=== PATIENT | male | born 1970 | race African-American/Black ===

== ENCOUNTER 2016-05-10 11:33 | Inpatient (IN) | payer OTHER ==
[2016-05-10 12:20] VITALS: BMI 30.7
--- NOTE | 2016-05-10 12:47 | HP ---
Psychiatrist Admission - Data Date of interview: 05/10/16 Admission source: 6N Identifying data: This is the first [facility] admission for this 45 years old single Black male, unemployed on SSI, domiciled Medical History: Significant for history of bronchial asthma and hypertension. Patient attends [facility] and he is on 70 mg of Methadone. Smokes 1ppd Psychiatric History: Reports onset of metal illness at age 24. He was diagnosed with Schizoaffective Disorder . Reports 3 previous psychiatric hospitalions at [facility] and [facility] with most recent in 2013 at [facility]. Reports seeing a psychiatrist at [facility] and he is prescribed Seroquel 50 mg daily & 100 mg HS. Denies history of suicidal attempt Physical/Sexual Abuse/Trauma History: Denies history of physical, sexual abuse Vital Signs: Vital Signs - 24 hr 05/10/16 12:02 Temperature 97.6 F Pulse Rate 82 Respiratory 18 Rate Blood Pressure 137/86 Allergies/Adverse Reactions: Allergies Allergy/AdvReac Type Severity Reaction Status Date / Time No Known Allergies Allergy Verified 05/10/16 11:49 Date of last physical exam: 05/06/16 Concur with the findings of this exam: Yes - Substance Abuse/Tx History Hx Alcohol Use: Yes Hx Substance Use: Yes Substance Use Type: Alcohol (Started drinking alcohol at age 34, consumes one pint of vodka & 2x 6pk of beer daily. Last drink on 05/05/16), Tranquilizers ( Started using xanax at age 44, consumes 8 mg daily. Last used on 05/05/16) Hx Substance Use Treatment: Yes (5 previous inpt detox @ [facility]) - Admission Criteria Previous failed treatment: No Poor recovery environment: Yes Comorbidities: Yes Lacks judgement: Yes Mental Status Exam - Mental Status Exam Alert and Oriented to: Time, Place, Person Cognitive Function: Fair Patient Appearance: Well Groomed Mood: Hopeful, Euthymic Affect: Appropriate Patient Behavior: Asleep, Cooperative Speech Pattern: Clear Voice Loudness: Normal Thought Process: Intact Thought Disorder: Not Present Hallucinations: Denies Suicidal Ideation: Denies Homicidal Ideation: Denies Insight/Judgement: Fair Sleep: Fair Appetite: Good Muscle strength/Tone: Normal Gait/Station: Normal Psychiatric Findings - Problem List ([place] 1, 2,3) (1) Alcohol dependence with uncomplicated withdrawal Current Visit: No Status: Chronic (2) Sedative dependence Current Visit: Yes Status: Acute (3) Nicotine dependence Current Visit: No Status: Chronic Qualifiers: Nicotine product type: cigarettes Substance use status: uncomplicated Qualified Code(s): F17.210 - Nicotine dependence, cigarettes, uncomplicated (4) Opioid dependence on agonist therapy Current Visit: No Status: Chronic (5) Schizoaffective disorder Current Visit: No Status: Acute (6) Asthma Current Visit: No Status: Chronic Qualifiers: Asthma severity: mild intermittent Asthma complication type: uncomplicated Qualified Code(s): J45.20 - Mild intermittent asthma, uncomplicated (7) HTN (hypertension) Current Visit: No Status: Chronic Qualifiers: Hypertension type: essential hypertension - Initial Treatment Plan Initial Treatment Plan: 1) Continue Seroquel 50 mg daily & 100 mg HS. 2) Monitor progress
--- NOTE | 2016-05-10 16:14 | HP ---
ERIN OSMAN Rehab Assess/Revision - Admission History Admitted to Rehab from: [facility] Date of Admission to Rehab: 05/10/16 - Vital signs Vital Signs: Vital Signs Period Temp Pulse Resp BP Sys/Bellamy Pulse Ox Last 24 Hr 97.6 F 82 18 137/86 - Findings Detox History & Physical reviewed: Yes Concur with findings: Yes Comments/Additional Findings: transferred from detox to rehab admission as per protocol
[2016-05-10] MEDS ORDERED: MAGNESIUM HYDROX 2400MG/30ML ORAL SUSPENSION 30 ML CUP PO PRN (16:15)
[2016-05-10] MEDS ORDERED: MAG HYDROX/AL HYDROX/SIMETH 30 ML UNIT-DOSE CUP PO PRN (16:15)
[2016-05-10] MEDS ORDERED: P-EPHED 60MG/TRIPROLIDI 2.5MG TABLET PO PRN (16:15)
[2016-05-10] MEDS ORDERED: MENTHOL/PHENOL 1 EACH UD MM PRN (16:15)
[2016-05-10] MEDS ORDERED: diphenhydrAMINE HCL 50 MG CAPSULE PO PRN (16:15)
[2016-05-10] MEDS ORDERED: MAGNESIUM CITRATE 300 ML BOTTLE PO PRN (16:15)
[2016-05-10] MEDS ORDERED: LOPERAMIDE HCL 2 MG CAPSULE PO PRN (16:15)
[2016-05-10] MEDS ORDERED: NICOTINE POLACRILEX 2 MG GUM BUC PRN (16:15)
[2016-05-10] MEDS ORDERED: ALBUTEROL SO4 6.7 GM HFA INHALER IH PRN (16:15)
[2016-05-10] MEDS ORDERED: ACETAMINOPHEN 325 MG TABLET (FP) PO PRN (16:15)
[2016-05-10] MEDS ORDERED: guaiFENesin/D-METHORPHAN HB 10 ML UNIT-DOSE CUPS PO PRN (16:15)
[2016-05-10] MEDS ORDERED: hydrOXYzine PAMOATE 50 MG CAPSULE (FP) PO PRN (16:15)
[2016-05-10] MEDS ORDERED: NICOTINE 14 MG/24 HOURS TOPICAL PATCH TD PRN (16:44)
[2016-05-10] MEDS ORDERED: INSULIN (NOVOLOG) ASPART 100 UNITS/ML 10ML VIAL ONE (16:59)
[2016-05-10] MEDS: metFORMIN HCL 500 MG TABLET (FP) PO SCH (16:59)
[2016-05-10] MEDS: INSULIN SLIDING SCALE (NOVOLOG) 1 VIAL SQ SCH ×2 (17:01→23:17)
[2016-05-10] MEDS: THIAMINE HCL 100 MG TABLET (FP) PO SCH (23:18)
[2016-05-10] MEDS: QUEtiapine FUMARATE 100 MG TABLET (FP) PO SCH (23:18)
[2016-05-11] MEDS ORDERED: METHADONE HCL 10 MG TABLET ONE (04:03)
[2016-05-11] MEDS ORDERED: METHADONE HCL 40 MG DISPERSABLE TABLET ONE (04:04)
[2016-05-11] MEDS ORDERED: METHADONE HCL 10 MG TABLET PO SCH (06:00)
[2016-05-11] MEDS: METHADONE 80 MG, METHADONE 20 MG PO SCH (06:09)
[2016-05-11] MEDS ORDERED: INSULIN (NOVOLOG) ASPART 100 UNITS/ML 10ML VIAL ONE ×2 (06:45→16:42)
[2016-05-11] MEDS: metFORMIN HCL 500 MG TABLET (FP) PO SCH ×2 (07:44→16:42)
[2016-05-11] MEDS: INSULIN SLIDING SCALE (NOVOLOG) 1 VIAL SQ SCH ×4 (07:44→21:38)
[2016-05-11] MEDS: QUEtiapine FUMARATE 50 MG TABLET PO SCH (10:23)
[2016-05-11] MEDS: PRENATAL VITAMINS W/ FOLIC ACID TABLET (FP) PO SCH (10:24)
[2016-05-11] MEDS: QUEtiapine FUMARATE 100 MG TABLET (FP) PO SCH (21:35)
[2016-05-11] MEDS: THIAMINE HCL 100 MG TABLET (FP) PO SCH (21:35)
[2016-05-12] MEDS ORDERED: METHADONE HCL 10 MG TABLET ONE (04:08)
[2016-05-12] MEDS ORDERED: METHADONE HCL 40 MG DISPERSABLE TABLET ONE (04:08)
[2016-05-12] MEDS: METHADONE 80 MG, METHADONE 20 MG PO SCH (06:20)
[2016-05-12] MEDS ORDERED: INSULIN (NOVOLOG) ASPART 100 UNITS/ML 10ML VIAL ONE ×4 (07:11→22:11)
[2016-05-12] MEDS: INSULIN SLIDING SCALE (NOVOLOG) 1 VIAL SQ SCH ×4 (07:42→22:11)
[2016-05-12] MEDS: metFORMIN HCL 500 MG TABLET (FP) PO SCH ×2 (07:42→17:09)
[2016-05-12] MEDS: QUEtiapine FUMARATE 50 MG TABLET PO SCH (10:25)
[2016-05-12] MEDS: PRENATAL VITAMINS W/ FOLIC ACID TABLET (FP) PO SCH (10:25)
[2016-05-12] MEDS: THIAMINE HCL 100 MG TABLET (FP) PO SCH (22:12)
[2016-05-12] MEDS: QUEtiapine FUMARATE 100 MG TABLET (FP) PO SCH (22:12)
[2016-05-13] MEDS ORDERED: METHADONE HCL 10 MG TABLET ONE (04:52)
[2016-05-13] MEDS ORDERED: METHADONE HCL 40 MG DISPERSABLE TABLET ONE (04:52)
[2016-05-13] MEDS: METHADONE 80 MG, METHADONE 20 MG PO SCH (06:34)
[2016-05-13] MEDS: metFORMIN HCL 500 MG TABLET (FP) PO SCH ×2 (06:36→16:55)
[2016-05-13] MEDS: INSULIN SLIDING SCALE (NOVOLOG) 1 VIAL SQ SCH ×4 (07:31→22:02)
[2016-05-13] MEDS: QUEtiapine FUMARATE 50 MG TABLET PO SCH (10:34)
[2016-05-13] MEDS: PRENATAL VITAMINS W/ FOLIC ACID TABLET (FP) PO SCH (10:35)
[2016-05-13] MEDS ORDERED: INSULIN (NOVOLOG) ASPART 100 UNITS/ML 10ML VIAL ONE ×2 (16:55→22:01)
[2016-05-13] MEDS: THIAMINE HCL 100 MG TABLET (FP) PO SCH (22:01)
[2016-05-13] MEDS: QUEtiapine FUMARATE 100 MG TABLET (FP) PO SCH (22:01)
[2016-05-14] MEDS ORDERED: METHADONE HCL 40 MG DISPERSABLE TABLET ONE (03:19)
[2016-05-14] MEDS ORDERED: METHADONE HCL 10 MG TABLET ONE (03:19)
[2016-05-14] MEDS: METHADONE 80 MG, METHADONE 20 MG PO SCH (06:16)
[2016-05-14] MEDS: metFORMIN HCL 500 MG TABLET (FP) PO SCH ×2 (06:16→17:17)
[2016-05-14] MEDS: INSULIN SLIDING SCALE (NOVOLOG) 1 VIAL SQ SCH ×4 (06:20→22:00)
[2016-05-14] MEDS: PRENATAL VITAMINS W/ FOLIC ACID TABLET (FP) PO SCH (10:19)
[2016-05-14] MEDS: QUEtiapine FUMARATE 50 MG TABLET PO SCH (10:19)
[2016-05-14] MEDS ORDERED: INSULIN (NOVOLOG) ASPART 100 UNITS/ML 10ML VIAL ONE ×3 (11:36→22:00)
[2016-05-14] MEDS: THIAMINE HCL 100 MG TABLET (FP) PO SCH (21:58)
[2016-05-14] MEDS: QUEtiapine FUMARATE 100 MG TABLET (FP) PO SCH (22:01)
[2016-05-15] MEDS ORDERED: METHADONE HCL 10 MG TABLET ONE (04:29)
[2016-05-15] MEDS ORDERED: METHADONE HCL 40 MG DISPERSABLE TABLET ONE (04:29)
[2016-05-15] MEDS: METHADONE 80 MG, METHADONE 20 MG PO SCH (05:56)
[2016-05-15] MEDS: metFORMIN HCL 500 MG TABLET (FP) PO SCH ×2 (07:38→17:07)
[2016-05-15] MEDS ORDERED: INSULIN (NOVOLOG) ASPART 100 UNITS/ML 10ML VIAL ONE ×2 (07:38→12:05)
[2016-05-15] MEDS: INSULIN SLIDING SCALE (NOVOLOG) 1 VIAL SQ SCH ×4 (07:38→22:08)
[2016-05-15] MEDS: PRENATAL VITAMINS W/ FOLIC ACID TABLET (FP) PO SCH (10:41)
[2016-05-15] MEDS: QUEtiapine FUMARATE 50 MG TABLET PO SCH (10:42)
[2016-05-15] MEDS: QUEtiapine FUMARATE 100 MG TABLET (FP) PO SCH (22:08)
[2016-05-15] MEDS: THIAMINE HCL 100 MG TABLET (FP) PO SCH (22:08)
[2016-05-16] MEDS ORDERED: METHADONE HCL 10 MG TABLET ONE (04:19)
[2016-05-16] MEDS ORDERED: METHADONE HCL 40 MG DISPERSABLE TABLET ONE (04:19)
[2016-05-16] MEDS: IBUPROFEN 400 MG TABLET (FP) PO PRN ×2 (05:52→13:08)
[2016-05-16] MEDS: METHADONE 80 MG, METHADONE 20 MG PO SCH (05:52)
[2016-05-16] MEDS ORDERED: INSULIN (NOVOLOG) ASPART 100 UNITS/ML 10ML VIAL ONE ×3 (07:28→16:48)
[2016-05-16] MEDS: INSULIN SLIDING SCALE (NOVOLOG) 1 VIAL SQ SCH ×4 (07:35→21:36)
[2016-05-16] MEDS: metFORMIN HCL 500 MG TABLET (FP) PO SCH ×2 (07:35→16:49)
[2016-05-16] MEDS ORDERED: cloNIDine HCL 0.1 MG TABLET PO PRN (07:39)
--- NOTE | 2016-05-16 07:40 | PN ---
B[facility] Progress Note Note: Last Vital Signs Temp Pulse Resp BP Pulse Ox 98.1 F 84 18 160/106 05/16/16 06:49 05/16/16 07:35 05/16/16 06:49 05/16/16 07:35 BP ELEVATED CLONIDINE 0.1MG PO TID PRN ORDRED WILL CONTINUE TO MONITOR.
[2016-05-16] MEDS: PRENATAL VITAMINS W/ FOLIC ACID TABLET (FP) PO SCH (10:14)
[2016-05-16] MEDS: QUEtiapine FUMARATE 50 MG TABLET PO SCH (10:14)
[2016-05-16] MEDS ORDERED: TRIAMTERENE AND HCTZ - 37.5 MG/25 MG CAPSULE PO ONE (13:52)
[2016-05-16] MEDS: THIAMINE HCL 100 MG TABLET (FP) PO SCH (21:34)
[2016-05-16] MEDS: QUEtiapine FUMARATE 100 MG TABLET (FP) PO SCH (21:34)
[2016-05-16] MEDS: cloNIDine HCL 0.1 MG TABLET PO SCH (21:34)
[2016-05-17] MEDS ORDERED: METHADONE HCL 10 MG TABLET ONE (04:06)
[2016-05-17] MEDS ORDERED: METHADONE HCL 40 MG DISPERSABLE TABLET ONE (04:06)
[2016-05-17] MEDS: METHADONE 80 MG, METHADONE 20 MG PO SCH (05:56)
[2016-05-17] MEDS: metFORMIN HCL 500 MG TABLET (FP) PO SCH ×2 (07:35→17:01)
[2016-05-17] MEDS: INSULIN SLIDING SCALE (NOVOLOG) 1 VIAL SQ SCH ×4 (07:36→21:07)
[2016-05-17] MEDS: TRIAMTERENE AND HCTZ - 37.5 MG/25 MG CAPSULE PO SCH (10:20)
[2016-05-17] MEDS: cloNIDine HCL 0.1 MG TABLET PO SCH ×2 (10:20→21:36)
[2016-05-17] MEDS: QUEtiapine FUMARATE 50 MG TABLET PO SCH (10:20)
[2016-05-17] MEDS: PRENATAL VITAMINS W/ FOLIC ACID TABLET (FP) PO SCH (10:20)
[2016-05-17] MEDS ORDERED: INSULIN (NOVOLOG) ASPART 100 UNITS/ML 10ML VIAL ONE (11:52)
[2016-05-17] MEDS: QUEtiapine FUMARATE 100 MG TABLET (FP) PO SCH (21:08)
[2016-05-17] MEDS: THIAMINE HCL 100 MG TABLET (FP) PO SCH (21:08)
[2016-05-18] MEDS ORDERED: METHADONE HCL 40 MG DISPERSABLE TABLET ONE (05:36)
[2016-05-18] MEDS ORDERED: METHADONE HCL 10 MG TABLET ONE (05:36)
[2016-05-18] MEDS: METHADONE 80 MG, METHADONE 20 MG PO SCH (05:49)
[2016-05-18] MEDS: metFORMIN HCL 500 MG TABLET (FP) PO SCH ×2 (06:39→17:07)
[2016-05-18] MEDS: INSULIN SLIDING SCALE (NOVOLOG) 1 VIAL SQ SCH ×4 (06:39→22:05)
[2016-05-18] MEDS: QUEtiapine FUMARATE 50 MG TABLET PO SCH (10:29)
[2016-05-18] MEDS: cloNIDine HCL 0.1 MG TABLET PO SCH ×2 (10:29→21:18)
[2016-05-18] MEDS: TRIAMTERENE AND HCTZ - 37.5 MG/25 MG CAPSULE PO SCH (10:29)
[2016-05-18] MEDS: PRENATAL VITAMINS W/ FOLIC ACID TABLET (FP) PO SCH (10:29)
[2016-05-18] MEDS ORDERED: INSULIN (NOVOLOG) ASPART 100 UNITS/ML 10ML VIAL ONE ×2 (11:25→17:07)
[2016-05-18] MEDS: QUEtiapine FUMARATE 100 MG TABLET (FP) PO SCH (21:18)
[2016-05-18] MEDS: THIAMINE HCL 100 MG TABLET (FP) PO SCH (21:18)
[2016-05-19] MEDS ORDERED: METHADONE HCL 10 MG TABLET ONE (04:19)
[2016-05-19] MEDS ORDERED: METHADONE HCL 40 MG DISPERSABLE TABLET ONE (04:19)
[2016-05-19] MEDS: metFORMIN HCL 500 MG TABLET (FP) PO SCH ×2 (06:12→17:01)
[2016-05-19] MEDS: METHADONE 80 MG, METHADONE 20 MG PO SCH (06:12)
[2016-05-19] MEDS: INSULIN SLIDING SCALE (NOVOLOG) 1 VIAL SQ SCH ×4 (06:16→21:18)
[2016-05-19] MEDS: TRIAMTERENE AND HCTZ - 37.5 MG/25 MG CAPSULE PO SCH (10:21)
[2016-05-19] MEDS: cloNIDine HCL 0.1 MG TABLET PO SCH ×2 (10:21→21:18)
[2016-05-19] MEDS: QUEtiapine FUMARATE 50 MG TABLET PO SCH (10:21)
[2016-05-19] MEDS: PRENATAL VITAMINS W/ FOLIC ACID TABLET (FP) PO SCH (10:21)
[2016-05-19] MEDS ORDERED: INSULIN (NOVOLOG) ASPART 100 UNITS/ML 10ML VIAL ONE (11:20)
[2016-05-19] MEDS: QUEtiapine FUMARATE 100 MG TABLET (FP) PO SCH (21:18)
[2016-05-19] MEDS: THIAMINE HCL 100 MG TABLET (FP) PO SCH (21:18)
[2016-05-20] MEDS ORDERED: METHADONE HCL 10 MG TABLET ONE (05:47)
[2016-05-20] MEDS ORDERED: METHADONE HCL 40 MG DISPERSABLE TABLET ONE (05:47)
[2016-05-20] MEDS: METHADONE 80 MG, METHADONE 20 MG PO SCH (06:06)
[2016-05-20] MEDS: metFORMIN HCL 500 MG TABLET (FP) PO SCH ×2 (06:06→16:43)
[2016-05-20] MEDS: INSULIN SLIDING SCALE (NOVOLOG) 1 VIAL SQ SCH ×4 (06:10→21:17)
[2016-05-20] MEDS: QUEtiapine FUMARATE 50 MG TABLET PO SCH (10:31)
[2016-05-20] MEDS: TRIAMTERENE AND HCTZ - 37.5 MG/25 MG CAPSULE PO SCH (10:31)
[2016-05-20] MEDS: cloNIDine HCL 0.1 MG TABLET PO SCH ×2 (10:31→21:17)
[2016-05-20] MEDS: PRENATAL VITAMINS W/ FOLIC ACID TABLET (FP) PO SCH (10:31)
[2016-05-20] MEDS ORDERED: INSULIN (NOVOLOG) ASPART 100 UNITS/ML 10ML VIAL ONE (11:28)
[2016-05-20] MEDS: THIAMINE HCL 100 MG TABLET (FP) PO SCH (21:17)
[2016-05-20] MEDS: QUEtiapine FUMARATE 100 MG TABLET (FP) PO SCH (21:17)
[2016-05-21] MEDS ORDERED: METHADONE HCL 40 MG DISPERSABLE TABLET ONE (05:06)
[2016-05-21] MEDS ORDERED: METHADONE HCL 10 MG TABLET ONE (05:06)
[2016-05-21] MEDS: METHADONE 80 MG, METHADONE 20 MG PO SCH (05:57)
[2016-05-21] MEDS: metFORMIN HCL 500 MG TABLET (FP) PO SCH ×2 (06:00→16:50)
[2016-05-21] MEDS: INSULIN SLIDING SCALE (NOVOLOG) 1 VIAL SQ SCH ×4 (06:00→21:40)
[2016-05-21] MEDS: TRIAMTERENE AND HCTZ - 37.5 MG/25 MG CAPSULE PO SCH (10:25)
[2016-05-21] MEDS: cloNIDine HCL 0.1 MG TABLET PO SCH ×2 (10:25→21:41)
[2016-05-21] MEDS: QUEtiapine FUMARATE 50 MG TABLET PO SCH (10:25)
[2016-05-21] MEDS: PRENATAL VITAMINS W/ FOLIC ACID TABLET (FP) PO SCH (10:25)
[2016-05-21] MEDS ORDERED: INSULIN (NOVOLOG) ASPART 100 UNITS/ML 10ML VIAL ONE (11:18)
[2016-05-21] MEDS: THIAMINE HCL 100 MG TABLET (FP) PO SCH (21:40)
[2016-05-21] MEDS: QUEtiapine FUMARATE 100 MG TABLET (FP) PO SCH (21:40)
[2016-05-22] MEDS ORDERED: METHADONE HCL 10 MG TABLET ONE (04:21)
[2016-05-22] MEDS ORDERED: METHADONE HCL 40 MG DISPERSABLE TABLET ONE (04:21)
[2016-05-22] MEDS: METHADONE 80 MG, METHADONE 20 MG PO SCH (06:16)
[2016-05-22] MEDS: metFORMIN HCL 500 MG TABLET (FP) PO SCH ×2 (06:17→16:51)
[2016-05-22] MEDS: INSULIN SLIDING SCALE (NOVOLOG) 1 VIAL SQ SCH ×4 (06:19→21:45)
[2016-05-22] MEDS: cloNIDine HCL 0.1 MG TABLET PO SCH ×2 (09:46→21:44)
[2016-05-22] MEDS: QUEtiapine FUMARATE 50 MG TABLET PO SCH (09:46)
[2016-05-22] MEDS: PRENATAL VITAMINS W/ FOLIC ACID TABLET (FP) PO SCH (09:46)
[2016-05-22] MEDS: TRIAMTERENE AND HCTZ - 37.5 MG/25 MG CAPSULE PO SCH (09:46)
[2016-05-22] MEDS ORDERED: INSULIN (NOVOLOG) ASPART 100 UNITS/ML 10ML VIAL ONE (11:53)
[2016-05-22] MEDS: THIAMINE HCL 100 MG TABLET (FP) PO SCH (21:44)
[2016-05-22] MEDS: QUEtiapine FUMARATE 100 MG TABLET (FP) PO SCH (21:44)
[2016-05-23] MEDS ORDERED: METHADONE HCL 40 MG DISPERSABLE TABLET ONE (05:38)
[2016-05-23] MEDS ORDERED: METHADONE HCL 10 MG TABLET ONE (05:38)
[2016-05-23] MEDS ORDERED: METHADONE HCL 40 MG DISPERSABLE TABLET PO SCH (06:00)
[2016-05-23] MEDS: METHADONE 80 MG, METHADONE 20 MG PO SCH (06:18)
[2016-05-23] MEDS: metFORMIN HCL 500 MG TABLET (FP) PO SCH ×2 (06:19→16:38)
[2016-05-23] MEDS: INSULIN SLIDING SCALE (NOVOLOG) 1 VIAL SQ SCH ×4 (06:46→21:46)
[2016-05-23] MEDS: PRENATAL VITAMINS W/ FOLIC ACID TABLET (FP) PO SCH (10:34)
[2016-05-23] MEDS: QUEtiapine FUMARATE 50 MG TABLET PO SCH (10:34)
[2016-05-23] MEDS: cloNIDine HCL 0.1 MG TABLET PO SCH ×2 (10:34→21:45)
[2016-05-23] MEDS: TRIAMTERENE AND HCTZ - 37.5 MG/25 MG CAPSULE PO SCH (10:35)
[2016-05-23] MEDS ORDERED: INSULIN (NOVOLOG) ASPART 100 UNITS/ML 10ML VIAL ONE ×2 (10:52→21:45)
[2016-05-23] MEDS: IBUPROFEN 400 MG TABLET (FP) PO PRN (17:53)
[2016-05-23] MEDS: QUEtiapine FUMARATE 100 MG TABLET (FP) PO SCH (21:45)
[2016-05-23] MEDS: THIAMINE HCL 100 MG TABLET (FP) PO SCH (21:45)
[2016-05-24] MEDS ORDERED: METHADONE HCL 40 MG DISPERSABLE TABLET ONE (04:40)
[2016-05-24] MEDS ORDERED: METHADONE HCL 10 MG TABLET ONE (04:40)
[2016-05-24] MEDS: METHADONE 80 MG, METHADONE 20 MG PO SCH (06:06)
[2016-05-24] MEDS: INSULIN SLIDING SCALE (NOVOLOG) 1 VIAL SQ SCH ×4 (07:45→22:06)
[2016-05-24] MEDS: metFORMIN HCL 500 MG TABLET (FP) PO SCH ×2 (07:45→16:48)
[2016-05-24] MEDS: QUEtiapine FUMARATE 50 MG TABLET PO SCH (10:09)
[2016-05-24] MEDS: cloNIDine HCL 0.1 MG TABLET PO SCH ×2 (10:09→22:06)
[2016-05-24] MEDS: TRIAMTERENE AND HCTZ - 37.5 MG/25 MG CAPSULE PO SCH (10:09)
[2016-05-24] MEDS: PRENATAL VITAMINS W/ FOLIC ACID TABLET (FP) PO SCH (10:09)
[2016-05-24] MEDS ORDERED: INSULIN (NOVOLOG) ASPART 100 UNITS/ML 10ML VIAL ONE ×2 (11:22→22:05)
[2016-05-24] MEDS: QUEtiapine FUMARATE 100 MG TABLET (FP) PO SCH (22:06)
[2016-05-24] MEDS: THIAMINE HCL 100 MG TABLET (FP) PO SCH (22:06)
[2016-05-25] MEDS ORDERED: METHADONE HCL 10 MG TABLET ONE (02:33)
[2016-05-25] MEDS ORDERED: METHADONE HCL 40 MG DISPERSABLE TABLET ONE (02:34)
[2016-05-25] MEDS: METHADONE 80 MG, METHADONE 20 MG PO SCH (05:52)
[2016-05-25] MEDS ORDERED: INSULIN (NOVOLOG) ASPART 100 UNITS/ML 10ML VIAL ONE ×3 (06:58→21:47)
[2016-05-25] MEDS: metFORMIN HCL 500 MG TABLET (FP) PO SCH ×2 (07:23→17:00)
[2016-05-25] MEDS: INSULIN SLIDING SCALE (NOVOLOG) 1 VIAL SQ SCH ×4 (07:24→21:19)
[2016-05-25] MEDS: QUEtiapine FUMARATE 50 MG TABLET PO SCH (10:05)
[2016-05-25] MEDS: cloNIDine HCL 0.1 MG TABLET PO SCH ×2 (10:05→21:19)
[2016-05-25] MEDS: PRENATAL VITAMINS W/ FOLIC ACID TABLET (FP) PO SCH (10:06)
[2016-05-25] MEDS: TRIAMTERENE AND HCTZ - 37.5 MG/25 MG CAPSULE PO SCH (10:06)
[2016-05-25] MEDS: THIAMINE HCL 100 MG TABLET (FP) PO SCH (21:18)
[2016-05-25] MEDS: QUEtiapine FUMARATE 100 MG TABLET (FP) PO SCH (21:19)
[2016-05-26] MEDS ORDERED: METHADONE HCL 40 MG DISPERSABLE TABLET ONE (04:15)
[2016-05-26] MEDS ORDERED: METHADONE HCL 10 MG TABLET ONE (04:15)
[2016-05-26] MEDS: METHADONE 80 MG, METHADONE 20 MG PO SCH (06:16)
[2016-05-26] MEDS: INSULIN SLIDING SCALE (NOVOLOG) 1 VIAL SQ SCH ×4 (07:24→21:24)
[2016-05-26] MEDS: metFORMIN HCL 500 MG TABLET (FP) PO SCH ×2 (07:24→16:40)
[2016-05-26] MEDS: TRIAMTERENE AND HCTZ - 37.5 MG/25 MG CAPSULE PO SCH (10:18)
[2016-05-26] MEDS: QUEtiapine FUMARATE 50 MG TABLET PO SCH (10:18)
[2016-05-26] MEDS: cloNIDine HCL 0.1 MG TABLET PO SCH ×2 (10:18→21:25)
[2016-05-26] MEDS: PRENATAL VITAMINS W/ FOLIC ACID TABLET (FP) PO SCH (10:18)
[2016-05-26] MEDS ORDERED: INSULIN (NOVOLOG) ASPART 100 UNITS/ML 10ML VIAL ONE ×2 (11:21→21:47)
[2016-05-26] MEDS: THIAMINE HCL 100 MG TABLET (FP) PO SCH (21:25)
[2016-05-26] MEDS: QUEtiapine FUMARATE 100 MG TABLET (FP) PO SCH (21:25)
[2016-05-27] MEDS ORDERED: METHADONE HCL 10 MG TABLET ONE (04:12)
[2016-05-27] MEDS ORDERED: METHADONE HCL 40 MG DISPERSABLE TABLET ONE (04:12)
[2016-05-27] MEDS: METHADONE 80 MG, METHADONE 20 MG PO SCH (05:59)
[2016-05-27] MEDS: metFORMIN HCL 500 MG TABLET (FP) PO SCH ×2 (08:00→16:45)
[2016-05-27] MEDS: INSULIN SLIDING SCALE (NOVOLOG) 1 VIAL SQ SCH ×4 (08:00→21:38)
[2016-05-27] MEDS: TRIAMTERENE AND HCTZ - 37.5 MG/25 MG CAPSULE PO SCH (10:17)
[2016-05-27] MEDS: PRENATAL VITAMINS W/ FOLIC ACID TABLET (FP) PO SCH (10:17)
[2016-05-27] MEDS: QUEtiapine FUMARATE 50 MG TABLET PO SCH (10:18)
[2016-05-27] MEDS: cloNIDine HCL 0.1 MG TABLET PO SCH ×2 (10:18→21:36)
[2016-05-27] MEDS ORDERED: INSULIN (NOVOLOG) ASPART 100 UNITS/ML 10ML VIAL ONE ×3 (11:26→21:37)
[2016-05-27] MEDS: THIAMINE HCL 100 MG TABLET (FP) PO SCH (21:36)
[2016-05-27] MEDS: QUEtiapine FUMARATE 100 MG TABLET (FP) PO SCH (21:36)
[2016-05-28] MEDS ORDERED: METHADONE HCL 40 MG DISPERSABLE TABLET ONE (05:43)
[2016-05-28] MEDS ORDERED: METHADONE HCL 10 MG TABLET ONE (05:43)
[2016-05-28] MEDS: METHADONE 80 MG, METHADONE 20 MG PO SCH (06:27)
[2016-05-28] MEDS: INSULIN SLIDING SCALE (NOVOLOG) 1 VIAL SQ SCH ×4 (07:55→21:28)
[2016-05-28] MEDS: metFORMIN HCL 500 MG TABLET (FP) PO SCH ×2 (07:55→16:50)
[2016-05-28] MEDS: QUEtiapine FUMARATE 50 MG TABLET PO SCH (10:16)
[2016-05-28] MEDS: cloNIDine HCL 0.1 MG TABLET PO SCH ×2 (10:16→21:27)
[2016-05-28] MEDS: TRIAMTERENE AND HCTZ - 37.5 MG/25 MG CAPSULE PO SCH (10:16)
[2016-05-28] MEDS: PRENATAL VITAMINS W/ FOLIC ACID TABLET (FP) PO SCH (10:16)
[2016-05-28] MEDS ORDERED: INSULIN (NOVOLOG) ASPART 100 UNITS/ML 10ML VIAL ONE ×2 (11:27→16:49)
[2016-05-28] MEDS: THIAMINE HCL 100 MG TABLET (FP) PO SCH (21:27)
[2016-05-28] MEDS: QUEtiapine FUMARATE 100 MG TABLET (FP) PO SCH (21:27)
[2016-05-29] MEDS ORDERED: METHADONE HCL 10 MG TABLET ONE (04:07)
[2016-05-29] MEDS ORDERED: METHADONE HCL 40 MG DISPERSABLE TABLET ONE (04:07)
[2016-05-29] MEDS ORDERED: METHADONE HCL 40 MG DISPERSABLE TABLET PO SCH (06:00)
[2016-05-29] MEDS: METHADONE 20 MG, METHADONE 80 MG PO SCH (06:35)
[2016-05-29] MEDS: metFORMIN HCL 500 MG TABLET (FP) PO SCH ×2 (07:02→16:37)
[2016-05-29] MEDS: INSULIN SLIDING SCALE (NOVOLOG) 1 VIAL SQ SCH ×4 (07:02→21:18)
[2016-05-29] MEDS ORDERED: INSULIN (NOVOLOG) ASPART 100 UNITS/ML 10ML VIAL ONE ×3 (07:36→21:45)
[2016-05-29] MEDS: QUEtiapine FUMARATE 50 MG TABLET PO SCH (10:00)
[2016-05-29] MEDS: cloNIDine HCL 0.1 MG TABLET PO SCH ×2 (10:00→21:17)
[2016-05-29] MEDS: TRIAMTERENE AND HCTZ - 37.5 MG/25 MG CAPSULE PO SCH (10:00)
[2016-05-29] MEDS: PRENATAL VITAMINS W/ FOLIC ACID TABLET (FP) PO SCH (10:00)
[2016-05-29] MEDS: QUEtiapine FUMARATE 100 MG TABLET (FP) PO SCH (21:17)
[2016-05-29] MEDS: THIAMINE HCL 100 MG TABLET (FP) PO SCH (21:17)
[2016-05-30] MEDS ORDERED: METHADONE HCL 40 MG DISPERSABLE TABLET ONE (05:36)
[2016-05-30] MEDS ORDERED: METHADONE HCL 10 MG TABLET ONE (05:36)
[2016-05-30] MEDS: METHADONE 20 MG, METHADONE 80 MG PO SCH (06:16)
[2016-05-30] MEDS: metFORMIN HCL 500 MG TABLET (FP) PO SCH ×2 (06:20→16:50)
[2016-05-30] MEDS: INSULIN SLIDING SCALE (NOVOLOG) 1 VIAL SQ SCH ×4 (06:20→21:19)
[2016-05-30] MEDS: TRIAMTERENE AND HCTZ - 37.5 MG/25 MG CAPSULE PO SCH (09:49)
[2016-05-30] MEDS: QUEtiapine FUMARATE 50 MG TABLET PO SCH (09:49)
[2016-05-30] MEDS: PRENATAL VITAMINS W/ FOLIC ACID TABLET (FP) PO SCH (09:49)
[2016-05-30] MEDS: cloNIDine HCL 0.1 MG TABLET PO SCH ×2 (09:49→21:18)
[2016-05-30] MEDS ORDERED: INSULIN (NOVOLOG) ASPART 100 UNITS/ML 10ML VIAL ONE ×3 (11:35→21:18)
[2016-05-30] MEDS: THIAMINE HCL 100 MG TABLET (FP) PO SCH (21:18)
[2016-05-30] MEDS: QUEtiapine FUMARATE 100 MG TABLET (FP) PO SCH (21:18)
[2016-05-31] MEDS ORDERED: METHADONE HCL 40 MG DISPERSABLE TABLET ONE (04:08)
[2016-05-31] MEDS ORDERED: METHADONE HCL 10 MG TABLET ONE (04:08)
[2016-05-31] MEDS ORDERED: INSULIN (NOVOLOG) ASPART 100 UNITS/ML 10ML VIAL ONE ×4 (06:13→21:38)
[2016-05-31] MEDS: METHADONE 20 MG, METHADONE 80 MG PO SCH (06:48)
[2016-05-31] MEDS: INSULIN SLIDING SCALE (NOVOLOG) 1 VIAL SQ SCH ×4 (07:59→21:39)
[2016-05-31] MEDS: metFORMIN HCL 500 MG TABLET (FP) PO SCH ×2 (07:59→16:44)
[2016-05-31] MEDS: cloNIDine HCL 0.1 MG TABLET PO SCH ×2 (09:51→21:38)
[2016-05-31] MEDS: QUEtiapine FUMARATE 50 MG TABLET PO SCH (09:51)
[2016-05-31] MEDS: PRENATAL VITAMINS W/ FOLIC ACID TABLET (FP) PO SCH (09:51)
[2016-05-31] MEDS: TRIAMTERENE AND HCTZ - 37.5 MG/25 MG CAPSULE PO SCH (09:51)
--- NOTE | 2016-05-31 15:09 | PN ---
Psychiatric Progress Note Vital Signs: Vital Signs Period Temp Pulse Resp BP Sys/Bellamy Pulse Ox Last 24 Hr 98.3 F 73-90 18-18 119-146/77-88 Date of Session: 05/31/16 Chief Complaint:: Psychiatrist Discharge Note HPI: Patient addressing Alcohol and Sedative Dependence comorbid with Nicotine Dependence, Opoid Dependence on Agonist Therapy and Schizoaffective Disorder ROS: Asthma, HTN were medically managed Current Medications: Active Medications Generic Name Dose Route Start Last Admin Trade Name Freq PRN Reason Stop Dose Admin Acetaminophen 650 mg 05/10/16 16:15 Tylenol - PO Q4H PRN FEVER OR PAIN Al Hydroxide/Mg Hydroxide 30 ml 05/10/16 16:15 Mylanta Oral Suspension - PO Q6H PRN DYSPEPSIA Albuterol Sulfate 2 puff 05/10/16 16:15 Ventolin Hfa Inhaler - IH Q4H PRN SHORTNESS OF BREATH Clonidine 0.1 mg 05/16/16 22:00 05/31/16 09:51 Catapres - PO 0.1 mg BID JAGDISH Administration Diphenhydramine HCl 50 mg 05/10/16 16:15 Benadryl - PO HSMR1 PRN FOR ITCHING Eucalyptus/Menthol/Phenol/Sorbitol 1 each 05/10/16 16:15 Cepastat Lozenge - MM Q4H PRN SORE THROAT Guaifenesin 10 ml 05/10/16 16:15 Robitussin Dm - PO Q6H PRN COUGH Ibuprofen 400 mg 05/10/16 16:15 05/23/16 17:53 Motrin - PO 400 mg Q6H PRN Administration PAIN Insulin Aspart 1 vial 05/10/16 16:30 05/31/16 11:43 Novolog Vial Sliding Scale - SQ 8 units ACHS JAGDISH Administration Protocol Loperamide HCl 4 mg 05/10/16 16:15 Imodium - PO Q6H PRN DIARRHEA Magnesium Hydroxide 30 ml 05/10/16 16:15 Milk Of Magnesia - PO DAILY PRN CONSTIPATION Metformin HCl 500 mg 05/10/16 16:30 05/31/16 07:59 Glucophage - PO 500 mg BIDAC JAGDISH Administration Methadone HCl 20 mg/ Methadone 100 mg 05/29/16 06:00 05/31/16 06:48 HCl 80 mg PO 100 mg DAILY@0600 JAGDISH Administration Nicotine 14 mg 05/10/16 16:44 Nicoderm Patch - TD DAILY PRN WITHDRAWAL(CONT SUBST) Nicotine Polacrilex 2 mg 05/10/16 16:15 Nicorette Gum - BUC Q2H PRN NICOTINE REPLACEMENT RX Multivit/Folic Acid/Iron 1 tab 05/11/16 10:00 05/31/16 09:51 Vitamins (Sjr) - PO Not Given DAILY JAGDISH Pseudoephedrine/Triprolidine 1 combo 05/10/16 16:15 Actifed - PO TID PRN NASAL CONGESTION Quetiapine Fumarate 100 mg 05/10/16 22:00 05/30/16 21:18 Seroquel - PO 100 mg HS JAGDISH Administration Quetiapine Fumarate 50 mg 05/11/16 10:00 05/31/16 09:51 Seroquel - PO 50 mg DAILY JAGDISH Administration Thiamine HCl 100 mg 05/10/16 22:00 05/30/16 21:18 Vitamin B1 - PO 100 mg HS JAGDISH Administration Triamterene/HCTZ 1 cap 05/17/16 10:00 05/31/16 09:51 Dyazide 25/37.5mg PO 1 cap DAILY JAGDISH Administration Current Side Effect: No Lab tests ordered: No Lab tests reviewed: Yes Provider note:: Patient will complete this program on 06/01/16. He has met his treatment goals and will continue to address his issues in outpatient at [facility] . He responded well to Seroquel 50 mg daily & 100 mg HS. Scripts for 30 days supply of medications will be electronically transmitted to [facility] at [address] [place] [address]. He is stable for discharge on Total face to face time:: 35 Mental Status Exam - Mental Status Exam Alert and Oriented to: Time, Place, Person Cognitive Function: Fair Patient Appearance: Well Groomed Mood: Hopeful, Euthymic Affect: Appropriate Patient Behavior: Cooperative Speech Pattern: Clear Voice Loudness: Normal Thought Process: Intact Thought Disorder: Not Present Hallucinations: Denies Suicidal Ideation: Denies Homicidal Ideation: Denies Insight/Judgement: Fair Sleep: Fair Appetite: Good Muscle strength/Tone: Normal, Severe Hypotonicity Psychiatric Treatment Plan - Problem List (1) Alcohol dependence with uncomplicated withdrawal Current Visit: No (2) Sedative dependence Current Visit: Yes (3) Nicotine dependence Current Visit: No Qualifiers: Nicotine product type: cigarettes Substance use status: uncomplicated Qualified Code(s): F17.210 - Nicotine dependence, cigarettes, uncomplicated (4) Opioid dependence on agonist therapy Current Visit: No (5) Schizoaffective disorder Current Visit: No (6) Asthma Current Visit: No Qualifiers: Asthma severity: mild intermittent Asthma complication type: uncomplicated Qualified Code(s): J45.20 - Mild intermittent asthma, uncomplicated (7) HTN (hypertension) Current Visit: No Qualifiers: Hypertension type: essential hypertension Initial treatment plan: Patient will be discharged tomorrow and referred to [facility] for outpatient treatment
[2016-05-31] MEDS: QUEtiapine FUMARATE 100 MG TABLET (FP) PO SCH (21:38)
[2016-05-31] MEDS: THIAMINE HCL 100 MG TABLET (FP) PO SCH (21:38)
[2016-06-01] MEDS ORDERED: METHADONE HCL 40 MG DISPERSABLE TABLET ONE (05:36)
[2016-06-01] MEDS ORDERED: METHADONE HCL 10 MG TABLET ONE (05:36)
[2016-06-01] MEDS: metFORMIN HCL 500 MG TABLET (FP) PO SCH (06:09)
[2016-06-01] MEDS: INSULIN SLIDING SCALE (NOVOLOG) 1 VIAL SQ SCH (06:09)
[2016-06-01] MEDS: METHADONE 20 MG, METHADONE 80 MG PO SCH (06:09)
[2016-06-01 07:17] VITALS: BP 115/70; PULSE 77; TEMP 98.2
[2016-06-01] MEDS: cloNIDine HCL 0.1 MG TABLET PO SCH (09:29)
[2016-06-01] MEDS: TRIAMTERENE AND HCTZ - 37.5 MG/25 MG CAPSULE PO SCH (09:29)
[2016-06-01] MEDS: QUEtiapine FUMARATE 50 MG TABLET PO SCH (09:30)
[2016-06-01] MEDS: PRENATAL VITAMINS W/ FOLIC ACID TABLET (FP) PO SCH (09:30)
== END 2016-06-01 10:00 | disposition home or self-care (01) | DRG 772 ==
LOC: YASAS 11:33 → Y3W 11:35
PROVIDERS: ADMIT Psychiatry & Neurology Psychiatry; ATTEND Psychiatry & Neurology Psychiatry
PROC: HZ42ZZZ Group Counseling for Substance Abuse Treatment, Cognitive-Behavioral (ICD-10-PCS; principal; 2016-05-10)
DX: F10.20 Alcohol dependence, uncomplicated (principal); F11.20 Opioid dependence, uncomplicated; F13.20 Sedative, hypnotic or anxiolytic dependence, uncomplicated; F17.210 Nicotine dependence, cigarettes, uncomplicated; F25.9 Schizoaffective disorder, unspecified; I10 Essential (primary) hypertension; J45.909 Unspecified asthma, uncomplicated

== ENCOUNTER 2016-06-27 10:40 | Inpatient (IN) | payer OTHER ==
[2016-06-27 11:06] VITALS: BMI 23.7
--- NOTE | 2016-06-27 12:49 | HP ---
CIWA Score - CIWA Score Nausea/Vomitin-No Nausea/No Vomiting Muscle Tremors: 3 Anxiety: 5 Agitation: 4-Moderately Restless Paroxysmal Sweats: 1-Minimal Palms Moist Orientation: 0-Oriented Tacttile Disturbances: 3-Moderate Itch/Numb/Burn Auditory Disturbances: 0-None Visual Disturbances: 0-None Headache: 0-None Present CIWA-Ar Total Score: 16 Admission ROS S - HPI Chief Complaint: DETOX TX FOR ALCOHOL AND XANAX DEPENDENCE Allergies/Adverse Reactions: Allergies Allergy/AdvReac Type Severity Reaction Status Date / Time No Known Allergies Allergy Verified 06/27/16 11:34 History of Present Illness: 45 Y/O AA/MALE WITH A HX OF ALCOHOL AND XANAX DEPENDENCE AND ON [facility] MMTP SEEKING DETOX TX. PT HAS PREVIOUS MULTIPLE EPISODES OF DRUG TX. Exam Limitations: No Limitations - Ebola screening Have you traveled outside of the country in the last 21 days: No Have you had contact with anyone from an Ebola affected area: No Have you been sick,other than usual withdrawal symptoms: No Do you have a fever: No - Review of Systems Constitutional: Chills, Loss of Appetite, Night Sweats, Changes in sleep EENT: reports: Blurred Vision, Tearing, Nose Congestion, Dental Problems ( MISSING TEETH) Respiratory: reports: Shortness of Breath (HX ASTHMA), Wheezing Cardiac: reports: Lightheadedness GI: reports: Diarrhea, Nausea, Poor Appetite, Poor Fluid Intake, Vomiting : reports: No Symptoms Reported Musculoskeletal: reports: Back Pain, Joint Pain, Muscle Pain Integumentary: reports: Dryness Neuro: reports: Headache, Tremors, Unsteady Gait, Dizziness Endocrine: reports: No Symptoms Reported Hematology: reports: No Symptoms Reported Psychiatric: reports: Orientated x3, Anxious Other Systems: Reviewed and Negative Patient History - Patient Medical History Hx Anemia: No Hx Asthma: Yes (Albuterol Inhaler) Hx Chronic Obstructive Pulmonary Disease (COPD): No Hx Cancer: No Hx Cardiac Disorders: No Hx Congestive Heart Failure: No Hx Hypertension: Yes (Non Complince with medication) Hx Hypercholesterolemia: No Hx Pacemaker: No HX Cerebrovascular Accident: No Hx Seizures: No Hx Dementia: No Hx Diabetes: Yes (Non-compliant with Metformin) Hx Gastrointestinal Disorders: No Hx Liver Disease: No Hx Genitourinary Disorders: No Hx Sexually Transmitted Disorders: No Hx Renal Disease (ESRD): No Hx Thyroid Disease: No Hx Human Immunodeficiency Virus (HIV): No ( NEGATIVE HX) Hx Hepatitis C: No (2016 NEGATIVE) Hx Depression: Yes (NOT CURRENTLY TAKEN MED) Hx Suicide Attempt: No (DENIES) Hx Bipolar Disorder: No Hx Schizophrenia: No - Patient Surgical History Past Surgical History: No Hx Neurologic Surgery: No Hx Cataract Extraction: No Hx Cardiac Surgery: No Hx Lung Surgery: No Hx Breast Surgery: No Hx Breast Biopsy: No Hx Abdominal Surgery: No Hx Appendectomy: No Hx Cholecystectomy: No Hx Genitourinary Surgery: No Hx Orthopedic Surgery: No Anesthesia Reaction: No - PPD History Previous Implant?: Yes Implanted On Prior [facility] Admission?: No Date: 05/08/16 Results: 0 mm PPD to be Administered?: No - Reproductive History Patient is a Female of Child Bearing Age (11 -55 yrs old): No (MALE) - Smoking Cessation Smoking history: Current every day smoker Have you smoked in the past 12 months: Yes Aproximately how many cigarettes per day: 20 Hx Chewing Tobacco Use: No Initiated information on smoking cessation: Yes 'Breaking Loose' booklet given: 06/27/16 - Substance & Tx. History Hx Alcohol Use: Yes (VODKA) Hx Substance Use: Yes (XANAX) Hx Substance Use Treatment: Yes ([facility] MMTP..METHADONE 100 MG DAILY,LAST DOSE 06/26/16) - Substances Abused Alcohol Route: Oral Frequency: Daily Amount used: 1 pint (liquor) Age of first use: 15 Date of Last Use: 06/26/16 Alprazolam (Xanax) Route: Oral Frequency: Daily Amount used: 8mg Age of first use: 44 Date of Last Use: 06/25/16 Family Disease History - Family Disease History Family Disease History: CA: Father (), Other: Mother (HTN-) Admission Physical Exam BHS - Vital Signs Vital Signs: Vital Signs - 24 hr 06/27/16 11:04 Temperature 98.2 F Pulse Rate 99 H Respiratory 20 Rate Blood Pressure 200/113 - Physical General Appearance: Yes: Moderate Distress, Irritable, Anxious HEENTM: Yes: EOMI, Normocephalic, CARLIN, Pharynx Normal Respiratory: Yes: Chest Non-Tender, Lungs Clear, Normal Breath Sounds, No Respiratory Distress Neck: Yes: Supple, Trachea in good position Breast: Yes: Breast Exam Deferred Cardiology: Yes: Regular Rhythm, Regular Rate, S1, S2 Abdominal: Yes: Normal Bowel Sounds, Non Tender, Soft Genitourinary: Yes: Other (N/C) Musculoskeletal: Yes: Within Normal Limits Extremities: Yes: Normal Range of Motion, Non-Tender Neurological: Yes: hand touch up painter II-XII NML intact, Fully Oriented, Alert, Motor Strength 5/5 Integumentary: Yes: Dry, Warm Lymphatic: Yes: Within Normal Limits - Diagnostic (1) Alcohol dependence with uncomplicated withdrawal Current Visit: Yes Status: Acute (2) Asthma Current Visit: Yes Status: Chronic Qualifiers: Asthma severity: mild intermittent Asthma complication type: uncomplicated Qualified Code(s): J45.20 - Mild intermittent asthma, uncomplicated (3) Methadone maintenance therapy patient Current Visit: Yes Status: Chronic (4) Nicotine dependence Current Visit: Yes Status: Acute Qualifiers: Nicotine product type: cigarettes Substance use status: uncomplicated Qualified Code(s): F17.210 - Nicotine dependence, cigarettes, uncomplicated (5) Uncomplicated sedative, hypnotic or anxiolytic withdrawal Current Visit: Yes Status: Acute (6) Hypertension Current Visit: Yes Status: Chronic Qualifiers: Hypertension type: essential hypertension Qualified Code(s): I10 - Essential (primary) hypertension (7) Dry skin dermatitis Current Visit: Yes Status: Chronic Cleared for Admission S - Detox or Rehab [facility] Level of Care: Medically Managed [facility] Breath Alcohol Content Breath Alcohol Content: 0 Urine Drug Screen - Results Drug Screen Negative: No Urine Drug Screen Results: BZO-Benzodiazepines, MTD-Methadone, TCA-Tricyclic Antidepress
[2016-06-27] MEDS ORDERED: MAGNESIUM HYDROX 2400MG/30ML ORAL SUSPENSION 30 ML CUP PO PRN (13:00)
[2016-06-27] MEDS ORDERED: NICOTINE POLACRILEX 2 MG GUM BUC PRN (13:00)
[2016-06-27] MEDS ORDERED: LOPERAMIDE HCL 2 MG CAPSULE PO PRN (13:00)
[2016-06-27] MEDS ORDERED: P-EPHED 60MG/TRIPROLIDI 2.5MG TABLET PO PRN (13:00)
[2016-06-27] MEDS ORDERED: MAGNESIUM CITRATE 300 ML BOTTLE PO PRN (13:00)
[2016-06-27] MEDS ORDERED: guaiFENesin/D-METHORPHAN HB 10 ML UNIT-DOSE CUPS PO PRN (13:00)
[2016-06-27] MEDS ORDERED: MENTHOL/PHENOL 1 EACH UD MM PRN (13:00)
[2016-06-27] MEDS ORDERED: IBUPROFEN 400 MG TABLET (FP) PO PRN (13:00)
[2016-06-27] MEDS ORDERED: ACETAMINOPHEN 325 MG TABLET (FP) PO PRN (13:00)
[2016-06-27] MEDS ORDERED: MAG HYDROX/AL HYDROX/SIMETH 30 ML UNIT-DOSE CUP PO PRN (13:00)
[2016-06-27] MEDS ORDERED: ALBUTEROL SO4 6.7 GM HFA INHALER IH PRN (13:02)
[2016-06-27] MEDS ORDERED: NICOTINE 14 MG/24 HOURS TOPICAL PATCH TD SCH (13:17)
[2016-06-27] MEDS ORDERED: NICOTINE POLACRILEX 4 MG GUM BUC PRN (13:35)
[2016-06-27] MEDS: chlordiazePOXIDE HCL 25 MG CAPSULE PO PRN (13:45)
[2016-06-27] MEDS ORDERED: METHADONE HCL 10 MG TABLET PO ONE (13:48)
[2016-06-27] MEDS ORDERED: METHADONE 80 MG, METHADONE 20 MG PO ONE (13:52)
[2016-06-27] MEDS ORDERED: METHADONE HCL 10 MG TABLET ONE (14:05)
[2016-06-27] MEDS ORDERED: METHADONE HCL 40 MG DISPERSABLE TABLET ONE (14:06)
[2016-06-27] MEDS: TRIAMTERENE AND HCTZ - 37.5 MG/25 MG CAPSULE PO SCH (14:08)
[2016-06-27] MEDS: NICOTINE 21 MG/24 HOURS TOPICAL PATCH TD SCH (14:08)
[2016-06-27] MEDS: AMMONIUM LACTATE 12% LOTION 225 GM BOTTLE TP SCH (14:08)
--- NOTE | 2016-06-27 17:01 | PN ---
S Progress Note (SOAP) Subjective: received nurse call b0p 194/123 Objective: 06/27/16 17:00 denies headache, blurred vision, dizziness, no shortness of breath Assessment: 06/27/16 17:00 hypertension Plan: give librium 50 mg one dose now begin clonidine 0.1 mg q6h prn continue detox
[2016-06-27] MEDS: metFORMIN HCL 500 MG TABLET (FP) PO SCH (17:06)
[2016-06-27] MEDS: INSULIN SLIDING SCALE (NOVOLOG) 1 VIAL SQ SCH (17:06)
[2016-06-27] MEDS: chlordiazePOXIDE HCL 25 MG CAPSULE PO SCH ×2 (17:07→22:35)
[2016-06-27] MEDS ORDERED: INSULIN (NOVOLOG) ASPART 100 UNITS/ML 10ML VIAL ONE (17:08)
[2016-06-27] MEDS ORDERED: cloNIDine HCL 0.1 MG TABLET PO PRN (17:27)
[2016-06-27 20:14] LABS: URINE APPEARANCE CLEAR; URINE BILIRUBIN NEGATIVE (NEGATIVE); URINE BLOOD NEGATIVE (NEGATIVE); URINE COLOR YELLOW; URINE GLUCOSE (UA) 2+ (NEGATIVE); URINE KETONE NEGATIVE (NEGATIVE); URINE NITRITE NEGATIVE (NEGATIVE); URINE UROBILINOGEN NEGATIVE E.U./dl (0.2-1.0)
[2016-06-27 20:19] LABS: URINE LEUK ESTERASE TRACE (NEGATIVE); URINE PROTEIN 2+ (NEGATIVE)
[2016-06-27 20:22] LABS: URINE MUCUS FEW; URINE RBC 1 /hpf (0-3); URINE WBC 6 /hpf (3-5)
[2016-06-27] MEDS: THIAMINE HCL 100 MG TABLET (FP) PO SCH (22:35)
[2016-06-27] MEDS: diphenhydrAMINE HCL 50 MG CAPSULE PO PRN (22:36)
[2016-06-27] MEDS: hydrOXYzine PAMOATE 25 MG CAPSULE (FP) PO PRN (23:17)
--- NOTE | 2016-06-27 23:33 | EKG ---
Test Reason : Blood Pressure : / mmHG Vent. Rate : 088 BPM Atrial Rate : 088 BPM P-R Int : 146 ms QRS Dur : 074 ms QT Int : 372 ms P-R-T Axes : 045 030 009 degrees QTc Int : 450 ms NORMAL SINUS RHYTHM MINIMAL VOLTAGE CRITERIA FOR LVH, MAY BE NORMAL VARIANT BORDERLINE ECG NO PREVIOUS ECGS AVAILABLE Confirmed by RAHUL CONRAD MD ([id number]) on 06/27/2016 11:33:25 PM Referred By: Confirmed By:RAHUL CONRAD MD
[2016-06-28] MEDS ORDERED: METHADONE HCL 10 MG TABLET ONE (05:27)
[2016-06-28] MEDS ORDERED: METHADONE HCL 40 MG DISPERSABLE TABLET ONE (05:28)
[2016-06-28] MEDS: METHADONE 80 MG, METHADONE 20 MG PO SCH (05:48)
[2016-06-28] MEDS: chlordiazePOXIDE HCL 25 MG CAPSULE PO SCH ×4 (05:49→22:32)
[2016-06-28] MEDS ORDERED: METHADONE HCL 10 MG TABLET PO SCH (06:00)
[2016-06-28] MEDS: INSULIN SLIDING SCALE (NOVOLOG) 1 VIAL SQ SCH ×2 (06:10→17:15)
[2016-06-28] MEDS: metFORMIN HCL 500 MG TABLET (FP) PO SCH ×2 (06:34→17:12)
[2016-06-28 10:08] LABS: MCH 29.4 pg (25.7-33.7); MCHC 33.3 g/dl (32.0-35.9); MEAN CELL VOLUME 88.4 fl (80-96); PLATELET COUNT 167 K/MM3 (134-434); RDW 14.4 % (11.9-15.9); WHITE BLOOD COUNT 4.8 K/mm3 (4.0-10.0)
[2016-06-28] MEDS: AMMONIUM LACTATE 12% LOTION 225 GM BOTTLE TP SCH (10:14)
[2016-06-28] MEDS: NICOTINE 21 MG/24 HOURS TOPICAL PATCH TD SCH (10:14)
[2016-06-28] MEDS: PRENATAL VITAMINS W/ FOLIC ACID TABLET (FP) PO SCH (10:14)
[2016-06-28] MEDS: TRIAMTERENE AND HCTZ - 37.5 MG/25 MG CAPSULE PO SCH (10:14)
[2016-06-28 10:34] LABS: ALBUMIN 4.1 g/dl (3.4-5.0); ALK PHOS 125 U/L (45-117); ANION GAP 14 (8-16); BILIRUBIN,TOTAL 0.4 mg/dL (0.2-1.0); CALCIUM 9.4 mg/dL (8.5-10.1); CO2 25 mmol/L (21-32); CREATININE 1.1 mg/dL (0.7-1.3); GLUCOSE,RANDOM 291 mg/dL (74-106); SGOT/AST 34 U/L (15-37); SGPT/ALT 75 U/L (12-78); TOT PROT 7.9 g/dl (6.4-8.2)
--- NOTE | 2016-06-28 11:12 | CONSULT ---
[facility] Psychiatric Consult - Data Date of interview: 06/28/16 Admission source: [facility] Identifying data: Readmission to [facility] for this 45 y/o AA male seeking detoxification treatment on for alcohol dependence.Patient is single without children,unemployed,domiciled and supported on SSI benefits. Substance Abuse History: - Smoking Cessation. Smoking history: Current every day smoker. Have you smoked in the past 12 months: Yes. Aproximately how many cigarettes per day: 20. Hx Chewing Tobacco Use: No. Initiated information on smoking cessation: Yes. 'Breaking Loose' booklet given: 06/27/16. - Substance & Tx. History. Hx Alcohol Use: Yes (VODKA). Hx Substance Use: Yes (XANAX). Hx Substance Use Treatment: Yes ([facility] MMTP..METHADONE 100 MG DAILY,LAST DOSE 06/26/16). - Substances Abused. Alcohol. Route: Oral. Frequency: Daily. Amount used: 1 pint (liquor). Age of first use: 15. Date of Last Use: 06/26/16. Alprazolam (Xanax). Route: Oral. Frequency: Daily. Amount used: 8mg. Age of first use: 44. Date of Last Use: 06/25/16. Patient confirmed this pattern of substance use in this interview. Medical History: Remarkable for asthma and HTN. Psychiatric History: Diagnosed with Schizoaffective Disorder.History of multiple psychiatric hospitalizations.Known to [facility] and [facility].Patient is still followed at the [facility].Medications :seroquel 50 mg po daily + 100 mg po hs.Patient denies history of suicide attempts.Mr Hoffman is currently on methadone maintenance (100 mg/day) at the [facility] MMTP program. Physical/Sexual Abuse/Trauma History: Patient denies. Mental Status Exam - Mental Status Exam Alert and Oriented to: Time, Place, Person Cognitive Function: Good Patient Appearance: Well Groomed Mood: Withdrawn, Anxious Affect: Mood Congruent Patient Behavior: Sedated (moderate sedation), Fatigued Speech Pattern: Clear Voice Loudness: Normal Thought Process: Goal Oriented Thought Disorder: Not Present Hallucinations: Denies Suicidal Ideation: Denies Homicidal Ideation: Denies Insight/Judgement: Fair Sleep: Well Appetite: Good Muscle strength/Tone: Normal Gait/Station: Normal Psychiatric Findings - Problem List ([place] 1, 2,3) (1) Alcohol dependence with uncomplicated withdrawal Current Visit: Yes Status: Acute (2) Methadone maintenance therapy patient Current Visit: Yes Status: Chronic (3) Nicotine dependence Current Visit: Yes Status: Acute Qualifiers: Nicotine product type: cigarettes Substance use status: uncomplicated Qualified Code(s): F17.210 - Nicotine dependence, cigarettes, uncomplicated (4) Uncomplicated sedative, hypnotic or anxiolytic withdrawal Current Visit: Yes Status: Acute (5) Schizoaffective disorder Current Visit: Yes Status: Chronic (6) Asthma Current Visit: Yes Status: Chronic Qualifiers: Asthma severity: mild intermittent Asthma complication type: uncomplicated Qualified Code(s): J45.20 - Mild intermittent asthma, uncomplicated (7) Hypertension Current Visit: Yes Status: Chronic Qualifiers: Hypertension type: essential hypertension Qualified Code(s): I10 - Essential (primary) hypertension - Initial Treatment Plan Initial Treatment Plan: Psychoeducation.Detoxification.Seroquel 50 mg po am + 100 mg po hs.Side effects/benefits discussed with the patient.He agrees with this careplan.Observation.No scripts necessary at discharge (refills already availble @ [facility] [address] [place] [address] on 06/25/16).
[2016-06-28] MEDS ORDERED: INSULIN (NOVOLOG) ASPART 100 UNITS/ML 10ML VIAL ONE (16:41)
[2016-06-28] MEDS: NIFEdipine E.R. 30 MG TABLET (FP) PO SCH (17:12)
--- NOTE | 2016-06-28 17:23 | PN ---
S CIWA - CIWA Score Nausea/Vomitin-Mild Nausea/No Vomiting Muscle Tremors: 4-Moderate,w/Arms Extend Anxiety: 4-Mod. Anxious/Guarded Agitation: 3 Paroxysmal Sweats: 3 Orientation: 0-Oriented Tacttile Disturbances: 1-Very Mild Itch/Numbness Auditory Disturbances: 0-None Visual Disturbances: 0-None Headache: 0-None Present CIWA-Ar Total Score: 16 BHS Progress Note (SOAP) Subjective: Anxiety,tremors,sweating,interrupted sleep,restless. Objective: 06/28/16 17:22 Vital Signs - 8 hr 06/28/16 06/28/16 09:45 15:04 Temperature 96.4 F L 97 F L Pulse Rate 88 88 Respiratory 20 20 Rate Blood Pressure 137/90 140/89 Laboratory Tests 06/27/16 06/27/16 06/27/16 11:09 15:00 16:23 WBC RBC Hgb Hct MCV MCHC RDW Plt Count MPV Sodium Potassium Chloride Carbon Dioxide Anion Gap BUN Creatinine Creat Clearance w eGFR POC Glucometer 283 210 Random Glucose Calcium Total Bilirubin AST ALT Alkaline Phosphatase Total Protein Albumin Urine Color Yellow Urine Appearance Clear Urine pH 5.0 Ur Specific Broussard 1.026 Urine Protein 2+ H Urine Glucose (UA) 2+ H Urine Ketones Negative Urine Blood Negative Urine Nitrite Negative Urine Bilirubin Negative Urine Urobilinogen Negative Ur Leukocyte Esterase Trace H Urine RBC 1 Urine WBC 6 Ur Epithelial Cells Rare Urine Mucus Few RPR Titer 06/28/16 06/28/16 06/28/16 05:48 06:00 06:00 WBC 4.8 RBC 4.78 Hgb 14.1 Hct 42.3 MCV 88.4 MCHC 33.3 RDW 14.4 Plt Count 167 MPV 11.0 Sodium 138 Potassium 3.4 L Chloride 99 Carbon Dioxide 25 D Anion Gap 14 BUN 10 D Creatinine 1.1 D Creat Clearance w eGFR > 60 POC Glucometer 192 Random Glucose 291 H Calcium 9.4 Total Bilirubin 0.4 D AST 34 D ALT 75 D Alkaline Phosphatase 125 H Total Protein 7.9 Albumin 4.1 Urine Color Urine Appearance Urine pH Ur Specific Broussard Urine Protein Urine Glucose (UA) Urine Ketones Urine Blood Urine Nitrite Urine Bilirubin Urine Urobilinogen Ur Leukocyte Esterase Urine RBC Urine WBC Ur Epithelial Cells Urine Mucus RPR Titer 06/28/16 06/28/16 06:00 16:17 WBC RBC Hgb Hct MCV MCHC RDW Plt Count MPV Sodium Potassium Chloride Carbon Dioxide Anion Gap BUN Creatinine Creat Clearance w eGFR POC Glucometer 272 Random Glucose Calcium Total Bilirubin AST ALT Alkaline Phosphatase Total Protein Albumin Urine Color Urine Appearance Urine pH Ur Specific Broussard Urine Protein Urine Glucose (UA) Urine Ketones Urine Blood Urine Nitrite Urine Bilirubin Urine Urobilinogen Ur Leukocyte Esterase Urine RBC Urine WBC Ur Epithelial Cells Urine Mucus RPR Titer Nonreactive labs noted Assessment: 06/28/16 17:22 withdrawal sx. hypokalemia Plan: continue detox k-dur
[2016-06-28] MEDS: POTASSIUM CHLORIDE TABS 20 MEQ TABLET.ER (FP) PO SCH (18:37)
[2016-06-28] MEDS: THIAMINE HCL 100 MG TABLET (FP) PO SCH (22:32)
[2016-06-28] MEDS: LISINOPRIL 10 MG TABLET (FP) PO SCH (22:32)
[2016-06-28] MEDS: QUEtiapine FUMARATE 100 MG TABLET (FP) PO SCH (22:32)
[2016-06-28] MEDS: diphenhydrAMINE HCL 50 MG CAPSULE PO PRN (22:32)
[2016-06-28] MEDS: hydrOXYzine PAMOATE 25 MG CAPSULE (FP) PO PRN (23:23)
[2016-06-29] MEDS ORDERED: METHADONE HCL 10 MG TABLET ONE (04:10)
[2016-06-29] MEDS ORDERED: METHADONE HCL 40 MG DISPERSABLE TABLET ONE (04:10)
[2016-06-29] MEDS: chlordiazePOXIDE HCL 25 MG CAPSULE PO SCH ×2 (05:37→10:17)
[2016-06-29] MEDS: METHADONE 80 MG, METHADONE 20 MG PO SCH (05:37)
[2016-06-29] MEDS: metFORMIN HCL 500 MG TABLET (FP) PO SCH ×2 (07:09→16:42)
[2016-06-29] MEDS ORDERED: INSULIN (NOVOLOG) ASPART 100 UNITS/ML 10ML VIAL ONE ×4 (07:26→21:32)
[2016-06-29] MEDS: INSULIN SLIDING SCALE (NOVOLOG) 1 VIAL SQ SCH ×4 (07:31→21:37)
[2016-06-29] MEDS ORDERED: QUEtiapine FUMARATE 50 MG TABLET PO SCH (10:00)
[2016-06-29] MEDS: PRENATAL VITAMINS W/ FOLIC ACID TABLET (FP) PO SCH (10:17)
[2016-06-29] MEDS: TRIAMTERENE AND HCTZ - 37.5 MG/25 MG CAPSULE PO SCH (10:17)
[2016-06-29] MEDS: POTASSIUM CHLORIDE TABS 20 MEQ TABLET.ER (FP) PO SCH (10:17)
[2016-06-29] MEDS: NICOTINE 21 MG/24 HOURS TOPICAL PATCH TD SCH (10:17)
[2016-06-29] MEDS: AMMONIUM LACTATE 12% LOTION 225 GM BOTTLE TP SCH (10:17)
[2016-06-29] MEDS: LISINOPRIL 10 MG TABLET (FP) PO SCH ×2 (10:18→22:26)
--- NOTE | 2016-06-29 11:17 | PN ---
S CIWA - CIWA Score Nausea/Vomitin-No Nausea/No Vomiting Muscle Tremors: 3 Anxiety: 4-Mod. Anxious/Guarded Agitation: 3 Paroxysmal Sweats: 3 Orientation: 0-Oriented Tacttile Disturbances: 1-Very Mild Itch/Numbness Auditory Disturbances: 0-None Visual Disturbances: 0-None Headache: 0-None Present CIWA-Ar Total Score: 14 BHS Progress Note (SOAP) Subjective: SWEATING,ANXIETY,TREMORS,INTERRUPTED SLEEP,RESTLESS. Objective: 06/29/16 11:16 Vital Signs - 8 hr 06/29/16 06/29/16 06/29/16 03:28 06:09 09:22 Temperature 97.5 F L 97.8 F Pulse Rate 100 H 96 H Respiratory 18 18 20 Rate Blood Pressure 116/68 128/79 Laboratory Tests 06/27/16 06/27/16 06/27/16 11:09 15:00 16:23 WBC RBC Hgb Hct MCV MCHC RDW Plt Count MPV Sodium Potassium Chloride Carbon Dioxide Anion Gap BUN Creatinine Creat Clearance w eGFR POC Glucometer 283 210 Random Glucose Calcium Total Bilirubin AST ALT Alkaline Phosphatase Total Protein Albumin Urine Color Yellow Urine Appearance Clear Urine pH 5.0 Ur Specific [place] 1.026 Urine Protein 2+ H Urine Glucose (UA) 2+ H Urine Ketones Negative Urine Blood Negative Urine Nitrite Negative Urine Bilirubin Negative Urine Urobilinogen Negative Ur Leukocyte Esterase Trace H Urine RBC 1 Urine WBC 6 Ur Epithelial Cells Rare Urine Mucus Few RPR Titer 06/28/16 06/28/16 06/28/16 05:48 06:00 06:00 WBC 4.8 RBC 4.78 Hgb 14.1 Hct 42.3 MCV 88.4 MCHC 33.3 RDW 14.4 Plt Count 167 MPV 11.0 Sodium 138 Potassium 3.4 L Chloride 99 Carbon Dioxide 25 D Anion Gap 14 BUN 10 D Creatinine 1.1 D Creat Clearance w eGFR > 60 POC Glucometer 192 Random Glucose 291 H Calcium 9.4 Total Bilirubin 0.4 D AST 34 D ALT 75 D Alkaline Phosphatase 125 H Total Protein 7.9 Albumin 4.1 Urine Color Urine Appearance Urine pH Ur Specific [place] Urine Protein Urine Glucose (UA) Urine Ketones Urine Blood Urine Nitrite Urine Bilirubin Urine Urobilinogen Ur Leukocyte Esterase Urine RBC Urine WBC Ur Epithelial Cells Urine Mucus RPR Titer 06/28/16 06/28/16 06/29/16 06:00 16:17 05:35 WBC RBC Hgb Hct MCV MCHC RDW Plt Count MPV Sodium Potassium Chloride Carbon Dioxide Anion Gap BUN Creatinine Creat Clearance w eGFR POC Glucometer 272 529 Random Glucose Calcium Total Bilirubin AST ALT Alkaline Phosphatase Total Protein Albumin Urine Color Urine Appearance Urine pH Ur Specific [place] Urine Protein Urine Glucose (UA) Urine Ketones Urine Blood Urine Nitrite Urine Bilirubin Urine Urobilinogen Ur Leukocyte Esterase Urine RBC Urine WBC Ur Epithelial Cells Urine Mucus RPR Titer Nonreactive 06/29/16 05:36 WBC RBC Hgb Hct MCV MCHC RDW Plt Count MPV Sodium Potassium Chloride Carbon Dioxide Anion Gap BUN Creatinine Creat Clearance w eGFR POC Glucometer 491 Random Glucose Calcium Total Bilirubin AST ALT Alkaline Phosphatase Total Protein Albumin Urine Color Urine Appearance Urine pH Ur Specific [place] Urine Protein Urine Glucose (UA) Urine Ketones Urine Blood Urine Nitrite Urine Bilirubin Urine Urobilinogen Ur Leukocyte Esterase Urine RBC Urine WBC Ur Epithelial Cells Urine Mucus RPR Titer LABS NOTED Assessment: 06/29/16 11:16 WITHDRAWAL SX. Plan: CONTINUE DETOX
[2016-06-29] MEDS: NIFEdipine E.R. 30 MG TABLET (FP) PO SCH (17:48)
[2016-06-29] MEDS: chlordiazePOXIDE 5 MG CAPSULE PO SCH ×2 (17:48→22:26)
[2016-06-29] MEDS: hydrOXYzine PAMOATE 25 MG CAPSULE (FP) PO PRN (17:51)
[2016-06-29] MEDS: QUEtiapine FUMARATE 100 MG TABLET (FP) PO SCH (22:26)
[2016-06-29] MEDS: diphenhydrAMINE HCL 50 MG CAPSULE PO PRN (22:26)
[2016-06-29] MEDS: THIAMINE HCL 100 MG TABLET (FP) PO SCH (22:26)
[2016-06-30] MEDS ORDERED: METHADONE HCL 10 MG TABLET ONE (03:20)
[2016-06-30] MEDS ORDERED: METHADONE HCL 40 MG DISPERSABLE TABLET ONE (03:21)
[2016-06-30] MEDS: chlordiazePOXIDE 5 MG CAPSULE PO SCH ×2 (05:46→10:22)
[2016-06-30] MEDS: METHADONE 80 MG, METHADONE 20 MG PO SCH (05:46)
[2016-06-30] MEDS ORDERED: INSULIN (NOVOLOG) ASPART 100 UNITS/ML 10ML VIAL ONE ×4 (06:39→20:56)
[2016-06-30] MEDS: metFORMIN HCL 500 MG TABLET (FP) PO SCH ×2 (07:10→16:14)
[2016-06-30] MEDS: INSULIN SLIDING SCALE (NOVOLOG) 1 VIAL SQ SCH ×3 (07:11→22:28)
--- NOTE | 2016-06-30 09:29 | PN ---
BHS Progress Note (SOAP) Subjective: NAUSEA, SWEATS, INTERRUPTED SLEEP, ANXIETY, TEMOR, SEDATED FROM MEDICATION WOULD LIKE TO STAY UNTIL SUNDAY BECAUSE UNABLE TO LEAVE EARLY TO GET TO [facility] TOMORROW. Objective: 06/30/16 09:27 Vital Signs - 24 hr 06/29/16 06/29/16 06/29/16 13:12 17:51 22:21 Temperature 98.3 F 97.1 F L 97.9 F Pulse Rate 108 H 92 H 65 Respiratory 20 18 20 Rate Blood Pressure 135/83 122/82 130/83 06/30/16 06/30/16 06/30/16 00:20 03:35 06:22 Temperature 97.6 F Pulse Rate 97 H Respiratory 18 18 18 Rate Blood Pressure 106/73 Laboratory Tests 06/27/16 06/27/16 06/27/16 11:09 15:00 16:23 WBC RBC Hgb Hct MCV MCHC RDW Plt Count MPV Sodium Potassium Chloride Carbon Dioxide Anion Gap BUN Creatinine Creat Clearance w eGFR POC Glucometer 283 210 Random Glucose Calcium Total Bilirubin AST ALT Alkaline Phosphatase Total Protein Albumin Urine Color Yellow Urine Appearance Clear Urine pH 5.0 Ur Specific [place] 1.026 Urine Protein 2+ H Urine Glucose (UA) 2+ H Urine Ketones Negative Urine Blood Negative Urine Nitrite Negative Urine Bilirubin Negative Urine Urobilinogen Negative Ur Leukocyte Esterase Trace H Urine RBC 1 Urine WBC 6 Ur Epithelial Cells Rare Urine Mucus Few RPR Titer 06/28/16 06/28/16 06/28/16 05:48 06:00 06:00 WBC 4.8 RBC 4.78 Hgb 14.1 Hct 42.3 MCV 88.4 MCHC 33.3 RDW 14.4 Plt Count 167 MPV 11.0 Sodium 138 Potassium 3.4 L Chloride 99 Carbon Dioxide 25 D Anion Gap 14 BUN 10 D Creatinine 1.1 D Creat Clearance w eGFR > 60 POC Glucometer 192 Random Glucose 291 H Calcium 9.4 Total Bilirubin 0.4 D AST 34 D ALT 75 D Alkaline Phosphatase 125 H Total Protein 7.9 Albumin 4.1 Urine Color Urine Appearance Urine pH Ur Specific [place] Urine Protein Urine Glucose (UA) Urine Ketones Urine Blood Urine Nitrite Urine Bilirubin Urine Urobilinogen Ur Leukocyte Esterase Urine RBC Urine WBC Ur Epithelial Cells Urine Mucus RPR Titer 06/28/16 06/28/16 06/29/16 06:00 16:17 05:35 WBC RBC Hgb Hct MCV MCHC RDW Plt Count MPV Sodium Potassium Chloride Carbon Dioxide Anion Gap BUN Creatinine Creat Clearance w eGFR POC Glucometer 272 529 Random Glucose Calcium Total Bilirubin AST ALT Alkaline Phosphatase Total Protein Albumin Urine Color Urine Appearance Urine pH Ur Specific [place] Urine Protein Urine Glucose (UA) Urine Ketones Urine Blood Urine Nitrite Urine Bilirubin Urine Urobilinogen Ur Leukocyte Esterase Urine RBC Urine WBC Ur Epithelial Cells Urine Mucus RPR Titer Nonreactive 06/29/16 06/29/16 06/30/16 05:36 16:36 05:45 WBC RBC Hgb Hct MCV MCHC RDW Plt Count MPV Sodium Potassium Chloride Carbon Dioxide Anion Gap BUN Creatinine Creat Clearance w eGFR POC Glucometer 491 400 422 Random Glucose Calcium Total Bilirubin AST ALT Alkaline Phosphatase Total Protein Albumin Urine Color Urine Appearance Urine pH Ur Specific [place] Urine Protein Urine Glucose (UA) Urine Ketones Urine Blood Urine Nitrite Urine Bilirubin Urine Urobilinogen Ur Leukocyte Esterase Urine RBC Urine WBC Ur Epithelial Cells Urine Mucus RPR Titer HYPERGLYCEMIA, DEHYDRATION, HYPOKALEMIA 06/30/16 09:28 Assessment: WITHDRAWAL SX, POORLY CONTROLLED DIABETES, HYPOKALEMIA, DEHYDRATION 2/2 SUBSTANCE USE Plan: CONT DETOX, CONTROL BLOOD SUGAR WITH DIET AND MEDICATON, ENCORUAGE FLUIDS, DECREASE LIBIRUM AND OTHER SEDATING MEDICATIONS
[2016-06-30] MEDS: POTASSIUM CHLORIDE TABS 20 MEQ TABLET.ER (FP) PO SCH (10:22)
[2016-06-30] MEDS: NICOTINE 21 MG/24 HOURS TOPICAL PATCH TD SCH (10:22)
[2016-06-30] MEDS: TRIAMTERENE AND HCTZ - 37.5 MG/25 MG CAPSULE PO SCH (10:22)
[2016-06-30] MEDS: LISINOPRIL 10 MG TABLET (FP) PO SCH ×2 (10:22→22:25)
[2016-06-30] MEDS: PRENATAL VITAMINS W/ FOLIC ACID TABLET (FP) PO SCH (10:22)
[2016-06-30] MEDS: AMMONIUM LACTATE 12% LOTION 225 GM BOTTLE TP SCH (10:22)
[2016-06-30] MEDS ORDERED: INSULIN SLIDING SCALE (NOVOLOG) 1 VIAL SQ SCH (11:00)
[2016-06-30] MEDS ORDERED: metFORMIN HCL 500 MG TABLET (FP) PO ONE (11:29)
--- NOTE | 2016-06-30 11:29 | PN ---
[facility] Progress Note Note: bed is available in rehab, patient wishes to be transferred today, medically stable, will give regular discharge ad observe for signs of withdrawal in rehab. nursing aware.
--- NOTE | 2016-06-30 11:32 | DS ---
[facility] Detox Discharge Summary Admission Date: 06/27/16 - History Present History: Alcohol Dependence, MMTP Pertinent Past History: asthma, nicotine dependence, anxiety, depression and insomnia - Physical Exam Results Vital Signs: Vital Signs Temperature 98.7 F 06/30/16 09:56 Pulse Rate 83 06/30/16 09:56 Respiratory Rate 20 06/30/16 09:56 Blood Pressure 125/75 06/30/16 09:56 O2 Sat by Pulse Oximetry (%) Pertinent Admission Physical Exam Findings: withdrawal sx - Treatment Hospital Course: Detox Protocol Followed, Detoxed Safely, Responded well, Discharged Condition Good, Rehab Referral Accepted Patient has Accepted a Rehab Referral to: Yes - Medication Discharge Medications: Ambulatory Orders Clonidine HCl [Catapres] 0.2 mg PO DAILY 03/17/15 Quetiapine Fumarate [Seroquel -] 100 mg PO HS 05/10/16 Quetiapine Fumarate [Seroquel -] 50 mg PO DAILY #30 tablet 05/31/16 Albuterol Sulfate Inhaler - [Ventolin HFA Inhaler -] 2 puff IH Q4H PRN #1 inhaler 06/01/16 Clonidine HCl [Catapres -] 0.1 mg PO BID #60 tablet 06/01/16 Hctz 25Mg/Triamterene [Dyazide 25/37.5 -] 1 cap PO DAILY #30 capsule 06/01/16 Metformin HCl [Glucophage -] 500 mg PO BIDAC #60 tablet 06/01/16 - Diagnosis (1) Alcohol dependence with uncomplicated withdrawal Current Visit: Yes Status: Chronic (2) Nicotine dependence Current Visit: Yes Status: Chronic Qualifiers: Nicotine product type: cigarettes Substance use status: in withdrawal Qualified Code(s): F17.213 - Nicotine dependence, cigarettes, with withdrawal (3) Uncomplicated sedative, hypnotic or anxiolytic withdrawal Current Visit: Yes Status: Chronic (4) Asthma Current Visit: Yes Status: Chronic Qualifiers: Asthma severity: mild intermittent Asthma complication type: uncomplicated Qualified Code(s): J45.20 - Mild intermittent asthma, uncomplicated (5) Dry skin dermatitis Current Visit: Yes Status: Chronic (6) Hypertension Current Visit: Yes Status: Chronic Qualifiers: Hypertension type: essential hypertension Qualified Code(s): I10 - Essential (primary) hypertension (7) Methadone maintenance therapy patient Current Visit: Yes Status: Chronic (8) Schizoaffective disorder Current Visit: Yes Status: Chronic - AMA Did Patient Leave Against Medical Advice: No
[2016-06-30] MEDS: chlordiazePOXIDE HCL 25 MG CAPSULE PO PRN (12:28)
[2016-06-30] MEDS: chlordiazePOXIDE HCL 10 MG CAPSULE PO SCH ×2 (16:54→22:25)
[2016-06-30] MEDS: NIFEdipine E.R. 30 MG TABLET (FP) PO SCH (17:20)
[2016-06-30 17:48] LABS: URINE APPEARANCE SLCLOUDY; URINE BILIRUBIN NEGATIVE (NEGATIVE); URINE BLOOD NEGATIVE (NEGATIVE); URINE COLOR LTYELLOW; URINE GLUCOSE (UA) 3+ (NEGATIVE); URINE KETONE NEGATIVE (NEGATIVE); URINE NITRITE NEGATIVE (NEGATIVE); URINE PROTEIN NEGATIVE (NEGATIVE); URINE UROBILINOGEN NEGATIVE E.U./dl (0.2-1.0)
[2016-06-30 17:59] LABS: URINE LEUK ESTERASE 1+ (NEGATIVE)
[2016-06-30 18:16] LABS: URINE BACTERIA FEW /hpf (NONE SEEN); URINE HYALINE CAST 2 /lpf; URINE MUCUS RARE; URINE RBC 2 /hpf (0-3); URINE WBC 6 /hpf (3-5)
[2016-06-30] MEDS: THIAMINE HCL 100 MG TABLET (FP) PO SCH (22:25)
[2016-06-30] MEDS: QUEtiapine FUMARATE 100 MG TABLET (FP) PO SCH (22:25)
[2016-07-01] MEDS ORDERED: METHADONE HCL 10 MG TABLET ONE (05:17)
[2016-07-01] MEDS ORDERED: METHADONE HCL 40 MG DISPERSABLE TABLET ONE (05:17)
[2016-07-01] MEDS: chlordiazePOXIDE HCL 10 MG CAPSULE PO SCH ×2 (05:35→10:41)
[2016-07-01] MEDS: METHADONE 80 MG, METHADONE 20 MG PO SCH (05:40)
[2016-07-01] MEDS: metFORMIN HCL 500 MG TABLET (FP) PO SCH ×2 (06:59→17:30)
[2016-07-01] MEDS ORDERED: INSULIN (NOVOLOG) ASPART 100 UNITS/ML 10ML VIAL ONE ×2 (07:14→11:14)
[2016-07-01] MEDS: INSULIN SLIDING SCALE (NOVOLOG) 1 VIAL SQ SCH ×4 (07:20→22:40)
[2016-07-01] MEDS: POTASSIUM CHLORIDE TABS 20 MEQ TABLET.ER (FP) PO SCH (10:22)
[2016-07-01] MEDS: PRENATAL VITAMINS W/ FOLIC ACID TABLET (FP) PO SCH (10:22)
[2016-07-01] MEDS: NICOTINE 21 MG/24 HOURS TOPICAL PATCH TD SCH (10:22)
[2016-07-01] MEDS: LISINOPRIL 10 MG TABLET (FP) PO SCH ×2 (10:22→22:42)
[2016-07-01] MEDS: AMMONIUM LACTATE 12% LOTION 225 GM BOTTLE TP SCH (10:22)
[2016-07-01] MEDS: TRIAMTERENE AND HCTZ - 37.5 MG/25 MG CAPSULE PO SCH (10:22)
[2016-07-01 10:53] LABS: ALBUMIN 3.9 g/dl (3.4-5.0); ANION GAP 11 (8-16); CALCIUM 10.1 mg/dL (8.5-10.1); CO2 27 mmol/L (21-32)
[2016-07-01 10:57] LABS: ALK PHOS 125 U/L (45-117); BILIRUBIN,TOTAL 0.2 mg/dL (0.2-1.0); SGOT/AST 22 U/L (15-37); SGPT/ALT 53 U/L (12-78); TOT PROT 7.9 g/dl (6.4-8.2)
[2016-07-01] MEDS ORDERED: POTASSIUM CHLORIDE TABS 20 MEQ TABLET.ER (FP) PO ONE (11:29)
[2016-07-01 11:47] LABS: GLUCOSE,RANDOM 314 mg/dL (74-106)
[2016-07-01] MEDS: NIFEdipine E.R. 30 MG TABLET (FP) PO SCH (17:50)
[2016-07-01] MEDS: QUEtiapine FUMARATE 100 MG TABLET (FP) PO SCH (22:42)
[2016-07-01] MEDS: THIAMINE HCL 100 MG TABLET (FP) PO SCH (22:42)
[2016-07-02] MEDS ORDERED: METHADONE HCL 10 MG TABLET ONE (05:08)
[2016-07-02] MEDS ORDERED: METHADONE HCL 40 MG DISPERSABLE TABLET ONE (05:09)
[2016-07-02] MEDS: METHADONE 80 MG, METHADONE 20 MG PO SCH (05:33)
[2016-07-02] MEDS ORDERED: INSULIN (NOVOLOG) ASPART 100 UNITS/ML 10ML VIAL ONE (05:43)
[2016-07-02] MEDS: metFORMIN HCL 500 MG TABLET (FP) PO SCH (06:26)
[2016-07-02] MEDS: INSULIN SLIDING SCALE (NOVOLOG) 1 VIAL SQ SCH (06:28)
[2016-07-02 09:33] VITALS: BP 152/106; PULSE 120; TEMP 95.8
[2016-07-02] MEDS: POTASSIUM CHLORIDE TABS 20 MEQ TABLET.ER (FP) PO SCH (10:52)
[2016-07-02] MEDS: NICOTINE 21 MG/24 HOURS TOPICAL PATCH TD SCH (10:52)
[2016-07-02] MEDS: TRIAMTERENE AND HCTZ - 37.5 MG/25 MG CAPSULE PO SCH (10:52)
[2016-07-02] MEDS: LISINOPRIL 10 MG TABLET (FP) PO SCH (10:52)
[2016-07-02] MEDS: PRENATAL VITAMINS W/ FOLIC ACID TABLET (FP) PO SCH (10:52)
[2016-07-02] MEDS: AMMONIUM LACTATE 12% LOTION 225 GM BOTTLE TP SCH (10:52)
--- NOTE | 2016-07-02 11:29 | DS ---
[facility] Detox Discharge Summary Admission Date: 06/27/16 Discharge Date: 07/02/16 - History Present History: Alcohol Dependence, MMTP Pertinent Past History: Asthma DMT2 HTN - Physical Exam Results Vital Signs: Vital Signs Temperature 95.8 F L 07/02/16 09:30 Pulse Rate 120 H 07/02/16 09:30 Respiratory Rate 18 07/02/16 09:30 Blood Pressure 152/106 07/02/16 09:33 O2 Sat by Pulse Oximetry (%) Pertinent Admission Physical Exam Findings: Withdrawal symptoms Laboratory Tests 06/27/16 06/27/16 06/27/16 11:09 15:00 16:23 WBC RBC Hgb Hct MCV MCHC RDW Plt Count MPV Sodium Potassium Chloride Carbon Dioxide Anion Gap BUN Creatinine Creat Clearance w eGFR POC Glucometer 283 210 Random Glucose Calcium Total Bilirubin AST ALT Alkaline Phosphatase Total Protein Albumin Urine Color Yellow Urine Appearance Clear Urine pH 5.0 Ur Specific [place] 1.026 Urine Protein 2+ H Urine Glucose (UA) 2+ H Urine Ketones Negative Urine Blood Negative Urine Nitrite Negative Urine Bilirubin Negative Urine Urobilinogen Negative Ur Leukocyte Esterase Trace H Urine RBC 1 Urine WBC 6 Ur Epithelial Cells Rare Urine Bacteria Hyaline Casts Urine Mucus Few RPR Titer 06/28/16 06/28/16 06/28/16 05:48 06:00 06:00 WBC 4.8 RBC 4.78 Hgb 14.1 Hct 42.3 MCV 88.4 MCHC 33.3 RDW 14.4 Plt Count 167 MPV 11.0 Sodium 138 Potassium 3.4 L Chloride 99 Carbon Dioxide 25 D Anion Gap 14 BUN 10 D Creatinine 1.1 D Creat Clearance w eGFR > 60 POC Glucometer 192 Random Glucose 291 H Calcium 9.4 Total Bilirubin 0.4 D AST 34 D ALT 75 D Alkaline Phosphatase 125 H Total Protein 7.9 Albumin 4.1 Urine Color Urine Appearance Urine pH Ur Specific [place] Urine Protein Urine Glucose (UA) Urine Ketones Urine Blood Urine Nitrite Urine Bilirubin Urine Urobilinogen Ur Leukocyte Esterase Urine RBC Urine WBC Ur Epithelial Cells Urine Bacteria Hyaline Casts Urine Mucus RPR Titer 06/28/16 06/28/16 06/29/16 06:00 16:17 05:35 WBC RBC Hgb Hct MCV MCHC RDW Plt Count MPV Sodium Potassium Chloride Carbon Dioxide Anion Gap BUN Creatinine Creat Clearance w eGFR POC Glucometer 272 529 Random Glucose Calcium Total Bilirubin AST ALT Alkaline Phosphatase Total Protein Albumin Urine Color Urine Appearance Urine pH Ur Specific [place] Urine Protein Urine Glucose (UA) Urine Ketones Urine Blood Urine Nitrite Urine Bilirubin Urine Urobilinogen Ur Leukocyte Esterase Urine RBC Urine WBC Ur Epithelial Cells Urine Bacteria Hyaline Casts Urine Mucus RPR Titer Nonreactive 06/29/16 06/29/16 06/30/16 05:36 16:36 05:45 WBC RBC Hgb Hct MCV MCHC RDW Plt Count MPV Sodium Potassium Chloride Carbon Dioxide Anion Gap BUN Creatinine Creat Clearance w eGFR POC Glucometer 491 400 422 Random Glucose Calcium Total Bilirubin AST ALT Alkaline Phosphatase Total Protein Albumin Urine Color Urine Appearance Urine pH Ur Specific [place] Urine Protein Urine Glucose (UA) Urine Ketones Urine Blood Urine Nitrite Urine Bilirubin Urine Urobilinogen Ur Leukocyte Esterase Urine RBC Urine WBC Ur Epithelial Cells Urine Bacteria Hyaline Casts Urine Mucus RPR Titer 06/30/16 06/30/16 07/01/16 13:15 16:10 05:36 WBC RBC Hgb Hct MCV MCHC RDW Plt Count MPV Sodium Potassium Chloride Carbon Dioxide Anion Gap BUN Creatinine Creat Clearance w eGFR POC Glucometer 327 347 Random Glucose Calcium Total Bilirubin AST ALT Alkaline Phosphatase Total Protein Albumin Urine Color Ltyellow Urine Appearance Slcloudy Urine pH 5.0 Ur Specific [place] 1.023 Urine Protein Negative Urine Glucose (UA) 3+ H Urine Ketones Negative Urine Blood Negative Urine Nitrite Negative Urine Bilirubin Negative Urine Urobilinogen Negative Ur Leukocyte Esterase 1+ H Urine RBC 2 Urine WBC 6 Ur Epithelial Cells Urine Bacteria Few Hyaline Casts 2 Urine Mucus Rare RPR Titer 07/01/16 07/01/16 07/01/16 08:00 20:06 22:40 WBC RBC Hgb Hct MCV MCHC RDW Plt Count MPV Sodium 134 L Potassium 4.6 D Chloride 96 L Carbon Dioxide 27 Anion Gap 11 BUN 21 H D Creatinine 1.0 Creat Clearance w eGFR > 60 POC Glucometer 394 324 Random Glucose 314 H* Calcium 10.1 Total Bilirubin 0.2 D AST 22 D ALT 53 D Alkaline Phosphatase 125 H Total Protein 7.9 Albumin 3.9 Urine Color Urine Appearance Urine pH Ur Specific [place] Urine Protein Urine Glucose (UA) Urine Ketones Urine Blood Urine Nitrite Urine Bilirubin Urine Urobilinogen Ur Leukocyte Esterase Urine RBC Urine WBC Ur Epithelial Cells Urine Bacteria Hyaline Casts Urine Mucus RPR Titer 07/02/16 05:39 WBC RBC Hgb Hct MCV MCHC RDW Plt Count MPV Sodium Potassium Chloride Carbon Dioxide Anion Gap BUN Creatinine Creat Clearance w eGFR POC Glucometer 252 Random Glucose Calcium Total Bilirubin AST ALT Alkaline Phosphatase Total Protein Albumin Urine Color Urine Appearance Urine pH Ur Specific [place] Urine Protein Urine Glucose (UA) Urine Ketones Urine Blood Urine Nitrite Urine Bilirubin Urine Urobilinogen Ur Leukocyte Esterase Urine RBC Urine WBC Ur Epithelial Cells Urine Bacteria Hyaline Casts Urine Mucus RPR Titer Labs noted - Treatment Hospital Course: Detox Protocol Followed, Detoxed Safely, Responded well, Discharged Condition Good - Medication Discharge Medications: Ambulatory Orders Clonidine HCl [Catapres] 0.2 mg PO DAILY 03/17/15 Quetiapine Fumarate [Seroquel -] 100 mg PO HS 05/10/16 Quetiapine Fumarate [Seroquel -] 50 mg PO DAILY #30 tablet 05/31/16 Albuterol Sulfate Inhaler - [Ventolin HFA Inhaler -] 2 puff IH Q4H PRN #1 inhaler 06/01/16 Clonidine HCl [Catapres -] 0.1 mg PO BID #60 tablet 06/01/16 Hctz 25Mg/Triamterene [Dyazide 25/37.5 -] 1 cap PO DAILY #30 capsule 06/01/16 Metformin HCl [Glucophage -] 500 mg PO BIDAC #60 tablet 06/01/16 - Diagnosis (1) Alcohol dependence with uncomplicated withdrawal Status: Acute (2) Asthma Status: Chronic Qualifiers: Asthma severity: mild intermittent Asthma complication type: uncomplicated Qualified Code(s): J45.20 - Mild intermittent asthma, uncomplicated (3) Hypertension Status: Chronic Qualifiers: Hypertension type: essential hypertension Qualified Code(s): I10 - Essential (primary) hypertension (4) Methadone maintenance therapy patient Status: Chronic (5) Nicotine dependence Status: Chronic Qualifiers: Nicotine product type: cigarettes Substance use status: in withdrawal Qualified Code(s): F17.213 - Nicotine dependence, cigarettes, with withdrawal - AMA Did Patient Leave Against Medical Advice: No
== END 2016-07-02 10:05 | disposition home or self-care (01) | DRG 773 ==
LOC: YASAS 10:40 → Y3N 12:51
PROVIDERS: ADMIT Internal Medicine; ATTEND Internal Medicine
PROC: HZ2ZZZZ Detoxification Services for Substance Abuse Treatment (ICD-10-PCS; principal; 2016-07-02)
DX: F11.20 Opioid dependence, uncomplicated (principal); F13.230 Sedative, hypnotic or anxiolytic dependence with withdrawal, uncomplicated; F10.230 Alcohol dependence with withdrawal, uncomplicated; F17.213 Nicotine dependence, cigarettes, with withdrawal; F25.9 Schizoaffective disorder, unspecified; I10 Essential (primary) hypertension; J45.20 Mild intermittent asthma, uncomplicated
CPT/HCPCS: 36415; 80053; 81003; 81015; 85027; 86593; 93005; 93010

== ENCOUNTER 2016-09-08 09:02 | Inpatient (IN) | payer OTHER ==
[2016-09-08 11:34] VITALS: BMI 31.1
--- NOTE | 2016-09-08 12:09 | HP ---
CIWA Score - CIWA Score Nausea/Vomitin Muscle Tremors: 3 Anxiety: 3 Agitation: 2 Paroxysmal Sweats: 2 Orientation: 0-Oriented Tacttile Disturbances: 2-Mild Itch/Numbness/Burn Auditory Disturbances: 2-Mild Harshness/Frighten Visual Disturbances: 2-Mild Sensitivity Headache: 2-Mild CIWA-Ar Total Score: 21 Admission ROS BHS - HPI Chief Complaint: i am here for detox from alcohol,xanax Allergies/Adverse Reactions: Allergies Allergy/AdvReac Type Severity Reaction Status Date / Time No Known Allergies Allergy Verified 09/08/16 12:01 History of Present Illness: this 45 years old male with alcohol and xanax dependence,withdrawal symptom, last [facility] 06/27/16 to 07/02/16 htn non compliance type 2 dm non compliance mmtp 100 mgs/day,lat medicated today asthma nicotine dependence several admissions to detox but relapsed longest period of sobriety 2 years Exam Limitations: No Limitations - Ebola screening Have you traveled outside of the country in the last 21 days: No Have you had contact with anyone from an Ebola affected area: No Have you been sick,other than usual withdrawal symptoms: No - Review of Systems Constitutional: Chills, Loss of Appetite, Malaise, Night Sweats, Changes in sleep, Weakness EENT: reports: Tearing, Nose Congestion Respiratory: reports: No Symptoms reported, Other (asthma) Cardiac: reports: No Symptoms Reported GI: reports: Diarrhea, Nausea, Vomiting, Abdominal cramping : reports: No Symptoms Reported Musculoskeletal: reports: Back Pain, Muscle Pain Integumentary: reports: Dryness Neuro: reports: Headache, Tremors Endocrine: reports: No Symptoms Reported Hematology: reports: No Symptoms Reported Psychiatric: reports: Judgement Intact, Mood/Affect Appropiate, Orientated x3, Depressed Patient History - Patient Medical History Hx Anemia: No Hx Asthma: Yes (Albuterol Inhaler) Hx Chronic Obstructive Pulmonary Disease (COPD): No Hx Cancer: No Hx Cardiac Disorders: No Hx Congestive Heart Failure: No Hx Hypertension: Yes (Non Complince with medication) Hx Hypercholesterolemia: No Hx Pacemaker: No HX Cerebrovascular Accident: No Hx Seizures: No Hx Dementia: No Hx Diabetes: Yes (Non-compliant with Metformin) Hx Gastrointestinal Disorders: No Hx Liver Disease: No Hx Genitourinary Disorders: No Hx Sexually Transmitted Disorders: No Hx Renal Disease (ESRD): No Hx Thyroid Disease: No Hx Human Immunodeficiency Virus (HIV): No ( NEGATIVE HX last 06/13) Hx Hepatitis C: No (2016 NEGATIVE) Hx Depression: Yes (NOT CURRENTLY TAKEN MED) Hx Suicide Attempt: No (DENIES) Hx Bipolar Disorder: No Hx Schizophrenia: No Other Medical History: no suicidal,no homicidal - Patient Surgical History Past Surgical History: No Hx Neurologic Surgery: No Hx Cataract Extraction: No Hx Cardiac Surgery: No Hx Lung Surgery: No Hx Breast Surgery: No Hx Breast Biopsy: No Hx Abdominal Surgery: No Hx Appendectomy: No Hx Cholecystectomy: No Hx Genitourinary Surgery: No Hx Section: No Hx Orthopedic Surgery: No Anesthesia Reaction: No - PPD History Previous Implant?: Yes Documented Results: Negative w/proof Implanted On Prior [facility] Admission?: Yes Date: 05/08/16 Results: 0 mm PPD to be Administered?: No - Smoking Cessation Smoking history: Current every day smoker Have you smoked in the past 12 months: Yes Aproximately how many cigarettes per day: 10 Hx Chewing Tobacco Use: No Initiated information on smoking cessation: Yes 'Breaking Loose' booklet given: 09/08/16 Family Disease History - Family Disease History Family Disease History: CA: Father (), Other: Mother (HTN-) Admission Physical Exam BHS - Vital Signs Vital Signs: Vital Signs - 24 hr 09/08/16 11:28 Temperature 96 F L Pulse Rate 99 H Respiratory 20 Rate Blood Pressure 158/104 - Physical General Appearance: Yes: Moderate Distress, Tremorous, Irritable, Sweating, Anxious HEENTM: Yes: Normal ENT Inspection, CARLIN, Pharynx Normal Respiratory: Yes: Lungs Clear, Normal Breath Sounds, No Respiratory Distress Neck: Yes: Within Normal Limits Breast: Yes: Within Normal Limits Cardiology: Yes: Within Normal Limits, Regular Rhythm, Regular Rate, S1, S2 Abdominal: Yes: Within Normal Limits, Normal Bowel Sounds, Non Tender, Flat, Soft Genitourinary: Yes: Within Normal Limits Back: Yes: Normal Inspection, Muscle Spasm Musculoskeletal: Yes: full range of Motion, Muscle Pain Extremities: Yes: Normal Range of Motion, Tremors Neurological: Yes: 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 intact, Fully Oriented, Alert, Motor Strength 5/5 Integumentary: Yes: Dry Lymphatic: Yes: Within Normal Limits - Diagnostic (1) Alcohol dependence with uncomplicated withdrawal Current Visit: No Status: Acute (2) Asthma Current Visit: No Status: Chronic Qualifiers: Asthma severity: mild intermittent Asthma complication type: uncomplicated Qualified Code(s): J45.20 - Mild intermittent asthma, uncomplicated (3) Hypertension Current Visit: No Status: Chronic Qualifiers: Hypertension type: essential hypertension Qualified Code(s): I10 - Essential (primary) hypertension (4) Methadone maintenance therapy patient Current Visit: No Status: Chronic (5) Nicotine dependence Current Visit: No Status: Chronic Qualifiers: Nicotine product type: cigarettes Substance use status: in withdrawal Qualified Code(s): F17.213 - Nicotine dependence, cigarettes, with withdrawal (6) Schizoaffective disorder Current Visit: No Status: Chronic (7) Uncomplicated sedative, hypnotic or anxiolytic withdrawal Current Visit: No Status: Chronic Cleared for Admission [facility] - [facility] Level of Care: Medically Managed Detox Regimen/Protocol: Valium BHS Breath Alcohol Content Breath Alcohol Content: 0 Urine Drug Screen - Results Drug Screen Negative: No Urine Drug Screen Results: BAR-Barbiturates, BZO-Benzodiazepines, MTD-Methadone
[2016-09-08] MEDS ORDERED: hydrOXYzine PAMOATE 50 MG CAPSULE (FP) PO PRN (12:21)
[2016-09-08] MEDS ORDERED: ACETAMINOPHEN 325 MG TABLET (FP) PO PRN (12:21)
[2016-09-08] MEDS ORDERED: MENTHOL/PHENOL 1 EACH UD MM PRN (12:21)
[2016-09-08] MEDS ORDERED: MAGNESIUM CITRATE 300 ML BOTTLE PO PRN (12:21)
[2016-09-08] MEDS ORDERED: guaiFENesin/D-METHORPHAN HB 10 ML UNIT-DOSE CUPS PO PRN (12:21)
[2016-09-08] MEDS ORDERED: MAGNESIUM HYDROX 2400MG/30ML ORAL SUSPENSION 30 ML CUP PO PRN (12:21)
[2016-09-08] MEDS ORDERED: MAG HYDROX/AL HYDROX/SIMETH 30 ML UNIT-DOSE CUP PO PRN (12:21)
[2016-09-08] MEDS ORDERED: diphenhydrAMINE HCL 50 MG CAPSULE PO PRN (12:21)
[2016-09-08] MEDS ORDERED: LOPERAMIDE HCL 2 MG CAPSULE PO PRN (12:21)
[2016-09-08] MEDS ORDERED: IBUPROFEN 400 MG TABLET (FP) PO PRN (12:21)
[2016-09-08] MEDS ORDERED: P-EPHED 60MG/TRIPROLIDI 2.5MG TABLET PO PRN (12:21)
[2016-09-08] MEDS ORDERED: ALBUTEROL SO4 6.7 GM HFA INHALER IH PRN (12:28)
[2016-09-08] MEDS ORDERED: diazePAM 5 MG TABLET PO ONE (13:43)
[2016-09-08] MEDS ORDERED: cloNIDine HCL 0.1 MG TABLET PO ONE (13:43)
[2016-09-08] MEDS: TRIAMTERENE AND HCTZ - 37.5 MG/25 MG CAPSULE PO SCH (14:59)
[2016-09-08] MEDS: NICOTINE 21 MG/24 HOURS TOPICAL PATCH TD SCH (14:59)
[2016-09-08] MEDS: diazePAM 5 MG TABLET PO SCH ×2 (15:01→22:33)
--- NOTE | 2016-09-08 16:06 | CONSULT ---
[facility] Psychiatric Consult - Data Date of interview: 09/08/16 Admission source: [facility] Identifying data: Another admission to [facility] for this 45 y/o AA male seeking detoxification treatment on [address] for alcohol,xanax and opioid dependence.Patient is single without children,unemployed,domiciled and supported on SSI benefits. Substance Abuse History: - Smoking Cessation. Smoking history: Current every day smoker. Have you smoked in the past 12 months: Yes. Aproximately how many cigarettes per day: 10. Hx Chewing Tobacco Use: No. Initiated information on smoking cessation: Yes. 'Breaking Loose' booklet given: 09/08/16. Patient admits to using xanax and alcohol on a daily basis. Medical History: Bronchial asthma,hypertension and diabetes mellitus. Psychiatric History: Diagnosed with Schizoaffective Disorder.History of multiple psychiatric hospitalizations ([facility] and [facility]).Patient reports that he stopped seeing OPD providers.Used to be on methadone maintenance (100 mg/day) at the [facility] MMTP program.Mr Hoffman insists on getting " his " seroquel 100 mg/hs.No history of suicide attempts. Physical/Sexual Abuse/Trauma History: Patient denies. Additional Comment: Urine Drug Screen Results: BAR-Barbiturates, BZO- Benzodiazepines, MTD-Methadone.Noted. Mental Status Exam - Mental Status Exam Alert and Oriented to: Time, Place, Person Cognitive Function: Good Patient Appearance: Well Groomed (short and obese) Mood: Apprehensive, Hopeful Affect: Mood Congruent Patient Behavior: Fatigued, Appropriate, Cooperative Speech Pattern: Clear Voice Loudness: Normal Thought Process: Goal Oriented Thought Disorder: Not Present Hallucinations: Denies Suicidal Ideation: Denies Homicidal Ideation: Denies Insight/Judgement: Poor Sleep: Poorly, Difficulty falling asleep Appetite: Good Muscle strength/Tone: Normal Gait/Station: Normal Psychiatric Findings - Problem List ([place] 1, 2,3) (1) Alcohol dependence with uncomplicated withdrawal Current Visit: Yes Status: Acute (2) Uncomplicated sedative, hypnotic or anxiolytic withdrawal Current Visit: Yes Status: Acute (3) Nicotine dependence Current Visit: Yes Status: Chronic Qualifiers: Nicotine product type: cigarettes Substance use status: in withdrawal Qualified Code(s): F17.213 - Nicotine dependence, cigarettes, with withdrawal (4) Opioid dependence on agonist therapy Current Visit: Yes Status: Acute (5) Substance induced mood disorder Current Visit: Yes Status: Acute (6) Schizoaffective disorder Current Visit: No Status: Chronic Comment: History. (7) Asthma Current Visit: Yes Status: Chronic Qualifiers: Asthma severity: mild intermittent Asthma complication type: uncomplicated Qualified Code(s): J45.20 - Mild intermittent asthma, uncomplicated (8) Hypertension Current Visit: Yes Status: Chronic Qualifiers: Hypertension type: essential hypertension Qualified Code(s): I10 - Essential (primary) hypertension - Initial Treatment Plan Initial Treatment Plan: Psychoeducation.Detoxification.Seroquel 100 mg po hs.Side effects/benefits discussed with the patient.He agrees with this plan of care.
[2016-09-08] MEDS ORDERED: INSULIN (NOVOLOG) ASPART 100 UNITS/ML 10ML VIAL ONE ×2 (16:57→21:35)
[2016-09-08] MEDS: metFORMIN HCL 500 MG TABLET (FP) PO SCH (17:03)
[2016-09-08] MEDS: INSULIN SLIDING SCALE (NOVOLOG) 1 VIAL SQ SCH ×2 (17:04→22:36)
[2016-09-08 18:01] LABS: URINE APPEARANCE CLEAR; URINE BILIRUBIN NEGATIVE (NEGATIVE); URINE BLOOD NEGATIVE (NEGATIVE); URINE COLOR LTYELLOW; URINE GLUCOSE (UA) 3+ (NEGATIVE); URINE KETONE NEGATIVE (NEGATIVE); URINE LEUK ESTERASE NEGATIVE (NEGATIVE); URINE NITRITE NEGATIVE (NEGATIVE); URINE PROTEIN NEGATIVE (NEGATIVE); URINE UROBILINOGEN NEGATIVE E.U./dl (0.2-1.0)
[2016-09-08] MEDS: QUEtiapine FUMARATE 100 MG TABLET (FP) PO SCH (22:33)
[2016-09-08] MEDS: THIAMINE HCL 100 MG TABLET (FP) PO SCH (22:33)
[2016-09-09] MEDS: diazePAM 5 MG TABLET PO SCH ×3 (05:28→22:33)
[2016-09-09] MEDS: metFORMIN HCL 500 MG TABLET (FP) PO SCH ×2 (06:27→17:46)
[2016-09-09] MEDS ORDERED: INSULIN (NOVOLOG) ASPART 100 UNITS/ML 10ML VIAL ONE ×2 (06:30→11:42)
[2016-09-09] MEDS: INSULIN SLIDING SCALE (NOVOLOG) 1 VIAL SQ SCH ×4 (06:32→22:33)
[2016-09-09] MEDS ORDERED: METHADONE HCL 40 MG DISPERSABLE TABLET PO SCH (09:15)
[2016-09-09] MEDS ORDERED: METHADONE 80 MG, METHADONE 20 MG PO SCH ×2 (09:30)
[2016-09-09] MEDS ORDERED: METHADONE HCL 10 MG TABLET ONE (10:05)
[2016-09-09] MEDS ORDERED: METHADONE HCL 40 MG DISPERSABLE TABLET ONE (10:06)
[2016-09-09] MEDS: METHADONE 80 MG, METHADONE 20 MG PO SCH (10:36)
[2016-09-09] MEDS: PRENATAL VITAMINS W/ FOLIC ACID TABLET (FP) PO SCH (10:36)
[2016-09-09] MEDS: NICOTINE 21 MG/24 HOURS TOPICAL PATCH TD SCH ×2 (10:36→14:29)
[2016-09-09] MEDS: TRIAMTERENE AND HCTZ - 37.5 MG/25 MG CAPSULE PO SCH (10:36)
[2016-09-09] MEDS: cloNIDine HCL 0.1 MG TABLET PO SCH (10:36)
[2016-09-09 10:37] LABS: MCH 28.9 pg (25.7-33.7); MCHC 33.4 g/dl (32.0-35.9); MEAN CELL VOLUME 86.6 fl (80-96); MEAN PLT VOLUME 10.6 fl (7.5-11.1); PLATELET COUNT 198 K/MM3 (134-434); RDW 13.9 % (11.9-15.9); WHITE BLOOD COUNT 5.7 K/mm3 (4.0-10.0)
[2016-09-09] MEDS: diazePAM 5 MG TABLET PO PRN (10:39)
[2016-09-09 11:06] LABS: ALBUMIN 4.4 g/dl (3.4-5.0); ALK PHOS 142 U/L (45-117); ANION GAP 12 (8-16); BILIRUBIN,TOTAL 0.6 mg/dL (0.2-1.0); CALCIUM 10.1 mg/dL (8.5-10.1); CO2 25 mmol/L (21-32); COCKROFT - GAULT 83.89; CREATININE 1.2 mg/dL (0.7-1.3); SGOT/AST 49 U/L (15-37); SGPT/ALT 98 U/L (12-78); TOT PROT 8.8 g/dl (6.4-8.2)
[2016-09-09 11:52] LABS: GLUCOSE,RANDOM 333 mg/dL (74-106)
--- NOTE | 2016-09-09 15:56 | PN ---
[facility] CIWA - CIWA Score Nausea/Vomitin-Mild Nausea/No Vomiting Muscle Tremors: 3 Anxiety: 3 Agitation: 3 Paroxysmal Sweats: 3 Orientation: 0-Oriented Tacttile Disturbances: 2-Mild Itch/Numbness/Burn Auditory Disturbances: 2-Mild Harshness/Frighten Visual Disturbances: 0-None Headache: 0-None Present CIWA-Ar Total Score: 17 BHS Progress Note (SOAP) Subjective: diarrhea, Interrupted Sleep, Back Ache, Sweating, Hot / Cold sensations, Tremors. Objective: PT. A & O X 3. 09/09/16 15:54 Vital Signs Temperature 96.4 F L 09/09/16 13:35 Pulse Rate 88 09/09/16 13:35 Respiratory Rate 19 09/09/16 13:35 Blood Pressure 115/84 09/09/16 13:35 O2 Sat by Pulse Oximetry (%) Laboratory Last Values WBC 5.7 K/mm3 (4.0-10.0) 09/09/16 06:30 RBC 5.33 M/mm3 (4.00-5.60) 09/09/16 06:30 Hgb 15.4 GM/dL (11.7-16.9) 09/09/16 06:30 Hct 46.1 % (35.4-49) 09/09/16 06:30 MCV 86.6 fl (80-96) 09/09/16 06:30 MCHC 33.4 g/dl (32.0-35.9) 09/09/16 06:30 RDW 13.9 % (11.9-15.9) 09/09/16 06:30 Plt Count 198 K/MM3 (134-434) 09/09/16 06:30 MPV 10.6 fl (7.5-11.1) 09/09/16 06:30 Sodium 134 mmol/L (136-145) L 09/09/16 06:30 Potassium 4.5 mmol/L (3.5-5.1) 09/09/16 06:30 Chloride 97 mmol/L (98-107) L 09/09/16 06:30 Carbon Dioxide 25 mmol/L (21-32) 09/09/16 06:30 Anion Gap 12 (8-16) 09/09/16 06:30 BUN 13 mg/dL (7-18) D 09/09/16 06:30 Creatinine 1.2 mg/dL (0.7-1.3) 09/09/16 06:30 Creat Clearance w eGFR > 60 (>60) 09/09/16 06:30 POC Glucometer 279 UNITS (()) 09/09/16 11:36 Random Glucose 333 mg/dL (74-106) H* 09/09/16 06:30 Calcium 10.1 mg/dL (8.5-10.1) 09/09/16 06:30 Total Bilirubin 0.6 mg/dL (0.2-1.0) D 09/09/16 06:30 AST 49 U/L (15-37) H D 09/09/16 06:30 ALT 98 U/L (12-78) H D 09/09/16 06:30 Alkaline Phosphatase 142 U/L (45-117) H 09/09/16 06:30 Total Protein 8.8 g/dl (6.4-8.2) H 09/09/16 06:30 Albumin 4.4 g/dl (3.4-5.0) 09/09/16 06:30 Urine Color Ltyellow 09/08/16 15:00 Urine Appearance Clear 09/08/16 15:00 Urine pH 5.0 (5.0-8.0) 09/08/16 15:00 Ur Specific [place] 1.021 (1.001-1.035) 09/08/16 15:00 Urine Protein Negative (NEGATIVE) 09/08/16 15:00 Urine Glucose (UA) 3+ (NEGATIVE) H 09/08/16 15:00 Urine Ketones Negative (NEGATIVE) 09/08/16 15:00 Urine Blood Negative (NEGATIVE) 09/08/16 15:00 Urine Nitrite Negative (NEGATIVE) 09/08/16 15:00 Urine Bilirubin Negative (NEGATIVE) 09/08/16 15:00 Urine Urobilinogen Negative E.U./dl (0.2-1.0) 09/08/16 15:00 Ur Leukocyte Esterase Negative (NEGATIVE) 09/08/16 15:00 RPR Titer Nonreactive (NONREACTIVE) 09/09/16 06:30 LABS NOTED. Assessment: 09/09/16 15:55 WITHDRAWAL SYMPTOMS. Plan: CONTINUE DETOX. ADVISED PATIENT TO FOLLOW-UP WITH [facility] / REHAB MEDICAL PROVIDER AFTER DISCHARGE FROM DETOX FOR GENERAL MEDICAL ASSESSMENT AND FOR ABNORMAL ADMISSION LAB VALUES.
[2016-09-09] MEDS: QUEtiapine FUMARATE 100 MG TABLET (FP) PO SCH (22:33)
[2016-09-09] MEDS: THIAMINE HCL 100 MG TABLET (FP) PO SCH (22:33)
[2016-09-10] MEDS ORDERED: METHADONE HCL 10 MG TABLET ONE (02:34)
[2016-09-10] MEDS ORDERED: METHADONE HCL 40 MG DISPERSABLE TABLET ONE (02:34)
[2016-09-10] MEDS: METHADONE 80 MG, METHADONE 20 MG PO SCH (05:39)
[2016-09-10] MEDS: diazePAM 5 MG TABLET PO PRN ×2 (05:42→20:49)
[2016-09-10] MEDS ORDERED: INSULIN (NOVOLOG) ASPART 100 UNITS/ML 10ML VIAL ONE ×4 (06:50→22:12)
[2016-09-10] MEDS: metFORMIN HCL 500 MG TABLET (FP) PO SCH ×2 (06:51→17:07)
[2016-09-10] MEDS: INSULIN SLIDING SCALE (NOVOLOG) 1 VIAL SQ SCH ×4 (06:52→22:44)
[2016-09-10] MEDS: NICOTINE 21 MG/24 HOURS TOPICAL PATCH TD SCH (10:25)
[2016-09-10] MEDS: cloNIDine HCL 0.1 MG TABLET PO SCH (10:25)
[2016-09-10] MEDS: PRENATAL VITAMINS W/ FOLIC ACID TABLET (FP) PO SCH (10:25)
[2016-09-10] MEDS: TRIAMTERENE AND HCTZ - 37.5 MG/25 MG CAPSULE PO SCH (10:25)
[2016-09-10] MEDS: diazePAM 5 MG TABLET PO SCH ×2 (10:25→22:43)
--- NOTE | 2016-09-10 11:34 | PN ---
S CIWA - CIWA Score Nausea/Vomitin Muscle Tremors: 4-Moderate,w/Arms Extend Anxiety: 4-Mod. Anxious/Guarded Agitation: 4-Moderately Restless Paroxysmal Sweats: 3 Orientation: 0-Oriented Tacttile Disturbances: 0-None Auditory Disturbances: 0-None Visual Disturbances: 0-None Headache: 0-None Present CIWA-Ar Total Score: 18 BHS Progress Note (SOAP) Subjective: nausea, sweats, interrupted sleep, anxiety, tremors Objective: 09/10/16 11:33 Vital Signs - 8 hr 09/10/16 09/10/16 06:12 10:25 Temperature 97.5 F L 97.8 F Pulse Rate 84 90 Respiratory 18 20 Rate Blood Pressure 120/81 139/89 Laboratory Tests 09/08/16 09/08/16 09/08/16 12:15 15:00 16:20 WBC RBC Hgb Hct MCV MCHC RDW Plt Count MPV Sodium Potassium Chloride Carbon Dioxide Anion Gap BUN Creatinine Creat Clearance w eGFR POC Glucometer 282 299 Random Glucose Calcium Total Bilirubin AST ALT Alkaline Phosphatase Total Protein Albumin Urine Color Ltyellow Urine Appearance Clear Urine pH 5.0 Ur Specific [place] 1.021 Urine Protein Negative Urine Glucose (UA) 3+ H Urine Ketones Negative Urine Blood Negative Urine Nitrite Negative Urine Bilirubin Negative Urine Urobilinogen Negative Ur Leukocyte Esterase Negative RPR Titer 09/09/16 09/09/16 09/09/16 05:29 06:30 06:30 WBC 5.7 RBC 5.33 Hgb 15.4 Hct 46.1 MCV 86.6 MCHC 33.4 RDW 13.9 Plt Count 198 MPV 10.6 Sodium 134 L Potassium 4.5 Chloride 97 L Carbon Dioxide 25 Anion Gap 12 BUN 13 D Creatinine 1.2 Creat Clearance w eGFR > 60 POC Glucometer 162 Random Glucose 333 H* Calcium 10.1 Total Bilirubin 0.6 D AST 49 H D ALT 98 H D Alkaline Phosphatase 142 H Total Protein 8.8 H Albumin 4.4 Urine Color Urine Appearance Urine pH Ur Specific [place] Urine Protein Urine Glucose (UA) Urine Ketones Urine Blood Urine Nitrite Urine Bilirubin Urine Urobilinogen Ur Leukocyte Esterase RPR Titer 09/09/16 09/09/16 09/09/16 06:30 11:36 16:49 WBC RBC Hgb Hct MCV MCHC RDW Plt Count MPV Sodium Potassium Chloride Carbon Dioxide Anion Gap BUN Creatinine Creat Clearance w eGFR POC Glucometer 279 253 Random Glucose Calcium Total Bilirubin AST ALT Alkaline Phosphatase Total Protein Albumin Urine Color Urine Appearance Urine pH Ur Specific [place] Urine Protein Urine Glucose (UA) Urine Ketones Urine Blood Urine Nitrite Urine Bilirubin Urine Urobilinogen Ur Leukocyte Esterase RPR Titer Nonreactive 09/09/16 09/10/16 21:23 05:38 WBC RBC Hgb Hct MCV MCHC RDW Plt Count MPV Sodium Potassium Chloride Carbon Dioxide Anion Gap BUN Creatinine Creat Clearance w eGFR POC Glucometer 207 155 Random Glucose Calcium Total Bilirubin AST ALT Alkaline Phosphatase Total Protein Albumin Urine Color Urine Appearance Urine pH Ur Specific [place] Urine Protein Urine Glucose (UA) Urine Ketones Urine Blood Urine Nitrite Urine Bilirubin Urine Urobilinogen Ur Leukocyte Esterase RPR Titer hyperglycemia, elevated lfts Assessment: 09/10/16 11:34 withdrawal sx, diabetes, hepatitis Plan: cont detox, dietary advice given, control glucose, fluids, encourage ambulation
--- NOTE | 2016-09-10 14:32 | EKG ---
Test Reason : Blood Pressure : / mmHG Vent. Rate : 090 BPM Atrial Rate : 090 BPM P-R Int : 158 ms QRS Dur : 076 ms QT Int : 374 ms P-R-T Axes : 057 031 025 degrees QTc Int : 457 ms NORMAL SINUS RHYTHM NORMAL ECG WHEN COMPARED WITH ECG OF 27-JUN-2016 13:51, NO SIGNIFICANT CHANGE WAS FOUND Confirmed by SIMÓN GRIMES MD ([id number]) on 09/10/2016 2:32:21 PM Referred By: Confirmed By:SIMÓN GRIMES MD
[2016-09-10] MEDS: THIAMINE HCL 100 MG TABLET (FP) PO SCH (22:43)
[2016-09-10] MEDS: QUEtiapine FUMARATE 100 MG TABLET (FP) PO SCH (22:43)
[2016-09-11] MEDS ORDERED: METHADONE HCL 10 MG TABLET ONE (03:32)
[2016-09-11] MEDS ORDERED: METHADONE HCL 40 MG DISPERSABLE TABLET ONE (03:32)
[2016-09-11] MEDS: METHADONE 80 MG, METHADONE 20 MG PO SCH (05:49)
[2016-09-11] MEDS: diazePAM 5 MG TABLET PO PRN (05:50)
[2016-09-11] MEDS: INSULIN SLIDING SCALE (NOVOLOG) 1 VIAL SQ SCH ×4 (07:39→22:24)
[2016-09-11] MEDS: metFORMIN HCL 500 MG TABLET (FP) PO SCH ×2 (07:39→16:50)
[2016-09-11] MEDS: PRENATAL VITAMINS W/ FOLIC ACID TABLET (FP) PO SCH (10:27)
[2016-09-11] MEDS: cloNIDine HCL 0.1 MG TABLET PO SCH (10:27)
[2016-09-11] MEDS: TRIAMTERENE AND HCTZ - 37.5 MG/25 MG CAPSULE PO SCH (10:27)
[2016-09-11] MEDS: diazePAM 5 MG TABLET PO SCH ×2 (10:27→22:24)
[2016-09-11] MEDS: NICOTINE 21 MG/24 HOURS TOPICAL PATCH TD SCH (10:28)
--- NOTE | 2016-09-11 14:57 | PN ---
BHS Progress Note (SOAP) Subjective: Sweating,interrupted sleep,restless Objective: 09/11/16 14:57 Vital Signs - 8 hr 09/11/16 09/11/16 09:25 13:12 Temperature 96.8 F L 98.3 F Pulse Rate 91 H 83 Respiratory 20 20 Rate Blood Pressure 143/98 116/84 Laboratory Last Values WBC 5.7 K/mm3 (4.0-10.0) 09/09/16 06:30 RBC 5.33 M/mm3 (4.00-5.60) 09/09/16 06:30 Hgb 15.4 GM/dL (11.7-16.9) 09/09/16 06:30 Hct 46.1 % (35.4-49) 09/09/16 06:30 MCV 86.6 fl (80-96) 09/09/16 06:30 MCHC 33.4 g/dl (32.0-35.9) 09/09/16 06:30 RDW 13.9 % (11.9-15.9) 09/09/16 06:30 Plt Count 198 K/MM3 (134-434) 09/09/16 06:30 MPV 10.6 fl (7.5-11.1) 09/09/16 06:30 Sodium 134 mmol/L (136-145) L 09/09/16 06:30 Potassium 4.5 mmol/L (3.5-5.1) 09/09/16 06:30 Chloride 97 mmol/L (98-107) L 09/09/16 06:30 Carbon Dioxide 25 mmol/L (21-32) 09/09/16 06:30 Anion Gap 12 (8-16) 09/09/16 06:30 BUN 13 mg/dL (7-18) D 09/09/16 06:30 Creatinine 1.2 mg/dL (0.7-1.3) 09/09/16 06:30 Creat Clearance w eGFR > 60 (>60) 09/09/16 06:30 POC Glucometer 211 UNITS (()) 09/11/16 05:47 Random Glucose 333 mg/dL (74-106) H* 09/09/16 06:30 Calcium 10.1 mg/dL (8.5-10.1) 09/09/16 06:30 Total Bilirubin 0.6 mg/dL (0.2-1.0) D 09/09/16 06:30 AST 49 U/L (15-37) H D 09/09/16 06:30 ALT 98 U/L (12-78) H D 09/09/16 06:30 Alkaline Phosphatase 142 U/L (45-117) H 09/09/16 06:30 Total Protein 8.8 g/dl (6.4-8.2) H 09/09/16 06:30 Albumin 4.4 g/dl (3.4-5.0) 09/09/16 06:30 Urine Color Ltyellow 09/08/16 15:00 Urine Appearance Clear 09/08/16 15:00 Urine pH 5.0 (5.0-8.0) 09/08/16 15:00 Ur Specific [place] 1.021 (1.001-1.035) 09/08/16 15:00 Urine Protein Negative (NEGATIVE) 09/08/16 15:00 Urine Glucose (UA) 3+ (NEGATIVE) H 09/08/16 15:00 Urine Ketones Negative (NEGATIVE) 09/08/16 15:00 Urine Blood Negative (NEGATIVE) 09/08/16 15:00 Urine Nitrite Negative (NEGATIVE) 09/08/16 15:00 Urine Bilirubin Negative (NEGATIVE) 09/08/16 15:00 Urine Urobilinogen Negative E.U./dl (0.2-1.0) 09/08/16 15:00 Ur Leukocyte Esterase Negative (NEGATIVE) 09/08/16 15:00 RPR Titer Nonreactive (NONREACTIVE) 09/09/16 06:30 Assessment: 09/11/16 14:57 Withdrawal sx. Plan: Continue detox
[2016-09-11] MEDS ORDERED: INSULIN (NOVOLOG) ASPART 100 UNITS/ML 10ML VIAL ONE ×2 (16:45→21:51)
[2016-09-11] MEDS: THIAMINE HCL 100 MG TABLET (FP) PO SCH (22:24)
[2016-09-11] MEDS: QUEtiapine FUMARATE 100 MG TABLET (FP) PO SCH (22:24)
[2016-09-12] MEDS ORDERED: METHADONE HCL 10 MG TABLET ONE (04:45)
[2016-09-12] MEDS ORDERED: METHADONE HCL 40 MG DISPERSABLE TABLET ONE (04:45)
[2016-09-12] MEDS: METHADONE 80 MG, METHADONE 20 MG PO SCH (05:18)
[2016-09-12] MEDS: metFORMIN HCL 500 MG TABLET (FP) PO SCH (07:34)
[2016-09-12] MEDS: INSULIN SLIDING SCALE (NOVOLOG) 1 VIAL SQ SCH ×2 (07:35→11:25)
[2016-09-12] MEDS: TRIAMTERENE AND HCTZ - 37.5 MG/25 MG CAPSULE PO SCH ×2 (07:56→10:23)
[2016-09-12 09:14] VITALS: BP 145/113; PULSE 97; TEMP 99.1
[2016-09-12] MEDS ORDERED: diazePAM 5 MG TABLET PO SCH (10:00)
[2016-09-12] MEDS: NICOTINE 21 MG/24 HOURS TOPICAL PATCH TD SCH (10:22)
[2016-09-12] MEDS: PRENATAL VITAMINS W/ FOLIC ACID TABLET (FP) PO SCH (10:23)
[2016-09-12] MEDS: cloNIDine HCL 0.1 MG TABLET PO SCH (10:23)
--- NOTE | 2016-09-12 11:06 | DS ---
[facility] Detox Discharge Summary Admission Date: 09/08/16 Discharge Date: 09/12/16 - History Present History: Alcohol Dependence, Sedative Dependence, MMTP Pertinent Past History: Asthma HTN - Physical Exam Results Vital Signs: Vital Signs Temperature 99.1 F 09/12/16 09:13 Pulse Rate 97 H 09/12/16 09:13 Respiratory Rate 20 09/12/16 09:13 Blood Pressure 145/113 09/12/16 09:13 O2 Sat by Pulse Oximetry (%) Pertinent Admission Physical Exam Findings: Withdrawal sx. Laboratory Last Values WBC 5.7 K/mm3 (4.0-10.0) 09/09/16 06:30 RBC 5.33 M/mm3 (4.00-5.60) 09/09/16 06:30 Hgb 15.4 GM/dL (11.7-16.9) 09/09/16 06:30 Hct 46.1 % (35.4-49) 09/09/16 06:30 MCV 86.6 fl (80-96) 09/09/16 06:30 MCHC 33.4 g/dl (32.0-35.9) 09/09/16 06:30 RDW 13.9 % (11.9-15.9) 09/09/16 06:30 Plt Count 198 K/MM3 (134-434) 09/09/16 06:30 MPV 10.6 fl (7.5-11.1) 09/09/16 06:30 Sodium 134 mmol/L (136-145) L 09/09/16 06:30 Potassium 4.5 mmol/L (3.5-5.1) 09/09/16 06:30 Chloride 97 mmol/L (98-107) L 09/09/16 06:30 Carbon Dioxide 25 mmol/L (21-32) 09/09/16 06:30 Anion Gap 12 (8-16) 09/09/16 06:30 BUN 13 mg/dL (7-18) D 09/09/16 06:30 Creatinine 1.2 mg/dL (0.7-1.3) 09/09/16 06:30 Creat Clearance w eGFR > 60 (>60) 09/09/16 06:30 POC Glucometer 148 UNITS (()) 09/12/16 05:17 Random Glucose 333 mg/dL (74-106) H* 09/09/16 06:30 Calcium 10.1 mg/dL (8.5-10.1) 09/09/16 06:30 Total Bilirubin 0.6 mg/dL (0.2-1.0) D 09/09/16 06:30 AST 49 U/L (15-37) H D 09/09/16 06:30 ALT 98 U/L (12-78) H D 09/09/16 06:30 Alkaline Phosphatase 142 U/L (45-117) H 09/09/16 06:30 Total Protein 8.8 g/dl (6.4-8.2) H 09/09/16 06:30 Albumin 4.4 g/dl (3.4-5.0) 09/09/16 06:30 Urine Color Ltyellow 09/08/16 15:00 Urine Appearance Clear 09/08/16 15:00 Urine pH 5.0 (5.0-8.0) 09/08/16 15:00 Ur Specific [place] 1.021 (1.001-1.035) 09/08/16 15:00 Urine Protein Negative (NEGATIVE) 09/08/16 15:00 Urine Glucose (UA) 3+ (NEGATIVE) H 09/08/16 15:00 Urine Ketones Negative (NEGATIVE) 09/08/16 15:00 Urine Blood Negative (NEGATIVE) 09/08/16 15:00 Urine Nitrite Negative (NEGATIVE) 09/08/16 15:00 Urine Bilirubin Negative (NEGATIVE) 09/08/16 15:00 Urine Urobilinogen Negative E.U./dl (0.2-1.0) 09/08/16 15:00 Ur Leukocyte Esterase Negative (NEGATIVE) 09/08/16 15:00 RPR Titer Nonreactive (NONREACTIVE) 09/09/16 06:30 labs noted - Treatment Hospital Course: Detox Protocol Followed, Detoxed Safely, Responded well, Discharged Condition Good, Rehab Referral Accepted Patient has Accepted a Rehab Referral to: [facility] - Medication Discharge Medications: Ambulatory Orders Clonidine HCl [Catapres] 0.2 mg PO DAILY 03/17/15 Albuterol Sulfate Inhaler - [Ventolin HFA Inhaler -] 2 puff IH Q4H PRN #1 inhaler 06/01/16 Hctz 25Mg/Triamterene [Dyazide 25/37.5 -] 1 cap PO DAILY #30 capsule 06/01/16 Metformin HCl [Glucophage -] 500 mg PO BIDAC #60 tablet 06/01/16 Quetiapine Fumarate [Seroquel] 100 mg PO HS #30 tablet 09/08/16 - Diagnosis (1) Alcohol dependence with uncomplicated withdrawal Current Visit: Yes Status: Acute (2) Opioid dependence on agonist therapy Current Visit: Yes Status: Acute (3) Uncomplicated sedative, hypnotic or anxiolytic withdrawal Current Visit: Yes Status: Acute (4) Asthma Current Visit: Yes Status: Chronic Qualifiers: Asthma severity: mild intermittent Asthma complication type: uncomplicated Qualified Code(s): J45.20 - Mild intermittent asthma, uncomplicated (5) Hypertension Current Visit: Yes Status: Chronic Qualifiers: Hypertension type: essential hypertension Qualified Code(s): I10 - Essential (primary) hypertension (6) Nicotine dependence Current Visit: Yes Status: Chronic Qualifiers: Nicotine product type: cigarettes Substance use status: in withdrawal Qualified Code(s): F17.213 - Nicotine dependence, cigarettes, with withdrawal (7) Schizoaffective disorder Current Visit: No Status: Chronic - AMA Did Patient Leave Against Medical Advice: No
[2016-09-12] MEDS ORDERED: INSULIN (NOVOLOG) ASPART 100 UNITS/ML 10ML VIAL ONE (11:26)
== END 2016-09-12 12:27 | disposition other institution (70) | DRG 773 ==
LOC: YASAS 09:02 → Y3N 13:02
PROVIDERS: ADMIT Internal Medicine; ATTEND Internal Medicine
PROC: HZ2ZZZZ Detoxification Services for Substance Abuse Treatment (ICD-10-PCS; principal; 2016-09-08)
DX: F13.230 Sedative, hypnotic or anxiolytic dependence with withdrawal, uncomplicated (principal); F10.230 Alcohol dependence with withdrawal, uncomplicated; F11.20 Opioid dependence, uncomplicated; F17.210 Nicotine dependence, cigarettes, uncomplicated; F25.9 Schizoaffective disorder, unspecified; F19.24 Other psychoactive substance dependence with psychoactive substance-induced mood disorder; I10 Essential (primary) hypertension; J45.20 Mild intermittent asthma, uncomplicated; R94.5 Abnormal results of liver function studies; E11.65 Type 2 diabetes mellitus with hyperglycemia; K75.9 Inflammatory liver disease, unspecified; Z91.14 Patient's other noncompliance with medication regimen
CPT/HCPCS: 36415; 80053; 81003; 85027; 86593; 93005; 93010

== ENCOUNTER 2016-09-12 12:28 | Inpatient (IN) | payer OTHER ==
--- NOTE | 2016-09-12 15:04 | HP ---
Psychiatrist Admission - Data Date of interview: 09/12/16 Admission source: [facility] Identifying data: This is the first [facility] inpatient rehabilitation admission for this 45 y/o AA male who is single without children, unemployed, domiciled residing in transitional housing and supported on [facility] benefits. Medical History: Bronchial asthma,hypertension and diabetes mellitus, smokes 1/ 2 PPD cigarettes. On MMTP 100 mg/daily. Psychiatric History: Patient reports first psychiatric contact at age of 24, to address anxiety, depression, auditory hallucinations, reports several psychiatric hospitalizations at [facility] and [facility]3], most recent hospitalization in 2013 at [facility]. Diagnosed with Schizoaffective Disorder , reports was seing a psychiatrist at [facility], non-compliant with medications and follow-ups, states he obtains scripts visiting ER, he curretly on Seroquel 10 mg po hs, see by and continued medications.Reports he can't sleep well, states that Trazodone was effective(no side-effects as self- report). Physical/Sexual Abuse/Trauma History: Denies history of abuse. Allergies/Adverse Reactions: Allergies Allergy/AdvReac Type Severity Reaction Status Date / Time No Known Allergies Allergy Verified 09/08/16 12:01 Date of last physical exam: 09/08/16 Concur with the findings of this exam: Yes - Substance Abuse/Tx History Hx Alcohol Use: Yes (daily drinking) Substance Use Type: Tranquilizers (XAnax, Klonopin daily use) - Admission Criteria Previous failed treatment: Yes Poor recovery environment: Yes Comorbidities: Yes Lacks judgement: Yes Mental Status Exam - Mental Status Exam Alert and Oriented to: Time, Place, Person Cognitive Function: Fair Patient Appearance: Well Groomed Mood: Apathetic, Anxious Affect: Appropriate, Mood Congruent Patient Behavior: Appropriate, Cooperative Speech Pattern: Clear, Appropriate Voice Loudness: Normal Thought Process: Intact, Goal Oriented Thought Disorder: Not Present Hallucinations: Denies Suicidal Ideation: Denies Homicidal Ideation: Denies Insight/Judgement: Fair Sleep: Poorly, Difficulty falling asleep Appetite: Fair Muscle strength/Tone: Normal Gait/Station: Normal Psychiatric Findings - Problem List ([place] 1, 2,3) (1) Opioid dependence on agonist therapy Current Visit: No Status: Acute (2) Asthma Current Visit: No Status: Chronic Qualifiers: Asthma severity: mild intermittent Asthma complication type: uncomplicated Qualified Code(s): J45.20 - Mild intermittent asthma, uncomplicated (3) Hypertension Current Visit: No Status: Chronic Qualifiers: Hypertension type: essential hypertension Qualified Code(s): I10 - Essential (primary) hypertension (4) Methadone maintenance therapy patient Current Visit: No Status: Chronic (5) Nicotine dependence Current Visit: No Status: Chronic Qualifiers: Nicotine product type: cigarettes Substance use status: in withdrawal Qualified Code(s): F17.213 - Nicotine dependence, cigarettes, with withdrawal (6) Schizoaffective disorder Current Visit: No Status: Chronic Comment: History. (7) Alcohol dependence Current Visit: Yes Status: Acute (8) Sedative hypnotic or anxiolytic dependence Current Visit: Yes Status: Acute - Initial Treatment Plan Initial Treatment Plan: will continue Seroquel 100 mg po hs, add Trazodone 50 mg po hs, monitor rpopgress as needed.
[2016-09-12] MEDS ORDERED: MENTHOL/PHENOL 1 EACH UD MM PRN (15:46)
[2016-09-12] MEDS ORDERED: ACETAMINOPHEN 325 MG TABLET (FP) PO PRN (15:46)
[2016-09-12] MEDS ORDERED: LOPERAMIDE HCL 2 MG CAPSULE PO PRN (15:46)
[2016-09-12] MEDS ORDERED: MAGNESIUM CITRATE 300 ML BOTTLE PO PRN (15:46)
[2016-09-12] MEDS ORDERED: MAG HYDROX/AL HYDROX/SIMETH 30 ML UNIT-DOSE CUP PO PRN (15:46)
[2016-09-12] MEDS ORDERED: P-EPHED 60MG/TRIPROLIDI 2.5MG TABLET PO PRN (15:46)
[2016-09-12] MEDS ORDERED: MAGNESIUM HYDROX 2400MG/30ML ORAL SUSPENSION 30 ML CUP PO PRN (15:46)
[2016-09-12] MEDS ORDERED: IBUPROFEN 400 MG TABLET (FP) PO PRN (15:46)
[2016-09-12] MEDS ORDERED: guaiFENesin/D-METHORPHAN HB 10 ML UNIT-DOSE CUPS PO PRN (15:46)
[2016-09-12] MEDS ORDERED: ALBUTEROL SO4 18 GM HFA INHALER IH PRN (15:47)
--- NOTE | 2016-09-12 16:17 | HP ---
[facility] Rehab Assess/Revision - Admission History Admitted to Rehab from: [facility] Date of Admission to Rehab: 09/12/16 - Findings Detox History & Physical reviewed: Yes Concur with findings: Yes Comments/Additional Findings: tranferred from detox to rehab admission as per protocol
[2016-09-12] MEDS: metFORMIN HCL 500 MG TABLET (FP) PO SCH (17:11)
[2016-09-12] MEDS: traZODone HCL 50 MG TABLET (FP) PO SCH (22:08)
[2016-09-12] MEDS: QUEtiapine FUMARATE 100 MG TABLET (FP) PO SCH (22:08)
[2016-09-12] MEDS: THIAMINE HCL 100 MG TABLET (FP) PO SCH (22:08)
[2016-09-13] MEDS ORDERED: METHADONE HCL 40 MG DISPERSABLE TABLET PO SCH (06:00)
[2016-09-13] MEDS ORDERED: METHADONE HCL 40 MG DISPERSABLE TABLET ONE (06:08)
[2016-09-13] MEDS ORDERED: METHADONE HCL 10 MG TABLET ONE (06:08)
[2016-09-13] MEDS: metFORMIN HCL 500 MG TABLET (FP) PO SCH ×2 (06:28→17:04)
[2016-09-13] MEDS: METHADONE 80 MG, METHADONE 20 MG PO SCH (06:28)
[2016-09-13] MEDS: INSULIN SLIDING SCALE (NOVOLOG) 1 VIAL SQ SCH ×2 (06:31→17:03)
[2016-09-13] MEDS ORDERED: INSULIN (NOVOLOG) ASPART 100 UNITS/ML 10ML VIAL ONE ×2 (06:31→17:03)
[2016-09-13] MEDS: PRENATAL VITAMINS W/ FOLIC ACID TABLET (FP) PO SCH (10:18)
[2016-09-13] MEDS: TRIAMTERENE AND HCTZ - 37.5 MG/25 MG CAPSULE PO SCH (10:18)
--- NOTE | 2016-09-13 13:24 | PN ---
Psychiatric Progress Note Vital Signs: Vital Signs Period Temp Pulse Resp BP Sys/Bellamy Pulse Ox Last 24 Hr 98.4 F 84 18-18 135/74 Date of Session: 09/13/16 Chief Complaint:: "I am anxious" HPI: Patient is addressing alcohol, nicotine dependence comorbid Schizoaffective disorder. ROS: Bronchial asthma,hypertension and diabetes mellitus, Current Medications: Active Medications Generic Name Dose Route Start Last Admin Trade Name Freq PRN Reason Stop Dose Admin Acetaminophen 650 mg 09/12/16 15:46 Tylenol - PO Q4H PRN FEVER OR PAIN Al Hydroxide/Mg Hydroxide 30 ml 09/12/16 15:46 Mylanta Oral Suspension - PO Q6H PRN DYSPEPSIA Albuterol Sulfate 2 puff 09/12/16 15:47 Ventolin Hfa Inhaler - IH Q4H PRN SHORTNESS OF BREATH Diphenhydramine HCl 50 mg 09/12/16 15:46 Benadryl - PO HSMR1 PRN FOR ITCHING Eucalyptus/Menthol/Phenol/Sorbitol 1 each 09/12/16 15:46 Cepastat Lozenge - MM Q4H PRN SORE THROAT Guaifenesin 10 ml 09/12/16 15:46 Robitussin Dm - PO Q6H PRN COUGH Hydroxyzine Pamoate 50 mg 09/13/16 13:22 Vistaril - PO Q4H PRN ANXIETY Ibuprofen 400 mg 09/12/16 15:46 Motrin - PO Q6H PRN PAIN Insulin Aspart 0 vial 09/13/16 07:00 09/13/16 06:31 Novolog Vial Sliding Scale - SQ 2 units BIDAC JAGDISH Administration Protocol Loperamide HCl 4 mg 09/12/16 15:46 Imodium - PO Q6H PRN DIARRHEA Magnesium Citrate 300 ml 09/12/16 15:46 Citroma - PO 09/14/16 15:47 Q48H PRN CONSTIPATION Magnesium Hydroxide 30 ml 09/12/16 15:46 Milk Of Magnesia - PO DAILY PRN CONSTIPATION Metformin HCl 500 mg 09/12/16 17:15 09/13/16 06:28 Glucophage - PO 500 mg BIDAC JAGDISH Administration Methadone HCl 80 mg/ Methadone 100 mg 09/13/16 06:00 09/13/16 06:28 HCl 20 mg PO 100 mg DAILY@0600 JAGDISH Administration Multivit/Folic Acid/Iron 1 tab 09/13/16 10:00 09/13/16 10:18 Vitamins (Sjr) - PO Not Given DAILY JAGDISH Pseudoephedrine/Triprolidine 1 combo 09/12/16 15:46 Actifed - PO TID PRN NASAL CONGESTION Quetiapine Fumarate 100 mg 09/12/16 22:00 09/12/16 22:08 Seroquel - PO 100 mg HS JAGDISH Administration Quetiapine Fumarate 25 mg 09/13/16 14:00 Seroquel - PO BID@1000,1400 JAGDISH Thiamine HCl 100 mg 09/12/16 22:00 09/12/16 22:08 Vitamin B1 - PO 100 mg HS JAGDISH Administration Trazodone HCl 50 mg 09/12/16 22:00 09/12/16 22:08 Desyrel - PO 50 mg HS JAGDISH Administration Triamterene/HCTZ 1 cap 09/13/16 10:00 09/13/16 10:18 Dyazide 25/37.5mg PO 1 cap DAILY JAGDISH Administration Medication(s) Change(s): add Seroquel 25 mg po 10am and 2 pm, Vistaril 50 mg po q 4 hrs PRN Current Side Effect: No Lab tests ordered: No Lab tests reviewed: Yes Provider note:: Patient reports has bee feeling very anxious, restless, difficulty to focus in groups, reports he is anxious most of the days than not, reviewed medications with the patient, discussed indications and properties each of medications, discussed treatment plan. Psychoeducation on addiction and supportive therapy provided, will continue to monitor progress. Total face to face time:: 35 Mental Status Exam - Mental Status Exam Alert and Oriented to: Time, Place, Person Cognitive Function: Good Patient Appearance: Well Groomed Mood: Anxious Affect: Appropriate, Mood Congruent Patient Behavior: Appropriate, Cooperative Speech Pattern: Appropriate Voice Loudness: Normal Thought Process: Intact, Goal Oriented Thought Disorder: Not Present Hallucinations: Denies Suicidal Ideation: Denies Homicidal Ideation: Denies Insight/Judgement: Fair Sleep: Poorly, Difficulty falling asleep Appetite: Fair Muscle strength/Tone: Normal Gait/Station: Normal Psychiatric Treatment Plan - Problem List (1) Opioid dependence on agonist therapy Current Visit: No (2) Asthma Current Visit: No Qualifiers: Asthma severity: mild intermittent Asthma complication type: uncomplicated Qualified Code(s): J45.20 - Mild intermittent asthma, uncomplicated (3) Hypertension Current Visit: No Qualifiers: Hypertension type: essential hypertension Qualified Code(s): I10 - Essential (primary) hypertension (4) Methadone maintenance therapy patient Current Visit: No (5) Nicotine dependence Current Visit: No Qualifiers: Nicotine product type: cigarettes Substance use status: in withdrawal Qualified Code(s): F17.213 - Nicotine dependence, cigarettes, with withdrawal (6) Schizoaffective disorder Current Visit: No Comment: History. (7) Alcohol dependence Current Visit: Yes (8) Sedative hypnotic or anxiolytic dependence Current Visit: Yes
[2016-09-13] MEDS: hydrOXYzine PAMOATE 50 MG CAPSULE (FP) PO PRN (14:32)
[2016-09-13] MEDS: QUEtiapine FUMARATE 25 MG TABLET (FP) PO SCH (14:33)
[2016-09-13] MEDS: traZODone HCL 50 MG TABLET (FP) PO SCH (21:12)
[2016-09-13] MEDS: THIAMINE HCL 100 MG TABLET (FP) PO SCH (21:12)
[2016-09-13] MEDS: QUEtiapine FUMARATE 100 MG TABLET (FP) PO SCH (21:12)
[2016-09-14] MEDS ORDERED: METHADONE HCL 40 MG DISPERSABLE TABLET ONE (03:19)
[2016-09-14] MEDS ORDERED: METHADONE HCL 10 MG TABLET ONE (03:19)
[2016-09-14] MEDS: METHADONE 80 MG, METHADONE 20 MG PO SCH (06:26)
[2016-09-14] MEDS: metFORMIN HCL 500 MG TABLET (FP) PO SCH ×2 (06:26→16:47)
[2016-09-14] MEDS: INSULIN SLIDING SCALE (NOVOLOG) 1 VIAL SQ SCH ×2 (06:28→16:46)
[2016-09-14] MEDS ORDERED: INSULIN (NOVOLOG) ASPART 100 UNITS/ML 10ML VIAL ONE ×2 (06:29→16:46)
[2016-09-14] MEDS: PRENATAL VITAMINS W/ FOLIC ACID TABLET (FP) PO SCH (09:59)
[2016-09-14] MEDS: QUEtiapine FUMARATE 25 MG TABLET (FP) PO SCH ×2 (09:59→14:11)
[2016-09-14] MEDS: TRIAMTERENE AND HCTZ - 37.5 MG/25 MG CAPSULE PO SCH (09:59)
[2016-09-14] MEDS: hydrOXYzine PAMOATE 50 MG CAPSULE (FP) PO PRN ×2 (10:00→14:12)
[2016-09-14] MEDS: THIAMINE HCL 100 MG TABLET (FP) PO SCH (21:13)
[2016-09-14] MEDS: QUEtiapine FUMARATE 100 MG TABLET (FP) PO SCH (21:13)
[2016-09-14] MEDS: traZODone HCL 50 MG TABLET (FP) PO SCH (21:13)
[2016-09-15] MEDS ORDERED: METHADONE HCL 40 MG DISPERSABLE TABLET ONE (03:41)
[2016-09-15] MEDS ORDERED: METHADONE HCL 10 MG TABLET ONE (03:41)
[2016-09-15] MEDS: INSULIN SLIDING SCALE (NOVOLOG) 1 VIAL SQ SCH ×2 (06:31→16:58)
[2016-09-15] MEDS ORDERED: INSULIN (NOVOLOG) ASPART 100 UNITS/ML 10ML VIAL ONE ×2 (06:32→16:58)
[2016-09-15] MEDS: metFORMIN HCL 500 MG TABLET (FP) PO SCH ×2 (06:32→16:57)
[2016-09-15] MEDS: METHADONE 80 MG, METHADONE 20 MG PO SCH (06:33)
[2016-09-15] MEDS: hydrOXYzine PAMOATE 50 MG CAPSULE (FP) PO PRN ×2 (09:54→13:15)
[2016-09-15] MEDS: QUEtiapine FUMARATE 25 MG TABLET (FP) PO SCH ×2 (09:55→13:16)
[2016-09-15] MEDS: TRIAMTERENE AND HCTZ - 37.5 MG/25 MG CAPSULE PO SCH (09:55)
[2016-09-15] MEDS: PRENATAL VITAMINS W/ FOLIC ACID TABLET (FP) PO SCH (09:55)
[2016-09-15] MEDS: traZODone HCL 50 MG TABLET (FP) PO SCH (21:15)
[2016-09-15] MEDS: QUEtiapine FUMARATE 100 MG TABLET (FP) PO SCH (21:15)
[2016-09-15] MEDS: THIAMINE HCL 100 MG TABLET (FP) PO SCH (21:15)
[2016-09-16] MEDS ORDERED: METHADONE HCL 40 MG DISPERSABLE TABLET ONE (04:27)
[2016-09-16] MEDS ORDERED: METHADONE HCL 10 MG TABLET ONE (04:27)
[2016-09-16] MEDS: METHADONE 80 MG, METHADONE 20 MG PO SCH (06:24)
[2016-09-16] MEDS: metFORMIN HCL 500 MG TABLET (FP) PO SCH ×2 (06:24→16:40)
[2016-09-16] MEDS: INSULIN SLIDING SCALE (NOVOLOG) 1 VIAL SQ SCH ×2 (06:26→16:41)
[2016-09-16] MEDS ORDERED: INSULIN (NOVOLOG) ASPART 100 UNITS/ML 10ML VIAL ONE ×2 (06:27→16:47)
[2016-09-16] MEDS: TRIAMTERENE AND HCTZ - 37.5 MG/25 MG CAPSULE PO SCH (09:41)
[2016-09-16] MEDS: PRENATAL VITAMINS W/ FOLIC ACID TABLET (FP) PO SCH (09:41)
[2016-09-16] MEDS: QUEtiapine FUMARATE 25 MG TABLET (FP) PO SCH ×2 (09:42→14:09)
[2016-09-16] MEDS: hydrOXYzine PAMOATE 50 MG CAPSULE (FP) PO PRN ×2 (09:42→14:10)
[2016-09-16] MEDS: THIAMINE HCL 100 MG TABLET (FP) PO SCH (21:26)
[2016-09-16] MEDS: QUEtiapine FUMARATE 100 MG TABLET (FP) PO SCH (21:26)
[2016-09-16] MEDS: traZODone HCL 50 MG TABLET (FP) PO SCH (21:26)
[2016-09-17] MEDS ORDERED: METHADONE HCL 40 MG DISPERSABLE TABLET ONE (05:10)
[2016-09-17] MEDS ORDERED: METHADONE HCL 10 MG TABLET ONE (05:10)
[2016-09-17] MEDS: metFORMIN HCL 500 MG TABLET (FP) PO SCH ×2 (06:28→16:27)
[2016-09-17] MEDS: METHADONE 80 MG, METHADONE 20 MG PO SCH (06:28)
[2016-09-17] MEDS: INSULIN SLIDING SCALE (NOVOLOG) 1 VIAL SQ SCH ×2 (06:30→16:28)
[2016-09-17] MEDS ORDERED: INSULIN (NOVOLOG) ASPART 100 UNITS/ML 10ML VIAL ONE ×2 (06:30→16:17)
[2016-09-17] MEDS: TRIAMTERENE AND HCTZ - 37.5 MG/25 MG CAPSULE PO SCH (10:00)
[2016-09-17] MEDS: PRENATAL VITAMINS W/ FOLIC ACID TABLET (FP) PO SCH (10:00)
[2016-09-17] MEDS: QUEtiapine FUMARATE 25 MG TABLET (FP) PO SCH ×2 (10:00→13:14)
[2016-09-17] MEDS: hydrOXYzine PAMOATE 50 MG CAPSULE (FP) PO PRN ×2 (10:00→16:29)
[2016-09-17] MEDS: traZODone HCL 50 MG TABLET (FP) PO SCH (21:10)
[2016-09-17] MEDS: THIAMINE HCL 100 MG TABLET (FP) PO SCH (21:10)
[2016-09-17] MEDS: QUEtiapine FUMARATE 100 MG TABLET (FP) PO SCH (21:10)
[2016-09-17] MEDS: diphenhydrAMINE HCL 50 MG CAPSULE PO PRN (21:10)
[2016-09-18] MEDS ORDERED: METHADONE HCL 40 MG DISPERSABLE TABLET ONE (06:04)
[2016-09-18] MEDS ORDERED: METHADONE HCL 10 MG TABLET ONE (06:04)
[2016-09-18] MEDS: METHADONE 80 MG, METHADONE 20 MG PO SCH (06:33)
[2016-09-18] MEDS: metFORMIN HCL 500 MG TABLET (FP) PO SCH ×2 (06:33→16:59)
[2016-09-18] MEDS: INSULIN SLIDING SCALE (NOVOLOG) 1 VIAL SQ SCH ×2 (06:33→16:55)
[2016-09-18] MEDS ORDERED: INSULIN (NOVOLOG) ASPART 100 UNITS/ML 10ML VIAL ONE ×2 (06:45→16:58)
[2016-09-18] MEDS: QUEtiapine FUMARATE 25 MG TABLET (FP) PO SCH ×2 (09:40→14:00)
[2016-09-18] MEDS: PRENATAL VITAMINS W/ FOLIC ACID TABLET (FP) PO SCH (09:40)
[2016-09-18] MEDS: TRIAMTERENE AND HCTZ - 37.5 MG/25 MG CAPSULE PO SCH (09:40)
[2016-09-18] MEDS: hydrOXYzine PAMOATE 50 MG CAPSULE (FP) PO PRN ×2 (09:41→14:00)
[2016-09-18] MEDS: traZODone HCL 50 MG TABLET (FP) PO SCH (21:16)
[2016-09-18] MEDS: THIAMINE HCL 100 MG TABLET (FP) PO SCH (21:16)
[2016-09-18] MEDS: QUEtiapine FUMARATE 100 MG TABLET (FP) PO SCH (21:16)
[2016-09-19] MEDS ORDERED: METHADONE HCL 40 MG DISPERSABLE TABLET ONE (03:54)
[2016-09-19] MEDS ORDERED: METHADONE HCL 10 MG TABLET ONE (03:54)
[2016-09-19] MEDS: METHADONE 80 MG, METHADONE 20 MG PO SCH (06:12)
[2016-09-19] MEDS: metFORMIN HCL 500 MG TABLET (FP) PO SCH ×2 (06:12→16:42)
[2016-09-19] MEDS: INSULIN SLIDING SCALE (NOVOLOG) 1 VIAL SQ SCH ×2 (06:13→16:43)
[2016-09-19] MEDS ORDERED: INSULIN (NOVOLOG) ASPART 100 UNITS/ML 10ML VIAL ONE ×2 (06:14→16:50)
[2016-09-19] MEDS: hydrOXYzine PAMOATE 50 MG CAPSULE (FP) PO PRN ×2 (10:11→14:21)
[2016-09-19] MEDS: QUEtiapine FUMARATE 25 MG TABLET (FP) PO SCH ×2 (10:11→14:23)
[2016-09-19] MEDS: TRIAMTERENE AND HCTZ - 37.5 MG/25 MG CAPSULE PO SCH (10:11)
[2016-09-19] MEDS: PRENATAL VITAMINS W/ FOLIC ACID TABLET (FP) PO SCH (10:13)
[2016-09-19] MEDS: THIAMINE HCL 100 MG TABLET (FP) PO SCH (21:19)
[2016-09-19] MEDS: diphenhydrAMINE HCL 50 MG CAPSULE PO PRN (21:19)
[2016-09-19] MEDS: traZODone HCL 50 MG TABLET (FP) PO SCH (21:19)
[2016-09-19] MEDS: QUEtiapine FUMARATE 100 MG TABLET (FP) PO SCH (21:19)
[2016-09-20] MEDS ORDERED: METHADONE HCL 10 MG TABLET PO SCH (06:15)
[2016-09-20] MEDS ORDERED: METHADONE HCL 10 MG TABLET ONE (06:17)
[2016-09-20] MEDS ORDERED: METHADONE HCL 40 MG DISPERSABLE TABLET ONE (06:18)
[2016-09-20] MEDS: METHADONE 80 MG, METHADONE 20 MG PO SCH ×2 (06:38→07:32)
[2016-09-20] MEDS: metFORMIN HCL 500 MG TABLET (FP) PO SCH ×2 (06:38→16:38)
[2016-09-20] MEDS: INSULIN SLIDING SCALE (NOVOLOG) 1 VIAL SQ SCH ×2 (06:41→16:39)
[2016-09-20] MEDS ORDERED: INSULIN (NOVOLOG) ASPART 100 UNITS/ML 10ML VIAL ONE ×2 (06:50→16:38)
[2016-09-20] MEDS: PRENATAL VITAMINS W/ FOLIC ACID TABLET (FP) PO SCH (09:44)
[2016-09-20] MEDS: TRIAMTERENE AND HCTZ - 37.5 MG/25 MG CAPSULE PO SCH (09:44)
[2016-09-20] MEDS: QUEtiapine FUMARATE 25 MG TABLET (FP) PO SCH ×2 (09:45→14:22)
[2016-09-20] MEDS: hydrOXYzine PAMOATE 50 MG CAPSULE (FP) PO PRN ×2 (09:46→14:21)
[2016-09-20] MEDS: THIAMINE HCL 100 MG TABLET (FP) PO SCH (21:15)
[2016-09-20] MEDS: QUEtiapine FUMARATE 100 MG TABLET (FP) PO SCH (21:15)
[2016-09-20] MEDS: diphenhydrAMINE HCL 50 MG CAPSULE PO PRN (21:15)
[2016-09-20] MEDS: traZODone HCL 50 MG TABLET (FP) PO SCH (21:15)
[2016-09-21] MEDS ORDERED: METHADONE HCL 10 MG TABLET ONE (06:09)
[2016-09-21] MEDS ORDERED: METHADONE HCL 40 MG DISPERSABLE TABLET ONE (06:09)
[2016-09-21] MEDS: metFORMIN HCL 500 MG TABLET (FP) PO SCH ×2 (06:24→16:38)
[2016-09-21] MEDS: METHADONE 80 MG, METHADONE 20 MG PO SCH (06:24)
[2016-09-21] MEDS: INSULIN SLIDING SCALE (NOVOLOG) 1 VIAL SQ SCH ×2 (06:25→16:39)
[2016-09-21] MEDS ORDERED: INSULIN (NOVOLOG) ASPART 100 UNITS/ML 10ML VIAL ONE ×2 (06:36→16:40)
[2016-09-21] MEDS: QUEtiapine FUMARATE 25 MG TABLET (FP) PO SCH ×2 (10:02→14:09)
[2016-09-21] MEDS: NICOTINE 21 MG/24 HOURS TOPICAL PATCH TD SCH (10:02)
[2016-09-21] MEDS: PRENATAL VITAMINS W/ FOLIC ACID TABLET (FP) PO SCH (10:02)
[2016-09-21] MEDS: hydrOXYzine PAMOATE 50 MG CAPSULE (FP) PO PRN ×2 (10:02→14:10)
[2016-09-21] MEDS: TRIAMTERENE AND HCTZ - 37.5 MG/25 MG CAPSULE PO SCH (10:04)
[2016-09-21] MEDS: THIAMINE HCL 100 MG TABLET (FP) PO SCH (21:16)
[2016-09-21] MEDS: QUEtiapine FUMARATE 100 MG TABLET (FP) PO SCH (21:16)
[2016-09-21] MEDS: diphenhydrAMINE HCL 50 MG CAPSULE PO PRN (21:16)
[2016-09-21] MEDS: traZODone HCL 50 MG TABLET (FP) PO SCH (21:16)
[2016-09-22] MEDS ORDERED: METHADONE HCL 10 MG TABLET ONE (03:36)
[2016-09-22] MEDS ORDERED: METHADONE HCL 40 MG DISPERSABLE TABLET ONE (03:36)
[2016-09-22] MEDS: metFORMIN HCL 500 MG TABLET (FP) PO SCH ×2 (06:19→16:54)
[2016-09-22] MEDS: METHADONE 80 MG, METHADONE 20 MG PO SCH (06:19)
[2016-09-22] MEDS ORDERED: INSULIN (NOVOLOG) ASPART 100 UNITS/ML 10ML VIAL ONE ×2 (06:21→16:42)
[2016-09-22] MEDS: INSULIN SLIDING SCALE (NOVOLOG) 1 VIAL SQ SCH ×2 (06:22→17:07)
[2016-09-22] MEDS: TRIAMTERENE AND HCTZ - 37.5 MG/25 MG CAPSULE PO SCH (09:44)
[2016-09-22] MEDS: PRENATAL VITAMINS W/ FOLIC ACID TABLET (FP) PO SCH (09:44)
[2016-09-22] MEDS: hydrOXYzine PAMOATE 50 MG CAPSULE (FP) PO PRN ×2 (09:44→14:27)
[2016-09-22] MEDS: NICOTINE 21 MG/24 HOURS TOPICAL PATCH TD SCH (09:44)
[2016-09-22] MEDS: QUEtiapine FUMARATE 25 MG TABLET (FP) PO SCH ×2 (09:45→14:28)
[2016-09-22] MEDS: THIAMINE HCL 100 MG TABLET (FP) PO SCH (21:12)
[2016-09-22] MEDS: traZODone HCL 50 MG TABLET (FP) PO SCH (21:13)
[2016-09-22] MEDS: QUEtiapine FUMARATE 100 MG TABLET (FP) PO SCH (21:13)
[2016-09-22] MEDS: diphenhydrAMINE HCL 50 MG CAPSULE PO PRN (21:13)
[2016-09-23] MEDS ORDERED: METHADONE HCL 10 MG TABLET ONE (03:30)
[2016-09-23] MEDS ORDERED: METHADONE HCL 40 MG DISPERSABLE TABLET ONE (03:31)
[2016-09-23] MEDS: INSULIN SLIDING SCALE (NOVOLOG) 1 VIAL SQ SCH ×2 (06:19→16:50)
[2016-09-23] MEDS: METHADONE 80 MG, METHADONE 20 MG PO SCH (06:20)
[2016-09-23] MEDS: metFORMIN HCL 500 MG TABLET (FP) PO SCH ×2 (06:20→16:52)
[2016-09-23] MEDS ORDERED: INSULIN (NOVOLOG) ASPART 100 UNITS/ML 10ML VIAL ONE ×2 (06:41→16:51)
[2016-09-23] MEDS: hydrOXYzine PAMOATE 50 MG CAPSULE (FP) PO PRN ×2 (09:54→14:11)
[2016-09-23] MEDS: PRENATAL VITAMINS W/ FOLIC ACID TABLET (FP) PO SCH (09:54)
[2016-09-23] MEDS: TRIAMTERENE AND HCTZ - 37.5 MG/25 MG CAPSULE PO SCH (09:55)
[2016-09-23] MEDS: NICOTINE 21 MG/24 HOURS TOPICAL PATCH TD SCH (09:55)
[2016-09-23] MEDS: QUEtiapine FUMARATE 25 MG TABLET (FP) PO SCH ×2 (09:55→14:11)
[2016-09-23] MEDS: diphenhydrAMINE HCL 50 MG CAPSULE PO PRN (21:11)
[2016-09-23] MEDS: QUEtiapine FUMARATE 100 MG TABLET (FP) PO SCH (21:11)
[2016-09-23] MEDS: THIAMINE HCL 100 MG TABLET (FP) PO SCH (21:11)
[2016-09-23] MEDS: traZODone HCL 50 MG TABLET (FP) PO SCH (21:11)
[2016-09-24] MEDS ORDERED: METHADONE HCL 40 MG DISPERSABLE TABLET ONE (03:23)
[2016-09-24] MEDS ORDERED: METHADONE HCL 10 MG TABLET ONE (03:23)
[2016-09-24] MEDS: METHADONE 80 MG, METHADONE 20 MG PO SCH (06:35)
[2016-09-24] MEDS: metFORMIN HCL 500 MG TABLET (FP) PO SCH ×2 (06:35→16:38)
[2016-09-24] MEDS: INSULIN SLIDING SCALE (NOVOLOG) 1 VIAL SQ SCH ×2 (06:36→16:39)
[2016-09-24] MEDS ORDERED: INSULIN (NOVOLOG) ASPART 100 UNITS/ML 10ML VIAL ONE ×2 (06:49→16:48)
[2016-09-24] MEDS: QUEtiapine FUMARATE 25 MG TABLET (FP) PO SCH ×2 (09:54→14:20)
[2016-09-24] MEDS: hydrOXYzine PAMOATE 50 MG CAPSULE (FP) PO PRN ×2 (09:54→14:20)
[2016-09-24] MEDS: TRIAMTERENE AND HCTZ - 37.5 MG/25 MG CAPSULE PO SCH (09:54)
[2016-09-24] MEDS: PRENATAL VITAMINS W/ FOLIC ACID TABLET (FP) PO SCH (09:55)
[2016-09-24] MEDS: NICOTINE 21 MG/24 HOURS TOPICAL PATCH TD SCH (09:55)
[2016-09-24] MEDS: diphenhydrAMINE HCL 50 MG CAPSULE PO PRN (21:10)
[2016-09-24] MEDS: QUEtiapine FUMARATE 100 MG TABLET (FP) PO SCH (21:10)
[2016-09-24] MEDS: THIAMINE HCL 100 MG TABLET (FP) PO SCH (21:10)
[2016-09-24] MEDS: traZODone HCL 50 MG TABLET (FP) PO SCH (21:10)
[2016-09-25] MEDS ORDERED: METHADONE HCL 40 MG DISPERSABLE TABLET ONE (03:20)
[2016-09-25] MEDS ORDERED: METHADONE HCL 10 MG TABLET ONE (03:20)
[2016-09-25] MEDS: METHADONE 80 MG, METHADONE 20 MG PO SCH (06:09)
[2016-09-25] MEDS: INSULIN SLIDING SCALE (NOVOLOG) 1 VIAL SQ SCH ×2 (06:09→16:58)
[2016-09-25] MEDS: metFORMIN HCL 500 MG TABLET (FP) PO SCH ×2 (06:09→16:57)
[2016-09-25] MEDS ORDERED: INSULIN (NOVOLOG) ASPART 100 UNITS/ML 10ML VIAL ONE ×2 (06:31→17:04)
[2016-09-25] MEDS: NICOTINE 21 MG/24 HOURS TOPICAL PATCH TD SCH (10:08)
[2016-09-25] MEDS: TRIAMTERENE AND HCTZ - 37.5 MG/25 MG CAPSULE PO SCH (10:08)
[2016-09-25] MEDS: PRENATAL VITAMINS W/ FOLIC ACID TABLET (FP) PO SCH (10:08)
[2016-09-25] MEDS: QUEtiapine FUMARATE 25 MG TABLET (FP) PO SCH ×2 (10:08→14:19)
[2016-09-25] MEDS: hydrOXYzine PAMOATE 50 MG CAPSULE (FP) PO PRN (10:09)
[2016-09-25] MEDS: THIAMINE HCL 100 MG TABLET (FP) PO SCH (21:12)
[2016-09-25] MEDS: diphenhydrAMINE HCL 50 MG CAPSULE PO PRN (21:12)
[2016-09-25] MEDS: traZODone HCL 50 MG TABLET (FP) PO SCH (21:12)
[2016-09-25] MEDS: QUEtiapine FUMARATE 100 MG TABLET (FP) PO SCH (21:12)
[2016-09-26] MEDS ORDERED: METHADONE HCL 10 MG TABLET ONE (03:30)
[2016-09-26] MEDS ORDERED: METHADONE HCL 40 MG DISPERSABLE TABLET ONE (03:30)
[2016-09-26] MEDS ORDERED: INSULIN (NOVOLOG) ASPART 100 UNITS/ML 10ML VIAL ONE ×2 (06:08→17:00)
[2016-09-26] MEDS: metFORMIN HCL 500 MG TABLET (FP) PO SCH ×2 (06:09→16:59)
[2016-09-26] MEDS: METHADONE 80 MG, METHADONE 20 MG PO SCH (06:09)
[2016-09-26] MEDS: INSULIN SLIDING SCALE (NOVOLOG) 1 VIAL SQ SCH ×2 (06:10→17:00)
[2016-09-26] MEDS: TRIAMTERENE AND HCTZ - 37.5 MG/25 MG CAPSULE PO SCH (10:05)
[2016-09-26] MEDS: hydrOXYzine PAMOATE 50 MG CAPSULE (FP) PO PRN ×2 (10:05→14:17)
[2016-09-26] MEDS: NICOTINE 21 MG/24 HOURS TOPICAL PATCH TD SCH (10:06)
[2016-09-26] MEDS: QUEtiapine FUMARATE 25 MG TABLET (FP) PO SCH ×2 (10:07→14:16)
[2016-09-26] MEDS: PRENATAL VITAMINS W/ FOLIC ACID TABLET (FP) PO SCH (10:07)
[2016-09-26] MEDS: traZODone HCL 50 MG TABLET (FP) PO SCH (21:19)
[2016-09-26] MEDS: QUEtiapine FUMARATE 100 MG TABLET (FP) PO SCH (21:19)
[2016-09-26] MEDS: THIAMINE HCL 100 MG TABLET (FP) PO SCH (21:19)
[2016-09-26] MEDS: diphenhydrAMINE HCL 50 MG CAPSULE PO PRN (21:20)
[2016-09-27] MEDS ORDERED: METHADONE HCL 10 MG TABLET ONE (03:22)
[2016-09-27] MEDS ORDERED: METHADONE HCL 40 MG DISPERSABLE TABLET ONE (03:23)
[2016-09-27] MEDS: metFORMIN HCL 500 MG TABLET (FP) PO SCH ×2 (06:04→16:50)
[2016-09-27] MEDS: METHADONE 80 MG, METHADONE 20 MG PO SCH (06:04)
[2016-09-27] MEDS: INSULIN SLIDING SCALE (NOVOLOG) 1 VIAL SQ SCH ×2 (06:05→16:50)
[2016-09-27] MEDS ORDERED: INSULIN (NOVOLOG) ASPART 100 UNITS/ML 10ML VIAL ONE ×2 (06:39→16:51)
[2016-09-27] MEDS: QUEtiapine FUMARATE 25 MG TABLET (FP) PO SCH ×2 (09:54→14:19)
[2016-09-27] MEDS: TRIAMTERENE AND HCTZ - 37.5 MG/25 MG CAPSULE PO SCH (09:54)
[2016-09-27] MEDS: hydrOXYzine PAMOATE 50 MG CAPSULE (FP) PO PRN ×2 (09:54→14:20)
[2016-09-27] MEDS: NICOTINE 21 MG/24 HOURS TOPICAL PATCH TD SCH (09:55)
[2016-09-27] MEDS: PRENATAL VITAMINS W/ FOLIC ACID TABLET (FP) PO SCH (09:55)
[2016-09-27] MEDS: traZODone HCL 50 MG TABLET (FP) PO SCH (21:11)
[2016-09-27] MEDS: diphenhydrAMINE HCL 50 MG CAPSULE PO PRN (21:11)
[2016-09-27] MEDS: QUEtiapine FUMARATE 100 MG TABLET (FP) PO SCH (21:11)
[2016-09-27] MEDS: THIAMINE HCL 100 MG TABLET (FP) PO SCH (21:11)
[2016-09-28] MEDS ORDERED: METHADONE HCL 10 MG TABLET ONE (05:43)
[2016-09-28] MEDS ORDERED: METHADONE HCL 40 MG DISPERSABLE TABLET ONE (05:44)
[2016-09-28] MEDS ORDERED: METHADONE HCL 10 MG TABLET PO SCH (06:00)
[2016-09-28] MEDS ORDERED: INSULIN (NOVOLOG) ASPART 100 UNITS/ML 10ML VIAL ONE (06:28)
[2016-09-28] MEDS: INSULIN SLIDING SCALE (NOVOLOG) 1 VIAL SQ SCH ×2 (06:28→16:45)
[2016-09-28] MEDS: METHADONE 80 MG, METHADONE 20 MG PO SCH (06:29)
[2016-09-28] MEDS: metFORMIN HCL 500 MG TABLET (FP) PO SCH ×2 (06:29→16:45)
[2016-09-28] MEDS: QUEtiapine FUMARATE 25 MG TABLET (FP) PO SCH ×2 (10:10→14:17)
[2016-09-28] MEDS: hydrOXYzine PAMOATE 50 MG CAPSULE (FP) PO PRN ×2 (10:10→14:17)
[2016-09-28] MEDS: TRIAMTERENE AND HCTZ - 37.5 MG/25 MG CAPSULE PO SCH (10:10)
[2016-09-28] MEDS: PRENATAL VITAMINS W/ FOLIC ACID TABLET (FP) PO SCH (10:11)
[2016-09-28] MEDS: NICOTINE 21 MG/24 HOURS TOPICAL PATCH TD SCH (10:11)
[2016-09-28] MEDS: QUEtiapine FUMARATE 100 MG TABLET (FP) PO SCH (21:13)
[2016-09-28] MEDS: traZODone HCL 50 MG TABLET (FP) PO SCH (21:13)
[2016-09-28] MEDS: THIAMINE HCL 100 MG TABLET (FP) PO SCH (21:14)
[2016-09-28] MEDS: diphenhydrAMINE HCL 50 MG CAPSULE PO PRN (21:14)
[2016-09-29] MEDS ORDERED: METHADONE HCL 10 MG TABLET ONE (03:20)
[2016-09-29] MEDS ORDERED: METHADONE HCL 40 MG DISPERSABLE TABLET ONE (03:20)
[2016-09-29] MEDS: metFORMIN HCL 500 MG TABLET (FP) PO SCH ×2 (06:27→16:40)
[2016-09-29] MEDS: METHADONE 80 MG, METHADONE 20 MG PO SCH (06:27)
[2016-09-29] MEDS: INSULIN SLIDING SCALE (NOVOLOG) 1 VIAL SQ SCH ×2 (06:27→16:40)
[2016-09-29] MEDS ORDERED: INSULIN (NOVOLOG) ASPART 100 UNITS/ML 10ML VIAL ONE ×2 (06:42→16:45)
[2016-09-29] MEDS: TRIAMTERENE AND HCTZ - 37.5 MG/25 MG CAPSULE PO SCH (09:36)
[2016-09-29] MEDS: PRENATAL VITAMINS W/ FOLIC ACID TABLET (FP) PO SCH (09:37)
[2016-09-29] MEDS: QUEtiapine FUMARATE 25 MG TABLET (FP) PO SCH ×2 (09:37→14:04)
[2016-09-29] MEDS: hydrOXYzine PAMOATE 50 MG CAPSULE (FP) PO PRN ×2 (09:37→14:04)
[2016-09-29] MEDS: NICOTINE 21 MG/24 HOURS TOPICAL PATCH TD SCH (09:37)
[2016-09-29] MEDS: THIAMINE HCL 100 MG TABLET (FP) PO SCH (21:18)
[2016-09-29] MEDS: diphenhydrAMINE HCL 50 MG CAPSULE PO PRN (21:19)
[2016-09-29] MEDS: QUEtiapine FUMARATE 100 MG TABLET (FP) PO SCH (21:19)
[2016-09-29] MEDS: traZODone HCL 50 MG TABLET (FP) PO SCH (21:19)
[2016-09-30] MEDS ORDERED: METHADONE HCL 10 MG TABLET ONE (04:18)
[2016-09-30] MEDS ORDERED: METHADONE HCL 40 MG DISPERSABLE TABLET ONE (04:19)
[2016-09-30] MEDS: METHADONE 80 MG, METHADONE 20 MG PO SCH (06:24)
[2016-09-30] MEDS: metFORMIN HCL 500 MG TABLET (FP) PO SCH ×2 (06:24→16:44)
[2016-09-30] MEDS: INSULIN SLIDING SCALE (NOVOLOG) 1 VIAL SQ SCH ×2 (06:25→16:43)
[2016-09-30] MEDS ORDERED: INSULIN (NOVOLOG) ASPART 100 UNITS/ML 10ML VIAL ONE ×2 (06:27→17:06)
[2016-09-30] MEDS: hydrOXYzine PAMOATE 50 MG CAPSULE (FP) PO PRN ×2 (09:54→14:24)
[2016-09-30] MEDS: TRIAMTERENE AND HCTZ - 37.5 MG/25 MG CAPSULE PO SCH (09:54)
[2016-09-30] MEDS: NICOTINE 21 MG/24 HOURS TOPICAL PATCH TD SCH (09:54)
[2016-09-30] MEDS: QUEtiapine FUMARATE 25 MG TABLET (FP) PO SCH ×2 (09:54→14:23)
[2016-09-30] MEDS: PRENATAL VITAMINS W/ FOLIC ACID TABLET (FP) PO SCH (09:54)
[2016-09-30] MEDS: QUEtiapine FUMARATE 100 MG TABLET (FP) PO SCH (21:17)
[2016-09-30] MEDS: THIAMINE HCL 100 MG TABLET (FP) PO SCH (21:17)
[2016-09-30] MEDS: traZODone HCL 50 MG TABLET (FP) PO SCH (21:17)
[2016-09-30] MEDS: diphenhydrAMINE HCL 50 MG CAPSULE PO PRN (21:17)
[2016-10-01] MEDS ORDERED: METHADONE HCL 40 MG DISPERSABLE TABLET ONE (03:41)
[2016-10-01] MEDS ORDERED: METHADONE HCL 10 MG TABLET ONE (03:41)
[2016-10-01] MEDS: METHADONE 80 MG, METHADONE 20 MG PO SCH (06:37)
[2016-10-01] MEDS: metFORMIN HCL 500 MG TABLET (FP) PO SCH ×2 (06:37→17:02)
[2016-10-01] MEDS ORDERED: INSULIN (NOVOLOG) ASPART 100 UNITS/ML 10ML VIAL ONE ×2 (06:41→22:09)
[2016-10-01] MEDS: INSULIN SLIDING SCALE (NOVOLOG) 1 VIAL SQ SCH ×2 (06:43→17:09)
[2016-10-01] MEDS: QUEtiapine FUMARATE 25 MG TABLET (FP) PO SCH ×2 (09:52→13:54)
[2016-10-01] MEDS: TRIAMTERENE AND HCTZ - 37.5 MG/25 MG CAPSULE PO SCH (09:52)
[2016-10-01] MEDS: hydrOXYzine PAMOATE 50 MG CAPSULE (FP) PO PRN ×2 (09:53→13:54)
[2016-10-01] MEDS: NICOTINE 21 MG/24 HOURS TOPICAL PATCH TD SCH (09:53)
[2016-10-01] MEDS: PRENATAL VITAMINS W/ FOLIC ACID TABLET (FP) PO SCH (09:54)
[2016-10-01] MEDS: traZODone HCL 50 MG TABLET (FP) PO SCH (21:14)
[2016-10-01] MEDS: diphenhydrAMINE HCL 50 MG CAPSULE PO PRN (21:14)
[2016-10-01] MEDS: QUEtiapine FUMARATE 100 MG TABLET (FP) PO SCH (21:14)
[2016-10-01] MEDS: THIAMINE HCL 100 MG TABLET (FP) PO SCH (21:14)
[2016-10-02] MEDS ORDERED: METHADONE HCL 10 MG TABLET ONE (03:19)
[2016-10-02] MEDS ORDERED: METHADONE HCL 40 MG DISPERSABLE TABLET ONE (03:19)
[2016-10-02] MEDS: metFORMIN HCL 500 MG TABLET (FP) PO SCH (06:10)
[2016-10-02] MEDS: METHADONE 80 MG, METHADONE 20 MG PO SCH (06:11)
[2016-10-02] MEDS: INSULIN SLIDING SCALE (NOVOLOG) 1 VIAL SQ SCH (06:12)
[2016-10-02 06:28] VITALS: BP 150/81; PULSE 93; TEMP 98
[2016-10-02] MEDS: hydrOXYzine PAMOATE 50 MG CAPSULE (FP) PO PRN (10:06)
[2016-10-02] MEDS: QUEtiapine FUMARATE 25 MG TABLET (FP) PO SCH (10:06)
[2016-10-02] MEDS: TRIAMTERENE AND HCTZ - 37.5 MG/25 MG CAPSULE PO SCH (10:06)
[2016-10-02] MEDS: PRENATAL VITAMINS W/ FOLIC ACID TABLET (FP) PO SCH (10:07)
[2016-10-02] MEDS: NICOTINE 21 MG/24 HOURS TOPICAL PATCH TD SCH (10:07)
--- NOTE | 2016-10-02 11:47 | PN ---
Psychiatric Progress Note Vital Signs: Vital Signs Period Temp Pulse Resp BP Sys/Bellamy Pulse Ox Last 24 Hr 98.0 F 93 18-18 150/81 Date of Session: 10/02/16 Chief Complaint:: discharge visit HPI: Patient is addressing alcohol, nicotine dependence comorbid Schizoaffective disorder. ROS: Bronchial asthma,hypertension and diabetes mellitus medically managed Current Side Effect: No Lab tests ordered: No Lab tests reviewed: Yes Provider note:: Patient has completed today his treatment an met his goals, will continue to address his issues at [facility] outpatient treatment program. Patient was disucced the importance of changing attitude for the utilization of supports, improving coping skills to manage stressors to prevent relapses. Medications(Trazodone, Seroquel) well tolerated, scripts for 30 days provided, patient is stable for discharge. Total face to face time:: 20 Mental Status Exam - Mental Status Exam Alert and Oriented to: Time, Place, Person Cognitive Function: Good Patient Appearance: Well Groomed Mood: Hopeful Affect: Appropriate, Mood Congruent Patient Behavior: Appropriate, Cooperative Speech Pattern: Clear, Appropriate Voice Loudness: Normal Thought Process: Intact, Goal Oriented Thought Disorder: Not Present Hallucinations: Denies Suicidal Ideation: Denies Homicidal Ideation: Denies Insight/Judgement: Fair Sleep: Fair Appetite: Fair Muscle strength/Tone: Normal Gait/Station: Normal Psychiatric Treatment Plan - Problem List (1) Opioid dependence on agonist therapy Current Visit: No (2) Asthma Current Visit: No Qualifiers: Asthma severity: mild intermittent Asthma complication type: uncomplicated Qualified Code(s): J45.20 - Mild intermittent asthma, uncomplicated (3) Hypertension Current Visit: No Qualifiers: Hypertension type: essential hypertension Qualified Code(s): I10 - Essential (primary) hypertension (4) Methadone maintenance therapy patient Current Visit: No (5) Nicotine dependence Current Visit: No Qualifiers: Nicotine product type: cigarettes Substance use status: in withdrawal Qualified Code(s): F17.213 - Nicotine dependence, cigarettes, with withdrawal (6) Schizoaffective disorder Current Visit: No Comment: History. (7) Alcohol dependence Current Visit: Yes (8) Sedative hypnotic or anxiolytic dependence Current Visit: Yes
== END 2016-10-02 11:00 | disposition home or self-care (01) | DRG 772 ==
LOC: YASAS 12:28 → Y5N 12:30
PROVIDERS: ADMIT Psychiatry & Neurology Psychiatry; ATTEND Psychiatry & Neurology Psychiatry
PROC: HZ42ZZZ Group Counseling for Substance Abuse Treatment, Cognitive-Behavioral (ICD-10-PCS; principal; 2016-10-02)
DX: F11.20 Opioid dependence, uncomplicated (principal); F13.20 Sedative, hypnotic or anxiolytic dependence, uncomplicated; F10.20 Alcohol dependence, uncomplicated; F17.213 Nicotine dependence, cigarettes, with withdrawal; F25.9 Schizoaffective disorder, unspecified; I10 Essential (primary) hypertension; J45.20 Mild intermittent asthma, uncomplicated

== ENCOUNTER 2016-10-28 11:20 | Inpatient (IN) | payer OTHER ==
[2016-10-28 11:35] VITALS: BMI 31.4
--- NOTE | 2016-10-28 12:30 | HP ---
CIWA Score - CIWA Score Nausea/Vomitin-Mild Nausea/No Vomiting Muscle Tremors: 4-Moderate,w/Arms Extend Anxiety: 4-Mod. Anxious/Guarded Agitation: 1-Slight > Activity Paroxysmal Sweats: 1-Minimal Palms Moist Orientation: 0-Oriented Tacttile Disturbances: 1-Very Mild Itch/Numbness Auditory Disturbances: 1-Very Mild Visual Disturbances: 1-Very Mild Sensitivity Headache: 1-Very Mild CIWA-Ar Total Score: 15 Admission ROS BHS - HPI Chief Complaint: I relapsed, I just can't stop drinking on my own Allergies/Adverse Reactions: Allergies Allergy/AdvReac Type Severity Reaction Status Date / Time No Known Allergies Allergy Verified 10/28/16 13:20 History of Present Illness: 45 yo gentleman here for detox from alcohol and alprazolam - recently discharged from rehab 10/02/16 but relapsed shortly after. No seizures or admissions. This admission is one of multiple admissions for detox. - Ebola screening Have you traveled outside of the country in the last 21 days: No Have you had contact with anyone from an Ebola affected area: No Have you been sick,other than usual withdrawal symptoms: No Do you have a fever: No - Review of Systems Constitutional: Chills, Malaise, Changes in sleep, Weakness EENT: reports: Blurred Vision Respiratory: reports: No Symptoms reported Cardiac: reports: No Symptoms Reported GI: reports: Poor Appetite : reports: Frequency Musculoskeletal: reports: Back Pain, Joint Pain, Muscle Pain Integumentary: reports: Dryness Neuro: reports: Headache, Tremors Endocrine: reports: No Symptoms Reported Hematology: reports: No Symptoms Reported Psychiatric: reports: Judgement Intact, Mood/Affect Appropiate, Orientated x3, Anxious Other Systems: Reviewed and Negative Patient History - Patient Medical History Hx Anemia: No Hx Asthma: Yes (ON INHALER) Hx Chronic Obstructive Pulmonary Disease (COPD): No Hx Cancer: No Hx Cardiac Disorders: No Hx Congestive Heart Failure: No Hx Hypertension: Yes Hx Hypercholesterolemia: No Hx Pacemaker: No HX Cerebrovascular Accident: No Hx Seizures: No Hx Dementia: No Hx Diabetes: Yes (ON MEDICATION) Hx Gastrointestinal Disorders: No Hx Liver Disease: No Hx Genitourinary Disorders: No Hx Sexually Transmitted Disorders: No Hx Renal Disease (ESRD): No Hx Thyroid Disease: No Hx Human Immunodeficiency Virus (HIV): No Hx Hepatitis C: No Hx Depression: Yes (on meds) Hx Suicide Attempt: Yes (fifteen years ago - pills overdose - hosp in [place]) Hx Bipolar Disorder: No Hx Schizophrenia: Yes (SCHIZOAFFECTIVE DISORDER) - Patient Surgical History Past Surgical History: No Hx Neurologic Surgery: No Hx Cataract Extraction: No Hx Cardiac Surgery: No Hx Lung Surgery: No Hx Breast Surgery: No Hx Breast Biopsy: No Hx Abdominal Surgery: No Hx Appendectomy: No Hx Cholecystectomy: No Hx Genitourinary Surgery: No Hx Section: No Hx Orthopedic Surgery: No Anesthesia Reaction: No - PPD History Previous Implant?: Yes Documented Results: Negative w/proof Date: 05/08/16 Results: 0 mm PPD to be Administered?: No - Reproductive History Patient is a Female of Child Bearing Age (11 -55 yrs old): No (male) - Smoking Cessation Smoking history: Current every day smoker Have you smoked in the past 12 months: Yes Aproximately how many cigarettes per day: 10 Hx Chewing Tobacco Use: No Initiated information on smoking cessation: Yes 'Breaking Loose' booklet given: 10/28/16 (give on floor) - Substance & Tx. History Hx Alcohol Use: Yes Hx Substance Use: Yes Substance Use Type: Alcohol, Tranquilizers Hx Substance Use Treatment: Yes (detox, rehab) - Substances Abused Alcohol Route: Oral Frequency: Daily Amount used: 1 pint vodka Age of first use: 12 Date of Last Use: 10/27/16 Alprazolam (Xanax) Route: Oral Frequency: 3-6 times per week Amount used: two sticks (4mg) Age of first use: 29 Date of Last Use: 10/26/16 Family Disease History - Family Disease History Family Disease History: Heart Disease: Mother (HTN-), [place]: Father ( , etoh, drugs), Other: Mother, Brother (two - alive no problems), Sister (five - alive - no problems) Admission Physical Exam S - Vital Signs Vital Signs: Vital Signs - 24 hr 10/28/16 11:25 Temperature 97.6 F Pulse Rate 102 H Respiratory 20 Rate Blood Pressure 194/130 - Physical General Appearance: Yes: Nourished, Appropriately Dressed, Mild Distress HEENTM: Yes: Hearing grossly Normal, Normal ENT Inspection, Normocephalic, Normal Voice, Pharynx Normal Respiratory: Yes: Normal Breath Sounds, No Respiratory Distress Neck: Yes: No masses,lesions,Nodules, Supple Breast: Yes: Breast Exam Deferred Cardiology: Yes: Regular Rhythm, Regular Rate Abdominal: Yes: Soft Genitourinary: Yes: Frequency Back: Yes: Normal Inspection Musculoskeletal: Yes: full range of Motion, Gait Steady, Back pain, Muscle Pain Extremities: Yes: Normal Capillary Refill, Normal Inspection Neurological: Yes: Fully Oriented, Alert, Normal Mood/Affect, Normal Response Integumentary: Yes: Normal Color, Dry, Warm Lymphatic: Yes: Within Normal Limits - Addiitonal Findings: bgm 208 - Diagnostic (1) Alcohol dependence with uncomplicated withdrawal Current Visit: Yes Status: Chronic (2) Sedative hypnotic or anxiolytic dependence Current Visit: Yes Status: Chronic (3) Asthma Current Visit: Yes Status: Chronic Qualifiers: Asthma severity: mild intermittent Asthma complication type: uncomplicated Qualified Code(s): J45.20 - Mild intermittent asthma, uncomplicated (4) Dry skin dermatitis Current Visit: Yes Status: Chronic (5) Hypertension Current Visit: Yes Status: Chronic Qualifiers: Hypertension type: essential hypertension Qualified Code(s): I10 - Essential (primary) hypertension (6) Methadone maintenance therapy patient Current Visit: Yes Status: Chronic (7) Nicotine dependence Current Visit: Yes Status: Chronic Qualifiers: Nicotine product type: cigarettes Substance use status: in withdrawal Qualified Code(s): F17.213 - Nicotine dependence, cigarettes, with withdrawal (8) Diabetes mellitus treated with oral medication Current Visit: Yes Status: Chronic Cleared for Admission S - Detox or Rehab [facility] Level of Care: Medically Managed Detox Regimen/Protocol: Librium [facility] Breath Alcohol Content Breath Alcohol Content: 0 Urine Drug Screen - Results Drug Screen Negative: No Urine Drug Screen Results: MTD-Methadone
[2016-10-28] MEDS ORDERED: MENTHOL/PHENOL 1 EACH UD MM PRN (12:42)
[2016-10-28] MEDS ORDERED: guaiFENesin/D-METHORPHAN HB 10 ML UNIT-DOSE CUPS PO PRN (12:42)
[2016-10-28] MEDS ORDERED: chlordiazePOXIDE HCL 25 MG CAPSULE PO PRN (12:42)
[2016-10-28] MEDS ORDERED: P-EPHED 60MG/TRIPROLIDI 2.5MG TABLET PO PRN (12:42)
[2016-10-28] MEDS ORDERED: MAG HYDROX/AL HYDROX/SIMETH 30 ML UNIT-DOSE CUP PO PRN (12:42)
[2016-10-28] MEDS ORDERED: MAGNESIUM HYDROX 2400MG/30ML ORAL SUSPENSION 30 ML CUP PO PRN (12:42)
[2016-10-28] MEDS ORDERED: MAGNESIUM CITRATE 300 ML BOTTLE PO PRN (12:42)
[2016-10-28] MEDS ORDERED: LOPERAMIDE HCL 2 MG CAPSULE PO PRN (12:42)
[2016-10-28] MEDS ORDERED: IBUPROFEN 400 MG TABLET (FP) PO PRN (12:42)
[2016-10-28] MEDS ORDERED: ACETAMINOPHEN 325 MG TABLET (FP) PO PRN (12:42)
[2016-10-28] MEDS ORDERED: hydrOXYzine PAMOATE 25 MG CAPSULE (FP) PO PRN (12:42)
[2016-10-28] MEDS ORDERED: ALBUTEROL SO4 6.7 GM HFA INHALER IH PRN (12:46)
[2016-10-28] MEDS ORDERED: AMMONIUM LACTATE 12% LOTION 225 GM BOTTLE TP PRN (12:56)
[2016-10-28] MEDS ORDERED: chlordiazePOXIDE HCL 25 MG CAPSULE PO ONE (13:00)
[2016-10-28] MEDS: LISINOPRIL 20 MG TABLET (FP) PO SCH (14:08)
[2016-10-28] MEDS: NICOTINE 21 MG/24 HOURS TOPICAL PATCH TD SCH (14:09)
[2016-10-28] MEDS: amLODIPine BESYLATE 5 MG TABLET (FP) PO SCH (14:09)
[2016-10-28] MEDS: HYDROCHLOROTHIAZIDE 25 MG TABLET (FP) PO SCH (14:09)
[2016-10-28] MEDS ORDERED: INSULIN (NOVOLOG) ASPART 100 UNITS/ML 10ML VIAL ONE ×2 (16:33→21:40)
[2016-10-28] MEDS: INSULIN SLIDING SCALE (NOVOLOG) 1 VIAL SQ SCH ×2 (16:48→22:26)
[2016-10-28] MEDS: chlordiazePOXIDE HCL 25 MG CAPSULE PO SCH ×2 (17:10→22:23)
[2016-10-28] MEDS: metFORMIN HCL 500 MG TABLET (FP) PO SCH (17:10)
[2016-10-28 18:25] LABS: URINE APPEARANCE CLEAR; URINE BILIRUBIN NEGATIVE (NEGATIVE); URINE BLOOD NEGATIVE (NEGATIVE); URINE COLOR COLORLESS; URINE GLUCOSE (UA) 3+ (NEGATIVE); URINE KETONE NEGATIVE (NEGATIVE); URINE LEUK ESTERASE NEGATIVE (NEGATIVE); URINE NITRITE NEGATIVE (NEGATIVE); URINE PROTEIN NEGATIVE (NEGATIVE); URINE UROBILINOGEN NEGATIVE E.U./dl (0.2-1.0)
--- NOTE | 2016-10-28 19:23 | EKG ---
Test Reason : Blood Pressure : / mmHG Vent. Rate : 095 BPM Atrial Rate : 095 BPM P-R Int : 144 ms QRS Dur : 076 ms QT Int : 374 ms P-R-T Axes : 055 027 008 degrees QTc Int : 469 ms NORMAL SINUS RHYTHM MINIMAL VOLTAGE CRITERIA FOR LVH, MAY BE NORMAL VARIANT BORDERLINE ECG WHEN COMPARED WITH ECG OF 08-SEP-2016 14:03, NO SIGNIFICANT CHANGE WAS FOUND Confirmed by TIMOTHY WEAVER MD ([id number]) on 10/28/2016 7:22:44 PM Referred By: Confirmed By:TIMOTHY WEAVER MD
[2016-10-28] MEDS: diphenhydrAMINE HCL 50 MG CAPSULE PO PRN (22:23)
[2016-10-28] MEDS: THIAMINE HCL 100 MG TABLET (FP) PO SCH (22:23)
[2016-10-29] MEDS ORDERED: METHADONE HCL 40 MG DISPERSABLE TABLET ONE (04:56)
[2016-10-29] MEDS ORDERED: METHADONE HCL 10 MG TABLET ONE (04:56)
[2016-10-29] MEDS: chlordiazePOXIDE HCL 25 MG CAPSULE PO SCH ×4 (05:17→22:09)
[2016-10-29] MEDS ORDERED: METHADONE 80 MG, METHADONE 20 MG PO ONE (06:00)
[2016-10-29] MEDS: sitaGLIPtin PHOSPHATE 100 MG TABLET (FP) PO SCH (06:26)
[2016-10-29] MEDS: metFORMIN HCL 500 MG TABLET (FP) PO SCH ×2 (06:26→17:04)
[2016-10-29] MEDS ORDERED: INSULIN (NOVOLOG) ASPART 100 UNITS/ML 10ML VIAL ONE ×4 (07:44→21:28)
[2016-10-29] MEDS: INSULIN SLIDING SCALE (NOVOLOG) 1 VIAL SQ SCH ×4 (07:45→22:12)
[2016-10-29] MEDS ORDERED: METHADONE HCL 40 MG DISPERSABLE TABLET PO ONE ×2 (10:00)
[2016-10-29] MEDS: HYDROCHLOROTHIAZIDE 25 MG TABLET (FP) PO SCH (10:02)
[2016-10-29] MEDS: PRENATAL VITAMINS W/ FOLIC ACID TABLET (FP) PO SCH (10:02)
[2016-10-29] MEDS: amLODIPine BESYLATE 5 MG TABLET (FP) PO SCH (10:02)
[2016-10-29] MEDS: LISINOPRIL 20 MG TABLET (FP) PO SCH (10:03)
[2016-10-29] MEDS: NICOTINE 21 MG/24 HOURS TOPICAL PATCH TD SCH (10:03)
[2016-10-29 10:53] LABS: MCH 28.5 pg (25.7-33.7); MCHC 33.3 g/dl (32.0-35.9); MEAN CELL VOLUME 85.8 fl (80-96); MEAN PLT VOLUME 11.1 fl (7.5-11.1); RDW 14.5 % (11.9-15.9); WHITE BLOOD COUNT 8.4 K/mm3 (4.0-10.0)
[2016-10-29 11:16] LABS: ALBUMIN 3.8 g/dl (3.4-5.0); ALK PHOS 132 U/L (45-117); BILIRUBIN,TOTAL 0.3 mg/dL (0.2-1.0); CALCIUM 9.4 mg/dL (8.5-10.1); CO2 25 mmol/L (21-32); COCKROFT - GAULT 92.59; CREATININE 1.1 mg/dL (0.7-1.3); GLUCOSE,RANDOM 284 mg/dL (74-106); SGPT/ALT 59 U/L (12-78); TOT PROT 7.5 g/dl (6.4-8.2)
[2016-10-29 11:34] LABS: SGOT/AST 35 U/L (15-37)
[2016-10-29 12:08] LABS: PLATELET COMMENT2 NO CLOTTING DETECTED; PLATELET ESTIMATE ADEQUATE (NORMAL)
--- NOTE | 2016-10-29 13:35 | PN ---
S CIWA - CIWA Score Nausea/Vomitin Muscle Tremors: 4-Moderate,w/Arms Extend Anxiety: 4-Mod. Anxious/Guarded Agitation: 4-Moderately Restless Paroxysmal Sweats: No Perspiration Orientation: 0-Oriented Tacttile Disturbances: 1-Very Mild Itch/Numbness Auditory Disturbances: 0-None Visual Disturbances: 0-None Headache: 3-Moderate CIWA-Ar Total Score: 19 BHS Progress Note (SOAP) Subjective: Chills, tremor, stomach ache, muscle spasm, back pain, interrupted sleep Objective: 10/29/16 13:34 Last Vital Signs Temp Pulse Resp BP Pulse Ox 98.4 F 95 H 20 121/76 10/29/16 13:22 10/29/16 13:22 10/29/16 13:22 10/29/16 13:22 Laboratory Tests 10/28/16 10/28/16 10/28/16 12:58 16:23 17:55 WBC RBC Hgb Hct MCV MCHC RDW Plt Count MPV Platelet Estimate Platelet Comment Sodium Potassium Chloride Carbon Dioxide BUN Creatinine Creat Clearance w eGFR POC Glucometer 208 299 Random Glucose Calcium Total Bilirubin AST ALT Alkaline Phosphatase Total Protein Albumin Urine Color Colorless Urine Appearance Clear Urine pH 5.0 Ur Specific [place] 1.010 Urine Protein Negative Urine Glucose (UA) 3+ H Urine Ketones Negative Urine Blood Negative Urine Nitrite Negative Urine Bilirubin Negative Urine Urobilinogen Negative Ur Leukocyte Esterase Negative RPR Titer 10/29/16 10/29/16 10/29/16 05:21 07:45 07:45 WBC 8.4 D RBC 4.85 Hgb 13.8 D Hct 41.6 MCV 85.8 MCHC 33.3 RDW 14.5 Plt Count No Result Required. MPV 11.1 Platelet Estimate Adequate Platelet Comment No clotting detected Sodium 136 Potassium 3.9 Chloride 98 Carbon Dioxide 25 BUN 13 Creatinine 1.1 Creat Clearance w eGFR > 60 POC Glucometer 210 Random Glucose 284 H Calcium 9.4 Total Bilirubin 0.3 D AST 35 D ALT 59 D Alkaline Phosphatase 132 H Total Protein 7.5 Albumin 3.8 Urine Color Urine Appearance Urine pH Ur Specific [place] Urine Protein Urine Glucose (UA) Urine Ketones Urine Blood Urine Nitrite Urine Bilirubin Urine Urobilinogen Ur Leukocyte Esterase RPR Titer 10/29/16 10/29/16 07:45 11:27 WBC RBC Hgb Hct MCV MCHC RDW Plt Count MPV Platelet Estimate Platelet Comment Sodium Potassium Chloride Carbon Dioxide BUN Creatinine Creat Clearance w eGFR POC Glucometer 250 Random Glucose Calcium Total Bilirubin AST ALT Alkaline Phosphatase Total Protein Albumin Urine Color Urine Appearance Urine pH Ur Specific [place] Urine Protein Urine Glucose (UA) Urine Ketones Urine Blood Urine Nitrite Urine Bilirubin Urine Urobilinogen Ur Leukocyte Esterase RPR Titer Nonreactive Labs noted Assessment: 10/29/16 13:35 Withdrawal symptoms Plan: Continue detox Encouraged to drink lots of water
[2016-10-29 15:11] LABS: HIV 1 & 2 AB NEGATIVE; HIV 1 AGp24 NEGATIVE
--- NOTE | 2016-10-29 16:36 | EKG ---
Test Reason : Blood Pressure : / mmHG Vent. Rate : 082 BPM Atrial Rate : 082 BPM P-R Int : 156 ms QRS Dur : 070 ms QT Int : 362 ms P-R-T Axes : 057 046 006 degrees QTc Int : 422 ms NORMAL SINUS RHYTHM NONSPECIFIC ST AND T WAVE ABNORMALITY ABNORMAL ECG WHEN COMPARED WITH ECG OF 28-OCT-2016 13:01, NO SIGNIFICANT CHANGE WAS FOUND Confirmed by TIMOTHY WEAVER MD ([id number]) on 10/29/2016 4:36:31 PM Referred By: Confirmed By:TIMOTHY WEAVER MD
[2016-10-29] MEDS: THIAMINE HCL 100 MG TABLET (FP) PO SCH (22:09)
[2016-10-29] MEDS: diphenhydrAMINE HCL 50 MG CAPSULE PO PRN (22:10)
[2016-10-29 23:57] LABS: ANION GAP 13 (8-16)
[2016-10-30] MEDS: chlordiazePOXIDE HCL 25 MG CAPSULE PO SCH ×2 (05:30→10:49)
[2016-10-30] MEDS ORDERED: METHADONE HCL 40 MG DISPERSABLE TABLET PO SCH (07:30)
[2016-10-30] MEDS ORDERED: METHADONE HCL 40 MG DISPERSABLE TABLET ONE (07:35)
[2016-10-30] MEDS ORDERED: METHADONE HCL 10 MG TABLET ONE (07:35)
[2016-10-30] MEDS ORDERED: INSULIN (NOVOLOG) ASPART 100 UNITS/ML 10ML VIAL ONE ×4 (07:37→21:06)
[2016-10-30] MEDS: INSULIN SLIDING SCALE (NOVOLOG) 1 VIAL SQ SCH ×4 (07:37→21:33)
[2016-10-30] MEDS: METHADONE 80 MG, METHADONE 20 MG PO SCH (07:39)
[2016-10-30] MEDS: sitaGLIPtin PHOSPHATE 100 MG TABLET (FP) PO SCH (07:41)
[2016-10-30] MEDS: metFORMIN HCL 500 MG TABLET (FP) PO SCH ×2 (07:41→17:18)
--- NOTE | 2016-10-30 09:06 | PN ---
S CIWA - CIWA Score Nausea/Vomitin-No Nausea/No Vomiting Muscle Tremors: 3 Anxiety: 4-Mod. Anxious/Guarded Agitation: 3 Paroxysmal Sweats: 3 Orientation: 0-Oriented Tacttile Disturbances: 0-None Auditory Disturbances: 0-None Visual Disturbances: 0-None Headache: 0-None Present CIWA-Ar Total Score: 13 BHS Progress Note (SOAP) Subjective: Anxiety,tremors.sweating,interrupted sleep,restless Objective: 10/30/16 09:04 Vital Signs - 8 hr 10/30/16 10/30/16 03:30 06:07 Temperature 98.1 F Pulse Rate 90 Respiratory 18 18 Rate Blood Pressure 127/93 Laboratory Tests 10/28/16 10/28/16 10/28/16 12:58 16:23 17:55 WBC RBC Hgb Hct MCV MCHC RDW Plt Count MPV Platelet Estimate Platelet Comment Sodium Potassium Chloride Carbon Dioxide Anion Gap BUN Creatinine Creat Clearance w eGFR POC Glucometer 208 299 Random Glucose Calcium Total Bilirubin AST ALT Alkaline Phosphatase Total Protein Albumin Urine Color Colorless Urine Appearance Clear Urine pH 5.0 Ur Specific [place] 1.010 Urine Protein Negative Urine Glucose (UA) 3+ H Urine Ketones Negative Urine Blood Negative Urine Nitrite Negative Urine Bilirubin Negative Urine Urobilinogen Negative Ur Leukocyte Esterase Negative RPR Titer HIV 1&2 Antibody Screen HIV P24 Antigen 10/28/16 10/29/16 10/29/16 21:09 05:21 07:45 WBC 8.4 D RBC 4.85 Hgb 13.8 D Hct 41.6 MCV 85.8 MCHC 33.3 RDW 14.5 Plt Count No Result Required. MPV 11.1 Platelet Estimate Adequate Platelet Comment No clotting detected Sodium Potassium Chloride Carbon Dioxide Anion Gap BUN Creatinine Creat Clearance w eGFR POC Glucometer 182 210 Random Glucose Calcium Total Bilirubin AST ALT Alkaline Phosphatase Total Protein Albumin Urine Color Urine Appearance Urine pH Ur Specific [place] Urine Protein Urine Glucose (UA) Urine Ketones Urine Blood Urine Nitrite Urine Bilirubin Urine Urobilinogen Ur Leukocyte Esterase RPR Titer HIV 1&2 Antibody Screen HIV P24 Antigen 10/29/16 10/29/16 10/29/16 07:45 07:45 07:45 WBC RBC Hgb Hct MCV MCHC RDW Plt Count MPV Platelet Estimate Platelet Comment Sodium 136 Potassium 3.9 Chloride 98 Carbon Dioxide 25 Anion Gap 13 BUN 13 Creatinine 1.1 Creat Clearance w eGFR > 60 POC Glucometer Random Glucose 284 H Calcium 9.4 Total Bilirubin 0.3 D AST 35 D ALT 59 D Alkaline Phosphatase 132 H Total Protein 7.5 Albumin 3.8 Urine Color Urine Appearance Urine pH Ur Specific [place] Urine Protein Urine Glucose (UA) Urine Ketones Urine Blood Urine Nitrite Urine Bilirubin Urine Urobilinogen Ur Leukocyte Esterase RPR Titer Nonreactive HIV 1&2 Antibody Screen Negative HIV P24 Antigen Negative 10/29/16 10/29/16 10/29/16 11:27 16:17 21:21 WBC RBC Hgb Hct MCV MCHC RDW Plt Count MPV Platelet Estimate Platelet Comment Sodium Potassium Chloride Carbon Dioxide Anion Gap BUN Creatinine Creat Clearance w eGFR POC Glucometer 250 307 264 Random Glucose Calcium Total Bilirubin AST ALT Alkaline Phosphatase Total Protein Albumin Urine Color Urine Appearance Urine pH Ur Specific [place] Urine Protein Urine Glucose (UA) Urine Ketones Urine Blood Urine Nitrite Urine Bilirubin Urine Urobilinogen Ur Leukocyte Esterase RPR Titer HIV 1&2 Antibody Screen HIV P24 Antigen 10/30/16 05:29 WBC RBC Hgb Hct MCV MCHC RDW Plt Count MPV Platelet Estimate Platelet Comment Sodium Potassium Chloride Carbon Dioxide Anion Gap BUN Creatinine Creat Clearance w eGFR POC Glucometer 333 Random Glucose Calcium Total Bilirubin AST ALT Alkaline Phosphatase Total Protein Albumin Urine Color Urine Appearance Urine pH Ur Specific [place] Urine Protein Urine Glucose (UA) Urine Ketones Urine Blood Urine Nitrite Urine Bilirubin Urine Urobilinogen Ur Leukocyte Esterase RPR Titer HIV 1&2 Antibody Screen HIV P24 Antigen labs noted Assessment: 10/30/16 09:05 Withdrawal sx. Plan: Continue detox
[2016-10-30] MEDS: HYDROCHLOROTHIAZIDE 25 MG TABLET (FP) PO SCH (09:50)
[2016-10-30] MEDS: amLODIPine BESYLATE 5 MG TABLET (FP) PO SCH (09:50)
[2016-10-30] MEDS: PRENATAL VITAMINS W/ FOLIC ACID TABLET (FP) PO SCH (09:50)
[2016-10-30] MEDS: NICOTINE 21 MG/24 HOURS TOPICAL PATCH TD SCH (09:50)
[2016-10-30] MEDS: LISINOPRIL 20 MG TABLET (FP) PO SCH (09:51)
--- NOTE | 2016-10-30 10:20 | CONSULT ---
[facility] Psychiatric Consult - Data Date of interview: 10/30/16 Admission source: [facility] Identifying data: Readmission to [facility] for this 45 y/o AA male seeking detoxification treatment on for alcohol,xanax and opioid dependence.Patient is single without children,unemployed,domiciled and supported on SSI benefits. Substance Abuse History: - Smoking Cessation. Smoking history: Current every day smoker. Have you smoked in the past 12 months: Yes. Aproximately how many cigarettes per day: 10. Hx Chewing Tobacco Use: No. Initiated information on smoking cessation: Yes. 'Breaking Loose' booklet given: 10/28/16 (give on floor ). - Substance & Tx. History. Hx Alcohol Use: Yes. Hx Substance Use: Yes. Substance Use Type: Alcohol, Tranquilizers. Hx Substance Use Treatment: Yes ( detox, rehab). - Substances Abused. Alcohol. Route: Oral. Frequency: Daily. Amount used: 1 pint vodka. Age of first use: 12. Date of Last Use: 07/14. Alprazolam (Xanax). Route: Oral. Frequency: 3-6 times per week. Amount used: two sticks (4mg). Age of first use: 29. Date of Last Use: . Confirmed by patient. Medical History: Bronchial asthma,hypertension and diabetes mellitus. Psychiatric History: Remarkable for chronic non-adherence to psychiatric aftercare.Diagnosed with Schizoaffective Disorder.History of multiple psychiatric hospitalizations ([facility] and [facility]).Patient is maintained on methadone (100 mg/day) at the [facility] program.Mr Hoffman is requesting seroquel 100 mg/hs.No history of suicide attempts. Physical/Sexual Abuse/Trauma History: Patient denies. Additional Comment: Urine Drug Screen Results: MTD-Methadone.Noted. Mental Status Exam - Mental Status Exam Alert and Oriented to: Time, Place, Person Cognitive Function: Good Patient Appearance: Unkempt, Disheveled Mood: Anxious, Apprehensive Affect: Mood Congruent Patient Behavior: Fatigued, Cooperative Speech Pattern: Clear Voice Loudness: Normal Thought Process: Goal Oriented Thought Disorder: Not Present Hallucinations: Denies Suicidal Ideation: Denies Homicidal Ideation: Denies Insight/Judgement: Poor Sleep: Poorly, Difficulty falling asleep Appetite: Good Muscle strength/Tone: Normal Gait/Station: Normal Psychiatric Findings - Problem List ([place] 1, 2,3) (1) Alcohol dependence with uncomplicated withdrawal Current Visit: Yes Status: Acute (2) Sedative hypnotic or anxiolytic dependence Current Visit: Yes Status: Acute (3) Opioid dependence on agonist therapy Current Visit: Yes Status: Acute (4) Nicotine dependence Current Visit: Yes Status: Acute Qualifiers: Nicotine product type: cigarettes Substance use status: in withdrawal Qualified Code(s): F17.213 - Nicotine dependence, cigarettes, with withdrawal (5) Substance induced mood disorder Current Visit: Yes Status: Acute (6) Schizoaffective disorder Current Visit: No Status: Chronic Comment: History. (7) Asthma Current Visit: Yes Status: Chronic Qualifiers: Asthma severity: mild intermittent Asthma complication type: uncomplicated Qualified Code(s): J45.20 - Mild intermittent asthma, uncomplicated (8) Diabetes mellitus treated with oral medication Current Visit: Yes Status: Chronic (9) Hypertension Current Visit: Yes Status: Chronic Qualifiers: Hypertension type: essential hypertension Qualified Code(s): I10 - Essential (primary) hypertension - Initial Treatment Plan Initial Treatment Plan: Psychoeducation.Detoxification.Seroquel 100 mg po hs.Side effects/benefits discussed with patient.He agrees with careplan.Observation.
[2016-10-30] MEDS: chlordiazePOXIDE 5 MG CAPSULE PO SCH ×2 (17:18→22:09)
[2016-10-30] MEDS: diphenhydrAMINE HCL 50 MG CAPSULE PO PRN (22:09)
[2016-10-30] MEDS: THIAMINE HCL 100 MG TABLET (FP) PO SCH (22:09)
[2016-10-30] MEDS: QUEtiapine FUMARATE 100 MG TABLET (FP) PO SCH (22:09)
[2016-10-31] MEDS ORDERED: METHADONE HCL 10 MG TABLET ONE (01:50)
[2016-10-31] MEDS ORDERED: METHADONE HCL 40 MG DISPERSABLE TABLET ONE (01:50)
[2016-10-31] MEDS: METHADONE 80 MG, METHADONE 20 MG PO SCH (05:52)
[2016-10-31] MEDS: chlordiazePOXIDE 5 MG CAPSULE PO SCH ×2 (05:53→10:05)
[2016-10-31] MEDS: INSULIN SLIDING SCALE (NOVOLOG) 1 VIAL SQ SCH ×4 (07:38→22:03)
[2016-10-31] MEDS: metFORMIN HCL 500 MG TABLET (FP) PO SCH ×2 (07:38→17:34)
[2016-10-31] MEDS: sitaGLIPtin PHOSPHATE 100 MG TABLET (FP) PO SCH (07:38)
[2016-10-31] MEDS: PRENATAL VITAMINS W/ FOLIC ACID TABLET (FP) PO SCH (10:05)
[2016-10-31] MEDS: HYDROCHLOROTHIAZIDE 25 MG TABLET (FP) PO SCH (10:05)
[2016-10-31] MEDS: amLODIPine BESYLATE 5 MG TABLET (FP) PO SCH (10:05)
[2016-10-31] MEDS: LISINOPRIL 20 MG TABLET (FP) PO SCH (10:06)
[2016-10-31] MEDS: NICOTINE 21 MG/24 HOURS TOPICAL PATCH TD SCH (10:06)
[2016-10-31] MEDS ORDERED: INSULIN (NOVOLOG) ASPART 100 UNITS/ML 10ML VIAL ONE ×3 (11:29→21:13)
--- NOTE | 2016-10-31 11:52 | PN ---
BHS Progress Note (SOAP) Subjective: Tremors, Interrupted sleep, H/A, Stomach Cramping, Sweating. Objective: PT. A & O X 3, OBSERVED AMBULATING ON UNIT. NO ACUTE DISTRESS. PT. DENIES CHEST PAIN. 10/31/16 11:49 Vital Signs Temperature 98.7 F 10/31/16 09:31 Pulse Rate 104 H 10/31/16 09:31 Respiratory Rate 18 10/31/16 09:31 Blood Pressure 126/91 10/31/16 09:31 O2 Sat by Pulse Oximetry (%) Laboratory Tests 10/28/16 10/28/16 10/28/16 12:58 16:23 17:55 WBC RBC Hgb Hct MCV MCHC RDW Plt Count MPV Platelet Estimate Platelet Comment Sodium Potassium Chloride Carbon Dioxide Anion Gap BUN Creatinine Creat Clearance w eGFR POC Glucometer 208 299 Random Glucose Calcium Total Bilirubin AST ALT Alkaline Phosphatase Total Protein Albumin Urine Color Colorless Urine Appearance Clear Urine pH 5.0 Ur Specific [place] 1.010 Urine Protein Negative Urine Glucose (UA) 3+ H Urine Ketones Negative Urine Blood Negative Urine Nitrite Negative Urine Bilirubin Negative Urine Urobilinogen Negative Ur Leukocyte Esterase Negative RPR Titer HIV 1&2 Antibody Screen HIV P24 Antigen 10/28/16 10/29/16 10/29/16 21:09 05:21 07:45 WBC 8.4 D RBC 4.85 Hgb 13.8 D Hct 41.6 MCV 85.8 MCHC 33.3 RDW 14.5 Plt Count No Result Required. MPV 11.1 Platelet Estimate Adequate Platelet Comment No clotting detected Sodium Potassium Chloride Carbon Dioxide Anion Gap BUN Creatinine Creat Clearance w eGFR POC Glucometer 182 210 Random Glucose Calcium Total Bilirubin AST ALT Alkaline Phosphatase Total Protein Albumin Urine Color Urine Appearance Urine pH Ur Specific [place] Urine Protein Urine Glucose (UA) Urine Ketones Urine Blood Urine Nitrite Urine Bilirubin Urine Urobilinogen Ur Leukocyte Esterase RPR Titer HIV 1&2 Antibody Screen HIV P24 Antigen 10/29/16 10/29/16 10/29/16 07:45 07:45 07:45 WBC RBC Hgb Hct MCV MCHC RDW Plt Count MPV Platelet Estimate Platelet Comment Sodium 136 Potassium 3.9 Chloride 98 Carbon Dioxide 25 Anion Gap 13 BUN 13 Creatinine 1.1 Creat Clearance w eGFR > 60 POC Glucometer Random Glucose 284 H Calcium 9.4 Total Bilirubin 0.3 D AST 35 D ALT 59 D Alkaline Phosphatase 132 H Total Protein 7.5 Albumin 3.8 Urine Color Urine Appearance Urine pH Ur Specific [place] Urine Protein Urine Glucose (UA) Urine Ketones Urine Blood Urine Nitrite Urine Bilirubin Urine Urobilinogen Ur Leukocyte Esterase RPR Titer Nonreactive HIV 1&2 Antibody Screen Negative HIV P24 Antigen Negative 10/29/16 10/29/16 10/29/16 11:27 16:17 21:21 WBC RBC Hgb Hct MCV MCHC RDW Plt Count MPV Platelet Estimate Platelet Comment Sodium Potassium Chloride Carbon Dioxide Anion Gap BUN Creatinine Creat Clearance w eGFR POC Glucometer 250 307 264 Random Glucose Calcium Total Bilirubin AST ALT Alkaline Phosphatase Total Protein Albumin Urine Color Urine Appearance Urine pH Ur Specific [place] Urine Protein Urine Glucose (UA) Urine Ketones Urine Blood Urine Nitrite Urine Bilirubin Urine Urobilinogen Ur Leukocyte Esterase RPR Titer HIV 1&2 Antibody Screen HIV P24 Antigen 10/30/16 10/30/16 10/30/16 05:29 11:38 16:28 WBC RBC Hgb Hct MCV MCHC RDW Plt Count MPV Platelet Estimate Platelet Comment Sodium Potassium Chloride Carbon Dioxide Anion Gap BUN Creatinine Creat Clearance w eGFR POC Glucometer 333 313 339 Random Glucose Calcium Total Bilirubin AST ALT Alkaline Phosphatase Total Protein Albumin Urine Color Urine Appearance Urine pH Ur Specific [place] Urine Protein Urine Glucose (UA) Urine Ketones Urine Blood Urine Nitrite Urine Bilirubin Urine Urobilinogen Ur Leukocyte Esterase RPR Titer HIV 1&2 Antibody Screen HIV P24 Antigen 10/30/16 10/31/16 10/31/16 20:54 05:52 11:13 WBC RBC Hgb Hct MCV MCHC RDW Plt Count MPV Platelet Estimate Platelet Comment Sodium Potassium Chloride Carbon Dioxide Anion Gap BUN Creatinine Creat Clearance w eGFR POC Glucometer 311 414 320 Random Glucose Calcium Total Bilirubin AST ALT Alkaline Phosphatase Total Protein Albumin Urine Color Urine Appearance Urine pH Ur Specific [place] Urine Protein Urine Glucose (UA) Urine Ketones Urine Blood Urine Nitrite Urine Bilirubin Urine Urobilinogen Ur Leukocyte Esterase RPR Titer HIV 1&2 Antibody Screen HIV P24 Antigen LABS NOTED. Assessment: 10/31/16 11:50 WITHDRAWAL SYMPTOMS. Plan: CONTINUE DETOX.
[2016-10-31] MEDS: chlordiazePOXIDE HCL 10 MG CAPSULE PO SCH ×2 (17:34→22:03)
[2016-10-31] MEDS ORDERED: QUEtiapine FUMARATE 50 MG TABLET ONE (21:13)
[2016-10-31] MEDS: THIAMINE HCL 100 MG TABLET (FP) PO SCH (22:03)
[2016-10-31] MEDS: QUEtiapine FUMARATE 100 MG TABLET (FP) PO SCH (22:12)
[2016-11-01] MEDS ORDERED: METHADONE HCL 40 MG DISPERSABLE TABLET ONE (01:52)
[2016-11-01] MEDS ORDERED: METHADONE HCL 10 MG TABLET ONE (01:52)
[2016-11-01] MEDS: METHADONE 80 MG, METHADONE 20 MG PO SCH (06:00)
[2016-11-01] MEDS: chlordiazePOXIDE HCL 10 MG CAPSULE PO SCH (06:03)
[2016-11-01] MEDS ORDERED: INSULIN (NOVOLOG) ASPART 100 UNITS/ML 10ML VIAL ONE (06:26)
[2016-11-01] MEDS: metFORMIN HCL 500 MG TABLET (FP) PO SCH (06:44)
[2016-11-01] MEDS: sitaGLIPtin PHOSPHATE 100 MG TABLET (FP) PO SCH (06:45)
[2016-11-01] MEDS: INSULIN SLIDING SCALE (NOVOLOG) 1 VIAL SQ SCH (06:45)
[2016-11-01 10:04] VITALS: BP 138/92; PULSE 107; TEMP 97
--- NOTE | 2016-11-01 12:40 | DS ---
[facility] Detox Discharge Summary Admission Date: 10/28/16 Discharge Date: 11/01/16 - History Present History: Alcohol Dependence, Sedative Dependence, MMTP Additional Comments: PT. ADVISED TO FOLLOW-UP WITH INDEPENDENT [facility] CONSULTANT AFTER DISCHARGE FROM DETOX FOR GENERAL MEDICAL ASSESSMENT. Pertinent Past History: Asthma, HTN, DM, Depression, Schizoaffective Disorder. - Physical Exam Results Vital Signs: Vital Signs Temperature 97 F L 11/01/16 10:03 Pulse Rate 107 H 11/01/16 10:03 Respiratory Rate 16 11/01/16 10:03 Blood Pressure 138/92 11/01/16 10:03 O2 Sat by Pulse Oximetry (%) Pertinent Admission Physical Exam Findings: WITHDRAWAL SYMPTOMS. Laboratory Tests 10/28/16 10/28/16 10/28/16 12:58 16:23 17:55 WBC RBC Hgb Hct MCV MCHC RDW Plt Count MPV Platelet Estimate Platelet Comment Sodium Potassium Chloride Carbon Dioxide Anion Gap BUN Creatinine Creat Clearance w eGFR POC Glucometer 208 299 Random Glucose Calcium Total Bilirubin AST ALT Alkaline Phosphatase Total Protein Albumin Urine Color Colorless Urine Appearance Clear Urine pH 5.0 Ur Specific [place] 1.010 Urine Protein Negative Urine Glucose (UA) 3+ H Urine Ketones Negative Urine Blood Negative Urine Nitrite Negative Urine Bilirubin Negative Urine Urobilinogen Negative Ur Leukocyte Esterase Negative RPR Titer HIV 1&2 Antibody Screen HIV P24 Antigen 10/28/16 10/29/16 10/29/16 21:09 05:21 07:45 WBC 8.4 D RBC 4.85 Hgb 13.8 D Hct 41.6 MCV 85.8 MCHC 33.3 RDW 14.5 Plt Count No Result Required. MPV 11.1 Platelet Estimate Adequate Platelet Comment No clotting detected Sodium Potassium Chloride Carbon Dioxide Anion Gap BUN Creatinine Creat Clearance w eGFR POC Glucometer 182 210 Random Glucose Calcium Total Bilirubin AST ALT Alkaline Phosphatase Total Protein Albumin Urine Color Urine Appearance Urine pH Ur Specific [place] Urine Protein Urine Glucose (UA) Urine Ketones Urine Blood Urine Nitrite Urine Bilirubin Urine Urobilinogen Ur Leukocyte Esterase RPR Titer HIV 1&2 Antibody Screen HIV P24 Antigen 10/29/16 10/29/16 10/29/16 07:45 07:45 07:45 WBC RBC Hgb Hct MCV MCHC RDW Plt Count MPV Platelet Estimate Platelet Comment Sodium 136 Potassium 3.9 Chloride 98 Carbon Dioxide 25 Anion Gap 13 BUN 13 Creatinine 1.1 Creat Clearance w eGFR > 60 POC Glucometer Random Glucose 284 H Calcium 9.4 Total Bilirubin 0.3 D AST 35 D ALT 59 D Alkaline Phosphatase 132 H Total Protein 7.5 Albumin 3.8 Urine Color Urine Appearance Urine pH Ur Specific [place] Urine Protein Urine Glucose (UA) Urine Ketones Urine Blood Urine Nitrite Urine Bilirubin Urine Urobilinogen Ur Leukocyte Esterase RPR Titer Nonreactive HIV 1&2 Antibody Screen Negative HIV P24 Antigen Negative 10/29/16 10/29/16 10/29/16 11:27 16:17 21:21 WBC RBC Hgb Hct MCV MCHC RDW Plt Count MPV Platelet Estimate Platelet Comment Sodium Potassium Chloride Carbon Dioxide Anion Gap BUN Creatinine Creat Clearance w eGFR POC Glucometer 250 307 264 Random Glucose Calcium Total Bilirubin AST ALT Alkaline Phosphatase Total Protein Albumin Urine Color Urine Appearance Urine pH Ur Specific [place] Urine Protein Urine Glucose (UA) Urine Ketones Urine Blood Urine Nitrite Urine Bilirubin Urine Urobilinogen Ur Leukocyte Esterase RPR Titer HIV 1&2 Antibody Screen HIV P24 Antigen 10/30/16 10/30/16 10/30/16 05:29 11:38 16:28 WBC RBC Hgb Hct MCV MCHC RDW Plt Count MPV Platelet Estimate Platelet Comment Sodium Potassium Chloride Carbon Dioxide Anion Gap BUN Creatinine Creat Clearance w eGFR POC Glucometer 333 313 339 Random Glucose Calcium Total Bilirubin AST ALT Alkaline Phosphatase Total Protein Albumin Urine Color Urine Appearance Urine pH Ur Specific [place] Urine Protein Urine Glucose (UA) Urine Ketones Urine Blood Urine Nitrite Urine Bilirubin Urine Urobilinogen Ur Leukocyte Esterase RPR Titer HIV 1&2 Antibody Screen HIV P24 Antigen 10/30/16 10/31/16 10/31/16 20:54 05:52 11:13 WBC RBC Hgb Hct MCV MCHC RDW Plt Count MPV Platelet Estimate Platelet Comment Sodium Potassium Chloride Carbon Dioxide Anion Gap BUN Creatinine Creat Clearance w eGFR POC Glucometer 311 414 320 Random Glucose Calcium Total Bilirubin AST ALT Alkaline Phosphatase Total Protein Albumin Urine Color Urine Appearance Urine pH Ur Specific [place] Urine Protein Urine Glucose (UA) Urine Ketones Urine Blood Urine Nitrite Urine Bilirubin Urine Urobilinogen Ur Leukocyte Esterase RPR Titer HIV 1&2 Antibody Screen HIV P24 Antigen 10/31/16 10/31/16 11/01/16 16:24 20:26 06:00 WBC RBC Hgb Hct MCV MCHC RDW Plt Count MPV Platelet Estimate Platelet Comment Sodium Potassium Chloride Carbon Dioxide Anion Gap BUN Creatinine Creat Clearance w eGFR POC Glucometer 339 275 326 Random Glucose Calcium Total Bilirubin AST ALT Alkaline Phosphatase Total Protein Albumin Urine Color Urine Appearance Urine pH Ur Specific [place] Urine Protein Urine Glucose (UA) Urine Ketones Urine Blood Urine Nitrite Urine Bilirubin Urine Urobilinogen Ur Leukocyte Esterase RPR Titer HIV 1&2 Antibody Screen HIV P24 Antigen LABS NOTED. - Treatment Hospital Course: Detox Protocol Followed, Detoxed Safely, Responded well, Discharged Condition Good Patient has Accepted a Rehab Referral to: PATIENT TO GO HOME AT THIS TIME. 12- STEP/NA/ AA PROGRAMS RECOMMENDED. - Medication Discharge Medications: Ambulatory Orders Quetiapine Fumarate [Seroquel -] 25 mg PO BID@1000,1400 #60 tablet 10/02/16 Quetiapine Fumarate [Seroquel] 100 mg PO HS #30 tablet 10/02/16 Trazodone HCl [Desyrel -] 50 mg PO HS #30 tablet 10/02/16 Quetiapine Fumarate [Seroquel] 100 mg PO HS #30 tablet 10/30/16 Albuterol Sulfate Inhaler - [Ventolin HFA Inhaler -] 2 puff IH Q4H PRN #1 inhaler 11/01/16 Amlodipine Besylate [Norvasc -] 5 mg PO DAILY #30 mg 11/01/16 Hydrochlorothiazide 25 mg PO DAILY #30 mg 11/01/16 Lisinopril [Prinivil] 20 mg PO DAILY #30 mg 11/01/16 Metformin HCl [Glucophage -] 500 mg PO BIDAC #60 tablet 11/01/16 Sitagliptin Phosphate [Januvia -] 100 mg PO DAILY@0700 #30 mg 11/01/16 - Diagnosis (1) Alcohol dependence with uncomplicated withdrawal Status: Acute (2) Nicotine dependence Status: Chronic Qualifiers: Nicotine product type: cigarettes Substance use status: in withdrawal Qualified Code(s): F17.213 - Nicotine dependence, cigarettes, with withdrawal (3) Opioid dependence on agonist therapy Status: Chronic (4) Sedative hypnotic or anxiolytic dependence Status: Acute (5) Substance induced mood disorder Status: Acute (6) Uncomplicated sedative, hypnotic or anxiolytic withdrawal Status: Acute (7) Asthma Status: Chronic Qualifiers: Asthma severity: mild intermittent Asthma complication type: uncomplicated Qualified Code(s): J45.20 - Mild intermittent asthma, uncomplicated (8) Diabetes mellitus treated with oral medication Status: Chronic (9) Dry skin dermatitis Status: Chronic (10) Hypertension Status: Chronic Qualifiers: Hypertension type: essential hypertension Qualified Code(s): I10 - Essential (primary) hypertension (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
== END 2016-11-01 09:33 | disposition home or self-care (01) | DRG 773 ==
LOC: YASAS 11:20 → Y3N 12:54
PROVIDERS: ADMIT Internal Medicine; ATTEND Internal Medicine
PROC: HZ2ZZZZ Detoxification Services for Substance Abuse Treatment (ICD-10-PCS; principal; 2016-11-01)
DX: F11.20 Opioid dependence, uncomplicated (principal); F13.230 Sedative, hypnotic or anxiolytic dependence with withdrawal, uncomplicated; F10.230 Alcohol dependence with withdrawal, uncomplicated; F17.213 Nicotine dependence, cigarettes, with withdrawal; F19.24 Other psychoactive substance dependence with psychoactive substance-induced mood disorder; F25.9 Schizoaffective disorder, unspecified; I10 Essential (primary) hypertension; J45.20 Mild intermittent asthma, uncomplicated; E11.9 Type 2 diabetes mellitus without complications; Z79.84 Long term (current) use of oral hypoglycemic drugs
CPT/HCPCS: 36415; 80053; 81003; 85027; 86593; 87389; 93005; 93010

== ENCOUNTER 2016-12-27 12:49 | Inpatient (IN) | payer OTHER ==
[2016-12-27 14:02] VITALS: BMI 31.1
--- NOTE | 2016-12-27 15:36 | HP ---
CIWA Score - CIWA Score Nausea/Vomitin Muscle Tremors: 3 Anxiety: 3 Agitation: 3 Paroxysmal Sweats: 2 Orientation: 0-Oriented Tacttile Disturbances: 2-Mild Itch/Numbness/Burn Auditory Disturbances: 2-Mild Harshness/Frighten Visual Disturbances: 2-Mild Sensitivity Headache: 2-Mild CIWA-Ar Total Score: 22 Admission ROS BHS - HPI Chief Complaint: i need help to stop drinking alcohol and xanax Allergies/Adverse Reactions: Allergies Allergy/AdvReac Type Severity Reaction Status Date / Time No Known Allergies Allergy Verified 12/27/16 15:07 History of Present Illness: this 46 years old male with alcohol and xanax dependence,seeking detox,last treatment [facility] 10/28/16 to 11/01/16 multiple admissions in the past but relapsed mmtp 100 mgs/day,last medicated today multiple medical problem hypertension,asthma,schizoaffective disorder,type 2 dm longest period of sobreity 1 year - Ebola screening Have you traveled outside of the country in the last 21 days: No Have you had contact with anyone from an Ebola affected area: No Have you been sick,other than usual withdrawal symptoms: No Do you have a fever: No - Review of Systems Constitutional: Loss of Appetite, Malaise, Night Sweats, Changes in sleep, Weakness EENT: reports: Nose Congestion Respiratory: reports: No Symptoms reported, Shortness of Breath Cardiac: reports: No Symptoms Reported GI: reports: Diarrhea, Nausea, Vomiting, Abdominal cramping : reports: No Symptoms Reported Musculoskeletal: reports: Muscle Pain Integumentary: reports: Dryness Neuro: reports: Headache, Tremors Endocrine: reports: No Symptoms Reported Hematology: reports: No Symptoms Reported Psychiatric: reports: No Sypmtoms Reported (schizoaffective disorder), Judgement Intact, Mood/Affect Appropiate, other Patient History - Patient Medical History Hx Anemia: No Hx Asthma: Yes (Pt is on MDI) Hx Chronic Obstructive Pulmonary Disease (COPD): No Hx Cancer: No Hx Cardiac Disorders: No Hx Congestive Heart Failure: No Hx Hypertension: Yes (non complaint with meds.) Hx Hypercholesterolemia: No Hx Pacemaker: No HX Cerebrovascular Accident: No Hx Seizures: No Hx Dementia: No Hx Diabetes: Yes (Type II) Hx Gastrointestinal Disorders: No Hx Liver Disease: No Hx Genitourinary Disorders: No Hx Sexually Transmitted Disorders: No Hx Renal Disease (ESRD): No Hx Thyroid Disease: No Hx Human Immunodeficiency Virus (HIV): No Hx Hepatitis C: No Hx Depression: Yes Hx Suicide Attempt: No Hx Bipolar Disorder: No Hx Schizophrenia: No Other Medical History: schizoaffective disorder,no suicidal,no homicidal - Patient Surgical History Past Surgical History: No Hx Neurologic Surgery: No Hx Cataract Extraction: No Hx Cardiac Surgery: No Hx Lung Surgery: No Hx Breast Surgery: No Hx Breast Biopsy: No Hx Abdominal Surgery: No Hx Appendectomy: No Hx Cholecystectomy: No Hx Genitourinary Surgery: No Hx Section: No Hx Orthopedic Surgery: No Anesthesia Reaction: No - PPD History Previous Implant?: Yes Documented Results: Negative w/proof Implanted On Prior [facility] Admission?: Yes Date: 05/08/16 Results: 0 MM - Smoking Cessation Smoking history: Current every day smoker Have you smoked in the past 12 months: Yes Aproximately how many cigarettes per day: 10 Hx Chewing Tobacco Use: No Initiated information on smoking cessation: Yes 'Breaking Loose' booklet given: 12/27/16 - Substance & Tx. History Hx Alcohol Use: Yes Hx Substance Use: Yes Substance Use Type: Alcohol, Tranquilizers Hx Substance Use Treatment: Yes ([facility] 10/28/16 to 11/01/16) - Substances Abused Alprazolam (Xanax) Route: Oral Frequency: Daily Amount used: 6MG Age of first use: 39 Date of Last Use: 12/26/16 Alcohol Route: Oral Frequency: Daily Amount used: 2 PINTS VODKA Age of first use: 14 Date of Last Use: 12/26/16 Family Disease History - Family Disease History Family Disease History: Heart Disease: Mother (HTN-), [place]: Father ( , etoh, drugs), Other: Mother, Brother (two - alive no problems), Sister (five - alive - no problems) Admission Physical Exam S - Vital Signs Vital Signs: Vital Signs - 24 hr 12/27/16 14:01 Temperature 96.1 F L Pulse Rate 86 Respiratory 20 Rate Blood Pressure 143/111 - Physical General Appearance: Yes: Moderate Distress, Tremorous, Irritable, Sweating, Anxious HEENTM: Yes: Normal ENT Inspection, CARLIN, Pharynx Normal Respiratory: Yes: Lungs Clear, Normal Breath Sounds, No Respiratory Distress Neck: Yes: Within Normal Limits, Supple, Trachea in good position Breast: Yes: Within Normal Limits Cardiology: Yes: Within Normal Limits, Regular Rate, S1, S2, Murmur Abdominal: Yes: Within Normal Limits, Normal Bowel Sounds, Non Tender, Flat, Soft Genitourinary: Yes: Within Normal Limits Back: Yes: Muscle Spasm Musculoskeletal: Yes: Back pain, Muscle Pain Extremities: Yes: Normal Range of Motion, Tremors Neurological: Yes: welder gun II-XII NML intact, Fully Oriented, Alert, Motor Strength 5/5 Integumentary: Yes: Dry Lymphatic: Yes: Within Normal Limits - Diagnostic (1) Alcohol dependence with uncomplicated withdrawal Status: Chronic (2) Hypertension Status: Chronic Qualifiers: Hypertension type: essential hypertension Qualified Code(s): I10 - Essential (primary) hypertension (3) Methadone maintenance therapy patient Status: Chronic (4) Nicotine dependence Status: Chronic Qualifiers: Nicotine product type: cigarettes Substance use status: uncomplicated Qualified Code(s): F17.210 - Nicotine dependence, cigarettes, uncomplicated (5) Schizoaffective disorder Status: Chronic Qualifiers: Schizoaffective disorder type: unspecified Qualified Code(s): F25.9 - Schizoaffective disorder, unspecified Comment: History. (6) Uncomplicated sedative, hypnotic or anxiolytic withdrawal Status: Deleted (7) Asthma Status: Chronic Qualifiers: Asthma severity: mild intermittent Asthma complication type: uncomplicated Qualified Code(s): J45.20 - Mild intermittent asthma, uncomplicated (8) DM2 (diabetes mellitus, type 2) Status: Chronic Qualifiers: Diabetes mellitus complication status: without complication Diabetes mellitus intermediate accountant insulin use: with care home use Qualified Code(s): E11.9 - Type 2 diabetes mellitus without complications Cleared for Admission S - Detox or Rehab [facility] Level of Care: Medically Managed Detox Regimen/Protocol: Librium [facility] Breath Alcohol Content Breath Alcohol Content: 0.001 Urine Drug Screen - Results Drug Screen Negative: No Urine Drug Screen Results: BZO-Benzodiazepines, MTD-Methadone
[2016-12-27] MEDS ORDERED: P-EPHED 60MG/TRIPROLIDI 2.5MG TABLET PO PRN (15:46)
[2016-12-27] MEDS ORDERED: MAG HYDROX/AL HYDROX/SIMETH 30 ML UNIT-DOSE CUP PO PRN (15:46)
[2016-12-27] MEDS ORDERED: chlordiazePOXIDE HCL 25 MG CAPSULE PO PRN (15:46)
[2016-12-27] MEDS ORDERED: MAGNESIUM CITRATE 300 ML BOTTLE PO PRN (15:46)
[2016-12-27] MEDS ORDERED: LOPERAMIDE HCL 2 MG CAPSULE PO PRN (15:46)
[2016-12-27] MEDS ORDERED: hydrOXYzine PAMOATE 50 MG CAPSULE (FP) PO PRN (15:46)
[2016-12-27] MEDS ORDERED: MAGNESIUM HYDROX 2400MG/30ML ORAL SUSPENSION 30 ML CUP PO PRN (15:46)
[2016-12-27] MEDS ORDERED: diphenhydrAMINE HCL 50 MG CAPSULE PO PRN (15:46)
[2016-12-27] MEDS ORDERED: guaiFENesin/D-METHORPHAN HB 10 ML UNIT-DOSE CUPS PO PRN (15:46)
[2016-12-27] MEDS ORDERED: ACETAMINOPHEN 325 MG TABLET (FP) PO PRN (15:46)
[2016-12-27] MEDS ORDERED: MENTHOL/PHENOL 1 EACH UD MM PRN (15:46)
[2016-12-27] MEDS ORDERED: ALBUTEROL SO4 6.7 GM HFA INHALER IH PRN (15:49)
[2016-12-27] MEDS ORDERED: INSULIN (NOVOLOG) ASPART 100 UNITS/ML 10ML VIAL ONE ×2 (17:23→21:33)
[2016-12-27] MEDS: chlordiazePOXIDE HCL 25 MG CAPSULE PO SCH ×2 (17:24→22:43)
[2016-12-27] MEDS: INSULIN (NOVOLOG) ASPART 100 UNITS/ML 10ML VIAL SQ SCH ×2 (17:24→21:36)
[2016-12-27] MEDS: metFORMIN HCL 500 MG TABLET (FP) PO SCH (17:24)
[2016-12-27] MEDS: NICOTINE 21 MG/24 HOURS TOPICAL PATCH TD SCH (17:27)
--- NOTE | 2016-12-27 17:31 | CONSULT ---
[facility] Psychiatric Consult - Data Date of interview: 12/27/16 Admission source: [facility] Identifying data: Another admission to [facility] for this 46 y/o AA male seeking detoxification treatment on for alcohol,xanax and opioid dependence.Patient is single without children,unemployed,domiciled and supported on SSI benefits. Substance Abuse History: Fully discussed in this interview.Mr Hoffman confirms this pattern of substance use as described in this [facility]-generated report : Smoking Cessation. Smoking history: Current every day smoker. Have you smoked in the past 12 months: Yes. Aproximately how many cigarettes per day: 10. Hx Chewing Tobacco Use: No. Initiated information on smoking cessation: Yes. ' Breaking Loose' booklet given: 12/27/16. - Substance & Tx. History. Hx Alcohol Use: Yes. Hx Substance Use: Yes. Substance Use Type: Alcohol, Tranquilizers. Hx Substance Use Treatment: Yes ([facility] 10/28/16 to 11/01/16). - Substances Abused. Alprazolam (Xanax). Route: Oral. Frequency: Daily. Amount used: 6MG. Age of first use: 39. Date of Last Use: 12/26/16. Alcohol. Route: Oral. Frequency: Daily. Amount used: 2 PINTS VODKA. Age of first use: 14. Date of Last Use: 12/26/16 Medical History: Remarkable for bronchial asthma,hypertension and diabetes mellitus. Psychiatric History: Patient admits to " a lot of " psychiatric hospitalizations.Known to [facility]),[facility] and [facility].Chronically non-adherent to psychiatric aftercare.Diagnosed with Schizoaffective Disorder.Mr Hoffman states that he utilizes local emergency room settings to obtain medications refills.Patient is on methadone maintenance (100 mg/day) at the [facility] MMTP program in [facility].No history of suicide attempts. Physical/Sexual Abuse/Trauma History: Patient denies. Additional Comment: Urine Drug Screen Results: BZO-Benzodiazepines, MTD- Methadone.Noted. Mental Status Exam - Mental Status Exam Alert and Oriented to: Time, Place, Person Cognitive Function: Good Patient Appearance: Well Groomed Mood: Hopeful, Euthymic Affect: Normal Range Patient Behavior: Sedated (lightly sedated), Fatigued, Cooperative Speech Pattern: Clear Voice Loudness: Normal Thought Process: Goal Oriented Thought Disorder: Not Present Hallucinations: Denies Suicidal Ideation: Denies Homicidal Ideation: Denies Insight/Judgement: Poor Sleep: Poorly, Difficulty falling asleep (wants seroquel) Appetite: Good Muscle strength/Tone: Normal Gait/Station: Normal Psychiatric Findings - Problem List ([place] 1, 2,3) (1) Alcohol dependence with uncomplicated withdrawal Current Visit: Yes Status: Acute (2) Uncomplicated sedative, hypnotic or anxiolytic withdrawal Current Visit: No Status: Acute (3) Sedative hypnotic or anxiolytic dependence Current Visit: Yes Status: Acute (4) Opioid dependence on agonist therapy Current Visit: Yes Status: Acute (5) Nicotine dependence Current Visit: Yes Status: Acute Qualifiers: Nicotine product type: cigarettes Substance use status: in withdrawal Qualified Code(s): F17.213 - Nicotine dependence, cigarettes, with withdrawal (6) Substance induced mood disorder Current Visit: Yes Status: Acute (7) Schizoaffective disorder Current Visit: Yes Status: Chronic Qualifiers: Schizoaffective disorder type: unspecified Qualified Code(s): F25.9 - Schizoaffective disorder, unspecified Comment: History. (8) DM2 (diabetes mellitus, type 2) Current Visit: Yes Status: Chronic (9) Asthma Current Visit: Yes Status: Chronic Qualifiers: Asthma severity: mild intermittent Asthma complication type: uncomplicated Qualified Code(s): J45.20 - Mild intermittent asthma, uncomplicated (10) Hypertension Current Visit: Yes Status: Chronic Qualifiers: Hypertension type: essential hypertension Qualified Code(s): I10 - Essential (primary) hypertension - Initial Treatment Plan Initial Treatment Plan: Psychoeducation.Detoxification.Seroquel 100 mg po hs.Side effects/benefits discussed with patient.He agrees to follow this careplan.Observation.
[2016-12-27 22:06] LABS: URINE APPEARANCE CLEAR; URINE BILIRUBIN NEGATIVE (NEGATIVE); URINE BLOOD NEGATIVE (NEGATIVE); URINE COLOR YELLOW; URINE GLUCOSE (UA) 3+ (NEGATIVE); URINE KETONE NEGATIVE (NEGATIVE); URINE LEUK ESTERASE TRACE (NEGATIVE); URINE NITRITE NEGATIVE (NEGATIVE); URINE PROTEIN NEGATIVE (NEGATIVE); URINE UROBILINOGEN NEGATIVE mg/dL (0.2-1.0)
[2016-12-27 22:35] LABS: URINE MUCUS RARE; URINE RBC 4 /hpf (0-3); URINE WBC 9 /hpf (3-5)
[2016-12-27] MEDS: cloNIDine HCL 0.1 MG TABLET PO SCH (22:43)
[2016-12-27] MEDS: THIAMINE HCL 100 MG TABLET (FP) PO SCH (22:44)
[2016-12-27] MEDS: QUEtiapine FUMARATE 100 MG TABLET (FP) PO SCH (22:44)
[2016-12-28] MEDS: chlordiazePOXIDE HCL 25 MG CAPSULE PO SCH ×4 (05:06→22:37)
[2016-12-28] MEDS: metFORMIN HCL 500 MG TABLET (FP) PO SCH ×2 (07:03→17:29)
[2016-12-28] MEDS ORDERED: INSULIN (NOVOLOG) ASPART 100 UNITS/ML 10ML VIAL ONE ×4 (07:53→22:05)
[2016-12-28] MEDS: INSULIN (NOVOLOG) ASPART 100 UNITS/ML 10ML VIAL SQ SCH ×4 (08:04→22:38)
[2016-12-28] MEDS ORDERED: METHADONE HCL 10 MG TABLET PO ONE (08:44)
[2016-12-28] MEDS ORDERED: METHADONE 80 MG, METHADONE 20 MG PO ONE (09:14)
[2016-12-28 10:07] LABS: MCH 28.8 pg (25.7-33.7); MCHC 33.4 g/dl (32.0-35.9); MEAN PLT VOLUME 10.1 fl (7.5-11.1); PLATELET COUNT 147 K/MM3 (134-434); RDW 15.5 % (11.9-15.9); WHITE BLOOD COUNT 6.5 K/mm3 (4.0-10.0)
[2016-12-28 10:15] LABS: ALBUMIN 3.4 g/dl (3.4-5.0); ALK PHOS 113 U/L (45-117); ANION GAP 7 (8-16); BILIRUBIN,TOTAL 0.4 mg/dL (0.2-1.0); CO2 30 mmol/L (21-32); GLUCOSE,RANDOM 202 mg/dL (74-106); SGOT/AST 29 U/L (15-37); SGPT/ALT 52 U/L (12-78); TOT PROT 6.8 g/dl (6.4-8.2)
--- NOTE | 2016-12-28 10:15 | PN ---
S CIWA - CIWA Score Nausea/Vomitin-No Nausea/No Vomiting Muscle Tremors: 4-Moderate,w/Arms Extend Anxiety: 3 Agitation: 4-Moderately Restless Paroxysmal Sweats: 3 Orientation: 0-Oriented Tacttile Disturbances: 0-None Auditory Disturbances: 0-None Visual Disturbances: 0-None Headache: 0-None Present CIWA-Ar Total Score: 14 BHS Progress Note (SOAP) Subjective: interrupted sleep agitation anxiety sweats Objective: 12/28/16 10:25 Vital Signs Temperature 96.9 F L 12/28/16 09:30 Pulse Rate 93 H 12/28/16 09:30 Respiratory Rate 18 12/28/16 09:30 Blood Pressure 140/88 12/28/16 09:30 O2 Sat by Pulse Oximetry (%) Laboratory Tests 12/27/16 12/27/16 12/28/16 17:20 21:30 05:05 WBC RBC Hgb Hct MCV MCH MCHC RDW Plt Count MPV Sodium Potassium Chloride Carbon Dioxide Anion Gap BUN Creatinine Creat Clearance w eGFR POC Glucometer 329 186 Random Glucose Calcium Total Bilirubin AST ALT Alkaline Phosphatase Total Protein Albumin Urine Color Yellow Urine Appearance Clear Urine pH 5.0 Urine Protein Negative Urine Glucose (UA) 3+ H Urine Ketones Negative Urine Blood Negative Urine Nitrite Negative Urine Bilirubin Negative Urine Urobilinogen Negative Ur Leukocyte Esterase Trace Urine RBC 4 Urine WBC 9 Ur Epithelial Cells Rare Urine Mucus Rare 12/28/16 12/28/16 07:30 07:30 WBC 6.5 RBC 4.74 Hgb 13.6 Hct 40.8 MCV 86.0 MCH 28.8 MCHC 33.4 RDW 15.5 Plt Count 147 D MPV 10.1 Sodium 139 Potassium 4.2 Chloride 102 Carbon Dioxide 30 Anion Gap 7 L BUN 12 Creatinine 1.0 Creat Clearance w eGFR > 60 POC Glucometer Random Glucose 202 H D Calcium 9.0 Total Bilirubin 0.4 D AST 29 ALT 52 Alkaline Phosphatase 113 Total Protein 6.8 Albumin 3.4 Urine Color Urine Appearance Urine pH Urine Protein Urine Glucose (UA) Urine Ketones Urine Blood Urine Nitrite Urine Bilirubin Urine Urobilinogen Ur Leukocyte Esterase Urine RBC Urine WBC Ur Epithelial Cells Urine Mucus awake/alert ambulating no acute distress Assessment: 12/28/16 10:26 withdrawal sx Plan: continue detox increase fluids monitor glucose level
[2016-12-28] MEDS ORDERED: METHADONE HCL 40 MG DISPERSABLE TABLET ONE (11:12)
[2016-12-28] MEDS ORDERED: METHADONE HCL 10 MG TABLET ONE (11:13)
[2016-12-28] MEDS: cloNIDine HCL 0.1 MG TABLET PO SCH ×2 (11:14→22:37)
[2016-12-28] MEDS: HYDROCHLOROTHIAZIDE 25 MG TABLET (FP) PO SCH (11:14)
[2016-12-28] MEDS: NICOTINE 21 MG/24 HOURS TOPICAL PATCH TD SCH (11:14)
[2016-12-28] MEDS: PRENATAL VITAMINS W/ FOLIC ACID TABLET (FP) PO SCH (11:14)
[2016-12-28 11:28] LABS: HIV 1 & 2 AB NEGATIVE; HIV 1 AGp24 NEGATIVE
--- NOTE | 2016-12-28 11:29 | EKG ---
Test Reason : Blood Pressure : / mmHG Vent. Rate : 070 BPM Atrial Rate : 070 BPM P-R Int : 154 ms QRS Dur : 076 ms QT Int : 392 ms P-R-T Axes : 042 055 043 degrees QTc Int : 423 ms NORMAL SINUS RHYTHM EARLY REPOLARIZATION Confirmed by JASEN MURPHY MD ([id number]) on 12/28/2016 11:29:28 AM Referred By: Frankie Garcia Confirmed By:JASEN MURPHY MD
[2016-12-28] MEDS: IBUPROFEN 400 MG TABLET (FP) PO PRN (13:41)
[2016-12-28] MEDS: THIAMINE HCL 100 MG TABLET (FP) PO SCH (22:37)
[2016-12-28] MEDS: QUEtiapine FUMARATE 100 MG TABLET (FP) PO SCH (22:37)
[2016-12-29] MEDS ORDERED: METHADONE HCL 40 MG DISPERSABLE TABLET ONE (04:35)
[2016-12-29] MEDS ORDERED: METHADONE HCL 10 MG TABLET ONE (04:36)
[2016-12-29] MEDS: chlordiazePOXIDE HCL 25 MG CAPSULE PO SCH ×2 (05:36→10:13)
[2016-12-29] MEDS: METHADONE 80 MG, METHADONE 20 MG PO SCH (05:37)
[2016-12-29] MEDS ORDERED: METHADONE HCL 10 MG TABLET PO SCH (06:00)
[2016-12-29] MEDS ORDERED: INSULIN (NOVOLOG) ASPART 100 UNITS/ML 10ML VIAL ONE ×4 (07:18→21:16)
[2016-12-29] MEDS: metFORMIN HCL 500 MG TABLET (FP) PO SCH ×2 (07:21→17:19)
[2016-12-29] MEDS: INSULIN (NOVOLOG) ASPART 100 UNITS/ML 10ML VIAL SQ SCH ×4 (07:21→22:03)
[2016-12-29] MEDS: PRENATAL VITAMINS W/ FOLIC ACID TABLET (FP) PO SCH (10:12)
[2016-12-29] MEDS: cloNIDine HCL 0.1 MG TABLET PO SCH ×2 (10:13→22:02)
[2016-12-29] MEDS: HYDROCHLOROTHIAZIDE 25 MG TABLET (FP) PO SCH (10:13)
[2016-12-29] MEDS: NICOTINE 21 MG/24 HOURS TOPICAL PATCH TD SCH (10:15)
--- NOTE | 2016-12-29 11:43 | PN ---
[facility] CIWA - CIWA Score Nausea/Vomitin-No Nausea/No Vomiting Muscle Tremors: 4-Moderate,w/Arms Extend Anxiety: 3 Agitation: 3 Paroxysmal Sweats: 3 Orientation: 0-Oriented Tacttile Disturbances: 0-None Auditory Disturbances: 0-None Visual Disturbances: 0-None Headache: 0-None Present CIWA-Ar Total Score: 13 S Progress Note (SOAP) Subjective: groggy sleepy sweats I am hearing voices Objective: 12/29/16 11:42 Vital Signs Temperature 97.0 F L 12/29/16 10:00 Pulse Rate 98 H 12/29/16 10:00 Respiratory Rate 20 12/29/16 10:00 Blood Pressure 133/77 12/29/16 10:00 O2 Sat by Pulse Oximetry (%) Laboratory Tests 12/27/16 12/27/16 12/28/16 17:20 21:30 05:05 WBC RBC Hgb Hct MCV MCH MCHC RDW Plt Count MPV Sodium Potassium Chloride Carbon Dioxide Anion Gap BUN Creatinine Creat Clearance w eGFR POC Glucometer 329 186 Random Glucose Calcium Total Bilirubin AST ALT Alkaline Phosphatase Total Protein Albumin Urine Color Yellow Urine Appearance Clear Urine pH 5.0 Ur Specific [place] 1.025 Urine Protein Negative Urine Glucose (UA) 3+ H Urine Ketones Negative Urine Blood Negative Urine Nitrite Negative Urine Bilirubin Negative Urine Urobilinogen Negative Ur Leukocyte Esterase Trace Urine RBC 4 Urine WBC 9 Ur Epithelial Cells Rare Urine Mucus Rare RPR Titer HIV 1&2 Antibody Screen HIV P24 Antigen 12/28/16 12/28/16 12/28/16 07:30 07:30 07:30 WBC 6.5 RBC 4.74 Hgb 13.6 Hct 40.8 MCV 86.0 MCH 28.8 MCHC 33.4 RDW 15.5 Plt Count 147 D MPV 10.1 Sodium 139 Potassium 4.2 Chloride 102 Carbon Dioxide 30 Anion Gap 7 L BUN 12 Creatinine 1.0 Creat Clearance w eGFR > 60 POC Glucometer Random Glucose 202 H D Calcium 9.0 Total Bilirubin 0.4 D AST 29 ALT 52 Alkaline Phosphatase 113 Total Protein 6.8 Albumin 3.4 Urine Color Urine Appearance Urine pH Ur Specific [place] Urine Protein Urine Glucose (UA) Urine Ketones Urine Blood Urine Nitrite Urine Bilirubin Urine Urobilinogen Ur Leukocyte Esterase Urine RBC Urine WBC Ur Epithelial Cells Urine Mucus RPR Titer HIV 1&2 Antibody Screen Negative HIV P24 Antigen Negative 12/28/16 12/28/16 12/28/16 07:30 11:20 16:41 WBC RBC Hgb Hct MCV MCH MCHC RDW Plt Count MPV Sodium Potassium Chloride Carbon Dioxide Anion Gap BUN Creatinine Creat Clearance w eGFR POC Glucometer 264 280 Random Glucose Calcium Total Bilirubin AST ALT Alkaline Phosphatase Total Protein Albumin Urine Color Urine Appearance Urine pH Ur Specific [place] Urine Protein Urine Glucose (UA) Urine Ketones Urine Blood Urine Nitrite Urine Bilirubin Urine Urobilinogen Ur Leukocyte Esterase Urine RBC Urine WBC Ur Epithelial Cells Urine Mucus RPR Titer Nonreactive HIV 1&2 Antibody Screen HIV P24 Antigen 12/29/16 12/29/16 05:35 10:15 WBC RBC Hgb Hct MCV MCH MCHC RDW Plt Count MPV Sodium Potassium Chloride Carbon Dioxide Anion Gap BUN Creatinine Creat Clearance w eGFR POC Glucometer 291 287 Random Glucose Calcium Total Bilirubin AST ALT Alkaline Phosphatase Total Protein Albumin Urine Color Urine Appearance Urine pH Ur Specific [place] Urine Protein Urine Glucose (UA) Urine Ketones Urine Blood Urine Nitrite Urine Bilirubin Urine Urobilinogen Ur Leukocyte Esterase Urine RBC Urine WBC Ur Epithelial Cells Urine Mucus RPR Titer HIV 1&2 Antibody Screen HIV P24 Antigen awake/alert ambulating no acute distress Assessment: 12/29/16 11:43 withdrawal sx Plan: continue detox increase fluids psych re-ordered for second consultation
--- NOTE | 2016-12-29 12:57 | PN ---
Psychiatric Progress Note Vital Signs: Vital Signs Period Temp Pulse Resp BP Sys/Bellamy Pulse Ox Last 24 Hr 97.0 F-99 F 69-98 18-20 127-150/77-96 Date of Session: 12/29/16 Chief Complaint:: None offered. HPI: Asked to re-consult on this patient who is reported as paranoid,agitated and threatening.Apparently the patient had complained,in the morning,of " having a chip in my head telling me to hurt people." Mr Hoffman is currently on his third day of detoxification treatment for alcohol,opioid and sedative/ anxiolytic dependence. ROS: Found to be markedly sedated but able to answer simple questions,slurred and unsteady.Restricted to bed as a measure against falls.No evidence of distress.Normal vitals. Current Medications: Active Medications Generic Name Dose Route Start Last Admin Trade Name Freq PRN Reason Stop Dose Admin Acetaminophen 650 mg 12/27/16 15:46 Tylenol - PO Q4H PRN FEVER OR PAIN Al Hydroxide/Mg Hydroxide 30 ml 12/27/16 15:46 Mylanta Oral Suspension - PO Q6H PRN DYSPEPSIA Albuterol Sulfate 2 puff 12/27/16 15:49 Ventolin Hfa Inhaler - IH Q4H PRN SHORTNESS OF BREATH Chlordiazepoxide HCl 10 mg 12/30/16 17:00 Librium - PO 12/31/16 11:01 [id number] JAGDISH Chlordiazepoxide HCl 25 mg 12/27/16 15:46 12/29/16 07:21 Librium - PO 12/30/16 15:45 25 mg Q4H PRN Administration WITHDRAWAL(CONT SUBST) Chlordiazepoxide HCl 15 mg 12/29/16 17:00 Librium - PO 12/30/16 11:01 [id number] JAGDISH Clonidine 0.2 mg 12/27/16 22:00 12/29/16 10:13 Catapres - PO 0.2 mg BID JAGDISH Administration Diphenhydramine HCl 50 mg 12/27/16 15:46 Benadryl - PO HSMR1 PRN INSOMNIA Eucalyptus/Menthol/Phenol/Sorbitol 1 each 12/27/16 15:46 Cepastat Lozenge - MM Q4H PRN SORE THROAT Guaifenesin 10 ml 12/27/16 15:46 Robitussin Dm - PO Q6H PRN COUGH Hydrochlorothiazide 25 mg 12/28/16 10:00 12/29/16 10:13 Hctz - PO 25 mg DAILY JAGDISH Administration Hydroxyzine Pamoate 50 mg 12/27/16 15:46 Vistaril - PO Q4H PRN AGITATION Ibuprofen 400 mg 12/27/16 15:46 12/28/16 13:41 Motrin - PO 400 mg Q6H PRN Administration SEVERE PAIN Insulin Aspart 0 units 12/27/16 16:30 12/29/16 10:17 Novolog Vial SQ 6 units ACHS JAGDISH Administration Protocol Loperamide HCl 4 mg 12/27/16 15:46 Imodium - PO Q6H PRN DIARRHEA Magnesium Citrate 300 ml 12/27/16 15:46 Citroma - PO Q48H PRN CONSTIPATION Magnesium Hydroxide 30 ml 12/27/16 15:46 Milk Of Magnesia - PO DAILY PRN CONSTIPATION Metformin HCl 500 mg 12/27/16 16:30 12/29/16 07:21 Glucophage - PO 500 mg BIDAC JAGDISH Administration Methadone HCl 80 mg/ Methadone 100 mg 12/29/16 06:00 12/29/16 05:37 HCl 20 mg PO 01/04/17 05:59 100 mg DAILY@0600 JAGDISH Administration Nicotine 21 mg 12/27/16 16:00 12/29/16 10:15 Nicoderm Patch - TD Not Given DAILY [facility] Multivit/Folic Acid/Iron 1 tab 12/28/16 10:00 12/29/16 10:12 Vitamins (Sjr) - PO 1 tab DAILY JAGDISH Administration Pseudoephedrine/Triprolidine 1 combo 12/27/16 15:46 Actifed - PO TID PRN NASAL CONGESTION Quetiapine Fumarate 100 mg 12/27/16 22:00 12/28/16 22:37 Seroquel - PO 100 mg HS JAGDISH Administration Thiamine HCl 100 mg 12/27/16 22:00 12/28/16 22:37 Vitamin B1 - PO 100 mg HS JAGDISH Administration Medication(s) Change(s): Will continue seroquel 100 mg po at hs.Monitor vitals. Current Side Effect: Yes (sedation likely medication-induced.) Lab tests ordered: No Lab tests reviewed: Yes Provider note:: Chart reviewed.Discussed with referral source,JOSE Pickard.Medications are revisited.Patient is evaluated at [facility].Stu is lying in bed,apparently asleep but easily awakened.Able to follow simple commands and engage in conversation.He remains oriented to place,person (able to identify job specification writer) and time (year and month).Patient complains of feeling " tired " but he denies hallucinations.No delusions elicited in this encounter.Mr Hoffman is in good behavioral control.Shows eagerness to return to sleep despite encouragement ,from job specification writer,to eat lunch still on his table." I will eat later,I am tired,I need more rest." Patient is clearly NOT a danger to self or others at time of this examination.Will continue to observe.Recommend review and adjustment of detox regimen.Psychiatry will follow. Total face to face time:: 30 Mental Status Exam - Mental Status Exam Alert and Oriented to: Time, Place, Person Cognitive Function: Grossly Intact Patient Appearance: Disheveled Mood: Withdrawn Affect: Constricted Patient Behavior: Passive, Sedated, Fatigued Speech Pattern: Delayed, Slurred Voice Loudness: Moderately Soft/Quiet Thought Process: Disorganized Thought Disorder: Bizarre Hallucinations: Denies Suicidal Ideation: Denies Homicidal Ideation: Denies Insight/Judgement: Poor Sleep: Well Appetite: Poor (due to sedated state) Gait/Station: Other (unsteady) Psychiatric Treatment Plan - Problem List (1) Sedated Current Visit: Yes Comment: Moderately. (2) Alcohol dependence with uncomplicated withdrawal Current Visit: Yes (3) Uncomplicated sedative, hypnotic or anxiolytic withdrawal Current Visit: Yes (4) Sedative hypnotic or anxiolytic dependence Current Visit: Yes (5) Opioid dependence on agonist therapy Current Visit: Yes (6) Nicotine dependence Current Visit: Yes Qualifiers: Nicotine product type: cigarettes Substance use status: in withdrawal Qualified Code(s): F17.213 - Nicotine dependence, cigarettes, with withdrawal (7) Substance induced mood disorder Current Visit: Yes (8) Schizoaffective disorder Current Visit: Yes Qualifiers: Schizoaffective disorder type: unspecified Qualified Code(s): F25.9 - Schizoaffective disorder, unspecified Comment: History. (9) DM2 (diabetes mellitus, type 2) Current Visit: Yes (10) Asthma Current Visit: Yes Qualifiers: Asthma severity: mild intermittent Asthma complication type: uncomplicated Qualified Code(s): J45.20 - Mild intermittent asthma, uncomplicated (11) Hypertension Current Visit: Yes Qualifiers: Hypertension type: essential hypertension Qualified Code(s): I10 - Essential (primary) hypertension
[2016-12-29] MEDS: IBUPROFEN 400 MG TABLET (FP) PO PRN (15:41)
[2016-12-29] MEDS: chlordiazePOXIDE 5 MG CAPSULE PO SCH ×2 (17:19→22:03)
[2016-12-29] MEDS: QUEtiapine FUMARATE 100 MG TABLET (FP) PO SCH (22:03)
[2016-12-29] MEDS: THIAMINE HCL 100 MG TABLET (FP) PO SCH (22:04)
[2016-12-30] MEDS: IBUPROFEN 400 MG TABLET (FP) PO PRN (00:37)
[2016-12-30] MEDS ORDERED: METHADONE HCL 40 MG DISPERSABLE TABLET ONE (05:01)
[2016-12-30] MEDS ORDERED: METHADONE HCL 10 MG TABLET ONE (05:02)
[2016-12-30] MEDS: METHADONE 80 MG, METHADONE 20 MG PO SCH (06:27)
[2016-12-30] MEDS: chlordiazePOXIDE 5 MG CAPSULE PO SCH ×2 (06:27→10:19)
[2016-12-30] MEDS: metFORMIN HCL 500 MG TABLET (FP) PO SCH ×2 (06:28→17:22)
[2016-12-30] MEDS ORDERED: INSULIN (NOVOLOG) ASPART 100 UNITS/ML 10ML VIAL ONE ×4 (06:32→22:50)
[2016-12-30] MEDS: INSULIN (NOVOLOG) ASPART 100 UNITS/ML 10ML VIAL SQ SCH ×4 (06:33→22:10)
[2016-12-30] MEDS: PRENATAL VITAMINS W/ FOLIC ACID TABLET (FP) PO SCH (10:19)
[2016-12-30] MEDS: cloNIDine HCL 0.1 MG TABLET PO SCH ×2 (10:19→22:07)
[2016-12-30] MEDS: HYDROCHLOROTHIAZIDE 25 MG TABLET (FP) PO SCH (10:19)
[2016-12-30] MEDS: NICOTINE 21 MG/24 HOURS TOPICAL PATCH TD SCH (10:20)
--- NOTE | 2016-12-30 12:55 | PN ---
S Progress Note (SOAP) Subjective: ALERT,IRRITABLE,ANXIOUS,INTERRUPTED SLEEP,PAIN IN BODY AND BACK Objective: 12/30/16 12:54 Vital Signs Temperature 96.8 F L 12/30/16 10:04 Pulse Rate 85 12/30/16 10:04 Respiratory Rate 18 12/30/16 10:04 Blood Pressure 138/76 12/30/16 10:04 O2 Sat by Pulse Oximetry (%) 12/30/16 12:55 12/30/16 12:55 BGM 338 Assessment: 12/30/16 12:55 WITHDRAWAL SYMPTOM Plan: CONTINUE DETOX,BGM MONITORING WITH INSULIN COVERAGE
[2016-12-30] MEDS: chlordiazePOXIDE HCL 10 MG CAPSULE PO SCH ×2 (17:22→22:07)
[2016-12-30] MEDS: THIAMINE HCL 100 MG TABLET (FP) PO SCH (22:07)
[2016-12-30] MEDS: QUEtiapine FUMARATE 100 MG TABLET (FP) PO SCH (22:07)
[2016-12-31] MEDS ORDERED: METHADONE HCL 40 MG DISPERSABLE TABLET ONE (05:18)
[2016-12-31] MEDS ORDERED: METHADONE HCL 10 MG TABLET ONE (05:18)
[2016-12-31] MEDS: METHADONE 80 MG, METHADONE 20 MG PO SCH (05:35)
[2016-12-31] MEDS: chlordiazePOXIDE HCL 10 MG CAPSULE PO SCH ×2 (05:36→10:02)
[2016-12-31] MEDS ORDERED: INSULIN (NOVOLOG) ASPART 100 UNITS/ML 10ML VIAL ONE ×4 (07:09→21:08)
[2016-12-31] MEDS: metFORMIN HCL 500 MG TABLET (FP) PO SCH ×2 (07:15→16:58)
[2016-12-31] MEDS: INSULIN (NOVOLOG) ASPART 100 UNITS/ML 10ML VIAL SQ SCH ×4 (07:16→22:29)
[2016-12-31] MEDS: IBUPROFEN 400 MG TABLET (FP) PO PRN (07:40)
[2016-12-31] MEDS: PRENATAL VITAMINS W/ FOLIC ACID TABLET (FP) PO SCH (10:02)
[2016-12-31] MEDS: cloNIDine HCL 0.1 MG TABLET PO SCH ×2 (10:02→22:29)
[2016-12-31] MEDS: HYDROCHLOROTHIAZIDE 25 MG TABLET (FP) PO SCH (10:02)
[2016-12-31] MEDS: NICOTINE 21 MG/24 HOURS TOPICAL PATCH TD SCH (10:03)
--- NOTE | 2016-12-31 12:51 | PN ---
S Progress Note (SOAP) Subjective: ALERT,IRRITABLE,FEEL WEAK,INTERRUPTED SLEEP Objective: 12/31/16 12:49 Vital Signs Temperature 97.9 F 12/31/16 10:31 Pulse Rate 84 12/31/16 10:31 Respiratory Rate 16 12/31/16 10:31 Blood Pressure 128/77 12/31/16 10:31 O2 Sat by Pulse Oximetry (%) Laboratory Last Values WBC 6.5 K/mm3 (4.0-10.0) 12/28/16 07:30 RBC 4.74 M/mm3 (4.00-5.60) 12/28/16 07:30 Hgb 13.6 GM/dL (11.7-16.9) 12/28/16 07:30 Hct 40.8 % (35.4-49) 12/28/16 07:30 MCV 86.0 fl (80-96) 12/28/16 07:30 MCH 28.8 pg (25.7-33.7) 12/28/16 07:30 MCHC 33.4 g/dl (32.0-35.9) 12/28/16 07:30 RDW 15.5 % (11.9-15.9) 12/28/16 07:30 Plt Count 147 K/MM3 (134-434) D 12/28/16 07:30 MPV 10.1 fl (7.5-11.1) 12/28/16 07:30 Sodium 139 mmol/L (136-145) 12/28/16 07:30 Potassium 4.2 mmol/L (3.5-5.1) 12/28/16 07:30 Chloride 102 mmol/L (98-107) 12/28/16 07:30 Carbon Dioxide 30 mmol/L (21-32) 12/28/16 07:30 Anion Gap 7 (8-16) L 12/28/16 07:30 BUN 12 mg/dL (7-18) 12/28/16 07:30 Creatinine 1.0 mg/dL (0.7-1.3) 12/28/16 07:30 Creat Clearance w eGFR > 60 (>60) 12/28/16 07:30 POC Glucometer 343 UNITS (()) 12/31/16 11:45 Random Glucose 202 mg/dL (74-106) H D 12/28/16 07:30 Calcium 9.0 mg/dL (8.5-10.1) 12/28/16 07:30 Total Bilirubin 0.4 mg/dL (0.2-1.0) D 12/28/16 07:30 AST 29 U/L (15-37) 12/28/16 07:30 ALT 52 U/L (12-78) 12/28/16 07:30 Alkaline Phosphatase 113 U/L (45-117) 12/28/16 07:30 Total Protein 6.8 g/dl (6.4-8.2) 12/28/16 07:30 Albumin 3.4 g/dl (3.4-5.0) 12/28/16 07:30 Urine Color Yellow 12/27/16 21:30 Urine Appearance Clear 12/27/16 21:30 Urine pH 5.0 (5.0-8.0) 12/27/16 21:30 Ur Specific [place] 1.025 (1.005-1.025) 12/27/16 21:30 Urine Protein Negative (NEGATIVE) 12/27/16 21:30 Urine Glucose (UA) 3+ (NEGATIVE) H 12/27/16 21:30 Urine Ketones Negative (NEGATIVE) 12/27/16 21:30 Urine Blood Negative (NEGATIVE) 12/27/16 21:30 Urine Nitrite Negative (NEGATIVE) 12/27/16 21:30 Urine Bilirubin Negative (NEGATIVE) 12/27/16 21:30 Urine Urobilinogen Negative mg/dL (0.2-1.0) 12/27/16 21:30 Ur Leukocyte Esterase Trace (NEGATIVE) 12/27/16 21:30 Urine RBC 4 /hpf (0-3) 12/27/16 21:30 Urine WBC 9 /hpf (3-5) 12/27/16 21:30 Ur Epithelial Cells Rare /hpf (FEW) 12/27/16 21:30 Urine Mucus Rare 12/27/16 21:30 RPR Titer Nonreactive (NONREACTIVE) 12/28/16 07:30 HIV 1&2 Antibody Screen Negative 12/28/16 07:30 HIV P24 Antigen Negative 12/28/16 07:30 Assessment: 12/31/16 12:50 WITHDRAWAL SYMPTOM Plan: CONTINUE DETOX,BGM MONITORING WITH INSULIN COVERAGE,DISCHARGE IN AM
[2016-12-31] MEDS: THIAMINE HCL 100 MG TABLET (FP) PO SCH (22:29)
[2016-12-31] MEDS: QUEtiapine FUMARATE 100 MG TABLET (FP) PO SCH (22:29)
[2017-01-01] MEDS ORDERED: METHADONE HCL 40 MG DISPERSABLE TABLET ONE (04:54)
[2017-01-01] MEDS ORDERED: METHADONE HCL 10 MG TABLET ONE (04:55)
[2017-01-01] MEDS: METHADONE 80 MG, METHADONE 20 MG PO SCH (05:19)
[2017-01-01] MEDS ORDERED: INSULIN (NOVOLOG) ASPART 100 UNITS/ML 10ML VIAL ONE (07:35)
[2017-01-01] MEDS: metFORMIN HCL 500 MG TABLET (FP) PO SCH (07:37)
[2017-01-01] MEDS: INSULIN (NOVOLOG) ASPART 100 UNITS/ML 10ML VIAL SQ SCH (07:37)
--- NOTE | 2017-01-01 08:48 | DS ---
[facility] Detox Discharge Summary Admission Date: 12/27/16 Discharge Date: 01/01/17 - History Present History: Alcohol Dependence, Sedative Dependence - Physical Exam Results Vital Signs: Vital Signs Temperature 98.1 F 01/01/17 06:32 Pulse Rate 79 01/01/17 06:32 Respiratory Rate 18 01/01/17 06:32 Blood Pressure 140/76 01/01/17 06:32 O2 Sat by Pulse Oximetry (%) - Treatment Hospital Course: Detox Protocol Followed, Detoxed Safely, Responded well, Discharged Condition Good, Rehab Referral Accepted - Medication Discharge Medications: Ambulatory Orders Quetiapine Fumarate [Seroquel] 100 mg PO HS #30 tablet 10/30/16 Albuterol Sulfate Inhaler - [Ventolin HFA Inhaler -] 2 puff IH Q4H PRN #1 inhaler 11/01/16 Hydrochlorothiazide 25 mg PO DAILY #30 mg 11/01/16 Metformin HCl [Glucophage -] 500 mg PO BIDAC #60 tablet 11/01/16 Clonidine HCl [Catapres -] 0.2 mg PO BID 12/27/16 Quetiapine Fumarate [Seroquel] 100 mg PO HS #30 tablet 12/27/16 Trazodone HCl [Desyrel -] 100 mg PO HS 12/27/16 - Diagnosis (1) Alcohol dependence with uncomplicated withdrawal Current Visit: Yes Status: Chronic (2) Nicotine dependence Current Visit: Yes Status: Chronic Qualifiers: Nicotine product type: cigarettes Substance use status: uncomplicated Qualified Code(s): F17.210 - Nicotine dependence, cigarettes, uncomplicated (3) Opioid dependence on agonist therapy Current Visit: Yes Status: Acute (4) Sedated Current Visit: Yes Status: Acute (5) Sedative hypnotic or anxiolytic dependence Current Visit: Yes Status: Chronic (6) Substance induced mood disorder Current Visit: Yes Status: Acute (7) Asthma Current Visit: Yes Status: Chronic Qualifiers: Asthma severity: mild intermittent Asthma complication type: uncomplicated Qualified Code(s): J45.20 - Mild intermittent asthma, uncomplicated (8) DM2 (diabetes mellitus, type 2) Current Visit: Yes Status: Chronic Qualifiers: Diabetes mellitus complication status: without complication Diabetes mellitus buttermaker insulin use: with skilled nursing use Qualified Code(s): E11.9 - Type 2 diabetes mellitus without complications; Z79.4 - USP ( current) use of insulin (9) Hypertension Current Visit: Yes Status: Chronic Qualifiers: Hypertension type: essential hypertension Qualified Code(s): I10 - Essential (primary) hypertension (10) Schizoaffective disorder Current Visit: Yes Status: Chronic Qualifiers: Schizoaffective disorder type: unspecified Qualified Code(s): F25.9 - Schizoaffective disorder, unspecified (11) Diabetes mellitus treated with oral medication Current Visit: No Status: Chronic (12) Dry skin dermatitis Current Visit: No Status: Chronic (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
[2017-01-01] MEDS: PRENATAL VITAMINS W/ FOLIC ACID TABLET (FP) PO SCH (09:12)
[2017-01-01] MEDS: cloNIDine HCL 0.1 MG TABLET PO SCH (09:12)
[2017-01-01] MEDS: HYDROCHLOROTHIAZIDE 25 MG TABLET (FP) PO SCH (09:12)
[2017-01-01 09:57] VITALS: BP 145/90; PULSE 93; TEMP 97.2
== END 2017-01-01 09:44 | disposition home or self-care (01) | DRG 773 ==
LOC: YASAS 12:49 → Y6N 16:01
PROVIDERS: ADMIT Internal Medicine; ATTEND Internal Medicine
PROC: HZ2ZZZZ Detoxification Services for Substance Abuse Treatment (ICD-10-PCS; principal; 2016-12-27)
DX: F10.230 Alcohol dependence with withdrawal, uncomplicated (principal); F13.230 Sedative, hypnotic or anxiolytic dependence with withdrawal, uncomplicated; F11.20 Opioid dependence, uncomplicated; F17.210 Nicotine dependence, cigarettes, uncomplicated; F19.24 Other psychoactive substance dependence with psychoactive substance-induced mood disorder; F25.9 Schizoaffective disorder, unspecified; I10 Essential (primary) hypertension; J45.20 Mild intermittent asthma, uncomplicated; R01.1 Cardiac murmur, unspecified; E11.9 Type 2 diabetes mellitus without complications; Z79.4 Long term (current) use of insulin; Z79.84 Long term (current) use of oral hypoglycemic drugs; L85.3 Xerosis cutis; Z91.14 Patient's other noncompliance with medication regimen
CPT/HCPCS: 36415; 80053; 81003; 81015; 85027; 86593; 87389; 93005; 93010

== ENCOUNTER 2017-08-23 12:06 | Inpatient (IN) | payer OTHER ==
[2017-08-23 13:20] VITALS: BMI 31.4
--- NOTE | 2017-08-23 16:58 | HP ---
CIWA Score - CIWA Score Nausea/Vomitin-No Nausea/No Vomiting Muscle Tremors: 2 Anxiety: 3 Agitation: 1-Slight > Activity Paroxysmal Sweats: 2 Orientation: 0-Oriented Tacttile Disturbances: 1-Very Mild Itch/Numbness Auditory Disturbances: 1-Very Mild Visual Disturbances: 2-Mild Sensitivity Headache: 0-None Present CIWA-Ar Total Score: 12 Admission ROS BHS - HPI Chief Complaint: alcohol and xanax withdrawal symptoms Allergies/Adverse Reactions: Allergies Allergy/AdvReac Type Severity Reaction Status Date / Time No Known Allergies Allergy Verified 08/23/17 16:20 History of Present Illness: Patient is 46 years old male with alcohol and xanax dependence,seeking detox, last treatment 12/27/16 -01/01/18. Has admissions in the past but relapsed, denies attendance to other detox or rehab. Attends out paitnet MMT at [facility], reilly on 90 mgs/day,last medicated today. PMHX: hypertension ( reports no-adherence with medications) , DM II (on oral agents), asthma, schizoaffective disorder, depression and anxiety. Longest period of sobriety 1 year. Denies suicidal / homicidal ideation, reports hx suicide attempts 25 years ago by drinking "pills." Denies hx seizure or blackouts. Exam Limitations: No Limitations - Ebola screening Have you traveled outside of the country in the last 21 days: No Have you had contact with anyone from an Ebola affected area: No Have you been sick,other than usual withdrawal symptoms: No - Review of Systems Constitutional: Chills, Loss of Appetite, Changes in sleep, Weakness, Unintentional Wgt. Loss EENT: reports: Other (reports sensitivity to light) Respiratory: reports: No Symptoms reported Cardiac: reports: No Symptoms Reported GI: reports: Poor Appetite, Poor Fluid Intake, Abdominal cramping : reports: No Symptoms Reported Musculoskeletal: reports: Back Pain Integumentary: reports: See HPI, Other (dry skin) Neuro: reports: Weakness Endocrine: reports: Increased Thirst Hematology: reports: No Symptoms Reported Psychiatric: reports: Orientated x3, Anxious Other Systems: Reviewed and Negative Patient History - Patient Medical History Hx Anemia: No Hx Asthma: Yes (Pt is on MDI) Hx Chronic Obstructive Pulmonary Disease (COPD): No Hx Cancer: No Hx Cardiac Disorders: No Hx Congestive Heart Failure: No Hx Hypertension: Yes (non complaint with meds.) Hx Hypercholesterolemia: No Hx Pacemaker: No HX Cerebrovascular Accident: No Hx Seizures: No Hx Dementia: No Hx Diabetes: Yes (Type II) Hx Gastrointestinal Disorders: No Hx Liver Disease: No Hx Genitourinary Disorders: No Hx Sexually Transmitted Disorders: No Hx Renal Disease (ESRD): No Hx Thyroid Disease: No Hx Human Immunodeficiency Virus (HIV): No (last tested 6 months ago ) Hx Hepatitis C: No Hx Depression: Yes Hx Suicide Attempt: Yes (25 years ago ) Hx Bipolar Disorder: No Hx Schizophrenia: Yes - Patient Surgical History Past Surgical History: Yes Hx Neurologic Surgery: No Hx Cataract Extraction: Yes (one month ago Right eye ) Hx Cardiac Surgery: No Hx Lung Surgery: No Hx Breast Surgery: No Hx Breast Biopsy: No Hx Abdominal Surgery: No Hx Appendectomy: No Hx Cholecystectomy: No Hx Genitourinary Surgery: No Hx Section: No Hx Orthopedic Surgery: No Anesthesia Reaction: No - PPD History Previous Implant?: Yes Documented Results: Negative w/proof Date: 05/08/16 Results: 0 MM PPD to be Administered?: Yes - Reproductive History Patient is a Female of Child Bearing Age (11 -55 yrs old): No - Smoking Cessation Smoking history: Current every day smoker Have you smoked in the past 12 months: Yes Aproximately how many cigarettes per day: 10 Hx Chewing Tobacco Use: No Initiated information on smoking cessation: Yes 'Breaking Loose' booklet given: 08/23/17 - Substance & Tx. History Hx Alcohol Use: Yes Hx Substance Use: Yes Substance Use Type: Alcohol, Tranquilizers Hx Substance Use Treatment: Yes ([facility] 12/27/16 - 01/01/17) - Substances Abused Alcohol Route: Oral Frequency: Daily Amount used: 3 [employer] Age of first use: 12 Date of Last Use: 08/23/17 Alprazolam (Xanax) Route: Oral Frequency: Daily Amount used: 3/2MG Age of first use: 39 Date of Last Use: 08/23/17 Family Disease History - Family Disease History Family Disease History: Heart Disease: Mother (HTN-), CA: Father ( , etoh, drugs), Other: Mother, Brother (two - alive no problems), Sister (five - alive - no problems) Admission Physical Exam [facility] - Vital Signs Vital Signs: Vital Signs - 24 hr 08/23/17 13:18 Temperature 98.3 F Pulse Rate 92 H Respiratory 20 Rate Blood Pressure 168/104 - Physical General Appearance: Yes: No Apparent Distress, Disheveled, Mild Distress, Sweating, Anxious, Other (malodorous) HEENTM: Yes: EOMI, Hearing grossly Normal, Normal ENT Inspection, Normocephalic , Normal Voice, CARLIN, Pharynx Normal, Tm's normal, Other (chelithis, dry mucous membranes) Respiratory: Yes: Chest Non-Tender, Lungs Clear, Normal Breath Sounds, No Respiratory Distress, No Accessory Muscle Use Neck: Yes: No masses,lesions,Nodules, Trachea in good position Breast: Yes: Breast Exam Deferred Cardiology: Yes: Regular Rhythm, Regular Rate Abdominal: Yes: Normal Bowel Sounds, Non Tender, Soft, Protuberent Genitourinary: Yes: Within Normal Limits Musculoskeletal: Yes: full range of Motion, Gait Steady, Pelvis Stable, Back pain Extremities: Yes: Normal Capillary Refill, Normal Inspection, Normal Range of Motion, Non-Tender Neurological: Yes: 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, Fully Oriented, Alert, Motor Strength 5/5, Depressed Affect Integumentary: Yes: Normal Color, Diaphoresis, Other (poor skin turgor) Lymphatic: Yes: Within Normal Limits - Addiitonal Findings: [facility] Reference #: [id number], no hx of narcotics dispense - Diagnostic (1) Obese Current Visit: Yes Status: Chronic Qualifiers: Obesity type: unspecified obesity type Obesity classification: adult class 1 (BMI 30 - 34.9) Serious obesity comorbidity presence: with serious comorbidity (2) Dehydration Current Visit: Yes Status: Acute (3) Elevated blood pressure reading in office with diagnosis of hypertension Current Visit: Yes Status: Acute (4) Opioid dependence on agonist therapy Current Visit: Yes Status: Acute Comment: on Methadone 90mg, pending verification (5) Alcohol dependence with uncomplicated withdrawal Current Visit: Yes Status: Chronic (6) Asthma Current Visit: Yes Status: Chronic Qualifiers: Asthma severity: unspecified severity Asthma complication type: uncomplicated Qualified Code(s): J45.20 - Mild intermittent asthma, uncomplicated (7) Diabetes mellitus treated with oral medication Current Visit: Yes Status: Chronic (8) Dry skin dermatitis Current Visit: Yes Status: Chronic (9) Hypertension Current Visit: Yes Status: Chronic Qualifiers: Hypertension type: essential hypertension Qualified Code(s): I10 - Essential (primary) hypertension (10) Nicotine dependence Current Visit: Yes Status: Chronic Qualifiers: Nicotine product type: cigarettes Substance use status: uncomplicated Qualified Code(s): F17.210 - Nicotine dependence, cigarettes, uncomplicated (11) Schizoaffective disorder Current Visit: Yes Status: Suspected Qualifiers: Schizoaffective disorder type: unspecified Qualified Code(s): F25.9 - Schizoaffective disorder, unspecified Comment: History. (12) Sedative hypnotic or anxiolytic dependence Current Visit: Yes Status: Acute Cleared for Admission S - Detox or Rehab [facility] Level of Care: Medically Managed Detox Regimen/Protocol: Librium [facility] Breath Alcohol Content Breath Alcohol Content: 0 Urine Drug Screen - Results Drug Screen Negative: No Urine Drug Screen Results: BAR-Barbiturates, BZO-Benzodiazepines, MTD-Methadone
[2017-08-23] MEDS ORDERED: ALBUTEROL SO4 18 GM HFA INHALER IH PRN (17:06)
[2017-08-23] MEDS ORDERED: LOPERAMIDE HCL 2 MG CAPSULE PO PRN (17:07)
[2017-08-23] MEDS ORDERED: MAGNESIUM CITRATE 300 ML BOTTLE PO PRN (17:07)
[2017-08-23] MEDS ORDERED: MAGNESIUM HYDROX 2400MG/30ML ORAL SUSPENSION 30 ML CUP PO PRN (17:07)
[2017-08-23] MEDS ORDERED: MAG HYDROX/AL HYDROX/SIMETH 30 ML UNIT-DOSE CUP PO PRN (17:07)
[2017-08-23] MEDS ORDERED: P-EPHED 60MG/TRIPROLIDI 2.5MG TABLET PO PRN (17:07)
[2017-08-23] MEDS ORDERED: NICOTINE POLACRILEX 2 MG GUM BC PRN (17:07)
[2017-08-23] MEDS ORDERED: chlordiazePOXIDE HCL 25 MG CAPSULE PO ONE (17:07)
[2017-08-23] MEDS ORDERED: guaiFENesin/D-METHORPHAN HB 10 ML UNIT-DOSE CUPS PO PRN (17:07)
[2017-08-23] MEDS ORDERED: ACETAMINOPHEN 325 MG TABLET (FP) PO PRN (17:07)
[2017-08-23] MEDS ORDERED: MENTHOL/PHENOL 1 EACH UD MM PRN (17:07)
[2017-08-23] MEDS ORDERED: cloNIDine HCL 0.1 MG TABLET PO ONE (17:10)
[2017-08-23] MEDS ORDERED: COLLOIDAL OATMEAL 1 BAR EACH TP PRN (17:18)
[2017-08-23] MEDS: HYDROCHLOROTHIAZIDE 25 MG TABLET (FP) PO SCH (17:44)
[2017-08-23] MEDS: hydrOXYzine PAMOATE 50 MG CAPSULE (FP) PO PRN (21:11)
[2017-08-23] MEDS: chlordiazePOXIDE HCL 25 MG CAPSULE PO SCH (22:07)
[2017-08-23] MEDS: THIAMINE HCL 100 MG TABLET (FP) PO SCH (22:08)
[2017-08-24 01:30] LABS: URINE APPEARANCE CLEAR; URINE BILIRUBIN NEGATIVE (<2.0 mg/dL); URINE BLOOD NEGATIVE (NEGATIVE); URINE COLOR LTYELLOW; URINE GLUCOSE (UA) NEGATIVE (NEGATIVE); URINE KETONE NEGATIVE (NEGATIVE); URINE NITRITE NEGATIVE (NEGATIVE); URINE PROTEIN NEGATIVE (NEGATIVE); URINE UROBILINOGEN NEGATIVE mg/dL (0.2-1.0)
[2017-08-24 01:43] LABS: URINE LEUK ESTERASE 2+ (NEGATIVE)
[2017-08-24 01:53] LABS: EPI CELLS RARE /HPF (FEW); URINE BACTERIA RARE /hpf (NONE SEEN); URINE MUCUS RARE
[2017-08-24] MEDS: chlordiazePOXIDE HCL 25 MG CAPSULE PO SCH ×4 (05:39→22:30)
[2017-08-24] MEDS: metFORMIN HCL 500 MG TABLET (FP) PO SCH ×2 (07:51→17:17)
[2017-08-24] MEDS: INSULIN SLIDING SCALE (NOVOLOG) 1 VIAL SQ SCH ×2 (07:51→17:18)
[2017-08-24] MEDS ORDERED: METHADONE HCL 10 MG TABLET PO SCH (08:45)
[2017-08-24] MEDS ORDERED: METHADONE HCL 40 MG DISPERSABLE TABLET ONE (10:08)
[2017-08-24] MEDS: METHADONE 80 MG, METHADONE 10 MG PO SCH (10:09)
[2017-08-24] MEDS: HYDROCHLOROTHIAZIDE 25 MG TABLET (FP) PO SCH (10:09)
[2017-08-24] MEDS ORDERED: METHADONE HCL 10 MG TABLET ONE (10:09)
--- NOTE | 2017-08-24 10:09 | EKG ---
Test Reason : Blood Pressure : / mmHG Vent. Rate : 094 BPM Atrial Rate : 094 BPM P-R Int : 136 ms QRS Dur : 072 ms QT Int : 358 ms P-R-T Axes : 054 059 045 degrees QTc Int : 447 ms NORMAL SINUS RHYTHM NORMAL ECG WHEN COMPARED WITH ECG OF 27-DEC-2016 16:28, NO SIGNIFICANT CHANGE WAS FOUND Confirmed by ANCELMO CHINO MD ([id number]) on 08/24/2017 10:08:41 AM Referred By: Confirmed By:ANCELMO CHINO MD
[2017-08-24] MEDS: PRENATAL VITAMINS W/ FOLIC ACID TABLET (FP) PO SCH (10:10)
[2017-08-24] MEDS: NICOTINE 14 MG/24 HOURS TOPICAL PATCH TD SCH (10:14)
[2017-08-24 10:26] LABS: HEMATOCRIT 40.5 % (35.4-49); HEMOGLOBIN 13.5 GM/dL (11.7-16.9); MCH 28.5 pg (25.7-33.7); MCHC 33.4 g/dl (32.0-35.9); MEAN CELL VOLUME 85.3 fl (80-96); MEAN PLT VOLUME 9.5 fl (7.5-11.1); PLATELET COUNT 149 K/MM3 (134-434); RBC 4.74 M/mm3 (4.00-5.60); RDW 14.8 % (11.9-15.9); WHITE BLOOD COUNT 6.1 K/mm3 (4.0-10.0)
[2017-08-24 10:31] LABS: CHLORIDE 99 mmol/L (98-107); POTASSIUM 3.5 mmol/L (3.5-5.1); SODIUM 140 mmol/L (136-145)
[2017-08-24 10:38] LABS: ALBUMIN 3.4 g/dl (3.4-5.0); ALK PHOS 92 U/L (45-117); ANION GAP 10 (8-16); BILIRUBIN,TOTAL 0.2 mg/dL (0.2-1.0); BLOOD UREA NITROGEN 10 mg/dL (7-18); CALCIUM 9.2 mg/dL (8.5-10.1); CO2 31 mmol/L (21-32); CREATININE 0.9 mg/dL (0.7-1.3); GLUCOSE,RANDOM 104 mg/dL (74-106); SGOT/AST 20 U/L (15-37); SGPT/ALT 31 U/L (12-78); TOT PROT 6.9 g/dl (6.4-8.2)
--- NOTE | 2017-08-24 13:07 | PN ---
S CIWA - CIWA Score Nausea/Vomitin Muscle Tremors: 3 Anxiety: 3 Agitation: 2 Paroxysmal Sweats: 1-Minimal Palms Moist Orientation: 0-Oriented Tacttile Disturbances: 1-Very Mild Itch/Numbness Auditory Disturbances: 1-Very Mild Visual Disturbances: 0-None Headache: 2-Mild CIWA-Ar Total Score: 16 S Progress Note (SOAP) Subjective: ALERT,IRRITABLE,ANXIOUS,INTERRUPTED SLEEP,TREMOR Objective: 08/24/17 13:05 Vital Signs Temperature 97.9 F 08/24/17 10:00 Pulse Rate 91 H 08/24/17 10:00 Respiratory Rate 16 08/24/17 10:00 Blood Pressure 133/90 08/24/17 10:00 O2 Sat by Pulse Oximetry (%) EKG NSR,NORMAL ECG Laboratory Last Values WBC 6.1 K/mm3 (4.0-10.0) 08/24/17 08:00 RBC 4.74 M/mm3 (4.00-5.60) 08/24/17 08:00 Hgb 13.5 GM/dL (11.7-16.9) 08/24/17 08:00 Hct 40.5 % (35.4-49) 08/24/17 08:00 MCV 85.3 fl (80-96) 08/24/17 08:00 MCH 28.5 pg (25.7-33.7) 08/24/17 08:00 MCHC 33.4 g/dl (32.0-35.9) 08/24/17 08:00 RDW 14.8 % (11.9-15.9) 08/24/17 08:00 Plt Count 149 K/MM3 (134-434) 08/24/17 08:00 MPV 9.5 fl (7.5-11.1) 08/24/17 08:00 Sodium 140 mmol/L (136-145) 08/24/17 08:00 Potassium 3.5 mmol/L (3.5-5.1) 08/24/17 08:00 Chloride 99 mmol/L (98-107) 08/24/17 08:00 Carbon Dioxide 31 mmol/L (21-32) 08/24/17 08:00 Anion Gap 10 (8-16) 08/24/17 08:00 BUN 10 mg/dL (7-18) 08/24/17 08:00 Creatinine 0.9 mg/dL (0.7-1.3) 08/24/17 08:00 Creat Clearance w eGFR > 60 (>60) 08/24/17 08:00 POC Glucometer 122 UNITS (80-120) 08/24/17 05:38 Random Glucose 104 mg/dL (74-106) D 08/24/17 08:00 Calcium 9.2 mg/dL (8.5-10.1) 08/24/17 08:00 Total Bilirubin 0.2 mg/dL (0.2-1.0) D 08/24/17 08:00 AST 20 U/L (15-37) D 08/24/17 08:00 ALT 31 U/L (12-78) D 08/24/17 08:00 Alkaline Phosphatase 92 U/L (45-117) 08/24/17 08:00 Total Protein 6.9 g/dl (6.4-8.2) 08/24/17 08:00 Albumin 3.4 g/dl (3.4-5.0) 08/24/17 08:00 Urine Color Ltyellow 08/24/17 00:27 Urine Appearance Clear 08/24/17 00:27 Urine pH 5.0 (5.0-8.0) 08/24/17 00:27 Ur Specific [place] 1.011 (1.001-1.035) 08/24/17 00:27 Urine Protein Negative (NEGATIVE) 08/24/17 00:27 Urine Glucose (UA) Negative (NEGATIVE) 08/24/17 00:27 Urine Ketones Negative (NEGATIVE) 08/24/17 00:27 Urine Blood Negative (NEGATIVE) 08/24/17 00:27 Urine Nitrite Negative (NEGATIVE) 08/24/17 00:27 Urine Bilirubin Negative (<2.0 mg/dL) 08/24/17 00:27 Urine Urobilinogen Negative mg/dL (0.2-1.0) 08/24/17 00:27 Ur Leukocyte Esterase 2+ (NEGATIVE) H 08/24/17 00:27 Urine WBC (Auto) 24 /hpf (3-5) 08/24/17 00:27 Urine RBC (Auto) 1 /hpf (0-3) 08/24/17 00:27 Ur Epithelial Cells Rare /HPF (FEW) 08/24/17 00:27 Urine Bacteria Rare /hpf (NONE SEEN) 08/24/17 00:27 Urine Mucus Rare 08/24/17 00:27 RPR Titer Nonreactive (NONREACTIVE) 08/24/17 08:00 Assessment: 08/24/17 13:07 WITHDRAWAL SYMPTOM Plan: CONTINUE DETOX,BGM MONITORING
[2017-08-24] MEDS: chlordiazePOXIDE HCL 25 MG CAPSULE PO PRN (13:08)
[2017-08-24] MEDS: IBUPROFEN 400 MG TABLET (FP) PO PRN (13:10)
[2017-08-24] MEDS ORDERED: INSULIN (NOVOLOG) ASPART 100 UNITS/ML 10ML VIAL ONE (17:08)
--- NOTE | 2017-08-24 20:11 | CONSULT ---
[facility] Psychiatric Consult - Data Date of interview: 08/24/17 Admission source: [facility] Identifying data: One of several admissions to [facility] for this 46 y/o AA male seeking detoxification treatment on for alcohol,xanax and opioid dependence.Patient is single without children,unemployed,domiciled and supported on SSI benefits. Substance Abuse History: Mr Hoffman admits to continuous use of xanax and alcohol. Details in the current [facility] report as shown in the following : Smoking history: Current every day smoker. Have you smoked in the past 12 months: Yes. Aproximately how many cigarettes per day: 10. Hx Chewing Tobacco Use: No. Initiated information on smoking cessation: Yes. 'Breaking Loose' booklet given : 08/23/17. - Substance & Tx. History. Hx Alcohol Use: Yes. Hx Substance Use : Yes. Substance Use Type: Alcohol, Tranquilizers. Hx Substance Use Treatment : Yes ([facility] 12/27/16 - 01/01/17). - Substances Abused. Alcohol. Route: Oral. Frequency: Daily. Amount used: 3 [employer]. Age of first use: 12. Date of Last Use: 08/23/17. Alprazolam (Xanax). Route: Oral. Frequency: Daily. Amount used: 3/2MG. Age of first use: 39. Date of Last Use: 08/23/17 Medical History: Recent history of cataract extraction (right eye),bronchial asthma,hypertension and diabetes mellitus. Psychiatric History: Known history of multiple psychiatric hospitalizations ( [facility] in [place],[facility] and [facility]).Chronically non-adherent to psychiatric aftercare (medications + clinic appointments).Diagnosed with Schizoaffective Disorder.Mr Hoffman prefers using local emergency room settings to obtain medications refills.Off psychotropic medications for weeks.Still on methadone maintenance (90 mg/day) at the [facility] program in [facility].Remote history of one suicide attempt via overdose with medications (25 years ago). Physical/Sexual Abuse/Trauma History: Patient denies. Additional Comment: Urine Drug Screen Results: BAR-Barbiturates, BZO- Benzodiazepines, MTD-Methadone.Noted. Mental Status Exam - Mental Status Exam Alert and Oriented to: Time, Place, Person Cognitive Function: Grossly Intact Patient Appearance: Unkempt, Disheveled Mood: Withdrawn Affect: Mood Congruent Patient Behavior: Fatigued, Cooperative Speech Pattern: Delayed, Slurred Voice Loudness: Normal Thought Process: Goal Oriented Thought Disorder: Not Present Hallucinations: Denies Suicidal Ideation: Denies Homicidal Ideation: Denies Insight/Judgement: Poor Sleep: Well Appetite: Good Muscle strength/Tone: Normal Gait/Station: Normal Psychiatric Findings - Problem List ([place] 1, 2,3) (1) Opioid dependence on agonist therapy Current Visit: Yes Status: Acute Comment: on Methadone 90mg, pending verification (2) Sedative hypnotic or anxiolytic dependence Current Visit: Yes Status: Acute (3) Alcohol dependence with uncomplicated withdrawal Current Visit: Yes Status: Acute (4) Nicotine dependence Current Visit: Yes Status: Acute Qualifiers: Nicotine product type: cigarettes Substance use status: uncomplicated Qualified Code(s): F17.210 - Nicotine dependence, cigarettes, uncomplicated (5) Schizoaffective disorder Current Visit: Yes Status: Chronic Qualifiers: Schizoaffective disorder type: unspecified Qualified Code(s): F25.9 - Schizoaffective disorder, unspecified Comment: As per existing records. (6) Substance induced mood disorder Current Visit: Yes Status: Acute - Initial Treatment Plan Initial Treatment Plan: Psychoeducation.Detoxification.Observation.
[2017-08-24] MEDS: MELATONIN 5 MG TABLETS PO PRN (22:30)
[2017-08-24] MEDS: THIAMINE HCL 100 MG TABLET (FP) PO SCH (22:30)
[2017-08-25] MEDS: chlordiazePOXIDE HCL 25 MG CAPSULE PO PRN ×2 (01:34→13:43)
[2017-08-25] MEDS ORDERED: METHADONE HCL 10 MG TABLET ONE (04:32)
[2017-08-25] MEDS ORDERED: METHADONE HCL 40 MG DISPERSABLE TABLET ONE (04:32)
[2017-08-25] MEDS: chlordiazePOXIDE HCL 25 MG CAPSULE PO SCH ×3 (05:31→17:55)
[2017-08-25] MEDS: METHADONE 80 MG, METHADONE 10 MG PO SCH (05:31)
[2017-08-25] MEDS: metFORMIN HCL 500 MG TABLET (FP) PO SCH ×2 (07:46→17:30)
[2017-08-25] MEDS: INSULIN SLIDING SCALE (NOVOLOG) 1 VIAL SQ SCH ×2 (07:47→17:24)
[2017-08-25] MEDS: HYDROCHLOROTHIAZIDE 25 MG TABLET (FP) PO SCH (10:55)
[2017-08-25] MEDS: PRENATAL VITAMINS W/ FOLIC ACID TABLET (FP) PO SCH (10:55)
[2017-08-25] MEDS: NICOTINE 14 MG/24 HOURS TOPICAL PATCH TD SCH (10:56)
[2017-08-25] MEDS: hydrOXYzine PAMOATE 50 MG CAPSULE (FP) PO PRN ×2 (10:57→23:54)
--- NOTE | 2017-08-25 14:43 | PN ---
S CIWA - CIWA Score Nausea/Vomitin Muscle Tremors: 3 Anxiety: 3 Agitation: 3 Paroxysmal Sweats: 1-Minimal Palms Moist Orientation: 0-Oriented Tacttile Disturbances: 1-Very Mild Itch/Numbness Auditory Disturbances: 1-Very Mild Visual Disturbances: 0-None Headache: 2-Mild CIWA-Ar Total Score: 17 BHS Progress Note (SOAP) Subjective: ALERT,IRRITABLE,ANXIOUS,INTERRUPTED SLEEP,TREMOR,PAIN IN THE BODY Objective: 08/25/17 14:40 Vital Signs Temperature 98.1 F 08/25/17 11:17 Pulse Rate 92 H 08/25/17 11:17 Respiratory Rate 20 08/25/17 11:17 Blood Pressure 116/87 08/25/17 11:17 O2 Sat by Pulse Oximetry (%) Laboratory Last Values WBC 6.1 K/mm3 (4.0-10.0) 08/24/17 08:00 RBC 4.74 M/mm3 (4.00-5.60) 08/24/17 08:00 Hgb 13.5 GM/dL (11.7-16.9) 08/24/17 08:00 Hct 40.5 % (35.4-49) 08/24/17 08:00 MCV 85.3 fl (80-96) 08/24/17 08:00 MCH 28.5 pg (25.7-33.7) 08/24/17 08:00 MCHC 33.4 g/dl (32.0-35.9) 08/24/17 08:00 RDW 14.8 % (11.9-15.9) 08/24/17 08:00 Plt Count 149 K/MM3 (134-434) 08/24/17 08:00 MPV 9.5 fl (7.5-11.1) 08/24/17 08:00 Sodium 140 mmol/L (136-145) 08/24/17 08:00 Potassium 3.5 mmol/L (3.5-5.1) 08/24/17 08:00 Chloride 99 mmol/L (98-107) 08/24/17 08:00 Carbon Dioxide 31 mmol/L (21-32) 08/24/17 08:00 Anion Gap 10 (8-16) 08/24/17 08:00 BUN 10 mg/dL (7-18) 08/24/17 08:00 Creatinine 0.9 mg/dL (0.7-1.3) 08/24/17 08:00 Creat Clearance w eGFR > 60 (>60) 08/24/17 08:00 POC Glucometer 137 UNITS (80-120) 08/25/17 05:30 Random Glucose 104 mg/dL (74-106) D 08/24/17 08:00 Calcium 9.2 mg/dL (8.5-10.1) 08/24/17 08:00 Total Bilirubin 0.2 mg/dL (0.2-1.0) D 08/24/17 08:00 AST 20 U/L (15-37) D 08/24/17 08:00 ALT 31 U/L (12-78) D 08/24/17 08:00 Alkaline Phosphatase 92 U/L (45-117) 08/24/17 08:00 Total Protein 6.9 g/dl (6.4-8.2) 08/24/17 08:00 Albumin 3.4 g/dl (3.4-5.0) 08/24/17 08:00 Urine Color Ltyellow 08/24/17 00:27 Urine Appearance Clear 08/24/17 00:27 Urine pH 5.0 (5.0-8.0) 08/24/17 00:27 Ur Specific [place] 1.011 (1.001-1.035) 08/24/17 00:27 Urine Protein Negative (NEGATIVE) 08/24/17 00:27 Urine Glucose (UA) Negative (NEGATIVE) 08/24/17 00:27 Urine Ketones Negative (NEGATIVE) 08/24/17 00:27 Urine Blood Negative (NEGATIVE) 08/24/17 00: Urine Nitrite Negative (NEGATIVE) 08/24/17 00:27 Urine Bilirubin Negative (<2.0 mg/dL) 08/24/17 00:27 Urine Urobilinogen Negative mg/dL (0.2-1.0) 08/24/17 00:27 Ur Leukocyte Esterase 2+ (NEGATIVE) H 08/24/17 00:27 Urine WBC (Auto) 24 /hpf (3-5) 08/24/17 00:27 Urine RBC (Auto) 1 /hpf (0-3) 08/24/17 00:27 Ur Epithelial Cells Rare /HPF (FEW) 08/24/17 00:27 Urine Bacteria Rare /hpf (NONE SEEN) 08/24/17 00:27 Urine Mucus Rare 08/24/17 00:27 RPR Titer Nonreactive (NONREACTIVE) 08/24/17 08:00 Assessment: 08/25/17 14:42 WITHDRAWAL SYMPTOM Plan: CONTINUE DETOX,REPEAT UA,BGM 137,BGM MONITORING
[2017-08-25] MEDS: chlordiazePOXIDE 5 MG CAPSULE PO SCH (22:34)
[2017-08-25] MEDS: THIAMINE HCL 100 MG TABLET (FP) PO SCH (22:34)
[2017-08-25] MEDS: MELATONIN 5 MG TABLETS PO PRN (22:36)
[2017-08-25] MEDS: IBUPROFEN 400 MG TABLET (FP) PO PRN (23:51)
[2017-08-26] MEDS: chlordiazePOXIDE HCL 25 MG CAPSULE PO PRN (01:46)
[2017-08-26] MEDS ORDERED: METHADONE HCL 10 MG TABLET ONE (04:38)
[2017-08-26] MEDS ORDERED: METHADONE HCL 40 MG DISPERSABLE TABLET ONE (04:38)
[2017-08-26] MEDS: METHADONE 80 MG, METHADONE 10 MG PO SCH (06:03)
[2017-08-26] MEDS: chlordiazePOXIDE 5 MG CAPSULE PO SCH ×3 (06:03→17:58)
[2017-08-26] MEDS: metFORMIN HCL 500 MG TABLET (FP) PO SCH ×2 (06:09→17:25)
[2017-08-26] MEDS ORDERED: INSULIN (NOVOLOG) ASPART 100 UNITS/ML 10ML VIAL ONE ×2 (07:00→17:48)
[2017-08-26] MEDS: INSULIN SLIDING SCALE (NOVOLOG) 1 VIAL SQ SCH ×2 (07:08→17:30)
[2017-08-26] MEDS: IBUPROFEN 400 MG TABLET (FP) PO PRN ×2 (10:38→22:09)
[2017-08-26] MEDS: HYDROCHLOROTHIAZIDE 25 MG TABLET (FP) PO SCH (10:38)
[2017-08-26] MEDS: hydrOXYzine PAMOATE 50 MG CAPSULE (FP) PO PRN (10:38)
[2017-08-26] MEDS: PRENATAL VITAMINS W/ FOLIC ACID TABLET (FP) PO SCH (10:38)
[2017-08-26] MEDS: NICOTINE 14 MG/24 HOURS TOPICAL PATCH TD SCH (10:39)
--- NOTE | 2017-08-26 10:51 | PN ---
BHS Progress Note (SOAP) Subjective: feeling better no tremor less sweat sleep throughout the night tolerates food and fluid well Objective: 08/26/17 10:50 Vital Signs Temperature 97.7 F 08/26/17 10:00 Pulse Rate 93 H 08/26/17 10:00 Respiratory Rate 18 08/26/17 10:00 Blood Pressure 151/92 08/26/17 10:00 O2 Sat by Pulse Oximetry (%) Laboratory Last Values WBC 6.1 K/mm3 (4.0-10.0) 08/24/17 08:00 RBC 4.74 M/mm3 (4.00-5.60) 08/24/17 08:00 Hgb 13.5 GM/dL (11.7-16.9) 08/24/17 08:00 Hct 40.5 % (35.4-49) 08/24/17 08:00 MCV 85.3 fl (80-96) 08/24/17 08:00 MCH 28.5 pg (25.7-33.7) 08/24/17 08:00 MCHC 33.4 g/dl (32.0-35.9) 08/24/17 08:00 RDW 14.8 % (11.9-15.9) 08/24/17 08:00 Plt Count 149 K/MM3 (134-434) 08/24/17 08:00 MPV 9.5 fl (7.5-11.1) 08/24/17 08:00 Sodium 140 mmol/L (136-145) 08/24/17 08:00 Potassium 3.5 mmol/L (3.5-5.1) 08/24/17 08:00 Chloride 99 mmol/L (98-107) 08/24/17 08:00 Carbon Dioxide 31 mmol/L (21-32) 08/24/17 08:00 Anion Gap 10 (8-16) 08/24/17 08:00 BUN 10 mg/dL (7-18) 08/24/17 08:00 Creatinine 0.9 mg/dL (0.7-1.3) 08/24/17 08:00 Creat Clearance w eGFR > 60 (>60) 08/24/17 08:00 POC Glucometer 123 UNITS (80-120) 08/25/17 16:33 Random Glucose 104 mg/dL (74-106) D 08/24/17 08:00 Calcium 9.2 mg/dL (8.5-10.1) 08/24/17 08:00 Total Bilirubin 0.2 mg/dL (0.2-1.0) D 08/24/17 08:00 AST 20 U/L (15-37) D 08/24/17 08:00 ALT 31 U/L (12-78) D 08/24/17 08:00 Alkaline Phosphatase 92 U/L (45-117) 08/24/17 08:00 Total Protein 6.9 g/dl (6.4-8.2) 08/24/17 08:00 Albumin 3.4 g/dl (3.4-5.0) 08/24/17 08:00 Urine Color Ltyellow 08/24/17 00:27 Urine Appearance Clear 08/24/17 00:27 Urine pH 5.0 (5.0-8.0) 08/24/17 00:27 Ur Specific [place] 1.011 (1.001-1.035) 08/24/17 00:27 Urine Protein Negative (NEGATIVE) 08/24/17 00:27 Urine Glucose (UA) Negative (NEGATIVE) 08/24/17 00:27 Urine Ketones Negative (NEGATIVE) 08/24/17 00:27 Urine Blood Negative (NEGATIVE) 08/24/17 00:27 Urine Nitrite Negative (NEGATIVE) 08/24/17 00:27 Urine Bilirubin Negative (<2.0 mg/dL) 08/24/17 00:27 Urine Urobilinogen Negative mg/dL (0.2-1.0) 08/24/17 00:27 Ur Leukocyte Esterase 2+ (NEGATIVE) H 08/24/17 00:27 Urine WBC (Auto) 24 /hpf (3-5) 08/24/17 00:27 Urine RBC (Auto) 1 /hpf (0-3) 08/24/17 00:27 Ur Epithelial Cells Rare /HPF (FEW) 08/24/17 00:27 Urine Bacteria Rare /hpf (NONE SEEN) 08/24/17 00:27 Urine Mucus Rare 08/24/17 00:27 RPR Titer Nonreactive (NONREACTIVE) 08/24/17 08:00 lab noted Assessment: 08/26/17 10:51 mild withdraawl sx Plan: medically supervised detox
--- NOTE | 2017-08-26 11:41 | PN ---
Psychiatric Progress Note Vital Signs: Vital Signs Period Temp Pulse Resp BP Sys/Bellamy Pulse Ox Last 24 Hr 97.1 F-98.6 F 71-95 18-20 109-151/69-92 Date of Session: 08/26/17 Chief Complaint:: Hearing voices HPI: Patient admitted on for detoxification for alcohol and benzodiazepine Current Medications: Active Medications Generic Name Dose Route Start Last Admin Trade Name Freq PRN Reason Stop Dose Admin Acetaminophen 650 mg 08/23/17 17:07 Tylenol - PO Q4H PRN FEVER Al Hydroxide/Mg Hydroxide 30 ml 08/23/17 17:07 Mylanta Oral Suspension - PO Q6H PRN DYSPEPSIA Albuterol Sulfate 2 puff 08/23/17 17:06 Ventolin Hfa Inhaler - IH Q4H PRN SHORTNESS OF BREATH Chlordiazepoxide HCl 15 mg 08/25/17 23:00 08/26/17 10:38 Librium - PO 08/26/17 17:01 15 mg [id number] JAGDISH Administration Chlordiazepoxide HCl 25 mg 08/23/17 17:07 08/26/17 01:46 Librium - PO 08/26/17 17:06 25 mg Q4H PRN Administration WITHDRAWAL(CONT SUBST) Chlordiazepoxide HCl 10 mg 08/26/17 23:00 Librium - PO 08/27/17 17:01 [id number] JAGDISH Colloidal Oatmeal 1 applic 08/23/17 17:18 08/24/17 13:12 Aveeno Soap - TP 1 applic DAILY PRN Administration HYGEINE Eucalyptus/Menthol/Phenol/Sorbitol 1 each 08/23/17 17:07 Cepastat Lozenge - MM Q4H PRN SORE THROAT Guaifenesin 10 ml 08/23/17 17:07 Robitussin Dm - PO Q6H PRN COUGH Hydrochlorothiazide 25 mg 08/23/17 17:15 08/26/17 10:38 Hctz - PO 25 mg DAILY JAGDISH Administration Hydroxyzine Pamoate 50 mg 08/23/17 17:07 08/26/17 10:38 Vistaril - PO 50 mg Q4H PRN Administration AGITATION Ibuprofen 400 mg 08/23/17 17:07 08/26/17 10:38 Motrin - PO 400 mg Q6H PRN Administration PAIN LEVEL 4-6 Insulin Aspart 1 vial 08/24/17 07:00 08/26/17 07:08 Novolog Vial Sliding Scale - SQ 2 units BIDAC JAGDISH Administration Protocol Loperamide HCl 4 mg 08/23/17 17:07 Imodium - PO Q6H PRN DIARRHEA Magnesium Citrate 300 ml 08/23/17 17:07 Citroma - PO Q48H PRN CONSTIPATION Magnesium Hydroxide 30 ml 08/23/17 17:07 Milk Of Magnesia - PO DAILY PRN CONSTIPATION Melatonin 5 mg 08/23/17 22:00 08/25/17 22:36 Melatonin PO 5 mg HS PRN Administration INSOMNIA Metformin HCl 500 mg 08/24/17 07:00 08/26/17 06:09 Glucophage - PO 500 mg BIDAC JAGDISH Administration Methadone HCl 80 mg/ Methadone 90 mg 08/24/17 09:00 08/26/17 06:03 HCl 10 mg PO 08/31/17 08:59 90 mg DAILY@0600 JAGDISH Administration Nicotine 14 mg 08/24/17 10:00 08/26/17 10:39 Nicoderm Patch - TD Not Given DAILY JAGDISH Nicotine Polacrilex 2 mg 08/23/17 17:07 Nicorette Gum - BC Q2H PRN NICOTINE REPLACEMENT RX Multivit/Folic Acid/Iron 1 tab 08/24/17 10:00 08/26/17 10:38 Vitamins (Sjr) - PO 1 tab DAILY JAGDISH Administration Pseudoephedrine/Triprolidine 1 combo 08/23/17 17:07 Actifed - PO TID PRN NASAL CONGESTION Thiamine HCl 100 mg 08/23/17 22:00 08/25/17 22:34 Vitamin B1 - PO 100 mg HS JAGDISH Administration Current Side Effect: No Lab tests ordered: Yes Lab tests reviewed: Yes Provider note:: Patient is drowsy and is difficult to interview at present. However he reports hearing voices telling him to hurt himself. Told health underwriter that he last heard the voices prior to coming here and has not heard them since. Patient was admitted on and had psychiatric consultation done on . There is no documentation concerning that complaint from any staff in contact with patient since admission. He is currently not on any psychotropic medication. According to documentation from facility psychiatrist, he has been off medications for weeks. According to pharmacy claims, patient filled scripts for Ability 20 mg#30, Trazadone 500 mg #30 and Depakote 500 mg #60 on 07/03/17. Total face to face time:: 25 Mental Status Exam - Mental Status Exam Alert and Oriented to: Time, Place, Person Cognitive Function: Fair Patient Appearance: Disheveled Mood: Hopeful, Euthymic Affect: Appropriate Patient Behavior: Sedated Speech Pattern: Clear Voice Loudness: Normal Thought Process: Intact, Goal Oriented Thought Disorder: Not Present Hallucinations: Denies (at present) Suicidal Ideation: Denies (currently) Homicidal Ideation: Denies Insight/Judgement: Poor Sleep: Fair Appetite: Good Muscle strength/Tone: Normal Gait/Station: Normal Psychiatric Treatment Plan - Problem List (1) Schizoaffective disorder Qualifiers: Schizoaffective disorder type: unspecified Qualified Code(s): F25.9 - Schizoaffective disorder, unspecified Comment: As per existing records. (5) Opioid dependence on agonist therapy Comment: on Methadone 90mg, pending verification (6) Nicotine dependence Qualifiers: Nicotine product type: cigarettes Substance use status: uncomplicated Qualified Code(s): F17.210 - Nicotine dependence, cigarettes, uncomplicated (7) Asthma Qualifiers: Asthma severity: unspecified severity Asthma complication type: uncomplicated (9) Hypertension Qualifiers: Hypertension type: essential hypertension Qualified Code(s): I10 - Essential (primary) hypertension Initial treatment plan: 1) Resume Abilify 20 mg po daily, first dose stat. 2) Continue inpatient detoxification
[2017-08-26 12:37] LABS: URINE APPEARANCE CLEAR; URINE BILIRUBIN NEGATIVE (<2.0 mg/dL); URINE BLOOD NEGATIVE (NEGATIVE); URINE COLOR YELLOW; URINE GLUCOSE (UA) NEGATIVE (NEGATIVE); URINE KETONE NEGATIVE (NEGATIVE); URINE NITRITE NEGATIVE (NEGATIVE); URINE PROTEIN NEGATIVE (NEGATIVE); URINE UROBILINOGEN NEGATIVE mg/dL (0.2-1.0)
[2017-08-26 12:39] LABS: URINE LEUK ESTERASE 3+ (NEGATIVE)
[2017-08-26 12:42] LABS: URINE HYALINE CAST 6 /lpf; URINE MUCUS FEW
[2017-08-26] MEDS: ARIPiprazole 10 MG TABLET PO SCH (14:46)
[2017-08-26] MEDS: MELATONIN 5 MG TABLETS PO PRN (22:07)
[2017-08-26] MEDS: THIAMINE HCL 100 MG TABLET (FP) PO SCH (22:07)
[2017-08-26] MEDS: chlordiazePOXIDE HCL 10 MG CAPSULE PO SCH (22:07)
[2017-08-27] MEDS: IBUPROFEN 400 MG TABLET (FP) PO PRN (01:43)
[2017-08-27] MEDS ORDERED: METHADONE HCL 10 MG TABLET ONE (03:49)
[2017-08-27] MEDS ORDERED: METHADONE HCL 40 MG DISPERSABLE TABLET ONE (03:49)
[2017-08-27] MEDS: chlordiazePOXIDE HCL 10 MG CAPSULE PO SCH ×2 (05:48→10:09)
[2017-08-27] MEDS: METHADONE 80 MG, METHADONE 10 MG PO SCH (05:49)
[2017-08-27 06:00] VITALS: PULSE 87
[2017-08-27] MEDS ORDERED: INSULIN (NOVOLOG) ASPART 100 UNITS/ML 10ML VIAL ONE (06:03)
[2017-08-27] MEDS: INSULIN SLIDING SCALE (NOVOLOG) 1 VIAL SQ SCH (06:31)
[2017-08-27] MEDS: metFORMIN HCL 500 MG TABLET (FP) PO SCH (06:31)
--- NOTE | 2017-08-27 08:56 | PN ---
S Progress Note (SOAP) Subjective: ALERT,NO COMPLAINT Objective: 08/27/17 08:53 Vital Signs Temperature 98.2 F 08/27/17 05:59 Pulse Rate 87 08/27/17 05:59 Respiratory Rate 18 08/27/17 05:59 Blood Pressure 141/84 08/27/17 05:59 O2 Sat by Pulse Oximetry (%) 08/27/17 08:53 Laboratory Last Values WBC 6.1 K/mm3 (4.0-10.0) 08/24/17 08:00 RBC 4.74 M/mm3 (4.00-5.60) 08/24/17 08:00 Hgb 13.5 GM/dL (11.7-16.9) 08/24/17 08:00 Hct 40.5 % (35.4-49) 08/24/17 08:00 MCV 85.3 fl (80-96) 08/24/17 08:00 MCH 28.5 pg (25.7-33.7) 08/24/17 08:00 MCHC 33.4 g/dl (32.0-35.9) 08/24/17 08:00 RDW 14.8 % (11.9-15.9) 08/24/17 08:00 Plt Count 149 K/MM3 (134-434) 08/24/17 08:00 MPV 9.5 fl (7.5-11.1) 08/24/17 08:00 Sodium 140 mmol/L (136-145) 08/24/17 08:00 Potassium 3.5 mmol/L (3.5-5.1) 08/24/17 08:00 Chloride 99 mmol/L (98-107) 08/24/17 08:00 Carbon Dioxide 31 mmol/L (21-32) 08/24/17 08:00 Anion Gap 10 (8-16) 08/24/17 08:00 BUN 10 mg/dL (7-18) 08/24/17 08:00 Creatinine 0.9 mg/dL (0.7-1.3) 08/24/17 08:00 Creat Clearance w eGFR > 60 (>60) 08/24/17 08:00 POC Glucometer 153 UNITS (80-120) 08/27/17 05:47 Random Glucose 104 mg/dL (74-106) D 08/24/17 08:00 Calcium 9.2 mg/dL (8.5-10.1) 08/24/17 08:00 Total Bilirubin 0.2 mg/dL (0.2-1.0) D 08/24/17 08:00 AST 20 U/L (15-37) D 08/24/17 08:00 ALT 31 U/L (12-78) D 08/24/17 08:00 Alkaline Phosphatase 92 U/L (45-117) 08/24/17 08:00 Total Protein 6.9 g/dl (6.4-8.2) 08/24/17 08:00 Albumin 3.4 g/dl (3.4-5.0) 08/24/17 08:00 Urine Color Yellow 08/26/17 10:00 Urine Appearance Clear 08/26/17 10:00 Urine pH 5.0 (5.0-8.0) 08/26/17 10:00 Ur Specific [place] 1.023 (1.001-1.035) 08/26/17 10:00 Urine Protein Negative (NEGATIVE) 08/26/17 10:00 Urine Glucose (UA) Negative (NEGATIVE) 08/26/17 10:00 Urine Ketones Negative (NEGATIVE) 08/26/17 10:00 Urine Blood Negative (NEGATIVE) 08/26/17 10:00 Urine Nitrite Negative (NEGATIVE) 08/26/17 10:00 Urine Bilirubin Negative (<2.0 mg/dL) 08/26/17 10:00 Urine Urobilinogen Negative mg/dL (0.2-1.0) 08/26/17 10:00 Ur Leukocyte Esterase 3+ (NEGATIVE) H 08/26/17 10:00 Urine WBC (Auto) 70 /hpf (3-5) 08/26/17 10:00 Urine RBC (Auto) 4 /hpf (0-3) 08/26/17 10:00 Ur Epithelial Cells Rare /HPF (FEW) 08/24/17 00:27 Urine Bacteria Rare /hpf (NONE SEEN) 08/24/17 00:27 Hyaline Casts 6 /lpf 08/26/17 10:00 Urine Mucus Few 08/26/17 10:00 RPR Titer Nonreactive (NONREACTIVE) 08/24/17 08:00 BGM 153 Assessment: 08/27/17 08:54 DETOX COMPLETED,NO WITHDRAWAL SYMPTOM 04/02/18 08:54 Plan: DISCHARGE TODAY,FOLLOW UP WITH AFTER CARE PROGRAM REVELATION ARRANGEMENT
--- NOTE | 2017-08-27 09:02 | DS ---
[facility] Detox Discharge Summary Admission Date: 08/23/17 Discharge Date: 08/27/17 - History Present History: Alcohol Dependence, MMTP Additional Comments: FOLLOW UP WITH AFTER CARE ARRANGEMENT Pertinent Past History: HYPERTENSION TYPE 2 DM NICOTINE DEPENDENCE ASTHMA DEHYDRATION ASTHMA OBESE - Physical Exam Results Vital Signs: Vital Signs Temperature 98.2 F 08/27/17 05:59 Pulse Rate 87 08/27/17 05:59 Respiratory Rate 18 08/27/17 05:59 Blood Pressure 141/84 08/27/17 05:59 O2 Sat by Pulse Oximetry (%) Pertinent Admission Physical Exam Findings: WITHDRAWAL SIGNS AND SYMPTOM Laboratory Last Values WBC 6.1 K/mm3 (4.0-10.0) 08/24/17 08:00 RBC 4.74 M/mm3 (4.00-5.60) 08/24/17 08:00 Hgb 13.5 GM/dL (11.7-16.9) 08/24/17 08:00 Hct 40.5 % (35.4-49) 08/24/17 08:00 MCV 85.3 fl (80-96) 08/24/17 08:00 MCH 28.5 pg (25.7-33.7) 08/24/17 08:00 MCHC 33.4 g/dl (32.0-35.9) 08/24/17 08:00 RDW 14.8 % (11.9-15.9) 08/24/17 08:00 Plt Count 149 K/MM3 (134-434) 08/24/17 08:00 MPV 9.5 fl (7.5-11.1) 08/24/17 08:00 Sodium 140 mmol/L (136-145) 08/24/17 08:00 Potassium 3.5 mmol/L (3.5-5.1) 08/24/17 08:00 Chloride 99 mmol/L (98-107) 08/24/17 08:00 Carbon Dioxide 31 mmol/L (21-32) 08/24/17 08:00 Anion Gap 10 (8-16) 08/24/17 08:00 BUN 10 mg/dL (7-18) 08/24/17 08:00 Creatinine 0.9 mg/dL (0.7-1.3) 08/24/17 08:00 Creat Clearance w eGFR > 60 (>60) 08/24/17 08:00 POC Glucometer 153 UNITS (80-120) 08/27/17 05:47 Random Glucose 104 mg/dL (74-106) D 08/24/17 08:00 Calcium 9.2 mg/dL (8.5-10.1) 08/24/17 08:00 Total Bilirubin 0.2 mg/dL (0.2-1.0) D 08/24/17 08:00 AST 20 U/L (15-37) D 08/24/17 08:00 ALT 31 U/L (12-78) D 08/24/17 08:00 Alkaline Phosphatase 92 U/L (45-117) 08/24/17 08:00 Total Protein 6.9 g/dl (6.4-8.2) 08/24/17 08:00 Albumin 3.4 g/dl (3.4-5.0) 08/24/17 08:00 Urine Color Yellow 08/26/17 10:00 Urine Appearance Clear 08/26/17 10:00 Urine pH 5.0 (5.0-8.0) 08/26/17 10:00 Ur Specific [place] 1.023 (1.001-1.035) 08/26/17 10:00 Urine Protein Negative (NEGATIVE) 08/26/17 10:00 Urine Glucose (UA) Negative (NEGATIVE) 08/26/17 10:00 Urine Ketones Negative (NEGATIVE) 08/26/17 10:00 Urine Blood Negative (NEGATIVE) 08/26/17 10:00 Urine Nitrite Negative (NEGATIVE) 08/26/17 10:00 Urine Bilirubin Negative (<2.0 mg/dL) 08/26/17 10:00 Urine Urobilinogen Negative mg/dL (0.2-1.0) 08/26/17 10:00 Ur Leukocyte Esterase 3+ (NEGATIVE) H 08/26/17 10:00 Urine WBC (Auto) 70 /hpf (3-5) 08/26/17 10:00 Urine RBC (Auto) 4 /hpf (0-3) 08/26/17 10:00 Ur Epithelial Cells Rare /HPF (FEW) 08/24/17 00:27 Urine Bacteria Rare /hpf (NONE SEEN) 08/24/17 00:27 Hyaline Casts 6 /lpf 08/26/17 10:00 Urine Mucus Few 08/26/17 10:00 RPR Titer Nonreactive (NONREACTIVE) 08/24/17 08:00 Vital Signs Temperature 98.2 F 08/27/17 05:59 Pulse Rate 87 08/27/17 05:59 Respiratory Rate 18 08/27/17 05:59 Blood Pressure 141/84 08/27/17 05:59 O2 Sat by Pulse Oximetry (%) - Treatment Hospital Course: Detox Protocol Followed, Detoxed Safely, Responded well, Discharged Condition Good, Rehab Referral Accepted Patient has Accepted a Rehab Referral to: [facility] - Medication Discharge Medications: Ambulatory Orders Albuterol Sulfate Inhaler - [Ventolin HFA Inhaler -] 2 puff IH Q4H PRN #1 inhaler 08/26/17 Hydrochlorothiazide 25 mg PO DAILY #30 mg 08/26/17 metFORMIN HCL [Glucophage -] 500 mg PO BIDAC #60 tablet 08/26/17 - Diagnosis (1) Alcohol dependence with uncomplicated withdrawal Current Visit: Yes Status: Acute (2) Dehydration Current Visit: Yes Status: Acute (3) Opioid dependence on agonist therapy Current Visit: Yes Status: Acute (4) Asthma Current Visit: Yes Status: Chronic Qualifiers: Asthma severity: unspecified severity Asthma complication type: uncomplicated (5) Diabetes mellitus treated with oral medication Current Visit: Yes Status: Chronic (6) Nicotine dependence Current Visit: Yes Status: Acute Qualifiers: Nicotine product type: cigarettes Substance use status: uncomplicated Qualified Code(s): F17.210 - Nicotine dependence, cigarettes, uncomplicated (7) Obese Current Visit: Yes Status: Chronic Qualifiers: Obesity type: unspecified obesity type Obesity classification: adult class 1 (BMI 30 - 34.9) Serious obesity comorbidity presence: with serious comorbidity (8) DM2 (diabetes mellitus, type 2) Current Visit: No Status: Chronic Qualifiers: Diabetes mellitus [facility] insulin use: with [facility] use Diabetes mellitus complication status: without complication Qualified Code(s): E11.9 - Type 2 diabetes mellitus without complications; Z79.4 - half-way (current) use of insulin; Z79.4 - ad terminal makeup operator (current) use of insulin; Z79.4 - half-way ( current) use of insulin; Z79.4 - ad terminal makeup operator (current) use of insulin - AMA Did Patient Leave Against Medical Advice: No
[2017-08-27 09:06] VITALS: BP 133/83; TEMP 98.1
[2017-08-27] MEDS: NICOTINE 14 MG/24 HOURS TOPICAL PATCH TD SCH (10:08)
[2017-08-27] MEDS: PRENATAL VITAMINS W/ FOLIC ACID TABLET (FP) PO SCH (10:09)
[2017-08-27] MEDS: HYDROCHLOROTHIAZIDE 25 MG TABLET (FP) PO SCH (10:09)
[2017-08-27] MEDS: ARIPiprazole 10 MG TABLET PO SCH (10:09)
== END 2017-08-27 11:32 | disposition other institution (70) | DRG 773 ==
LOC: YASAS 12:06 → Y6N 16:38
PROVIDERS: ADMIT Internal Medicine; ATTEND Internal Medicine
PROC: HZ2ZZZZ Detoxification Services for Substance Abuse Treatment (ICD-10-PCS; principal; 2017-08-23)
DX: F11.20 Opioid dependence, uncomplicated (principal); F13.20 Sedative, hypnotic or anxiolytic dependence, uncomplicated; F10.230 Alcohol dependence with withdrawal, uncomplicated; F17.210 Nicotine dependence, cigarettes, uncomplicated; F25.9 Schizoaffective disorder, unspecified; F19.24 Other psychoactive substance dependence with psychoactive substance-induced mood disorder; F32.9 Major depressive disorder, single episode, unspecified; I10 Essential (primary) hypertension; E11.9 Type 2 diabetes mellitus without complications; Z79.4 Long term (current) use of insulin; Z79.84 Long term (current) use of oral hypoglycemic drugs; J45.909 Unspecified asthma, uncomplicated; E86.0 Dehydration; E66.9 Obesity, unspecified; Z68.21 Body mass index [BMI] 21.0-21.9, adult; L85.3 Xerosis cutis; Z91.5 Personal history of self-harm
CPT/HCPCS: 36415; 80053; 81003; 81015; 82962; 85027; 86593; 93005; 93010; J0735

== ENCOUNTER 2017-08-27 11:40 | Inpatient (IN) | payer OTHER ==
--- NOTE | 2017-08-27 12:15 | HP ---
Psychiatrist Admission - Data Date of interview: 08/27/17 Admission source: 6N Identifying data: This the third [facility] admission for this 46 years old single Black male, unemployed on SSI, domiciled living in an O Medical History: Significant for bronchial asthma, hypertension and diabetes mellitus and history of recent right eye surgery for cataract extraction. Patient is on metadone 90 mg/day. Smokes 10 cigarettes daily Psychiatric History: Patient is a poor and not too reliable historian. Reports that his first psychiatric contact was approximately 10 years ago when he was admited to [facility] and diagnosed with Schizoaffective Disorder. Reports multiple subsequent psychiatric hospitalizations to various facilities including [facility] in [place], [facility]. Reports that most recent admission was 4 months ago to [facility]. Reports chronically non-adherence to psychiatric aftercare (medications + clinic appointments). Reports receiving OPD care at [facility] in [place] but has not been there in 2 months. Claims that he uses local emergency room settings to obtain medications refills. Told Dr Benjamin on while in detox that he has been off psychotropic medications for weeks. However according to pharmacy claims, he last filled scripts for Abilify 20 mg # 30, Trazadone 50 mg #30 & Depakote 500 mg #60 on 07/03/17 @ [facility] pharmacy at [address] [place] [id number]. These medications were not ordered for him while in detox. He requests to resume them while here in rehab. Reports a remote history of one suicide attempt via overdose with medications (25 years ago). At present, reports feeling depressed , anxious and sleeping poorly Physical/Sexual Abuse/Trauma History: Denies history of emotional, physical or sexual abuse as well as DV relationship Additional Comment: Reports history of approximately 7 previous misdemeanor arrests. Denies being on probation currently Allergies/Adverse Reactions: Allergies Allergy/AdvReac Type Severity Reaction Status Date / Time No Known Allergies Allergy Verified 08/23/17 16:20 Date of last physical exam: 08/23/17 Concur with the findings of this exam: Yes - Substance Abuse/Tx History Hx Alcohol Use: Yes Hx Substance Use: Yes (Currently attends [facility]) Substance Use Type: Alcohol (Started drinking alcohol at age 12, consumes 3 pints of beer daily. Last ank on 08/23/17), Tranquilizers (Started using xanax at age 39, consumes 3x 2mg daily. Last used on 08/23/17) Hx Substance Use Treatment: Yes (Nithyae(10) previous inpt detox & 2 inpt rehab admissions @ [facility]. ) Mental Status Exam - Mental Status Exam Alert and Oriented to: Time, Place, Person Cognitive Function: Fair Patient Appearance: Disheveled Mood: Depressed, Anxious Patient Behavior: Inappropriate Speech Pattern: Clear Voice Loudness: Normal, Limited Variation Thought Process: Goal Oriented Thought Disorder: Not Present Hallucinations: Denies Suicidal Ideation: Denies Homicidal Ideation: Denies Insight/Judgement: Fair Sleep: Poorly Appetite: Poor Muscle strength/Tone: Normal Gait/Station: Normal Psychiatric Findings - Problem List ([place] 1, 2,3) (1) Alcohol dependence Current Visit: Yes Status: Acute (2) Sedative hypnotic or anxiolytic dependence Current Visit: No Status: Acute (3) Opioid dependence on agonist therapy Current Visit: No Status: Chronic Comment: on Methadone 90mg, pending verification (4) Nicotine dependence Current Visit: No Status: Chronic Qualifiers: Nicotine product type: cigarettes Substance use status: uncomplicated Qualified Code(s): F17.210 - Nicotine dependence, cigarettes, uncomplicated (5) Schizoaffective disorder Current Visit: No Status: Chronic Qualifiers: Schizoaffective disorder type: unspecified Qualified Code(s): F25.9 - Schizoaffective disorder, unspecified Comment: As per existing records. (6) Substance induced mood disorder Current Visit: Yes Status: Acute (7) Substance-induced sleep disorder Current Visit: Yes Status: Acute (8) Substance-induced sleep disorder Current Visit: Yes Status: Acute (9) Asthma Current Visit: No Status: Chronic Qualifiers: Asthma severity: unspecified severity Asthma complication type: uncomplicated (10) DM2 (diabetes mellitus, type 2) Current Visit: No Status: Chronic Qualifiers: Diabetes mellitus intermediate card tender insulin use: with half-way use Diabetes mellitus complication status: without complication Qualified Code(s): E11.9 - Type 2 diabetes mellitus without complications; Z79.4 - shelter (current) use of insulin; Z79.4 - shelter (current) use of insulin; Z79.4 - termination clerk ( current) use of insulin; Z79.4 - shelter (current) use of insulin (11) Hypertension Current Visit: No Status: Chronic Qualifiers: Hypertension type: essential hypertension Qualified Code(s): I10 - Essential (primary) hypertension (12) Obese Current Visit: No Status: Chronic Qualifiers: Obesity type: unspecified obesity type Obesity classification: adult class 1 (BMI 30 - 34.9) Serious obesity comorbidity presence: with serious comorbidity - Initial Treatment Plan Initial Treatment Plan: 1) Resume Abilify 20 mg po daily, Depakote 500 mg po BID (LFT's normal) and Melatonin 5 mg po HS prn for insomnia. 2) Monitor progress
[2017-08-27] MEDS ORDERED: MAG HYDROX/AL HYDROX/SIMETH 30 ML UNIT-DOSE CUP PO PRN (12:56)
[2017-08-27] MEDS ORDERED: guaiFENesin/D-METHORPHAN HB 10 ML UNIT-DOSE CUPS PO PRN (12:56)
[2017-08-27] MEDS ORDERED: P-EPHED 60MG/TRIPROLIDI 2.5MG TABLET PO PRN (12:56)
[2017-08-27] MEDS ORDERED: MENTHOL/PHENOL 1 EACH UD MM PRN (12:56)
[2017-08-27] MEDS ORDERED: ACETAMINOPHEN 325 MG TABLET (FP) PO PRN (12:56)
[2017-08-27] MEDS ORDERED: LOPERAMIDE HCL 2 MG CAPSULE PO PRN (12:56)
[2017-08-27] MEDS ORDERED: MAGNESIUM HYDROX 2400MG/30ML ORAL SUSPENSION 30 ML CUP PO PRN (12:56)
[2017-08-27] MEDS ORDERED: MAGNESIUM CITRATE 300 ML BOTTLE PO PRN (12:56)
--- NOTE | 2017-08-27 12:56 | HP ---
ERIN [facility]SM[facility] Rehab Assess/Revision - Admission History Admitted to Rehab from: [facility] Date of Admission to Rehab: 08/27/17 - Vital signs Vital Signs: Vital Signs Period Temp Pulse Resp BP Sys/Bellamy Pulse Ox Last 24 Hr 98.7 F 91 20 139/103 - Findings Detox History & Physical reviewed: Yes Concur with findings: Yes Comments/Additional Findings: transferred from detox to rehab admission as per protocol Inpatient Rehab Admission - Initial Determination Are CD services needed?: Yes Free of communicable disease: Yes Not in need of hospitalization: Yes - Rehab Admission Criteria Previous failed treatment: Yes Poor recovery environment: Yes Comorbidities: Yes Lacks judgement: No Patient is meeting Inpatient Rehab admission criteria:: Yes
[2017-08-27] MEDS ORDERED: ALBUTEROL SO4 18 GM HFA INHALER IH PRN (12:58)
--- NOTE | 2017-08-27 14:07 | PN ---
S Progress Note Note: Patient reports having cataract surgery one month ago and states vision is still somewhat blurry. Vital Signs Temperature 98.7 F 08/27/17 12:11 Pulse Rate 91 H 08/27/17 12:11 Respiratory Rate 20 08/27/17 12:11 Blood Pressure 139/103 08/27/17 12:11 O2 Sat by Pulse Oximetry (%) Subj: patient denies headache, dizziness, CP, SOB, N/V and diarrhea. Uses lenses for distance but glasses in drawer. Obj: Eyes: SONU, +EOMS intact BL, no redness or discharge present Car: S1S2. RRR. No murmurs or gallops Resp: CTA BL A/P vision disturbance Increase oral fluids Continue use of glasses as indicated continue to monitor
[2017-08-27] MEDS: metFORMIN HCL 500 MG TABLET (FP) PO SCH (16:49)
[2017-08-27] MEDS: THIAMINE HCL 100 MG TABLET (FP) PO SCH (21:05)
[2017-08-27] MEDS: MELATONIN 5 MG TABLETS PO PRN (21:05)
[2017-08-28] MEDS: IBUPROFEN 400 MG TABLET (FP) PO PRN ×2 (00:19→19:30)
[2017-08-28] MEDS: hydrOXYzine PAMOATE 50 MG CAPSULE (FP) PO PRN ×2 (01:09→19:32)
[2017-08-28] MEDS ORDERED: METHADONE HCL 10 MG TABLET ONE (05:43)
[2017-08-28] MEDS ORDERED: METHADONE HCL 40 MG DISPERSABLE TABLET ONE (05:44)
[2017-08-28] MEDS: METHADONE 80 MG, METHADONE 10 MG PO SCH (06:24)
[2017-08-28] MEDS: metFORMIN HCL 500 MG TABLET (FP) PO SCH ×2 (06:24→17:06)
[2017-08-28] MEDS ORDERED: METHADONE HCL 40 MG DISPERSABLE TABLET PO SCH (10:00)
[2017-08-28] MEDS: HYDROCHLOROTHIAZIDE 25 MG TABLET (FP) PO SCH (10:00)
[2017-08-28] MEDS: PRENATAL VITAMINS W/ FOLIC ACID TABLET (FP) PO SCH (10:00)
[2017-08-28] MEDS: ARIPiprazole 10 MG TABLET PO SCH (12:00)
[2017-08-28] MEDS: DIVALPROEX SODIUM 500 MG TABLET E.C. PO SCH ×2 (12:00→21:27)
[2017-08-28] MEDS: THIAMINE HCL 100 MG TABLET (FP) PO SCH (21:27)
[2017-08-29] MEDS: IBUPROFEN 400 MG TABLET (FP) PO PRN (00:25)
[2017-08-29] MEDS ORDERED: METHADONE HCL 10 MG TABLET ONE (04:40)
[2017-08-29] MEDS ORDERED: METHADONE HCL 40 MG DISPERSABLE TABLET ONE (04:41)
[2017-08-29] MEDS: METHADONE 80 MG, METHADONE 10 MG PO SCH (06:20)
[2017-08-29] MEDS: metFORMIN HCL 500 MG TABLET (FP) PO SCH ×2 (07:35→16:45)
[2017-08-29] MEDS: HYDROCHLOROTHIAZIDE 25 MG TABLET (FP) PO SCH (10:05)
[2017-08-29] MEDS: PRENATAL VITAMINS W/ FOLIC ACID TABLET (FP) PO SCH (10:05)
[2017-08-29] MEDS: ARIPiprazole 10 MG TABLET PO SCH (10:05)
[2017-08-29] MEDS: DIVALPROEX SODIUM 500 MG TABLET E.C. PO SCH ×2 (10:05→21:19)
[2017-08-29] MEDS: hydrOXYzine PAMOATE 50 MG CAPSULE (FP) PO PRN ×2 (16:45→23:57)
[2017-08-29] MEDS: MELATONIN 5 MG TABLETS PO PRN (21:19)
[2017-08-29] MEDS: THIAMINE HCL 100 MG TABLET (FP) PO SCH (21:19)
[2017-08-30] MEDS: IBUPROFEN 400 MG TABLET (FP) PO PRN (00:56)
[2017-08-30] MEDS ORDERED: METHADONE HCL 40 MG DISPERSABLE TABLET ONE (04:24)
[2017-08-30] MEDS ORDERED: METHADONE HCL 10 MG TABLET ONE (04:24)
[2017-08-30] MEDS: METHADONE 80 MG, METHADONE 10 MG PO SCH (06:23)
[2017-08-30] MEDS: metFORMIN HCL 500 MG TABLET (FP) PO SCH ×2 (07:16→16:52)
[2017-08-30] MEDS: DIVALPROEX SODIUM 500 MG TABLET E.C. PO SCH ×2 (09:59→21:05)
[2017-08-30] MEDS: PRENATAL VITAMINS W/ FOLIC ACID TABLET (FP) PO SCH (09:59)
[2017-08-30] MEDS: HYDROCHLOROTHIAZIDE 25 MG TABLET (FP) PO SCH (09:59)
[2017-08-30] MEDS: ARIPiprazole 10 MG TABLET PO SCH (09:59)
[2017-08-30] MEDS: hydrOXYzine PAMOATE 50 MG CAPSULE (FP) PO PRN ×2 (16:04→21:58)
[2017-08-30] MEDS: THIAMINE HCL 100 MG TABLET (FP) PO SCH (21:05)
[2017-08-30] MEDS: MELATONIN 5 MG TABLETS PO PRN (21:05)
[2017-08-31] MEDS: IBUPROFEN 400 MG TABLET (FP) PO PRN (00:12)
[2017-08-31] MEDS ORDERED: METHADONE HCL 40 MG DISPERSABLE TABLET ONE (04:16)
[2017-08-31] MEDS ORDERED: METHADONE HCL 10 MG TABLET ONE (04:16)
[2017-08-31] MEDS: METHADONE 80 MG, METHADONE 10 MG PO SCH (06:15)
[2017-08-31] MEDS: metFORMIN HCL 500 MG TABLET (FP) PO SCH ×2 (07:04→16:51)
--- NOTE | 2017-08-31 09:02 | PN ---
Psychiatric Progress Note Vital Signs: Vital Signs Period Temp Pulse Resp BP Sys/Bellamy Pulse Ox Last 24 Hr 98.3 F 88-89 -18 122-130/73-82 Date of Session: 08/31/17 Chief Complaint:: Insomnia Current Medications: Active Medications Generic Name Dose Route Start Last Admin Trade Name Freq PRN Reason Stop Dose Admin Acetaminophen 650 mg 08/27/17 12:56 Tylenol - PO Q4H PRN FEVER Al Hydroxide/Mg Hydroxide 30 ml 08/27/17 12:56 Mylanta Oral Suspension - PO Q6H PRN DYSPEPSIA Albuterol Sulfate 2 puff 08/27/17 12:58 Ventolin Hfa Inhaler - IH Q4H PRN SHORTNESS OF BREATH Aripiprazole 20 mg 08/28/17 11:00 08/30/17 09:59 Abilify PO 20 mg DAILY JAGDISH Administration Divalproex Sodium 500 mg 08/28/17 11:15 08/30/17 21:05 Depakote - PO 500 mg BID JAGDISH Administration Eucalyptus/Menthol/Phenol/Sorbitol 1 each 08/27/17 12:56 Cepastat Lozenge - MM Q4H PRN SORE THROAT Guaifenesin 10 ml 08/27/17 12:56 Robitussin Dm - PO Q6H PRN COUGH Hydrochlorothiazide 25 mg 08/28/17 10:00 08/30/17 09:59 Hctz - PO 25 mg DAILY JAGDISH Administration Hydroxyzine Pamoate 50 mg 08/28/17 00:59 08/30/17 21:58 Vistaril - PO 50 mg Q6H PRN Administration FOR ITCHING Ibuprofen 400 mg 08/27/17 12:56 08/31/17 00:12 Motrin - PO 400 mg Q6H PRN Administration Pain Level 4-6 Loperamide HCl 4 mg 08/27/17 12:56 Imodium - PO Q6H PRN DIARRHEA Magnesium Citrate 300 ml 08/27/17 12:56 Citroma - PO Q48H PRN CONSTIPATION Magnesium Hydroxide 30 ml 08/27/17 12:56 Milk Of Magnesia - PO DAILY PRN CONSTIPATION Melatonin 5 mg 08/27/17 22:00 08/30/17 21:05 Melatonin PO 5 mg HS PRN Administration INSOMNIA Metformin HCl 1,000 mg 08/27/17 16:30 08/31/17 07:04 Glucophage - PO 1,000 mg BIDAC JAGDISH Administration Methadone HCl 80 mg/ Methadone 90 mg 08/28/17 06:00 08/31/17 06:15 HCl 10 mg PO 90 mg DAILY@0600 JAGDISH Administration Nicotine 14 mg 08/27/17 12:56 Nicoderm Patch - TD DAILY PRN WITHDRAWAL(CONT SUBST) Nicotine Polacrilex 2 mg 08/27/17 12:56 Nicorette Gum - BUC Q2H PRN NICOTINE REPLACEMENT RX Multivit/Folic Acid/Iron 1 tab 08/28/17 10:00 08/30/17 09:59 Vitamins (Sjr) - PO 1 tab DAILY JAGDISH Administration Pseudoephedrine/Triprolidine 1 combo 08/27/17 12:56 Actifed - PO TID PRN NASAL CONGESTION Suvorexant 10 mg 08/31/17 08:57 Belsomra PO HS PRN INSOMNIA Thiamine HCl 100 mg 08/27/17 22:00 08/30/17 21:05 Vitamin B1 - PO 100 mg HS JAGDISH Administration Medication(s) Change(s): Start Belsomra 10 mg po HS prn for insomia Current Side Effect: No Lab tests ordered: Yes Lab tests reviewed: Yes Provider note:: Patient reports experiencing difficulty to sleep. Told aligner typewriter that he has been sleeping poorly despite taking Melatonin 5 mg po at bedtime. Hypnotic as well as adverse-effects of Belsomra discussed with patient and he agreed to try it Total face to face time:: 15 Mental Status Exam - Mental Status Exam Alert and Oriented to: Time, Place, Person Cognitive Function: Fair Patient Appearance: Well Groomed Mood: Anxious Affect: Appropriate Patient Behavior: Cooperative Speech Pattern: Clear Voice Loudness: Normal Thought Process: Intact, Goal Oriented Thought Disorder: Not Present Hallucinations: Denies Suicidal Ideation: Denies Homicidal Ideation: Denies Insight/Judgement: Fair Sleep: Poorly Appetite: Good Muscle strength/Tone: Normal Gait/Station: Normal Psychiatric Treatment Plan - Problem List (1) Alcohol dependence Current Visit: Yes (2) Sedative hypnotic or anxiolytic dependence Current Visit: No (3) Opioid dependence on agonist therapy Current Visit: No Comment: on Methadone 90mg, pending verification (4) Nicotine dependence Current Visit: No Qualifiers: Nicotine product type: cigarettes Substance use status: uncomplicated Qualified Code(s): F17.210 - Nicotine dependence, cigarettes, uncomplicated (5) Schizoaffective disorder Current Visit: No Qualifiers: Schizoaffective disorder type: unspecified Qualified Code(s): F25.9 - Schizoaffective disorder, unspecified Comment: As per existing records. (6) Substance induced mood disorder Current Visit: Yes (7) Substance-induced sleep disorder Current Visit: Yes (8) Substance-induced sleep disorder Current Visit: Yes (9) Asthma Current Visit: No Qualifiers: Asthma severity: unspecified severity Asthma complication type: uncomplicated (10) DM2 (diabetes mellitus, type 2) Current Visit: No Qualifiers: Diabetes mellitus extermination supervisor insulin use: with extermination supervisor use Diabetes mellitus complication status: without complication Qualified Code(s): E11.9 - Type 2 diabetes mellitus without complications; Z79.4 - intermediate (current) use of insulin; Z79.4 - terminal makeup operator (current) use of insulin; Z79.4 - terminal makeup operator ( current) use of insulin; Z79.4 - intermediate (current) use of insulin (11) Hypertension Current Visit: No Qualifiers: Hypertension type: essential hypertension Qualified Code(s): I10 - Essential (primary) hypertension (12) Obese Current Visit: No Qualifiers: Obesity type: unspecified obesity type Obesity classification: adult class 1 (BMI 30 - 34.9) Serious obesity comorbidity presence: with serious comorbidity Initial treatment plan: 1) Start Belsomra 10 mg po HS prn for insomnia. 2) Monitor progress
[2017-08-31] MEDS: HYDROCHLOROTHIAZIDE 25 MG TABLET (FP) PO SCH (10:48)
[2017-08-31] MEDS: ARIPiprazole 10 MG TABLET PO SCH (10:48)
[2017-08-31] MEDS: PRENATAL VITAMINS W/ FOLIC ACID TABLET (FP) PO SCH (10:48)
[2017-08-31] MEDS: DIVALPROEX SODIUM 500 MG TABLET E.C. PO SCH ×2 (10:48→21:40)
[2017-08-31] MEDS: hydrOXYzine PAMOATE 50 MG CAPSULE (FP) PO PRN ×2 (14:17→21:40)
--- NOTE | 2017-08-31 17:37 | PN ---
[facility] Progress Note Note: Patient presents with chronic LBP. Laboratory Tests 08/27/17 08/28/17 08/28/17 16:48 06:23 17:05 POC Glucometer 135 162 202 08/28/17 08/29/17 08/29/17 22:01 06:20 16:45 POC Glucometer 206 126 166 08/30/17 08/30/17 06:23 16:52 POC Glucometer 129 139 Vital Signs Temperature 98.3 F 08/31/17 06:51 Pulse Rate 89 08/31/17 06:51 Respiratory Rate 18 08/31/17 06:51 Blood Pressure 122/73 08/31/17 06:51 O2 Sat by Pulse Oximetry (%) Obj: skin warm and dry. Pt ambulating guarded with no assistance. In no acute distress LS spine with tenderness upon palpation. A/P: Chronic low back pain Will start flexeril TID prn continue to monitor clinically
[2017-08-31] MEDS: CYCLOBENZAPRINE HCL 10 MG TABLET (FP) PO PRN (17:42)
[2017-08-31] MEDS: MELATONIN 5 MG TABLETS PO PRN (21:40)
[2017-08-31] MEDS: THIAMINE HCL 100 MG TABLET (FP) PO SCH (21:40)
[2017-08-31] MEDS: SUVOREXANT 10 MG TABLET PO PRN (21:42)
[2017-09-01] MEDS ORDERED: METHADONE HCL 40 MG DISPERSABLE TABLET ONE (03:15)
[2017-09-01] MEDS ORDERED: METHADONE HCL 10 MG TABLET ONE (03:15)
[2017-09-01] MEDS: metFORMIN HCL 500 MG TABLET (FP) PO SCH ×2 (06:21→17:18)
[2017-09-01] MEDS: METHADONE 80 MG, METHADONE 10 MG PO SCH (06:21)
[2017-09-01] MEDS: PRENATAL VITAMINS W/ FOLIC ACID TABLET (FP) PO SCH (09:41)
[2017-09-01] MEDS: HYDROCHLOROTHIAZIDE 25 MG TABLET (FP) PO SCH (09:41)
[2017-09-01] MEDS: DIVALPROEX SODIUM 500 MG TABLET E.C. PO SCH ×2 (09:41→21:28)
[2017-09-01] MEDS: ARIPiprazole 10 MG TABLET PO SCH (09:41)
[2017-09-01] MEDS: CYCLOBENZAPRINE HCL 10 MG TABLET (FP) PO PRN ×2 (09:41→19:58)
[2017-09-01] MEDS: hydrOXYzine PAMOATE 50 MG CAPSULE (FP) PO PRN ×2 (09:41→19:58)
[2017-09-01] MEDS: THIAMINE HCL 100 MG TABLET (FP) PO SCH (21:28)
[2017-09-01] MEDS: SUVOREXANT 10 MG TABLET PO PRN (22:12)
[2017-09-02] MEDS ORDERED: METHADONE HCL 40 MG DISPERSABLE TABLET ONE (02:49)
[2017-09-02] MEDS ORDERED: METHADONE HCL 10 MG TABLET ONE (02:49)
[2017-09-02] MEDS: METHADONE 80 MG, METHADONE 10 MG PO SCH (06:11)
[2017-09-02] MEDS: metFORMIN HCL 500 MG TABLET (FP) PO SCH ×2 (06:11→16:50)
[2017-09-02] MEDS: ARIPiprazole 10 MG TABLET PO SCH (09:59)
[2017-09-02] MEDS: HYDROCHLOROTHIAZIDE 25 MG TABLET (FP) PO SCH (09:59)
[2017-09-02] MEDS: PRENATAL VITAMINS W/ FOLIC ACID TABLET (FP) PO SCH (09:59)
[2017-09-02] MEDS: CYCLOBENZAPRINE HCL 10 MG TABLET (FP) PO PRN ×2 (10:00→21:39)
[2017-09-02] MEDS: hydrOXYzine PAMOATE 50 MG CAPSULE (FP) PO PRN ×2 (10:00→15:42)
[2017-09-02] MEDS: DIVALPROEX SODIUM 500 MG TABLET E.C. PO SCH ×2 (10:58→21:39)
[2017-09-02] MEDS: IBUPROFEN 400 MG TABLET (FP) PO PRN (15:42)
[2017-09-02] MEDS: THIAMINE HCL 100 MG TABLET (FP) PO SCH (21:39)
[2017-09-02] MEDS: MELATONIN 5 MG TABLETS PO PRN (21:39)
[2017-09-02] MEDS: SUVOREXANT 10 MG TABLET PO PRN (21:39)
[2017-09-03] MEDS: IBUPROFEN 400 MG TABLET (FP) PO PRN (00:30)
[2017-09-03] MEDS ORDERED: METHADONE HCL 10 MG TABLET ONE (04:25)
[2017-09-03] MEDS ORDERED: METHADONE HCL 40 MG DISPERSABLE TABLET ONE (04:25)
[2017-09-03] MEDS: METHADONE 80 MG, METHADONE 10 MG PO SCH (05:59)
[2017-09-03] MEDS: metFORMIN HCL 500 MG TABLET (FP) PO SCH ×2 (07:11→16:37)
[2017-09-03] MEDS: HYDROCHLOROTHIAZIDE 25 MG TABLET (FP) PO SCH (10:09)
[2017-09-03] MEDS: CYCLOBENZAPRINE HCL 10 MG TABLET (FP) PO PRN ×2 (10:10→21:23)
[2017-09-03] MEDS: PRENATAL VITAMINS W/ FOLIC ACID TABLET (FP) PO SCH (10:10)
[2017-09-03] MEDS: hydrOXYzine PAMOATE 50 MG CAPSULE (FP) PO PRN ×2 (10:10→21:22)
[2017-09-03] MEDS: ARIPiprazole 10 MG TABLET PO SCH (10:10)
[2017-09-03] MEDS ORDERED: PT OWN MED DRAWER 7, Y5N ONE (10:11)
[2017-09-03] MEDS: DIVALPROEX SODIUM 500 MG TABLET E.C. PO SCH ×2 (10:24→21:23)
[2017-09-03] MEDS: NICOTINE 14 MG/24 HOURS TOPICAL PATCH TD PRN (13:22)
[2017-09-03] MEDS: SUVOREXANT 10 MG TABLET PO PRN (21:22)
[2017-09-03] MEDS: THIAMINE HCL 100 MG TABLET (FP) PO SCH (21:22)
[2017-09-03] MEDS: MELATONIN 5 MG TABLETS PO PRN (21:22)
[2017-09-04] MEDS ORDERED: METHADONE HCL 10 MG TABLET ONE (04:26)
[2017-09-04] MEDS ORDERED: METHADONE HCL 40 MG DISPERSABLE TABLET ONE (04:26)
[2017-09-04] MEDS: METHADONE 80 MG, METHADONE 10 MG PO SCH (06:04)
[2017-09-04] MEDS: metFORMIN HCL 500 MG TABLET (FP) PO SCH ×2 (07:12→16:48)
[2017-09-04] MEDS: CYCLOBENZAPRINE HCL 10 MG TABLET (FP) PO PRN ×2 (09:59→21:24)
[2017-09-04] MEDS: hydrOXYzine PAMOATE 50 MG CAPSULE (FP) PO PRN ×2 (09:59→21:24)
[2017-09-04] MEDS: DIVALPROEX SODIUM 500 MG TABLET E.C. PO SCH ×2 (09:59→21:24)
[2017-09-04] MEDS: ARIPiprazole 10 MG TABLET PO SCH (09:59)
[2017-09-04] MEDS: PRENATAL VITAMINS W/ FOLIC ACID TABLET (FP) PO SCH (09:59)
[2017-09-04] MEDS: HYDROCHLOROTHIAZIDE 25 MG TABLET (FP) PO SCH (09:59)
[2017-09-04] MEDS: THIAMINE HCL 100 MG TABLET (FP) PO SCH (21:24)
[2017-09-04] MEDS: SUVOREXANT 10 MG TABLET PO PRN (21:24)
[2017-09-04] MEDS: MELATONIN 5 MG TABLETS PO PRN (21:24)
[2017-09-05] MEDS ORDERED: METHADONE HCL 10 MG TABLET ONE (04:17)
[2017-09-05] MEDS ORDERED: METHADONE HCL 40 MG DISPERSABLE TABLET ONE (04:17)
[2017-09-05] MEDS: METHADONE 80 MG, METHADONE 10 MG PO SCH (06:04)
[2017-09-05] MEDS: metFORMIN HCL 500 MG TABLET (FP) PO SCH ×2 (07:13→16:48)
[2017-09-05] MEDS: CYCLOBENZAPRINE HCL 10 MG TABLET (FP) PO PRN ×2 (09:44→21:06)
[2017-09-05] MEDS: ARIPiprazole 10 MG TABLET PO SCH (09:44)
[2017-09-05] MEDS: HYDROCHLOROTHIAZIDE 25 MG TABLET (FP) PO SCH (09:44)
[2017-09-05] MEDS: DIVALPROEX SODIUM 500 MG TABLET E.C. PO SCH ×2 (09:44→21:06)
[2017-09-05] MEDS: PRENATAL VITAMINS W/ FOLIC ACID TABLET (FP) PO SCH (09:44)
--- NOTE | 2017-09-05 13:17 | PN ---
[facility] Progress Note Note: Patient presents with complaint of LBP, dull ache, level 7/10. Pt took Flexeril at 945 am this morning. Denies pain radiating to legs. Vital Signs Temperature 98.1 F 09/05/17 06:41 Pulse Rate 88 09/05/17 10:00 Respiratory Rate 18 09/05/17 10:00 Blood Pressure 123/78 09/05/17 10:00 O2 Sat by Pulse Oximetry (%) Laboratory Tests 08/27/17 08/28/17 08/28/17 16:48 06:23 17:05 POC Glucometer 135 162 202 Hemoglobin A1c % 08/28/17 08/29/17 08/29/17 22:01 06:20 16:45 POC Glucometer 206 126 166 Hemoglobin A1c % 08/30/17 08/30/17 08/31/17 06:23 16:52 06:15 POC Glucometer 129 139 121 Hemoglobin A1c % 08/31/17 09/01/17 09/01/17 16:50 06:20 16:55 POC Glucometer 137 115 163 Hemoglobin A1c % 09/02/17 09/02/17 09/02/17 06:10 07:30 16:50 POC Glucometer 115 145 Hemoglobin A1c % 7.8 H D 09/03/17 09/03/17 09/04/17 05:59 16:37 06:04 POC Glucometer 96 125 108 Hemoglobin A1c % 09/04/17 16:47 POC Glucometer 125 Hemoglobin A1c % Obj: Skin: warm and dry. General: alert and oriented x 3. In no acute distress. MS: + lumbar spine tenderness. No swelling of legs. A/P: LBP Will continue flexeril and IBU. Pt did not request Motrin for breakthrough pain. Advised pt to request dose of Motrin now and if no relief, inform RN. Continue to monitor.
[2017-09-05] MEDS: hydrOXYzine PAMOATE 50 MG CAPSULE (FP) PO PRN (21:06)
[2017-09-05] MEDS: MELATONIN 5 MG TABLETS PO PRN (21:06)
[2017-09-05] MEDS: THIAMINE HCL 100 MG TABLET (FP) PO SCH (21:06)
[2017-09-05] MEDS: SUVOREXANT 10 MG TABLET PO PRN (21:06)
[2017-09-06] MEDS ORDERED: METHADONE HCL 40 MG DISPERSABLE TABLET ONE (05:37)
[2017-09-06] MEDS ORDERED: METHADONE HCL 10 MG TABLET ONE (05:37)
[2017-09-06] MEDS: METHADONE 80 MG, METHADONE 10 MG PO SCH (05:59)
[2017-09-06] MEDS: metFORMIN HCL 500 MG TABLET (FP) PO SCH ×2 (06:48→16:54)
[2017-09-06] MEDS: ARIPiprazole 10 MG TABLET PO SCH (09:37)
[2017-09-06] MEDS: DIVALPROEX SODIUM 500 MG TABLET E.C. PO SCH ×2 (09:37→21:07)
[2017-09-06] MEDS: HYDROCHLOROTHIAZIDE 25 MG TABLET (FP) PO SCH (09:37)
[2017-09-06] MEDS: PRENATAL VITAMINS W/ FOLIC ACID TABLET (FP) PO SCH (09:37)
[2017-09-06] MEDS: hydrOXYzine PAMOATE 50 MG CAPSULE (FP) PO PRN (09:38)
[2017-09-06] MEDS: CYCLOBENZAPRINE HCL 10 MG TABLET (FP) PO PRN ×2 (09:38→21:08)
[2017-09-06] MEDS: NICOTINE POLACRILEX 2 MG GUM BUC PRN (11:10)
[2017-09-06] MEDS: NICOTINE 14 MG/24 HOURS TOPICAL PATCH TD PRN (11:10)
[2017-09-06] MEDS: THIAMINE HCL 100 MG TABLET (FP) PO SCH (21:08)
[2017-09-06] MEDS: SUVOREXANT 10 MG TABLET PO PRN (21:08)
[2017-09-07] MEDS ORDERED: METHADONE HCL 40 MG DISPERSABLE TABLET ONE (04:03)
[2017-09-07] MEDS ORDERED: METHADONE HCL 10 MG TABLET ONE (04:03)
[2017-09-07] MEDS: METHADONE 80 MG, METHADONE 10 MG PO SCH (06:04)
[2017-09-07] MEDS: metFORMIN HCL 500 MG TABLET (FP) PO SCH ×2 (07:02→16:48)
[2017-09-07] MEDS: HYDROCHLOROTHIAZIDE 25 MG TABLET (FP) PO SCH (09:32)
[2017-09-07] MEDS: PRENATAL VITAMINS W/ FOLIC ACID TABLET (FP) PO SCH (09:32)
[2017-09-07] MEDS: DIVALPROEX SODIUM 500 MG TABLET E.C. PO SCH ×2 (09:32→21:07)
[2017-09-07] MEDS: ARIPiprazole 10 MG TABLET PO SCH (09:32)
[2017-09-07] MEDS: hydrOXYzine PAMOATE 50 MG CAPSULE (FP) PO PRN ×2 (09:34→21:07)
[2017-09-07] MEDS: CYCLOBENZAPRINE HCL 10 MG TABLET (FP) PO PRN ×2 (09:34→21:07)
[2017-09-07] MEDS: NICOTINE 14 MG/24 HOURS TOPICAL PATCH TD PRN (09:35)
[2017-09-07] MEDS: MELATONIN 5 MG TABLETS PO PRN (21:07)
[2017-09-07] MEDS: THIAMINE HCL 100 MG TABLET (FP) PO SCH (21:07)
[2017-09-07] MEDS: SUVOREXANT 10 MG TABLET PO PRN (21:07)
[2017-09-08] MEDS ORDERED: METHADONE HCL 10 MG TABLET ONE (03:53)
[2017-09-08] MEDS ORDERED: METHADONE HCL 40 MG DISPERSABLE TABLET ONE (03:53)
[2017-09-08] MEDS: METHADONE 80 MG, METHADONE 10 MG PO SCH (06:10)
[2017-09-08] MEDS: metFORMIN HCL 500 MG TABLET (FP) PO SCH ×2 (07:10→16:42)
[2017-09-08] MEDS: ARIPiprazole 10 MG TABLET PO SCH (09:30)
[2017-09-08] MEDS: HYDROCHLOROTHIAZIDE 25 MG TABLET (FP) PO SCH (09:30)
[2017-09-08] MEDS: DIVALPROEX SODIUM 500 MG TABLET E.C. PO SCH ×2 (09:30→21:13)
[2017-09-08] MEDS: CYCLOBENZAPRINE HCL 10 MG TABLET (FP) PO PRN ×2 (09:31→21:13)
[2017-09-08] MEDS: hydrOXYzine PAMOATE 50 MG CAPSULE (FP) PO PRN ×2 (09:31→21:13)
[2017-09-08] MEDS: PRENATAL VITAMINS W/ FOLIC ACID TABLET (FP) PO SCH (09:33)
[2017-09-08] MEDS: NICOTINE 14 MG/24 HOURS TOPICAL PATCH TD PRN (10:31)
[2017-09-08] MEDS: NICOTINE POLACRILEX 2 MG GUM BUC PRN ×3 (10:32→21:14)
[2017-09-08] MEDS: THIAMINE HCL 100 MG TABLET (FP) PO SCH (21:13)
[2017-09-08] MEDS: MELATONIN 5 MG TABLETS PO PRN (21:13)
[2017-09-08] MEDS: SUVOREXANT 10 MG TABLET PO PRN (21:13)
[2017-09-09] MEDS: hydrOXYzine PAMOATE 50 MG CAPSULE (FP) PO PRN ×3 (03:26→21:06)
[2017-09-09] MEDS ORDERED: METHADONE HCL 40 MG DISPERSABLE TABLET ONE (04:05)
[2017-09-09] MEDS ORDERED: METHADONE HCL 10 MG TABLET ONE (04:05)
[2017-09-09] MEDS: METHADONE 80 MG, METHADONE 10 MG PO SCH (06:01)
[2017-09-09] MEDS: metFORMIN HCL 500 MG TABLET (FP) PO SCH ×2 (07:10→16:53)
[2017-09-09] MEDS: DIVALPROEX SODIUM 500 MG TABLET E.C. PO SCH ×2 (09:32→21:05)
[2017-09-09] MEDS: NICOTINE 14 MG/24 HOURS TOPICAL PATCH TD PRN (09:32)
[2017-09-09] MEDS: PRENATAL VITAMINS W/ FOLIC ACID TABLET (FP) PO SCH (09:32)
[2017-09-09] MEDS: ARIPiprazole 10 MG TABLET PO SCH (09:32)
[2017-09-09] MEDS: CYCLOBENZAPRINE HCL 10 MG TABLET (FP) PO PRN ×2 (09:32→21:06)
[2017-09-09] MEDS: HYDROCHLOROTHIAZIDE 25 MG TABLET (FP) PO SCH (09:32)
[2017-09-09] MEDS: NICOTINE POLACRILEX 2 MG GUM BUC PRN (09:34)
--- NOTE | 2017-09-09 13:01 | PN ---
Psychiatric Progress Note Vital Signs: Vital Signs Period Temp Pulse Resp BP Sys/Bellamy Pulse Ox Last 24 Hr 98.1 F 94-101 18-20 117-133/82-83 Date of Session: 09/09/17 Chief Complaint:: Discharge Note HPI: Patient addressing Alcohol and Sedative Dependence comorbid with Opioid Dependence on AgonistTherapy, Nicotine Dependence, Schizoaffective Disorder, Substance-Induced Mood Disorder and Substance-Induced Sleep Disorder ROS: Asthma, Type 2 DM, HTN, Obesity Current Medications: Active Medications Generic Name Dose Route Start Last Admin Trade Name Freq PRN Reason Stop Dose Admin Acetaminophen 650 mg 08/27/17 12:56 Tylenol - PO Q4H PRN FEVER Al Hydroxide/Mg Hydroxide 30 ml 08/27/17 12:56 Mylanta Oral Suspension - PO Q6H PRN DYSPEPSIA Albuterol Sulfate 2 puff 08/27/17 12:58 Ventolin Hfa Inhaler - IH Q4H PRN SHORTNESS OF BREATH Aripiprazole 20 mg 08/28/17 11:00 09/09/17 09:32 Abilify PO 20 mg DAILY JAGDISH Administration Cyclobenzaprine HCl 10 mg 08/31/17 17:31 09/09/17 09:32 Flexeril - PO 10 mg TID PRN Administration MUSCLE SPASMS Divalproex Sodium 500 mg 08/28/17 11:15 09/09/17 09:32 Depakote - PO 500 mg BID JAGDISH Administration Eucalyptus/Menthol/Phenol/Sorbitol 1 each 08/27/17 12:56 Cepastat Lozenge - MM Q4H PRN SORE THROAT Guaifenesin 10 ml 08/27/17 12:56 Robitussin Dm - PO Q6H PRN COUGH Hydrochlorothiazide 25 mg 08/28/17 10:00 09/09/17 09:32 Hctz - PO 25 mg DAILY JAGDISH Administration Hydroxyzine Pamoate 50 mg 08/28/17 00:59 09/09/17 09:32 Vistaril - PO 50 mg Q6H PRN Administration FOR ITCHING Ibuprofen 400 mg 08/27/17 12:56 09/03/17 00:30 Motrin - PO 400 mg Q6H PRN Administration Pain Level 4-6 Loperamide HCl 4 mg 08/27/17 12:56 Imodium - PO Q6H PRN DIARRHEA Magnesium Citrate 300 ml 08/27/17 12:56 Citroma - PO Q48H PRN CONSTIPATION Magnesium Hydroxide 30 ml 08/27/17 12:56 Milk Of Magnesia - PO DAILY PRN CONSTIPATION Melatonin 5 mg 08/27/17 22:00 09/08/17 21:13 Melatonin PO 5 mg HS PRN Administration INSOMNIA Metformin HCl 1,000 mg 08/27/17 16:30 09/09/17 07:10 Glucophage - PO 1,000 mg BIDAC JAGDISH Administration Methadone HCl 80 mg/ Methadone 90 mg 09/09/17 06:00 09/09/17 06:01 HCl 10 mg PO 09/16/17 05:59 90 mg DAILY@0600 JAGDISH Administration Nicotine 14 mg 08/27/17 12:56 09/09/17 09:32 Nicoderm Patch - TD 14 mg DAILY PRN Administration WITHDRAWAL(CONT SUBST) Nicotine Polacrilex 2 mg 08/27/17 12:56 09/09/17 09:34 Nicorette Gum - BUC 2 mg Q2H PRN Administration NICOTINE REPLACEMENT RX Multivit/Folic Acid/Iron 1 tab 08/28/17 10:00 09/09/17 09:32 Vitamins (Sjr) - PO Not Given DAILY JAGDISH Pseudoephedrine/Triprolidine 1 combo 08/27/17 12:56 Actifed - PO TID PRN NASAL CONGESTION Suvorexant 10 mg 09/06/17 22:00 09/08/17 21:13 Belsomra PO 09/09/17 21:59 10 mg HS PRN Administration INSOMNIA Suvorexant 10 mg 09/09/17 22:00 Belsomra PO HS PRN INSOMNIA Thiamine HCl 100 mg 08/27/17 22:00 09/08/17 21:13 Vitamin B1 - PO 100 mg HS JAGDISH Administration Current Side Effect: No Lab tests ordered: Yes Lab tests reviewed: Yes Provider note:: Patient will complete this program on 09/10/17. He has met his treatment goals and will continue to address his issues in outpatient treatment at [facility]. Told technical writer that from his participation in this program, he has learned that you only get what you put in and no one should care about your recovery more than yourself. He responded well to Abilify 20 mg po daily and Depakote 500 mg po BID. Scripts for 30 days supply of these medications will be electronically transmitted to [facility] at[address] [place] [address]. He is stable for discharged on 09/10/17 Total face to face time:: 35 Mental Status Exam - Mental Status Exam Alert and Oriented to: Time, Place, Person Cognitive Function: Fair Patient Appearance: Well Groomed Mood: Hopeful, Euthymic Affect: Appropriate Patient Behavior: Cooperative Speech Pattern: Clear Voice Loudness: Normal Thought Process: Intact, Goal Oriented Thought Disorder: Not Present Hallucinations: Denies Suicidal Ideation: Denies Homicidal Ideation: Denies Insight/Judgement: Fair Sleep: Fair Appetite: Good Muscle strength/Tone: Normal Gait/Station: Normal Psychiatric Treatment Plan - Problem List (1) Alcohol dependence Current Visit: Yes (2) Sedative hypnotic or anxiolytic dependence Current Visit: No (3) Opioid dependence on agonist therapy Current Visit: No Comment: on Methadone 90mg, pending verification (4) Nicotine dependence Current Visit: No Qualifiers: Nicotine product type: cigarettes Substance use status: uncomplicated Qualified Code(s): F17.210 - Nicotine dependence, cigarettes, uncomplicated (5) Schizoaffective disorder Current Visit: No Qualifiers: Schizoaffective disorder type: unspecified Qualified Code(s): F25.9 - Schizoaffective disorder, unspecified Comment: As per existing records. (6) Substance induced mood disorder Current Visit: Yes (7) Substance-induced sleep disorder Current Visit: Yes (8) Substance-induced sleep disorder Current Visit: Yes (9) Asthma Current Visit: No Qualifiers: Asthma severity: unspecified severity Asthma complication type: uncomplicated (10) DM2 (diabetes mellitus, type 2) Current Visit: No Qualifiers: Diabetes mellitus correction insulin use: with termination clerk use Diabetes mellitus complication status: without complication Qualified Code(s): E11.9 - Type 2 diabetes mellitus without complications; Z79.4 - penitentiary (current) use of insulin; Z79.4 - buttermaker continuous churn (current) use of insulin; Z79.4 - buttermaker continuous churn ( current) use of insulin; Z79.4 - buttermaker continuous churn (current) use of insulin (11) Hypertension Current Visit: No Qualifiers: Hypertension type: essential hypertension Qualified Code(s): I10 - Essential (primary) hypertension (12) Obese Current Visit: No Qualifiers: Obesity type: unspecified obesity type Obesity classification: adult class 1 (BMI 30 - 34.9) Serious obesity comorbidity presence: with serious comorbidity Initial treatment plan: Patient will be discharged tomorrow and referred to [facility] for outpatient treatment
[2017-09-09] MEDS: MELATONIN 5 MG TABLETS PO PRN (21:05)
[2017-09-09] MEDS: THIAMINE HCL 100 MG TABLET (FP) PO SCH (21:05)
[2017-09-09] MEDS: SUVOREXANT 10 MG TABLET PO PRN (21:06)
[2017-09-09] MEDS ORDERED: SUVOREXANT 10 MG TABLET PO PRN (22:00)
[2017-09-10] MEDS ORDERED: METHADONE HCL 40 MG DISPERSABLE TABLET ONE (03:09)
[2017-09-10] MEDS ORDERED: METHADONE HCL 10 MG TABLET ONE (03:09)
[2017-09-10] MEDS: METHADONE 80 MG, METHADONE 10 MG PO SCH (06:09)
[2017-09-10] MEDS: metFORMIN HCL 500 MG TABLET (FP) PO SCH (06:09)
[2017-09-10 06:54] VITALS: BP 111/63; PULSE 63; TEMP 98
[2017-09-10] MEDS: hydrOXYzine PAMOATE 50 MG CAPSULE (FP) PO PRN (09:00)
[2017-09-10] MEDS: PRENATAL VITAMINS W/ FOLIC ACID TABLET (FP) PO SCH (09:00)
[2017-09-10] MEDS: DIVALPROEX SODIUM 500 MG TABLET E.C. PO SCH (09:00)
[2017-09-10] MEDS: ARIPiprazole 10 MG TABLET PO SCH (09:01)
[2017-09-10] MEDS: HYDROCHLOROTHIAZIDE 25 MG TABLET (FP) PO SCH (09:01)
== END 2017-09-10 09:05 | disposition home or self-care (01) | DRG 772 ==
LOC: YASAS 11:40 → Y3W 11:41
PROVIDERS: ADMIT Psychiatry & Neurology Psychiatry; ATTEND Psychiatry & Neurology Psychiatry
PROC: HZ42ZZZ Group Counseling for Substance Abuse Treatment, Cognitive-Behavioral (ICD-10-PCS; principal; 2017-08-27)
DX: F10.20 Alcohol dependence, uncomplicated (principal); F13.20 Sedative, hypnotic or anxiolytic dependence, uncomplicated; F17.210 Nicotine dependence, cigarettes, uncomplicated; F25.9 Schizoaffective disorder, unspecified; F19.24 Other psychoactive substance dependence with psychoactive substance-induced mood disorder; F19.282 Other psychoactive substance dependence with psychoactive substance-induced sleep disorder; I10 Essential (primary) hypertension; E11.9 Type 2 diabetes mellitus without complications; Z79.4 Long term (current) use of insulin; J45.909 Unspecified asthma, uncomplicated; E66.9 Obesity, unspecified; Z68.31 Body mass index [BMI] 31.0-31.9, adult; M54.5 Low back pain; G89.29 Other chronic pain
CPT/HCPCS: 82962; 83036

== ENCOUNTER 2018-06-04 14:38 | Inpatient (IN) | payer OTHER ==
[2018-06-04 16:35] VITALS: BMI 31.4
--- NOTE | 2018-06-04 16:55 | HP ---
CIWA Score Nausea/Vomitin Muscle Tremors: 2 Anxiety: 2 Agitation: 1-Slight > Activity Paroxysmal Sweats: 1-Minimal Palms Moist Orientation: 0-Oriented Tacttile Disturbances: 0-None Auditory Disturbances: 1-Very Mild Visual Disturbances: 1-Very Mild Sensitivity Headache: 2-Mild CIWA-Ar Total Score: 12 - Admission Criteria OASAS Guidelines: Admission for Medically Managed Detox: Requires at least one of the followin. CIWA greater than 12 2. Seizures within the past 24 hours 3. Delirium tremens within the past 24 hours 4. Hallucinations within the past 24 hours 5. Acute intervention needed for co occurring medical disorder 6. Acute intervention needed for co occurring psychiatric disorder 7. Severe withdrawal that cannot be handled at a lower level of care (continued vomiting, continued diarrhea, abnormal vital signs) requiring intravenous medication and/or fluids 8. Admission ROS [facility] - [facility] Chief Complaint: WITHDRAWAL SYMPTOMS Allergies/Adverse Reactions: Allergies Allergy/AdvReac Type Severity Reaction Status Date / Time No Known Allergies Allergy Verified 08/23/17 16:20 History of Present Illness: 47 Y.O. MAN WITH AN EXTENSIVE HISTORY OF ALCOHOL AND BENZODIAZEPINE DEPENDENCE IS HERE SEEKING DETOX SERVICES. HE WAS PREVIOUSLY HERE FOR DETOX/REHAB FROM -09/10/17. DOES NOT HAVE A SIGNIFICANT PERIOD ALCOHOL AND ILLICIT DRUG ABSTINENCE. PT. IS CURRENTLY ENROLLED AT [facility] AND REPORTS HE WAS LAST MEDICATED TODAY AT 90MG OF METHADONE. - Ebola screening Have you traveled outside of the country in the last 21 days: No Have you had contact with anyone from an Ebola affected area: No Have you been sick,other than usual withdrawal symptoms: No Do you have a fever: No - Review of Systems Constitutional: Chills, Loss of Appetite, Night Sweats, Unintentional Wgt. Loss EENT: reports: Tearing Respiratory: reports: Cough, Wheezing Cardiac: reports: No Symptoms Reported GI: reports: Nausea : reports: No Symptoms Reported Musculoskeletal: reports: No Symptoms Reported Integumentary: reports: No Symptoms Reported Neuro: reports: Seizure (LAST SEIZURE WAS 1 MONTH AGO) Endocrine: reports: No Symptoms Reported Hematology: reports: No Symptoms Reported Psychiatric: reports: Judgement Intact, Mood/Affect Appropiate, Orientated x3, other (BIPOLAR) Other Systems: Reviewed and Negative Patient History - Patient Medical History Hx Anemia: No Hx Asthma: Yes (Pt is on MDI) Hx Chronic Obstructive Pulmonary Disease (COPD): No Hx Cancer: No Hx Cardiac Disorders: No Hx Congestive Heart Failure: No Hx Hypertension: Yes (non complaint with meds.) Hx Hypercholesterolemia: No Hx Pacemaker: No HX Cerebrovascular Accident: No Hx Seizures: No Hx Dementia: No Hx Diabetes: Yes (Type II) Hx Gastrointestinal Disorders: No Hx Liver Disease: No Hx Genitourinary Disorders: No Hx Sexually Transmitted Disorders: No Hx Renal Disease (ESRD): No Hx Thyroid Disease: No Hx Human Immunodeficiency Virus (HIV): No Hx Hepatitis C: No Hx Depression: Yes Hx Suicide Attempt: Yes (25 years ago ) Hx Bipolar Disorder: Yes Hx Schizophrenia: No - Patient Surgical History Past Surgical History: Yes Hx Neurologic Surgery: No Hx Cataract Extraction: Yes (RIGHT EYE ) Hx Cardiac Surgery: No Hx Lung Surgery: No Hx Breast Surgery: No Hx Breast Biopsy: No Hx Abdominal Surgery: No Hx Appendectomy: No Hx Cholecystectomy: No Hx Genitourinary Surgery: No Hx Section: No Hx Orthopedic Surgery: No Anesthesia Reaction: No - PPD History Previous Implant?: Yes Documented Results: Negative w/proof Implanted On Prior [facility] Admission?: Yes Date: 08/25/17 Results: 0 mm PPD to be Administered?: No - Reproductive History Patient is a Female of Child Bearing Age (11 -55 yrs old): No - Smoking Cessation Smoking history: Current every day smoker Have you smoked in the past 12 months: Yes Aproximately how many cigarettes per day: 10 Hx Chewing Tobacco Use: No Initiated information on smoking cessation: Yes 'Breaking Loose' booklet given: 06/04/18 - Substance & Tx. History Hx Alcohol Use: Yes Hx Substance Use: Yes Substance Use Type: Alcohol, Tranquilizers Hx Substance Use Treatment: Yes (07/2017-08/2017: DETOX AND REHAB AT [facility] ) - Substances Abused Alcohol Route: Oral Frequency: Daily Amount used: 3 PINTS OF LIQUOR Age of first use: 14 Date of Last Use: 06/03/18 Alprazolam (Xanax) Route: Oral Frequency: Daily Amount used: 4MG Age of first use: 34 Date of Last Use: 06/03/18 Family Disease History - Family Disease History Family Disease History: Heart Disease: Mother (HTN-), CA: Father ( , etoh, drugs), Other: Mother, Brother (two - alive no problems), Sister (five - alive - no problems) Admission Physical Exam S - Vital Signs Vital Signs: Vital Signs - 24 hr 06/04/18 16:33 Temperature 97.9 F Pulse Rate 90 Respiratory 18 Rate Blood Pressure 136/81 - Physical General Appearance: Yes: Obese, Irritable, Sweating, Anxious HEENTM: Yes: Hearing grossly Normal, Normocephalic, Normal Voice Respiratory: Yes: Lungs Clear, Normal Breath Sounds, No Respiratory Distress, No Accessory Muscle Use Neck: Yes: Within Normal Limits Breast: Yes: Breast Exam Deferred Cardiology: Yes: Regular Rhythm, Regular Rate Abdominal: Yes: Normal Bowel Sounds, Non Tender Genitourinary: Yes: Other (NO COMPLAINTS REPORTED) Back: Yes: Normal Inspection Musculoskeletal: Yes: full range of Motion, Gait Steady Extremities: Yes: Normal Inspection, Pedal Edema Neurological: Yes: Fully Oriented, Alert, Normal Mood/Affect, Normal Response Integumentary: Yes: Normal Color, Dry, Warm Lymphatic: Yes: Within Normal Limits - Diagnostic (1) Alcohol dependence with uncomplicated withdrawal Current Visit: Yes Status: Chronic (2) Asthma Current Visit: Yes Status: Chronic Qualifiers: Asthma severity: unspecified severity Asthma complication type: uncomplicated (3) DM2 (diabetes mellitus, type 2) Current Visit: Yes Status: Chronic Qualifiers: 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: with regional intermodal truck driver use Diabetes mellitus complication status: without complication Qualified Code(s): E11.9 - Type 2 diabetes mellitus without complications; Z79.4 - ad terminal makeup operator (current) use of insulin; Z79.4 - ad terminal makeup operator (current) use of insulin; Z79.4 - FCI ( current) use of insulin; Z79.4 - [facility]CI (current) use of insulin (4) Nicotine dependence Current Visit: Yes Status: Chronic Qualifiers: Nicotine product type: cigarettes Substance use status: uncomplicated Qualified Code(s): F17.210 - Nicotine dependence, cigarettes, uncomplicated (5) Schizoaffective disorder Current Visit: No Status: Chronic Qualifiers: Schizoaffective disorder type: unspecified Qualified Code(s): F25.9 - Schizoaffective disorder, unspecified Comment: As per existing records. (6) Hypertension Current Visit: No Status: Chronic Qualifiers: Hypertension type: essential hypertension Qualified Code(s): I10 - Essential (primary) hypertension (7) History of seizures Current Visit: Yes Status: Acute Comment: LAST SEIZURE WAS 1 MONTH AGO Cleared for Admission [facility] - Detox or Rehab [facility] Level of Care: Medically Managed Detox Regimen/Protocol: Valium [facility] Breath Alcohol Content Breath Alcohol Content: 0 Urine Drug Screen - Results Drug Screen Negative: No Urine Drug Screen Results: BZO-Benzodiazepines, MTD-Methadone
[2018-06-04] MEDS ORDERED: LOPERAMIDE HCL 2 MG CAPSULE PO PRN (17:01)
[2018-06-04] MEDS ORDERED: P-EPHED 60MG/TRIPROLIDI 2.5MG TABLET PO PRN (17:01)
[2018-06-04] MEDS ORDERED: MAGNESIUM HYDROX 2400MG/30ML ORAL SUSPENSION 30 ML CUP PO PRN (17:01)
[2018-06-04] MEDS ORDERED: MAG HYDROX/AL HYDROX/SIMETH 30 ML UNIT-DOSE CUP PO PRN (17:01)
[2018-06-04] MEDS ORDERED: MAGNESIUM CITRATE 300 ML BOTTLE PO PRN (17:01)
[2018-06-04] MEDS ORDERED: hydrOXYzine PAMOATE 50 MG CAPSULE (FP) PO PRN (17:01)
[2018-06-04] MEDS ORDERED: ACETAMINOPHEN 325 MG TABLET (FP) PO PRN (17:01)
[2018-06-04] MEDS ORDERED: guaiFENesin/D-METHORPHAN HB 10 ML UNIT-DOSE CUPS PO PRN (17:01)
[2018-06-04] MEDS ORDERED: MENTHOL/PHENOL 1 EACH UD MM PRN (17:01)
[2018-06-04] MEDS ORDERED: ALBUTEROL SO4 8 GM HFA INHALER IH PRN (17:03)
[2018-06-04] MEDS ORDERED: diazePAM 5 MG TABLET PO ONE (18:15)
[2018-06-04] MEDS: diazePAM 5 MG TABLET PO SCH (22:30)
[2018-06-04] MEDS: THIAMINE HCL 100 MG TABLET (FP) PO SCH (22:30)
[2018-06-04] MEDS: MELATONIN 5 MG TABLETS PO PRN (22:32)
[2018-06-04] MEDS: diazePAM 5 MG TABLET PO PRN (22:57)
[2018-06-04] MEDS: IBUPROFEN 400 MG TABLET (FP) PO PRN (22:58)
[2018-06-05] MEDS: diazePAM 5 MG TABLET PO SCH ×3 (05:22→21:21)
[2018-06-05] MEDS: INSULIN SLIDING SCALE (NOVOLOG) 1 VIAL SQ SCH ×2 (06:20→17:05)
[2018-06-05] MEDS: metFORMIN HCL 500 MG TABLET (FP) PO SCH ×2 (06:20→17:05)
[2018-06-05] MEDS ORDERED: METHADONE HCL 10 MG TABLET PO SCH (07:30)
[2018-06-05] MEDS ORDERED: METHADONE HCL 10 MG TABLET ONE (07:42)
[2018-06-05] MEDS ORDERED: METHADONE HCL 40 MG DISPERSABLE TABLET ONE (07:42)
[2018-06-05] MEDS: METHADONE 80 MG, METHADONE 10 MG PO SCH (07:44)
[2018-06-05 10:06] LABS: HEMATOCRIT 35.3 % (35.4-49); HEMOGLOBIN 11.4 GM/dL (11.7-16.9); MCH 27.7 pg (25.7-33.7); MCHC 32.2 g/dl (32.0-35.9); MEAN CELL VOLUME 86.1 fl (80-96); PLATELET COUNT 247 K/MM3 (134-434); RDW 14.6 % (11.9-15.9); WHITE BLOOD COUNT 5.1 K/mm3 (4.0-10.0)
[2018-06-05] MEDS: PRENATAL VITAMINS W/ FOLIC ACID TABLET (FP) PO SCH (10:37)
[2018-06-05] MEDS: amLODIPine BESYLATE 5 MG TABLET (FP) PO SCH (10:37)
--- NOTE | 2018-06-05 11:02 | PN ---
S CIWA - CIWA Score Nausea/Vomitin Muscle Tremors: 3 Anxiety: 4-Mod. Anxious/Guarded Agitation: 3 Paroxysmal Sweats: 2 Orientation: 0-Oriented Tacttile Disturbances: 0-None Auditory Disturbances: 0-None Visual Disturbances: 0-None Headache: 0-None Present CIWA-Ar Total Score: 15 BHS Progress Note (SOAP) Subjective: PATIENT C/O NAUSEA/DIARRHEA, SWEATING, ANXIETY, SHAKES AND RESTLESSNESS. Objective: 06/05/18 11:00 Laboratory Tests 06/04/18 06/05/18 06/05/18 20:35 05:20 07:00 WBC 5.1 RBC 4.10 Hgb 11.4 L Hct 35.3 L MCV 86.1 MCH 27.7 MCHC 32.2 RDW 14.6 Plt Count 247 D MPV 9.0 POC Glucometer 134 141 Vital Signs Temperature 98.4 F 06/05/18 09:19 Pulse Rate 78 06/05/18 09:19 Respiratory Rate 18 06/05/18 09:19 Blood Pressure 123/79 06/05/18 09:19 O2 Sat by Pulse Oximetry (%) PE: ALERT AND ORIENTED X 3 SKIN WARM, MOIST EXT FULL ROM, + TREMORS +ANXIETY/RESTLESSNESS Assessment: 06/05/18 11:01 WITHDRAWAL SX Plan: CONTINUE DETOX ENCOURAGE ORAL FLUIDS CONTINUE TO MONITOR CLINICALLY
[2018-06-05 11:10] LABS: ALBUMIN 3.4 g/dl (3.4-5.0); ALK PHOS 82 U/L (45-117); ANION GAP 9 MMOL/L (8-16); BILIRUBIN,TOTAL 0.2 mg/dL (0.2-1); BLOOD UREA NITROGEN 11 mg/dL (7-18); CALCIUM 8.9 mg/dL (8.5-10.1); CHLORIDE 102 mmol/L (98-107); CO2 27 mmol/L (21-32); CREATININE 0.9 mg/dL (0.55-1.3); GLUCOSE,RANDOM 149 mg/dL (74-106); POTASSIUM 3.8 mmol/L (3.5-5.1); SGOT/AST 12 U/L (15-37); SGPT/ALT 31 U/L (13-61); SODIUM 139 mmol/L (136-145); TOT PROT 6.9 g/dl (6.4-8.2)
[2018-06-05] MEDS: diazePAM 5 MG TABLET PO PRN (11:12)
--- NOTE | 2018-06-05 12:32 | PN ---
ERIN Progress Note Note: patient requests to see a psychiatrist that he is taking seroquel 400 mg daily and preferred ton continue charge reviewed that the patient has psychiatric consultation requested
[2018-06-05] MEDS: ALBUTEROL SO4 0.083% IH SOL 2.5 MG/3 ML VIAL.NEB. NEB PRN ×2 (14:21→20:08)
[2018-06-05] MEDS: THIAMINE HCL 100 MG TABLET (FP) PO SCH (21:21)
[2018-06-05] MEDS: MELATONIN 5 MG TABLETS PO PRN (21:22)
[2018-06-06] MEDS ORDERED: METHADONE HCL 10 MG TABLET ONE (04:27)
[2018-06-06] MEDS ORDERED: METHADONE HCL 40 MG DISPERSABLE TABLET ONE (04:28)
[2018-06-06] MEDS: METHADONE 80 MG, METHADONE 10 MG PO SCH (06:17)
[2018-06-06] MEDS: INSULIN SLIDING SCALE (NOVOLOG) 1 VIAL SQ SCH ×2 (07:01→16:46)
[2018-06-06] MEDS: metFORMIN HCL 500 MG TABLET (FP) PO SCH ×2 (07:03→16:26)
[2018-06-06] MEDS: PRENATAL VITAMINS W/ FOLIC ACID TABLET (FP) PO SCH (10:35)
[2018-06-06] MEDS: amLODIPine BESYLATE 5 MG TABLET (FP) PO SCH (10:35)
[2018-06-06] MEDS: diazePAM 5 MG TABLET PO SCH ×2 (10:36→21:45)
--- NOTE | 2018-06-06 13:12 | PN ---
S CIWA - CIWA Score Nausea/Vomitin-Mild Nausea/No Vomiting Muscle Tremors: 3 Anxiety: 1-Mildly Anxious Agitation: 2 Paroxysmal Sweats: 1-Minimal Palms Moist Orientation: 1-Uncertain about Date Tacttile Disturbances: 0-None Auditory Disturbances: 0-None Visual Disturbances: 0-None Headache: 2-Mild CIWA-Ar Total Score: 11 S Progress Note (SOAP) Subjective: anxiety headaches restlessness tremor sweating Objective: 06/06/18 13:11 Vital Signs Temperature 98.0 F 06/06/18 09:32 Pulse Rate 80 06/06/18 09:32 Respiratory Rate 18 06/06/18 09:32 Blood Pressure 132/88 06/06/18 09:32 O2 Sat by Pulse Oximetry (%) Laboratory Last Values WBC 5.1 K/mm3 (4.0-10.0) 06/05/18 07:00 RBC 4.10 M/mm3 (4.00-5.60) 06/05/18 07:00 Hgb 11.4 GM/dL (11.7-16.9) L 06/05/18 07:00 Hct 35.3 % (35.4-49) L 06/05/18 07:00 MCV 86.1 fl (80-96) 06/05/18 07:00 MCH 27.7 pg (25.7-33.7) 06/05/18 07:00 MCHC 32.2 g/dl (32.0-35.9) 06/05/18 07:00 RDW 14.6 % (11.9-15.9) 06/05/18 07:00 Plt Count 247 K/MM3 (134-434) D 06/05/18 07:00 MPV 9.0 fl (7.5-11.1) 06/05/18 07:00 Sodium 139 mmol/L (136-145) 06/05/18 07:00 Potassium 3.8 mmol/L (3.5-5.1) 06/05/18 07:00 Chloride 102 mmol/L (98-107) 06/05/18 07:00 Carbon Dioxide 27 mmol/L (21-32) 06/05/18 07:00 Anion Gap 9 MMOL/L (8-16) 06/05/18 07:00 BUN 11 mg/dL (7-18) 06/05/18 07:00 Creatinine 0.9 mg/dL (0.55-1.3) 06/05/18 07:00 Creat Clearance w eGFR > 60 (>60) 06/05/18 07:00 POC Glucometer 129 UNITS (80-120) 06/06/18 06:16 Random Glucose 149 mg/dL (74-106) H 06/05/18 07:00 Calcium 8.9 mg/dL (8.5-10.1) 06/05/18 07:00 Total Bilirubin 0.2 mg/dL (0.2-1) 06/05/18 07:00 AST 12 U/L (15-37) L 06/05/18 07:00 ALT 31 U/L (13-61) 06/05/18 07:00 Alkaline Phosphatase 82 U/L (45-117) 06/05/18 07:00 Total Protein 6.9 g/dl (6.4-8.2) 06/05/18 07:00 Albumin 3.4 g/dl (3.4-5.0) 06/05/18 07:00 RPR Titer Nonreactive (NONREACTIVE) 06/05/18 07:00 Hep C Ab Diagnostic 0.1 s/co ratio (0.0-0.9) 06/05/18 07:00 HIV 1&2 Antibody Screen Negative 06/05/18 07:00 HIV P24 Antigen Negative 06/05/18 07:00 lab noted Assessment: 06/06/18 13:12 withdrawal sx methadone 90 mg Plan: continue detox
[2018-06-06] MEDS: IBUPROFEN 400 MG TABLET (FP) PO PRN (15:01)
--- NOTE | 2018-06-06 16:14 | CONSULT ---
[facility] Psychiatric Consult - Data Date of interview: 06/06/18 Admission source: [facility] Identifying data: Patient is a 47 year old single male, without children, unemployed, domiciled, and is supported by [facility]. This is one of multiple admissions for patient. Patient admitted to for alcohol and benzodiazepine dependence. Substance Abuse History: - Smoking Cessation. Smoking history: Current every day smoker. Have you smoked in the past 12 months: Yes. Aproximately how many cigarettes per day: 10. Hx Chewing Tobacco Use: No. Initiated information on smoking cessation: Yes. 'Breaking Loose' booklet given: 06/04/18. - Substance & Tx. History. Hx Alcohol Use: Yes. Hx Substance Use: Yes. Substance Use Type : Alcohol, Tranquilizers. Hx Substance Use Treatment: Yes (07/2017-08/2017: DETOX AND REHAB AT [facility] ). - Substances Abused. Alcohol. Route: Oral. Frequency: Daily. Amount used: 3 PINTS OF LIQUOR. Age of first use: 14. Date of Last Use: 06/03/18. Alprazolam (Xanax). Route: Oral. Frequency: Daily. Amount used: 4MG. Age of first use: 34. Date of Last Use: 06/03/18 Medical History: Asthma, hypertension, diabetes, cataract extraction (right eye) Psychiatric History: Mr. Joaquin reports h/o two psychiatric hospitalization, most recently last month at [facility] for auditory hallucinations and suicidal ideation. Patient has also been hospitalized at [facility] in [place]. Diagnosis of schizoaffective disorder. Patient has accepted abilify, depakote, and trazodone in the past. He denies current outpatient psychiatric care but was discharged from [facility] last month on seroquel 400mg qhs. Mr. joaquin has not taken seroquel 400mg in two weeks but is agreeable to restarting medications while on detox. Mr. Joaquin is currently on methadone maintenance of 90mg daily. Patient reports one suicide attempt fifteen years ago via overdose. At present, Mr. Joaquin reports feeling sad. He denies psychotic symptoms and does not have thoughts or urges to hurt himself or others. Physical/Sexual Abuse/Trauma History: denies. Mental Status Exam - Mental Status Exam Alert and Oriented to: Time, Place, Person Cognitive Function: Good Patient Appearance: Well Groomed Mood: Sad Affect: Mood Congruent Patient Behavior: Cooperative Speech Pattern: Clear, Appropriate Voice Loudness: Moderately Soft/Quiet Thought Process: Intact, Goal Oriented Thought Disorder: Not Present Hallucinations: Denies Suicidal Ideation: Denies Homicidal Ideation: Denies Insight/Judgement: Poor Sleep: Poorly Appetite: Fair Muscle strength/Tone: Normal Gait/Station: Normal Psychiatric Findings - Problem List ([place] 1, 2,3) (1) Alcohol dependence with uncomplicated withdrawal Current Visit: Yes Status: Acute (2) Methadone maintenance therapy patient Current Visit: Yes Status: Chronic (3) Schizoaffective disorder Current Visit: Yes Status: Chronic Qualifiers: Schizoaffective disorder type: unspecified Qualified Code(s): F25.9 - Schizoaffective disorder, unspecified Comment: As per existing records. 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 Detoxification in progress. Will order Seroquel 100mg. Benefits and side effects discussed. Verbal consent given.
[2018-06-06] MEDS: diazePAM 5 MG TABLET PO PRN (16:26)
[2018-06-06] MEDS: ALBUTEROL SO4 0.083% IH SOL 2.5 MG/3 ML VIAL.NEB. NEB PRN (19:04)
[2018-06-06] MEDS: QUEtiapine FUMARATE 100 MG TABLET (FP) PO SCH (21:45)
[2018-06-06] MEDS: THIAMINE HCL 100 MG TABLET (FP) PO SCH (21:45)
[2018-06-06] MEDS: MELATONIN 5 MG TABLETS PO PRN (21:54)
[2018-06-07] MEDS ORDERED: METHADONE HCL 10 MG TABLET ONE (05:13)
[2018-06-07] MEDS ORDERED: METHADONE HCL 40 MG DISPERSABLE TABLET ONE (05:14)
[2018-06-07] MEDS: metFORMIN HCL 500 MG TABLET (FP) PO SCH ×2 (06:02→17:27)
[2018-06-07] MEDS: METHADONE 80 MG, METHADONE 10 MG PO SCH (06:02)
[2018-06-07] MEDS: INSULIN SLIDING SCALE (NOVOLOG) 1 VIAL SQ SCH ×2 (07:38→17:27)
[2018-06-07] MEDS: diazePAM 5 MG TABLET PO SCH ×2 (10:39→21:42)
[2018-06-07] MEDS: amLODIPine BESYLATE 5 MG TABLET (FP) PO SCH (10:39)
[2018-06-07] MEDS: PRENATAL VITAMINS W/ FOLIC ACID TABLET (FP) PO SCH (10:39)
--- NOTE | 2018-06-07 16:19 | PN ---
S Progress Note (SOAP) Subjective: Patient denies any Current Withdrawal Symptoms at this Time. Objective: PATIENT A & O X 2 (UNCERTAIN ABOUT CURRENT DAY / DATE). PATIENT OBSERVED AMBULATING ON UNIT. IN NO ACUTE DISTRESS. 06/07/18 16:16 Vital Signs Temperature 99.0 F 06/07/18 13:12 Pulse Rate 82 06/07/18 13:12 Respiratory Rate 16 06/07/18 13:12 Blood Pressure 108/70 06/07/18 13:12 O2 Sat by Pulse Oximetry (%) Laboratory Tests 06/04/18 06/05/18 06/05/18 20:35 05:20 07:00 WBC 5.1 RBC 4.10 Hgb 11.4 L Hct 35.3 L MCV 86.1 MCH 27.7 MCHC 32.2 RDW 14.6 Plt Count 247 D MPV 9.0 Sodium Potassium Chloride Carbon Dioxide Anion Gap BUN Creatinine Creat Clearance w eGFR POC Glucometer 134 141 Random Glucose Calcium Total Bilirubin AST ALT Alkaline Phosphatase Total Protein Albumin RPR Titer Hep C Ab Diagnostic HIV 1&2 Antibody Screen HIV P24 Antigen 06/05/18 06/05/18 06/05/18 07:00 07:00 07:00 WBC RBC Hgb Hct MCV MCH MCHC RDW Plt Count MPV Sodium 139 Potassium 3.8 Chloride 102 Carbon Dioxide 27 Anion Gap 9 BUN 11 Creatinine 0.9 Creat Clearance w eGFR > 60 POC Glucometer Random Glucose 149 H Calcium 8.9 Total Bilirubin 0.2 AST 12 L ALT 31 Alkaline Phosphatase 82 Total Protein 6.9 Albumin 3.4 RPR Titer Nonreactive Hep C Ab Diagnostic 0.1 HIV 1&2 Antibody Screen HIV P24 Antigen 06/05/18 06/05/18 06/06/18 07:00 16:25 06:16 WBC RBC Hgb Hct MCV MCH MCHC RDW Plt Count MPV Sodium Potassium Chloride Carbon Dioxide Anion Gap BUN Creatinine Creat Clearance w eGFR POC Glucometer 142 129 Random Glucose Calcium Total Bilirubin AST ALT Alkaline Phosphatase Total Protein Albumin RPR Titer Hep C Ab Diagnostic HIV 1&2 Antibody Screen Negative HIV P24 Antigen Negative 06/06/18 06/07/18 15:52 06:01 WBC RBC Hgb Hct MCV MCH MCHC RDW Plt Count MPV Sodium Potassium Chloride Carbon Dioxide Anion Gap BUN Creatinine Creat Clearance w eGFR POC Glucometer 136 110 Random Glucose Calcium Total Bilirubin AST ALT Alkaline Phosphatase Total Protein Albumin RPR Titer Hep C Ab Diagnostic HIV 1&2 Antibody Screen HIV P24 Antigen LABS NOTED. Assessment: 06/07/18 16:16 WITHDRAWAL SYMPTOMS. Plan: CONTINUE DETOX. PATIENT SCHEDULED FOR D/C TOMORROW. PATIENT SCHEDULED TO LEAVE DETOX UNIT AT 0700 SO TO BE ABLE TO RETURN TO [facility] ([place], [place]) BEFORE CLOSING.
[2018-06-07] MEDS: ALBUTEROL SO4 0.083% IH SOL 2.5 MG/3 ML VIAL.NEB. NEB PRN (20:09)
[2018-06-07] MEDS: QUEtiapine FUMARATE 100 MG TABLET (FP) PO SCH (21:42)
[2018-06-07] MEDS: THIAMINE HCL 100 MG TABLET (FP) PO SCH (21:43)
[2018-06-07] MEDS: MELATONIN 5 MG TABLETS PO PRN (21:43)
[2018-06-08] MEDS ORDERED: METHADONE HCL 40 MG DISPERSABLE TABLET ONE (04:31)
[2018-06-08] MEDS ORDERED: METHADONE HCL 10 MG TABLET ONE (04:31)
[2018-06-08] MEDS: METHADONE 80 MG, METHADONE 10 MG PO SCH (05:42)
[2018-06-08] MEDS: metFORMIN HCL 500 MG TABLET (FP) PO SCH (06:14)
[2018-06-08 06:29] VITALS: BP 130/92; PULSE 81; TEMP 97.1
[2018-06-08] MEDS ORDERED: diazePAM 5 MG TABLET PO SCH (10:00)
--- NOTE | 2018-06-08 21:06 | DS ---
[facility] Detox Discharge Summary Admission Date: 06/04/18 Discharge Date: 06/08/18 - History Present History: Alcohol Dependence, Sedative Dependence Additional Comments: PATIENT RETURNING TO [facility] ([place], [place]) FOR AFTERCARE. PATIENT WILL CONSIDER REHAB ADMISSION FOR SOME TIME IN NEAR FUTURE. PATIENT HAD EARLY DISCHARGE FROM DETOX UNIT SCHEDULED, THUS PRE-DISCHARGE MEDICAL ASSESSMENT UNABLE TO BE DONE PRIOR TO PATIENT LEAVING DETOX UNIT. Pertinent Past History: HTN, Type II DM, History of Depression, History of Bipolar Disorder, Schizoaffective Disorder, M.M.T.P[facility] Asthma, Nicotine Dependence. - Physical Exam Results Vital Signs: Vital Signs Temperature 97.1 F L 06/08/18 06:29 Pulse Rate 81 06/08/18 06:29 Respiratory Rate 18 06/08/18 06:29 Blood Pressure 130/92 06/08/18 06:29 O2 Sat by Pulse Oximetry (%) Pertinent Admission Physical Exam Findings: WITHDRAWAL SYMPTOMS. Laboratory Tests 06/04/18 06/05/18 06/05/18 20:35 05:20 07:00 WBC 5.1 RBC 4.10 Hgb 11.4 L Hct 35.3 L MCV 86.1 MCH 27.7 MCHC 32.2 RDW 14.6 Plt Count 247 D MPV 9.0 Sodium Potassium Chloride Carbon Dioxide Anion Gap BUN Creatinine Creat Clearance w eGFR POC Glucometer 134 141 Random Glucose Calcium Total Bilirubin AST ALT Alkaline Phosphatase Total Protein Albumin RPR Titer Hep C Ab Diagnostic HIV 1&2 Antibody Screen HIV P24 Antigen 06/05/18 06/05/18 06/05/18 07:00 07:00 07:00 WBC RBC Hgb Hct MCV MCH MCHC RDW Plt Count MPV Sodium 139 Potassium 3.8 Chloride 102 Carbon Dioxide 27 Anion Gap 9 BUN 11 Creatinine 0.9 Creat Clearance w eGFR > 60 POC Glucometer Random Glucose 149 H Calcium 8.9 Total Bilirubin 0.2 AST 12 L ALT 31 Alkaline Phosphatase 82 Total Protein 6.9 Albumin 3.4 RPR Titer Nonreactive Hep C Ab Diagnostic 0.1 HIV 1&2 Antibody Screen HIV P24 Antigen 06/05/18 06/05/18 06/06/18 07:00 16:25 06:16 WBC RBC Hgb Hct MCV MCH MCHC RDW Plt Count MPV Sodium Potassium Chloride Carbon Dioxide Anion Gap BUN Creatinine Creat Clearance w eGFR POC Glucometer 142 129 Random Glucose Calcium Total Bilirubin AST ALT Alkaline Phosphatase Total Protein Albumin RPR Titer Hep C Ab Diagnostic HIV 1&2 Antibody Screen Negative HIV P24 Antigen Negative 06/06/18 06/07/18 06/07/18 15:52 06:01 16:27 WBC RBC Hgb Hct MCV MCH MCHC RDW Plt Count MPV Sodium Potassium Chloride Carbon Dioxide Anion Gap BUN Creatinine Creat Clearance w eGFR POC Glucometer 136 110 127 Random Glucose Calcium Total Bilirubin AST ALT Alkaline Phosphatase Total Protein Albumin RPR Titer Hep C Ab Diagnostic HIV 1&2 Antibody Screen HIV P24 Antigen 06/08/18 05:41 WBC RBC Hgb Hct MCV MCH MCHC RDW Plt Count MPV Sodium Potassium Chloride Carbon Dioxide Anion Gap BUN Creatinine Creat Clearance w eGFR POC Glucometer 105 Random Glucose Calcium Total Bilirubin AST ALT Alkaline Phosphatase Total Protein Albumin RPR Titer Hep C Ab Diagnostic HIV 1&2 Antibody Screen HIV P24 Antigen LABS NOTED. - Treatment Hospital Course: Detox Protocol Followed, Detoxed Safely, Responded well, Discharged Condition Good Patient has Accepted a Rehab Referral to: PT. RETURNING TO [facility]. WILL CONSIDER REHAB ADMISSION FOR FUTURE - Medication Discharge Medications: Ambulatory Orders Methadone [Dolophine -] 90 mg PO DAILY 08/27/17 Albuterol Sulfate Inhaler - [Ventolin HFA Inhaler -] 2 puff IH Q4H PRN #1 inhaler 09/07/17 Hydrochlorothiazide 25 mg PO DAILY #30 mg 09/07/17 metFORMIN HCL [Glucophage -] 1,000 mg PO BIDAC 30 Days #60 tablet 09/07/17 Aripiprazole [Abilify -] 20 mg PO DAILY #30 tablet 09/09/17 Divalproex [Depakote -] 500 mg PO BID #60 tablet.ec 09/09/17 Quetiapine Fumarate [Seroquel] 100 mg PO HS 06/06/18 - Diagnosis (1) Alcohol dependence with uncomplicated withdrawal Status: Acute (2) History of seizures Status: Acute (3) Asthma Status: Chronic Qualifiers: Asthma severity: mild Asthma persistence: intermittent Asthma complication type: uncomplicated Qualified Code(s): J45.20 - Mild intermittent asthma, uncomplicated (4) DM2 (diabetes mellitus, type 2) Status: Chronic Qualifiers: Diabetes mellitus senior care insulin use: with intermediate designer use Diabetes mellitus complication status: without complication Qualified Code(s): E11.9 - Type 2 diabetes mellitus without complications; Z79.4 - longterm (current) use of insulin (5) Hypertension Status: Chronic Qualifiers: Hypertension type: essential hypertension Qualified Code(s): I10 - Essential (primary) hypertension (6) Methadone maintenance therapy patient Status: Chronic (7) Nicotine dependence Status: Chronic Qualifiers: Nicotine product type: cigarettes Substance use status: uncomplicated Qualified Code(s): F17.210 - Nicotine dependence, cigarettes, uncomplicated (8) Schizoaffective disorder Status: Chronic Qualifiers: Schizoaffective disorder type: unspecified Qualified Code(s): F25.9 - Schizoaffective disorder, unspecified (9) Sedative hypnotic or anxiolytic dependence Status: Chronic - AMA Did Patient Leave Against Medical Advice: No
== END 2018-06-08 06:50 | disposition home or self-care (01) | DRG 773 ==
LOC: YASAS 14:38 → Y3N 17:49
PROC: HZ2ZZZZ Detoxification Services for Substance Abuse Treatment (ICD-10-PCS; principal; 2018-06-04)
DX: F10.230 Alcohol dependence with withdrawal, uncomplicated (principal); F13.20 Sedative, hypnotic or anxiolytic dependence, uncomplicated; F11.20 Opioid dependence, uncomplicated; F17.210 Nicotine dependence, cigarettes, uncomplicated; F25.9 Schizoaffective disorder, unspecified; F31.9 Bipolar disorder, unspecified; I10 Essential (primary) hypertension; J45.20 Mild intermittent asthma, uncomplicated; E11.9 Type 2 diabetes mellitus without complications; Z79.4 Long term (current) use of insulin; Z86.69 Personal history of other diseases of the nervous system and sense organs
CPT/HCPCS: 36415; 80053; 82962; 85027; 86593; 86803; 87389; 94640

== ENCOUNTER 2018-08-21 12:32 | Inpatient (IN) | payer OTHER ==
[2018-08-21 13:24] VITALS: BMI 31.4
--- NOTE | 2018-08-21 15:49 | HP ---
CIWA Score Nausea/Vomitin Muscle Tremors: 2 Anxiety: 2 Agitation: 2 Paroxysmal Sweats: 1-Minimal Palms Moist Orientation: 0-Oriented Tacttile Disturbances: 1-Very Mild Itch/Numbness Auditory Disturbances: 1-Very Mild Visual Disturbances: 0-None Headache: 2-Mild CIWA-Ar Total Score: 13 - Admission Criteria OASAS Guidelines: Admission for Medically Managed Detox: Requires at least one of the followin. CIWA greater than 12 2. Seizures within the past 24 hours 3. Delirium tremens within the past 24 hours 4. Hallucinations within the past 24 hours 5. Acute intervention needed for co occurring medical disorder 6. Acute intervention needed for co occurring psychiatric disorder 7. Severe withdrawal that cannot be handled at a lower level of care (continued vomiting, continued diarrhea, abnormal vital signs) requiring intravenous medication and/or fluids 8. Admission ROS [facility] Chief Complaint: i am here for detox from alcohol,xanax,mmtp 90 mgs/day Allergies/Adverse Reactions: Allergies Allergy/AdvReac Type Severity Reaction Status Date / Time No Known Allergies Allergy Verified 08/21/18 17:11 History of Present Illness: this 47 years old male with alcohol and xanax dependence seeking detox, withdrawal symptom, mmtp 90 mgs/day last medicated today multiple admissions in detox but keep relapsing last detox 06/04/18 to 06/08/18 at [facility] last seizure 08/14/18 withdrawal seizure hypertension,type 2 dm, nicotine dependence 1 pack/day, longest period of sobriety 1 year schizoaffective disorder non compliance Exam Limitations: No Limitations - Ebola screening Have you traveled outside of the country in the last 21 days: No Have you had contact with anyone from an Ebola affected area: No Have you been sick,other than usual withdrawal symptoms: No Do you have a fever: No - Review of Systems Constitutional: Loss of Appetite, Malaise, Night Sweats, Changes in sleep EENT: reports: Nose Congestion Respiratory: reports: No Symptoms reported Cardiac: reports: No Symptoms Reported GI: reports: Nausea : reports: No Symptoms Reported Musculoskeletal: reports: Back Pain, Muscle Pain Integumentary: reports: Dryness Neuro: reports: Headache, Tremors Endocrine: reports: No Symptoms Reported Hematology: reports: No Symptoms Reported Psychiatric: reports: No Sypmtoms Reported, Judgement Intact, Mood/Affect Appropiate, Orientated x3, Agitated, Anxious, other (schzoaffectie disorder) Other Systems: Reviewed and Negative Patient History - Patient Medical History Hx Anemia: No Hx Asthma: Yes (Pt is on MDI) Hx Chronic Obstructive Pulmonary Disease (COPD): No Hx Cancer: No Hx Cardiac Disorders: No Hx Congestive Heart Failure: No Hx Hypertension: Yes (non complaint with meds.) Hx Hypercholesterolemia: No Hx Pacemaker: No HX Cerebrovascular Accident: No Hx Seizures: No Hx Dementia: No Hx Diabetes: Yes (Type II) Hx Gastrointestinal Disorders: No Hx Liver Disease: No Hx Genitourinary Disorders: No Hx Sexually Transmitted Disorders: No Hx Renal Disease (ESRD): No Hx Thyroid Disease: No Hx Human Immunodeficiency Virus (HIV): No (last 2018 negative) Hx Hepatitis C: No Hx Depression: Yes Hx Suicide Attempt: Yes (25 years ago overdose) Hx Bipolar Disorder: Yes Hx Schizophrenia: Yes Other Medical History: no suicidal,no homicidal - Patient Surgical History Past Surgical History: Yes Hx Neurologic Surgery: No Hx Cataract Extraction: Yes (RIGHT EYE legally blind right ) Hx Cardiac Surgery: No Hx Lung Surgery: No Hx Breast Surgery: No Hx Breast Biopsy: No Hx Abdominal Surgery: No Hx Appendectomy: No Hx Cholecystectomy: No Hx Genitourinary Surgery: No Hx Section: No Hx Orthopedic Surgery: No Anesthesia Reaction: No - PPD History Previous Implant?: Yes Documented Results: Negative w/proof Date: 08/25/17 Results: 0 mm PPD to be Administered?: No - Smoking Cessation Smoking history: Current every day smoker Have you smoked in the past 12 months: Yes Aproximately how many cigarettes per day: 10 Hx Chewing Tobacco Use: No Initiated information on smoking cessation: Yes 'Breaking Loose' booklet given: 08/21/18 - Substance & Tx. History Hx Alcohol Use: Yes Hx Substance Use: Yes Substance Use Type: Alcohol, Tranquilizers Hx Substance Use Treatment: Yes ([facility] 06/04/18 to 06/08/18) - Substances Abused Alcohol Route: Oral Frequency: Daily Amount used: 12 of 16 ozs malt liquor Age of first use: 14 Date of Last Use: 08/20/18 Alprazolam (Xanax) Frequency: Daily Amount used: 6 mgs Age of first use: 42 Date of Last Use: 08/20/18 Family Disease History - Family Disease History Family Disease History: Heart Disease: Mother (HTN-), CA: Father ( , etoh, drugs), Other: Mother, Brother (two - alive no problems), Sister (five - alive - no problems) Admission Physical Exam S - Vital Signs Vital Signs: Vital Signs - 24 hr 08/21/18 13:17 Temperature 97.8 F Pulse Rate 82 Respiratory 18 Rate Blood Pressure 165/101 H - Physical General Appearance: Yes: Moderate Distress, Tremorous, Irritable, Sweating, Anxious HEENTM: Yes: Normal ENT Inspection, CARLIN, Pharynx Normal, Other (legallly blind right s/p cararact surgery) Respiratory: Yes: Lungs Clear, Normal Breath Sounds, No Respiratory Distress, Other (asthma history) Neck: Yes: Within Normal Limits, Supple, Trachea in good position Breast: Yes: Within Normal Limits Cardiology: Yes: Within Normal Limits, Regular Rhythm, Regular Rate, S1, S2 Abdominal: Yes: Within Normal Limits, Normal Bowel Sounds, Non Tender, Flat Genitourinary: Yes: Within Normal Limits Musculoskeletal: Yes: Back pain, Muscle Pain Extremities: Yes: Tremors Neurological: Yes: jewelry coater II-XII NML intact, Fully Oriented, Alert, Motor Strength 5/5 Integumentary: Yes: Dry Lymphatic: Yes: Within Normal Limits - Diagnostic (1) Alcohol dependence with uncomplicated withdrawal Current Visit: No Status: Acute (2) Uncomplicated sedative, hypnotic or anxiolytic withdrawal Current Visit: Yes Status: Acute (3) Dehydration Current Visit: No Status: Acute (4) History of seizures Current Visit: No Status: Acute Comment: LAST SEIZURE WAS 1 MONTH AGO (5) Low back pain Current Visit: No Status: Acute Qualifiers: Chronicity: chronic (6) Asthma Current Visit: No Status: Chronic Qualifiers: Asthma severity: mild Asthma persistence: intermittent Asthma complication type: uncomplicated Qualified Code(s): J45.20 - Mild intermittent asthma, uncomplicated (7) DM2 (diabetes mellitus, type 2) Current Visit: No Status: Chronic Qualifiers: 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 (9) Methadone maintenance therapy patient Current Visit: Yes Status: Acute Cleared for Admission S - Detox or Rehab [facility] Level of Care: Medically Managed Detox Regimen/Protocol: Librium S Breath Alcohol Content Breath Alcohol Content: 0 Urine Drug Screen - Results Drug Screen Negative: No Urine Drug Screen Results: BZO-Benzodiazepines, MTD-Methadone Inpatient Rehab Admission - Rehab Decision to Admit Inpatient rehab admission?: No
[2018-08-21] MEDS ORDERED: ACETAMINOPHEN 325 MG TABLET (FP) PO PRN ×2 (16:00)
[2018-08-21] MEDS ORDERED: MELATONIN 5 MG TABLETS PO PRN (16:00)
[2018-08-21] MEDS ORDERED: MAGNESIUM HYDROX 2400MG/30ML ORAL SUSPENSION 30 ML CUP PO PRN (16:00)
[2018-08-21] MEDS ORDERED: MAG HYDROX/AL HYDROX/SIMETH 30 ML UNIT-DOSE CUP PO PRN (16:00)
[2018-08-21] MEDS ORDERED: BISMUTH SUBSALICYLATE 524 MG/30 ML UD PO PRN (16:00)
[2018-08-21] MEDS ORDERED: MAGNESIUM CITRATE 300 ML BOTTLE PO PRN (16:00)
[2018-08-21] MEDS ORDERED: MENTHOL/PHENOL 1 EACH UD MM PRN (16:00)
[2018-08-21] MEDS ORDERED: chlordiazePOXIDE HCL 25 MG CAPSULE PO PRN (16:00)
[2018-08-21] MEDS ORDERED: ALBUTEROL SO4 8 GM HFA INHALER IH PRN (16:05)
[2018-08-21] MEDS: HYDROCHLOROTHIAZIDE 25 MG TABLET (FP) PO SCH (18:38)
[2018-08-21] MEDS: metFORMIN HCL 500 MG TABLET (FP) PO SCH (18:39)
[2018-08-21] MEDS: INSULIN (NOVOLOG) ASPART 100 UNITS/ML 10ML VIAL SQ SCH ×2 (18:39→22:47)
[2018-08-21] MEDS: NICOTINE 21 MG/24 HOURS TOPICAL PATCH TD SCH (18:40)
[2018-08-21] MEDS ORDERED: INSULIN (NOVOLOG) ASPART 100 UNITS/ML 10ML VIAL ONE (21:36)
[2018-08-21] MEDS: chlordiazePOXIDE HCL 25 MG CAPSULE PO SCH (22:46)
[2018-08-21] MEDS: THIAMINE HCL 100 MG TABLET (FP) PO SCH (22:47)
[2018-08-21] MEDS: INSULIN (LEVEMIR) 100 UNITS/ML UNITS SQ SCH (22:49)
[2018-08-22] MEDS: IBUPROFEN 400 MG TABLET (FP) PO PRN (04:52)
[2018-08-22] MEDS: chlordiazePOXIDE HCL 25 MG CAPSULE PO SCH ×4 (05:24→23:20)
[2018-08-22] MEDS: metFORMIN HCL 500 MG TABLET (FP) PO SCH ×2 (06:16→17:23)
[2018-08-22] MEDS: INSULIN (NOVOLOG) ASPART 100 UNITS/ML 10ML VIAL SQ SCH ×4 (06:50→23:25)
[2018-08-22] MEDS ORDERED: METHADONE HCL 10 MG TABLET PO ONE (07:57)
[2018-08-22] MEDS ORDERED: METHADONE 80 MG, METHADONE 10 MG PO ONE (08:15)
[2018-08-22] MEDS ORDERED: METHADONE HCL 10 MG TABLET ONE (08:52)
[2018-08-22] MEDS ORDERED: METHADONE HCL 40 MG DISPERSABLE TABLET ONE (08:52)
--- NOTE | 2018-08-22 10:17 | PN ---
S CIWA - CIWA Score Nausea/Vomitin-Mild Nausea/No Vomiting Muscle Tremors: 3 Anxiety: 3 Agitation: 4-Moderately Restless Paroxysmal Sweats: 3 Orientation: 0-Oriented Tacttile Disturbances: 0-None Auditory Disturbances: 0-None Visual Disturbances: 0-None Headache: 0-None Present CIWA-Ar Total Score: 14 BHS Progress Note (SOAP) Subjective: sweats shakes interrupted sleep anxious restless Objective: 08/22/18 10:15 Vital Signs Temperature 97.2 F L 08/22/18 09:33 Pulse Rate 99 H 08/22/18 09:33 Respiratory Rate 20 08/22/18 09:33 Blood Pressure 152/89 08/22/18 09:33 O2 Sat by Pulse Oximetry (%) Laboratory Tests 08/21/18 08/21/18 08/22/18 17:25 21:31 05:26 POC Glucometer 81 179 130 rest of labs aaox3 ambulating no acute distress Assessment: 08/22/18 10:16 withdrawal sx Plan: continue detox increase fluids labs pending
[2018-08-22] MEDS: HYDROCHLOROTHIAZIDE 25 MG TABLET (FP) PO SCH (10:20)
[2018-08-22] MEDS: PRENATAL VITAMINS W/ FOLIC ACID TABLET (FP) PO SCH (10:20)
[2018-08-22] MEDS: METHOCARBAMOL 500 MG TABLET PO PRN ×3 (10:20→23:20)
[2018-08-22] MEDS: amLODIPine BESYLATE 10 MG TABLET (FP) PO SCH (10:20)
[2018-08-22] MEDS: NICOTINE 21 MG/24 HOURS TOPICAL PATCH TD SCH (10:21)
[2018-08-22 10:53] LABS: ALBUMIN 4.4 g/dl (3.4-5.0); ALK PHOS 92 U/L (45-117); ANION GAP 9 MMOL/L (8-16); BILIRUBIN,TOTAL 0.2 mg/dL (0.2-1); BLOOD UREA NITROGEN 13 mg/dL (7-18); CALCIUM 9.9 mg/dL (8.5-10.1); CHLORIDE 101 mmol/L (98-107); CO2 28 mmol/L (21-32); CREATININE 0.9 mg/dL (0.55-1.3); GLUCOSE,RANDOM 122 mg/dL (74-106); POTASSIUM 4.1 mmol/L (3.5-5.1); SGOT/AST 23 U/L (15-37); SGPT/ALT 41 U/L (13-61); SODIUM 137 mmol/L (136-145); TOT PROT 8.5 g/dl (6.4-8.2)
[2018-08-22 10:58] LABS: HEMATOCRIT 43.4 % (35.4-49); HEMOGLOBIN 14.3 GM/dL (11.7-16.9); MCH 28.5 pg (25.7-33.7); MEAN CELL VOLUME 86.1 fl (80-96); MEAN PLT VOLUME 10.1 fl (7.5-11.1); PLATELET COUNT 273 K/MM3 (134-434); RBC 5.04 M/mm3 (4.00-5.60); RDW 14.9 % (11.9-15.9); WHITE BLOOD COUNT 5.6 K/mm3 (4.0-10.0)
--- NOTE | 2018-08-22 11:07 | CONSULT ---
[facility] Psychiatric Consult - Data Date of interview: 08/22/18 Admission source: [facility] Identifying data: Patient is a 47 year old single male, without children, unemployed, domiciled,and is supported by [facility]. This is one of multiple admissions for patient. Patient admitted to for alcohol and benzodiazepine dependence. Substance Abuse History: Smoking Cessation. Smoking history: Current every day smoker. Have you smoked in the past 12 months: Yes. Aproximately how many cigarettes per day: 10. Hx Chewing Tobacco Use: No. Initiated information on smoking cessation: Yes. 'Breaking Loose' booklet given: 08/21/18. - Substance & Tx. History. Hx Alcohol Use: Yes. Hx Substance Use: Yes. Substance Use Type : Alcohol, Tranquilizers. Hx Substance Use Treatment: Yes ([facility] 06/04/18 to 05/15). - Substances Abused. Alcohol. Route: Oral. Frequency: Daily. Amount used: 12 of 16 ozs malt liquor. Age of first use: 14. Date of Last Use : 08/20/18. Alprazolam (Xanax). Frequency: Daily. Amount used: 6 mgs. Age of first use: 42. Date of Last Use: 08/20/18 Medical History: Asthma, hypertension, diabetes, legally blind in the right eye Psychiatric History: Patient's first psychiatric contact was in his early 20's after he attempted to commit suicide. He was hospitalized at a hospital in [place] and started on psychotropic medications. He reports h/o multiple psychiatric hospitalizations, most recently last month in [facility] after hearing voices telling him to hurt himself. Diagnosis of schizoaffective. He is also known to [facility] and other facilities in [place]. Outpatient psychiatric care is provided at [facility] in [place]. As per external records Mr. Hoffman is currently prescribed zoloft 100mg + seroquel 400mg but reports only taking seroquel. He reports last taking seroquel 400mg on sunday. As per previous entries, patient has accepted abilify 20mg and depakote 500mg BID in the past. Patient is also on methadone maintenance of 90mg daily at the [facility] methdone clinic. Mr. Hoffman reports h/o two suicide attempts via overdose (last SA was approximately 10 years ago). Patient denies current auditory/visual hallucinations and delusions. No psychosis noted. Physical/Sexual Abuse/Trauma History: denies. Mental Status Exam - Mental Status Exam Alert and Oriented to: Time, Place, Person Cognitive Function: Good Patient Appearance: Unkempt (Malodorous) Mood: Euthymic Affect: Appropriate Patient Behavior: Fatigued, Cooperative Speech Pattern: Appropriate Voice Loudness: Normal Thought Process: Goal Oriented Thought Disorder: Not Present Hallucinations: Denies Suicidal Ideation: Denies Homicidal Ideation: Denies Insight/Judgement: Poor Sleep: Fair Appetite: Fair Muscle strength/Tone: Normal Gait/Station: Normal Psychiatric Findings - Problem List ([place] 1, 2,3) (1) Methadone maintenance therapy patient Status: Chronic (2) Uncomplicated sedative, hypnotic or anxiolytic withdrawal Status: Chronic (3) Alcohol dependence with uncomplicated withdrawal Status: Chronic (4) Schizoaffective disorder Status: Chronic Qualifiers: Schizoaffective disorder type: unspecified Qualified Code(s): F25.9 - Schizoaffective disorder, unspecified Comment: As per existing records. - Initial Treatment Plan Initial Treatment Plan: Psychoeducation provided. Detoxification in progress. Will order zoloft 50mg + Seroquel 200mg HS (reduced dosage due to risk of oversedation secondary to drug to drug interaction of detox protocol medication) . Benefits and side effects discussed. Verbal consent given
[2018-08-22] MEDS: hydrOXYzine PAMOATE 25 MG CAPSULE (FP) PO PRN ×2 (11:43→23:20)
[2018-08-22] MEDS ORDERED: QUEtiapine FUMARATE 200 MG TABLET PO SCH (22:00)
[2018-08-22] MEDS: INSULIN (LEVEMIR) 100 UNITS/ML UNITS SQ SCH (23:24)
[2018-08-22] MEDS: THIAMINE HCL 100 MG TABLET (FP) PO SCH (23:26)
[2018-08-23] MEDS ORDERED: METHADONE HCL 40 MG DISPERSABLE TABLET ONE (04:08)
[2018-08-23] MEDS ORDERED: METHADONE HCL 10 MG TABLET ONE (04:09)
[2018-08-23] MEDS ORDERED: METHADONE HCL 40 MG DISPERSABLE TABLET PO SCH (06:00)
[2018-08-23] MEDS: METHADONE 80 MG, METHADONE 10 MG PO SCH (06:17)
[2018-08-23] MEDS: metFORMIN HCL 500 MG TABLET (FP) PO SCH ×2 (06:18→16:55)
[2018-08-23] MEDS: chlordiazePOXIDE HCL 25 MG CAPSULE PO SCH ×3 (06:18→16:56)
[2018-08-23] MEDS: INSULIN (NOVOLOG) ASPART 100 UNITS/ML 10ML VIAL SQ SCH ×4 (06:21→23:47)
--- NOTE | 2018-08-23 09:51 | PN ---
Psychiatric Progress Note Vital Signs: Vital Signs Period Temp Pulse Resp BP Sys/Bellamy Pulse Ox Last 24 Hr 97.9 F-98.6 F 85-104 18-19 111-149/75-96 Date of Session: 08/23/18 Chief Complaint:: "You can increase my seroquel" HPI: This is day two of patient's detox on 6N. Patient admitted for alcohol and benzodiazepine dependence. ROS: Asthma, hypertension, diabetes, legally blind in the right eye Current Medications: Active Medications Generic Name Dose Route Start Last Admin Trade Name Freq PRN Reason Stop Dose Admin Acetaminophen 650 mg 08/21/18 16:00 Tylenol - PO Q6H PRN PAIN LEVEL 4 - 6 Acetaminophen 650 mg 08/21/18 16:00 Tylenol - PO Q6H PRN FEVER Al Hydroxide/Mg Hydroxide 30 ml 08/21/18 16:00 Mylanta Oral Suspension - PO Q6H PRN DYSPEPSIA Albuterol Sulfate 2 puff 08/21/18 16:05 Ventolin Hfa Inhaler - IH Q4H PRN SHORTNESS OF BREATH Amlodipine Besylate 10 mg 08/22/18 10:00 08/22/18 10:20 Norvasc - PO 10 mg DAILY JAGDISH Administration Bismuth Subsalicylate 524 mg 08/21/18 16:00 Pepto-Bismol - PO Q1H PRN DIARRHEA Chlordiazepoxide HCl 10 mg 08/23/18 23:00 Librium - PO 08/24/18 17:01 [id number] JAGDISH Chlordiazepoxide HCl 10 mg 08/24/18 23:00 Librium - PO 08/25/18 23:01 Q12H JAGDISH Chlordiazepoxide HCl 10 mg 08/23/18 23:00 Librium - PO 08/24/18 23:00 Q4H PRN WITHDRAWAL(CONT SUBST) Chlordiazepoxide HCl 25 mg 08/22/18 23:00 08/23/18 06:18 Librium - PO 08/23/18 17:01 25 mg [id number] JAGDISH Administration Chlordiazepoxide HCl 25 mg 08/21/18 16:00 08/21/18 18:32 Librium - PO 08/23/18 23:00 25 mg Q4H PRN Administration WITHDRAWAL(CONT SUBST) Eucalyptus/Menthol/Phenol/Sorbitol 1 each 08/21/18 16:00 Cepastat Lozenge - MM 08/27/18 16:01 Q4H PRN SORE THROAT Hydrochlorothiazide 25 mg 08/21/18 16:15 08/22/18 10:20 Hctz - PO 25 mg DAILY JAGDISH Administration Hydroxyzine Pamoate 25 mg 08/21/18 16:00 08/22/18 23:20 Vistaril - PO 08/27/18 16:01 25 mg Q6H PRN Administration For Anxiety Ibuprofen 400 mg 08/21/18 16:00 08/22/18 04:52 Motrin - PO 400 mg Q6H PRN Administration PAIN LEVEL 1 - 3 Insulin Aspart 0 units 08/21/18 16:30 08/23/18 06:21 Novolog Vial SQ Not Given ACHS [facility] Protocol Insulin Detemir 30 units 08/21/18 22:00 08/22/18 23:24 Levemir Vial SQ 30 units HS JAGDISH Administration Magnesium Citrate 300 ml 08/21/18 16:00 Citroma - PO Q48H PRN CONSTIPATION Magnesium Hydroxide 30 ml 08/21/18 16:00 Milk Of Magnesia - PO PRN PRN CONSTIPATION Melatonin 5 mg 08/21/18 16:00 Melatonin PO HS PRN INSOMNIA Metformin HCl 1,000 mg 08/21/18 16:30 08/23/18 06:18 Glucophage - PO 1,000 mg BIDAC [facility] Administration Methadone HCl 80 mg/ Methadone 90 mg 08/23/18 06:00 08/23/18 06:17 HCl 10 mg PO 08/29/18 05:59 90 mg DAILY@0600 [facility] Administration Methocarbamol 500 mg 08/21/18 16:00 08/22/18 23:20 Robaxin - PO 08/27/18 16:01 500 mg Q6H PRN Administration MUSCLE SPASMS Nicotine 21 mg 08/21/18 17:00 08/22/18 10:21 Nicoderm Patch - TD Not Given DAILY [facility] Multivit/Folic Acid/Iron 1 tab 08/22/18 10:00 08/22/18 10:20 Vitamins (Sjr) - PO 1 tab DAILY JAGDISH Administration Quetiapine Fumarate 200 mg 08/22/18 22:00 08/22/18 23:20 Seroquel - PO 200 mg HS JAGDISH Administration Sertraline HCl 50 mg 08/23/18 10:00 Zoloft - PO DAILY JAGDISH Thiamine HCl 100 mg 08/21/18 22:00 08/22/18 23:26 Vitamin B1 - PO 100 mg HS JAGDISH Administration Medication(s) Change(s): Yes. Will d/c Seroquel 200mg and order Seroquel 300mg HS. Current Side Effect: No Lab tests ordered: No Lab tests reviewed: Yes Provider note:: Patient with a history of schizophrenia. He is currently prescribed seroquel 400mg and zoloft 100mg by his outpatient psychiatrist. During initial consultation yesterday, patient requested a lower dose of seroquel due to risk of oversedation. Patient was ordered seroquel 200mg last night. Patient denies feeling oversedated this morning and is requesting an increase of seroquel. Will d/c seroquel 200mg and order Seroquel 300mg HS. No psychosis noted. Verbal consent given. Total face to face time:: 15 Mental Status Exam - Mental Status Exam Alert and Oriented to: Time, Place, Person Cognitive Function: Good Patient Appearance: Well Groomed Mood: Euthymic Affect: Appropriate Patient Behavior: Cooperative Speech Pattern: Appropriate Voice Loudness: Normal Thought Process: Goal Oriented Thought Disorder: Not Present Hallucinations: Denies Suicidal Ideation: Denies Homicidal Ideation: Denies Insight/Judgement: Poor Sleep: Fair Appetite: Fair Muscle strength/Tone: Normal Gait/Station: Normal Psychiatric Treatment Plan - Problem List (1) Methadone maintenance therapy patient Comment: .. (2) Uncomplicated sedative, hypnotic or anxiolytic withdrawal Comment: .. (3) Alcohol dependence with uncomplicated withdrawal Comment: .. (4) Schizoaffective disorder Qualifiers: Schizoaffective disorder type: unspecified Qualified Code(s): F25.9 - Schizoaffective disorder, unspecified Comment: As per existing records.
[2018-08-23] MEDS: HYDROCHLOROTHIAZIDE 25 MG TABLET (FP) PO SCH (10:41)
[2018-08-23] MEDS: PRENATAL VITAMINS W/ FOLIC ACID TABLET (FP) PO SCH (10:41)
[2018-08-23] MEDS: amLODIPine BESYLATE 10 MG TABLET (FP) PO SCH (10:41)
[2018-08-23] MEDS: SERTRALINE HCL 50 MG TABLET (FP) PO SCH (10:41)
[2018-08-23] MEDS: NICOTINE 21 MG/24 HOURS TOPICAL PATCH TD SCH (10:41)
[2018-08-23] MEDS: METHOCARBAMOL 500 MG TABLET PO PRN ×2 (10:42→22:53)
--- NOTE | 2018-08-23 11:26 | PN ---
[facility] CIWA - CIWA Score Nausea/Vomitin-No Nausea/No Vomiting Muscle Tremors: 2 Anxiety: 3 Agitation: 3 Paroxysmal Sweats: 2 Orientation: 0-Oriented Tacttile Disturbances: 0-None Auditory Disturbances: 0-None Visual Disturbances: 0-None Headache: 0-None Present CIWA-Ar Total Score: 10 S Progress Note (SOAP) Subjective: anxiety restless I need to see psych again sweats Objective: 08/23/18 11:25 Vital Signs Temperature 97.2 F L 08/23/18 10:04 Pulse Rate 91 H 08/23/18 10:04 Respiratory Rate 18 08/23/18 10:04 Blood Pressure 135/79 08/23/18 10:04 O2 Sat by Pulse Oximetry (%) Laboratory Tests 08/21/18 08/21/18 08/22/18 17:25 21:31 05:26 WBC RBC Hgb Hct MCV MCH MCHC RDW Plt Count MPV Sodium Potassium Chloride Carbon Dioxide Anion Gap BUN Creatinine Creat Clearance w eGFR POC Glucometer 81 179 130 Random Glucose Calcium Total Bilirubin AST ALT Alkaline Phosphatase Total Protein Albumin RPR Titer 08/22/18 08/22/18 08/22/18 07:00 07:00 07:00 WBC 5.6 RBC 5.04 Hgb 14.3 Hct 43.4 D MCV 86.1 MCH 28.5 MCHC 33.0 RDW 14.9 Plt Count 273 MPV 10.1 D Sodium 137 Potassium 4.1 Chloride 101 Carbon Dioxide 28 Anion Gap 9 BUN 13 Creatinine 0.9 Creat Clearance w eGFR 90.06 POC Glucometer Random Glucose 122 H Calcium 9.9 Total Bilirubin 0.2 AST 23 ALT 41 Alkaline Phosphatase 92 Total Protein 8.5 H Albumin 4.4 RPR Titer Nonreactive 08/22/18 08/22/18 08/23/18 11:40 16:22 06:15 WBC RBC Hgb Hct MCV MCH MCHC RDW Plt Count MPV Sodium Potassium Chloride Carbon Dioxide Anion Gap BUN Creatinine Creat Clearance w eGFR POC Glucometer 96 96 125 Random Glucose Calcium Total Bilirubin AST ALT Alkaline Phosphatase Total Protein Albumin RPR Titer 08/23/18 10:56 WBC RBC Hgb Hct MCV MCH MCHC RDW Plt Count MPV Sodium Potassium Chloride Carbon Dioxide Anion Gap BUN Creatinine Creat Clearance w eGFR POC Glucometer 163 Random Glucose Calcium Total Bilirubin AST ALT Alkaline Phosphatase Total Protein Albumin RPR Titer aaox3 ambulating no acute distress Assessment: 08/23/18 11:26 withdrawal sx Plan: continue detox increase fluids psych ordered
[2018-08-23] MEDS: chlordiazePOXIDE HCL 10 MG CAPSULE PO SCH (22:52)
[2018-08-23] MEDS: QUEtiapine FUMARATE 300 MG TABLET PO SCH (22:53)
[2018-08-23] MEDS: hydrOXYzine PAMOATE 25 MG CAPSULE (FP) PO PRN (22:53)
[2018-08-23] MEDS: THIAMINE HCL 100 MG TABLET (FP) PO SCH (22:53)
[2018-08-23] MEDS: INSULIN (LEVEMIR) 100 UNITS/ML UNITS SQ SCH (22:55)
[2018-08-23] MEDS ORDERED: chlordiazePOXIDE HCL 10 MG CAPSULE PO PRN (23:00)
[2018-08-24] MEDS ORDERED: METHADONE HCL 10 MG TABLET ONE (04:45)
[2018-08-24] MEDS ORDERED: METHADONE HCL 40 MG DISPERSABLE TABLET ONE (04:45)
[2018-08-24] MEDS: METHADONE 80 MG, METHADONE 10 MG PO SCH (06:21)
[2018-08-24] MEDS: chlordiazePOXIDE HCL 10 MG CAPSULE PO SCH ×4 (06:22→22:40)
[2018-08-24] MEDS: metFORMIN HCL 500 MG TABLET (FP) PO SCH ×2 (06:22→17:28)
[2018-08-24] MEDS: INSULIN (NOVOLOG) ASPART 100 UNITS/ML 10ML VIAL SQ SCH ×4 (07:22→21:47)
[2018-08-24] MEDS: NICOTINE 21 MG/24 HOURS TOPICAL PATCH TD SCH ×2 (10:06→10:07)
[2018-08-24] MEDS: PRENATAL VITAMINS W/ FOLIC ACID TABLET (FP) PO SCH (10:06)
[2018-08-24] MEDS: HYDROCHLOROTHIAZIDE 25 MG TABLET (FP) PO SCH (10:06)
[2018-08-24] MEDS: amLODIPine BESYLATE 10 MG TABLET (FP) PO SCH (10:06)
[2018-08-24] MEDS: SERTRALINE HCL 50 MG TABLET (FP) PO SCH (10:06)
[2018-08-24] MEDS: METHOCARBAMOL 500 MG TABLET PO PRN (10:09)
[2018-08-24] MEDS ORDERED: INSULIN (NOVOLOG) ASPART 100 UNITS/ML 10ML VIAL ONE ×2 (11:36→17:52)
--- NOTE | 2018-08-24 13:58 | PN ---
[facility] Progress Note (SOAP) Subjective: Anxiety, irritability, back pain, sweats and shakes Objective: 08/24/18 13:58 Vital Signs 08/24/18 08/24/18 08:30 09:43 Temperature 98.2 F 98.6 F Pulse Rate 97 H 101 H Respiratory 20 18 Rate Blood Pressure 117/84 143/86 Laboratory Last Values WBC 5.6 K/mm3 (4.0-10.0) 08/22/18 07:00 RBC 5.04 M/mm3 (4.00-5.60) 08/22/18 07:00 Hgb 14.3 GM/dL (11.7-16.9) 08/22/18 07:00 Hct 43.4 % (35.4-49) D 08/22/18 07:00 MCV 86.1 fl (80-96) 08/22/18 07:00 MCH 28.5 pg (25.7-33.7) 08/22/18 07:00 MCHC 33.0 g/dl (32.0-35.9) 08/22/18 07:00 RDW 14.9 % (11.9-15.9) 08/22/18 07:00 Plt Count 273 K/MM3 (134-434) 08/22/18 07:00 MPV 10.1 fl (7.5-11.1) D 08/22/18 07:00 Sodium 137 mmol/L (136-145) 08/22/18 07:00 Potassium 4.1 mmol/L (3.5-5.1) 08/22/18 07:00 Chloride 101 mmol/L (98-107) 08/22/18 07:00 Carbon Dioxide 28 mmol/L (21-32) 08/22/18 07:00 Anion Gap 9 MMOL/L (8-16) 08/22/18 07:00 BUN 13 mg/dL (7-18) 08/22/18 07:00 Creatinine 0.9 mg/dL (0.55-1.3) 08/22/18 07:00 Creat Clearance w eGFR 90.06 (>60) 08/22/18 07:00 POC Glucometer 193 UNITS (80-120) 08/24/18 11:34 Random Glucose 122 mg/dL (74-106) H 08/22/18 07:00 Calcium 9.9 mg/dL (8.5-10.1) 08/22/18 07:00 Total Bilirubin 0.2 mg/dL (0.2-1) 08/22/18 07:00 AST 23 U/L (15-37) 08/22/18 07:00 ALT 41 U/L (13-61) 08/22/18 07:00 Alkaline Phosphatase 92 U/L (45-117) 08/22/18 07:00 Total Protein 8.5 g/dl (6.4-8.2) H 08/22/18 07:00 Albumin 4.4 g/dl (3.4-5.0) 08/22/18 07:00 RPR Titer Nonreactive (NONREACTIVE) 08/22/18 07:00 Labs noted Assessment: 08/24/18 13:58 Withdrawal sx Plan: Continue detox
[2018-08-24] MEDS: QUEtiapine FUMARATE 300 MG TABLET PO SCH (22:40)
[2018-08-24] MEDS: IBUPROFEN 400 MG TABLET (FP) PO PRN (22:40)
[2018-08-24] MEDS: THIAMINE HCL 100 MG TABLET (FP) PO SCH (22:40)
[2018-08-24] MEDS: hydrOXYzine PAMOATE 25 MG CAPSULE (FP) PO PRN (22:40)
[2018-08-24] MEDS: INSULIN (LEVEMIR) 100 UNITS/ML UNITS SQ SCH (22:42)
[2018-08-25] MEDS ORDERED: METHADONE HCL 10 MG TABLET ONE (04:24)
[2018-08-25] MEDS ORDERED: METHADONE HCL 40 MG DISPERSABLE TABLET ONE (04:24)
[2018-08-25] MEDS: METHADONE 80 MG, METHADONE 10 MG PO SCH (06:30)
[2018-08-25] MEDS: metFORMIN HCL 500 MG TABLET (FP) PO SCH (06:55)
[2018-08-25] MEDS: hydrOXYzine PAMOATE 25 MG CAPSULE (FP) PO PRN (06:58)
[2018-08-25] MEDS ORDERED: INSULIN (NOVOLOG) ASPART 100 UNITS/ML 10ML VIAL ONE (07:27)
[2018-08-25] MEDS: INSULIN (NOVOLOG) ASPART 100 UNITS/ML 10ML VIAL SQ SCH (07:29)
--- NOTE | 2018-08-25 09:35 | DS ---
[facility] Detox Discharge Summary Admission Date: 08/21/18 Discharge Date: 08/25/18 - History Present History: Alcohol Dependence, Opioid Dependence, Sedative Dependence - Physical Exam Results Vital Signs: Vital Signs Temperature 97.7 F 08/25/18 08:02 Pulse Rate 90 08/25/18 08:02 Respiratory Rate 18 08/25/18 08:02 Blood Pressure 129/95 08/25/18 08:02 O2 Sat by Pulse Oximetry (%) - Treatment Hospital Course: Detox Protocol Followed, Detoxed Safely, Responded well, Discharged Condition Good, Rehab Referral Accepted - Medication Discharge Medications: Ambulatory Orders Methadone [Dolophine -] 90 mg PO DAILY 08/27/17 Albuterol Sulfate Inhaler - [Ventolin HFA Inhaler -] 2 puff IH Q4H PRN #1 inhaler 09/07/17 Hydrochlorothiazide 25 mg PO DAILY #30 mg 09/07/17 metFORMIN HCL [Glucophage -] 1,000 mg PO BIDAC 30 Days #60 tablet 09/07/17 Aripiprazole [Abilify -] 20 mg PO DAILY #30 tablet 09/09/17 Divalproex [Depakote -] 500 mg PO BID #60 tablet.ec 09/09/17 Quetiapine Fumarate [Seroquel] 100 mg PO HS 06/06/18 Amlodipine Besylate [Norvasc -] 10 mg PO DAILY 08/21/18 Insulin Glargine,Hum.rec.anlog [Lantus] 30 unit SQ HS 08/21/18 Sertraline HCl [Zoloft] 50 mg PO DAILY 08/22/18 - Diagnosis (1) Alcohol dependence with uncomplicated withdrawal Current Visit: Yes Status: Chronic (2) Methadone maintenance therapy patient Current Visit: Yes Status: Chronic (3) Uncomplicated sedative, hypnotic or anxiolytic withdrawal Current Visit: Yes Status: Chronic (4) Schizoaffective disorder Current Visit: Yes Status: Chronic Qualifiers: Schizoaffective disorder type: unspecified Qualified Code(s): F25.9 - Schizoaffective disorder, unspecified (5) History of seizures Current Visit: No Status: Suspected (6) Low back pain Current Visit: Yes Status: Acute Qualifiers: Chronicity: chronic Back pain laterality: unspecified (7) Substance induced mood disorder Current Visit: No Status: Acute (8) Substance-induced sleep disorder Current Visit: No Status: Acute (9) Substance-induced sleep disorder Current Visit: No Status: Acute (10) Asthma Current Visit: Yes Status: Chronic Qualifiers: Asthma severity: mild Asthma persistence: intermittent Asthma complication type: uncomplicated Qualified Code(s): J45.20 - Mild intermittent asthma, uncomplicated (11) DM2 (diabetes mellitus, type 2) Current Visit: Yes Status: Chronic Qualifiers: Diabetes mellitus [facility] insulin use: with long term care pharmacist use Diabetes mellitus complication status: without complication Qualified Code(s): E11.9 - Type 2 diabetes mellitus without complications; Z79.4 - alf (current) use of insulin (12) Dry skin dermatitis Current Visit: Yes Status: Chronic (13) Hypertension Current Visit: Yes Status: Chronic Qualifiers: Hypertension type: essential hypertension Qualified Code(s): I10 - Essential (primary) hypertension (14) Obese Current Visit: Yes Status: Chronic Qualifiers: Obesity type: unspecified obesity type Obesity classification: adult class 1 (BMI 30 - 34.9) Serious obesity comorbidity presence: with serious comorbidity - AMA Did Patient Leave Against Medical Advice: No (referred to [facility] out patient program)
[2018-08-25 10:00] VITALS: BP 119/90; PULSE 89; TEMP 97.9
[2018-08-25] MEDS: PRENATAL VITAMINS W/ FOLIC ACID TABLET (FP) PO SCH (10:16)
[2018-08-25] MEDS: HYDROCHLOROTHIAZIDE 25 MG TABLET (FP) PO SCH (10:16)
[2018-08-25] MEDS: amLODIPine BESYLATE 10 MG TABLET (FP) PO SCH (10:16)
[2018-08-25] MEDS: SERTRALINE HCL 50 MG TABLET (FP) PO SCH (10:16)
[2018-08-25] MEDS: NICOTINE 21 MG/24 HOURS TOPICAL PATCH TD SCH (10:17)
[2018-08-25] MEDS: chlordiazePOXIDE HCL 10 MG CAPSULE PO SCH (10:17)
== END 2018-08-25 10:14 | disposition home or self-care (01) | DRG 773 ==
LOC: YASAS 12:32 → Y6N 15:51
PROVIDERS: ADMIT Surgery; ATTEND Surgery
PROC: HZ2ZZZZ Detoxification Services for Substance Abuse Treatment (ICD-10-PCS; principal; 2018-08-21)
DX: F10.230 Alcohol dependence with withdrawal, uncomplicated (principal); F13.230 Sedative, hypnotic or anxiolytic dependence with withdrawal, uncomplicated; F11.20 Opioid dependence, uncomplicated; F25.9 Schizoaffective disorder, unspecified; F19.24 Other psychoactive substance dependence with psychoactive substance-induced mood disorder; F19.282 Other psychoactive substance dependence with psychoactive substance-induced sleep disorder; I10 Essential (primary) hypertension; J45.20 Mild intermittent asthma, uncomplicated; E11.9 Type 2 diabetes mellitus without complications; Z79.4 Long term (current) use of insulin; L85.3 Xerosis cutis; M54.5 Low back pain; H54.40 Blindness, one eye, unspecified eye; E66.9 Obesity, unspecified; Z68.31 Body mass index [BMI] 31.0-31.9, adult; Z86.69 Personal history of other diseases of the nervous system and sense organs; Z91.5 Personal history of self-harm
CPT/HCPCS: 36415; 80053; 82962; 85027; 86593

== ENCOUNTER 2019-06-18 11:08 | Inpatient (IN) | payer OTHER ==
[2019-06-18 11:41] VITALS: BMI 34.5
--- NOTE | 2019-06-18 12:14 | HP ---
CIWA Score Nausea/Vomitin-No Nausea/No Vomiting Muscle Tremors: 3 Anxiety: 6 Agitation: 1-Slight > Activity Paroxysmal Sweats: No Perspiration Orientation: 1-Uncertain about Date Tacttile Disturbances: 0-None Auditory Disturbances: 0-None Visual Disturbances: 0-None Headache: 0-None Present CIWA-Ar Total Score: 11 - Admission Criteria OASAS Guidelines: Admission for Medically Managed Detox: Requires at least one of the followin. CIWA greater than 12 2. Seizures within the past 24 hours 3. Delirium tremens within the past 24 hours 4. Hallucinations within the past 24 hours 5. Acute intervention needed for co occurring medical disorder 6. Acute intervention needed for co occurring psychiatric disorder 7. Severe withdrawal that cannot be handled at a lower level of care (continued vomiting, continued diarrhea, abnormal vital signs) requiring intravenous medication and/or fluids 8. Admitting History and Physical - Admission History of Present Illness: 48 years old male with alcohol and xanax dependence seeking detox,withdrawal symptom, He is on [facility] OTP 90 mgs/day last medicated today multiple admissions in detox but keep relapsing. last detox 06/04/18 to 06/08/18 at [facility] last seizure 08/14/18 withdrawal seizure PMH: HTN, AODM nicotine dependence 1 pack/day, longest period of sobriety 1 year schizoaffective disorder non compliance he endorses panic disorder but just now seeing psychiatrist that is working him up. He is drinking 10 16 oz beers malt liquor daily, sometimes vodka 1 pint occasionally, last drank on sunday. He is using 5 2mg tabs of Xanax daily, street pills. He is domiciled in the [facility]. Counselor onsite. 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 History of Recent Travel: No Admission ROS BHS - HPI Allergies/Adverse Reactions: Allergies Allergy/AdvReac Type Severity Reaction Status Date / Time No Known Allergies Allergy Verified 06/18/19 11:24 Exam Limitations: No Limitations - Ebola screening Have you traveled outside of the country in the last 21 days: No Have you had contact with anyone from an Ebola affected area: No Have you been sick,other than usual withdrawal symptoms: No Do you have a fever: No - Review of Systems Constitutional: Chills EENT: reports: No Symptoms Reported Respiratory: reports: No Symptoms reported Cardiac: reports: No Symptoms Reported GI: reports: No Symptoms Reported : reports: No Symptoms Reported Musculoskeletal: reports: No Symptoms Reported Integumentary: reports: No Symptoms Reported Neuro: reports: No Symptoms reported Endocrine: reports: No Symptoms Reported Hematology: reports: No Symptoms Reported Psychiatric: reports: Judgement Intact, Mood/Affect Appropiate, Orientated x3 Other Systems: Reviewed and Negative Patient History - Patient Medical History Hx Anemia: No Hx Asthma: Yes (Pt is on MDI) Hx Chronic Obstructive Pulmonary Disease (COPD): No Hx Cancer: No Hx Cardiac Disorders: No Hx Congestive Heart Failure: No Hx Hypertension: Yes (non complaint with meds.) Hx Hypercholesterolemia: No Hx Pacemaker: No HX Cerebrovascular Accident: No Hx Seizures: No Hx Dementia: No Hx Diabetes: Yes (Type II) Hx Gastrointestinal Disorders: No Hx Liver Disease: No Hx Genitourinary Disorders: No Hx Sexually Transmitted Disorders: No Hx Renal Disease (ESRD): No Hx Thyroid Disease: No Hx Human Immunodeficiency Virus (HIV): No (last 2018 negative) Hx Hepatitis C: No Hx Depression: Yes Hx Suicide Attempt: Yes (25 years ago overdose) Hx Bipolar Disorder: Yes Hx Schizophrenia: Yes - Patient Surgical History Past Surgical History: Yes Hx Neurologic Surgery: No Hx Cataract Extraction: Yes (RIGHT EYE legally blind right ) Hx Cardiac Surgery: No Hx Lung Surgery: No Hx Breast Surgery: No Hx Breast Biopsy: No Hx Abdominal Surgery: No Hx Appendectomy: No Hx Cholecystectomy: No Hx Genitourinary Surgery: No Hx Section: No Hx Orthopedic Surgery: No Anesthesia Reaction: No - PPD History Previous Implant?: Yes Documented Results: Negative w/o proof Implanted On Prior R Admission?: Yes Date: 08/25/17 Results: 0 mm PPD to be Administered?: Yes - Smoking Cessation Smoking history: Current every day smoker Have you smoked in the past 12 months: Yes Aproximately how many cigarettes per day: 10 Hx Chewing Tobacco Use: No Initiated information on smoking cessation: Yes 'Breaking Loose' booklet given: 06/18/19 - Substance & Tx. History Hx Alcohol Use: Yes Hx Substance Use: No Substance Use Type: Alcohol, Tranquilizers Hx Substance Use Treatment: No - Substances abused Alcohol Substance route: Oral Frequency: Daily Amount used: 10 cans of malt liquor Age of first use: 14 Date of last use: 06/17/19 Alprazolam (Xanax) Other (specify): 2mg both sniff and crush Substance route: Oral Amount used: 4 pills Age of first use: 38 Date of last use: 06/17/19 Admission Physical Exam BHS - Vital Signs Vital Signs: Vital Signs - 24 hr 06/18/19 11:35 Temperature 98.3 F Pulse Rate 113 H Respiratory 18 Rate Blood Pressure 167/98 - Physical General Appearance: Yes: Mild Distress, Alcohol on Breath, Irritable, Sweating, Anxious HEENTM: Yes: EOMI, Hearing grossly Normal, Normal ENT Inspection, Normocephalic , Normal Voice, CARLIN, Pharynx Normal, Tm's normal Respiratory: Yes: Chest Non-Tender, Lungs Clear, Normal Breath Sounds, No Respiratory Distress, No Accessory Muscle Use Neck: Yes: No masses,lesions,Nodules, Supple, Trachea in good position Breast: Yes: Within Normal Limits Cardiology: Yes: Regular Rhythm, S1, S2, Tachycardia Abdominal: Yes: Non Tender, Flat, Soft, Increased Bowel Sounds, Protuberent Genitourinary: Yes: Within Normal Limits Back: Yes: Normal Inspection Musculoskeletal: Yes: full range of Motion, Gait Steady, Pelvis Stable Extremities: Yes: Normal Capillary Refill, Normal Inspection, Normal Range of Motion, Non-Tender Neurological: Yes: shake out worker II-XII NML intact, Fully Oriented, Alert, Motor Strength 5/5, Normal Mood/Affect, Normal Response Integumentary: Yes: Normal Color, Warm, Other (dry xerotic skin) Lymphatic: Yes: Within Normal Limits - Diagnostic (1) Substance-induced sleep disorder Current Visit: Yes Status: Acute (2) Alcohol dependence with uncomplicated withdrawal Current Visit: Yes Status: Chronic Comment: .. (3) Asthma Current Visit: Yes Status: Chronic Qualifiers: Asthma severity: mild Asthma persistence: intermittent Asthma complication type: uncomplicated Qualified Code(s): J45.20 - Mild intermittent asthma, uncomplicated (4) DM2 (diabetes mellitus, type 2) Current Visit: Yes Status: Chronic Qualifiers: Diabetes mellitus half-way insulin use: with buttermaker continuous churn use Diabetes mellitus complication status: without complication Qualified Code(s): E11.9 - Type 2 diabetes mellitus without complications; Z79.4 - termination clerk (current) use of insulin (5) Dry skin dermatitis Current Visit: Yes Status: Chronic (6) Hypertension Current Visit: Yes Status: Chronic Qualifiers: Hypertension type: essential hypertension Qualified Code(s): I10 - Essential (primary) hypertension (7) Methadone maintenance therapy patient Current Visit: Yes Status: Chronic Comment: .. (8) Obese Current Visit: Yes Status: Chronic Qualifiers: Obesity type: unspecified obesity type Obesity classification: adult class 1 (BMI 30 - 34.9) Serious obesity comorbidity presence: with serious comorbidity (9) Schizoaffective disorder Current Visit: Yes Status: Chronic Qualifiers: Schizoaffective disorder type: unspecified Qualified Code(s): F25.9 - Schizoaffective disorder, unspecified Comment: As per existing records. (10) History of seizures Current Visit: Yes Status: Suspected Comment: LAST SEIZURE WAS 1 MONTH AGO Screened but not Admitted - Documentation of Visit Screened but not Admitted: No Breathalyzer - Breathalyzer Breathalyzer: 0.007 Urine Drug Screen - Test Device Lot number: [id number] Expiration date: 12/25/20 - Control Is test valid?: Yes - Results Drug screen NEGATIVE: No Urine drug screen results: MTD-Methadone, BZO-Benzodiazepines Inpatient Rehab Admission - Rehab Decision to Admit Inpatient rehab admission?: No
[2019-06-18] MEDS ORDERED: MENTHOL/PHENOL 1 EACH UD MM PRN (12:20)
[2019-06-18] MEDS ORDERED: MELATONIN 5 MG TABLETS PO PRN (12:20)
[2019-06-18] MEDS ORDERED: IBUPROFEN 400 MG TABLET (FP) PO PRN (12:20)
[2019-06-18] MEDS ORDERED: ACETAMINOPHEN 325 MG TABLET (FP) PO PRN ×2 (12:20)
[2019-06-18] MEDS ORDERED: METHOCARBAMOL 500 MG TABLET PO PRN (12:20)
[2019-06-18] MEDS ORDERED: BISMUTH SUBSALICYLATE 524 MG/30 ML UD PO PRN (12:20)
[2019-06-18] MEDS ORDERED: MAG HYDROX/AL HYDROX/SIMETH 30 ML UNIT-DOSE CUP PO PRN (12:20)
[2019-06-18] MEDS ORDERED: MAGNESIUM HYDROX 2400MG/30ML ORAL SUSPENSION 30 ML CUP PO PRN (12:20)
[2019-06-18] MEDS ORDERED: hydrOXYzine PAMOATE 25 MG CAPSULE (FP) PO PRN (12:20)
[2019-06-18] MEDS ORDERED: MAGNESIUM CITRATE 300 ML BOTTLE PO PRN (12:20)
[2019-06-18] MEDS ORDERED: ALBUTEROL SO4 HFA INHALER IH PRN (12:22)
[2019-06-18] MEDS: amLODIPine BESYLATE 10 MG TABLET (FP) PO SCH (13:55)
[2019-06-18] MEDS: chlordiazePOXIDE HCL 25 MG CAPSULE PO PRN (13:55)
[2019-06-18] MEDS: HYDROCHLOROTHIAZIDE 25 MG TABLET (FP) PO SCH (13:56)
[2019-06-18] MEDS: chlordiazePOXIDE HCL 25 MG CAPSULE PO SCH ×2 (17:30→22:57)
[2019-06-18] MEDS: metFORMIN HCL 500 MG TABLET (FP) PO SCH (17:31)
[2019-06-18 17:46] LABS: HEMATOCRIT 36.1 % (35.4-49); HEMOGLOBIN 12.7 GM/dL (11.7-16.9); MCH 31.9 pg (25.7-33.7); MCHC 35.2 g/dl (32.0-35.9); MEAN CELL VOLUME 90.6 fl (80-96); MEAN PLT VOLUME 9.6 fl (7.5-11.1); PLATELET COUNT 247 K/MM3 (134-434); RBC 3.98 M/mm3 (4.00-5.60); RDW 13.8 % (11.9-15.9); WHITE BLOOD COUNT 5.3 K/mm3 (4.0-10.0)
[2019-06-18 18:09] LABS: ALBUMIN 3.9 g/dl (3.4-5.0); BILIRUBIN,TOTAL 0.7 mg/dL (0.2-1); BLOOD UREA NITROGEN 7.2 mg/dL (7-18); CALCIUM 9.4 mg/dL (8.5-10.1); POTASSIUM 4.1 mmol/L (3.5-5.1); TOT PROT 7.8 g/dl (6.4-8.2)
[2019-06-18] MEDS: VITAMINS A AND D TOPICAL OINTMENT 60 GM TUBE TP SCH (19:49)
[2019-06-18] MEDS ORDERED: QUEtiapine FUMARATE 400 MG TABLET PO SCH (22:00)
[2019-06-18] MEDS: THIAMINE HCL 100 MG TABLET (FP) PO SCH (22:15)
[2019-06-18] MEDS ORDERED: QUEtiapine FUMARATE 200 MG TABLET PO SCH (23:00)
[2019-06-19] MEDS: VITAMINS A AND D TOPICAL OINTMENT 60 GM TUBE TP SCH ×4 (01:25→17:06)
[2019-06-19] MEDS: chlordiazePOXIDE HCL 25 MG CAPSULE PO SCH ×4 (05:59→23:58)
[2019-06-19] MEDS: INSULIN SLIDING SCALE (NOVOLOG) 1 VIAL SQ SCH ×3 (06:56→17:03)
[2019-06-19] MEDS ORDERED: INSULIN SLIDING SCALE (NOVOLOG) 1 VIAL SQ ONE (06:58)
[2019-06-19] MEDS: metFORMIN HCL 500 MG TABLET (FP) PO SCH ×2 (07:02→17:01)
--- NOTE | 2019-06-19 09:20 | CONSULT ---
[facility] Psychiatric Consult - Data Date of interview: 06/19/19 Admission source: [facility] Identifying data: Patient is a 48 year old single male, without children, unemployed, domiciled, and is supported by [facility]. This is one of multiple admissons for patient. Patient admitted to for alcohol and benzodiazepine dependence. Substance Abuse History: Smoking Cessation. Smoking history: Current every day smoker. Have you smoked in the past 12 months: Yes. Aproximately how many cigarettes per day: 10. Hx Chewing Tobacco Use: No. Initiated information on smoking cessation: Yes. 'Breaking Loose' booklet given: 06/18/19. - Substance & Tx. History. Hx Alcohol Use: Yes. Hx Substance Use: No. Substance Use Type : Alcohol, Tranquilizers. Hx Substance Use Treatment: No. - Substances abused. Alcohol. Substance route: Oral. Frequency: Daily. Amount used: 10 cans of malt liquor. Age of first use: 14. Date of last use: 06/17/19. Alprazolam (Xanax). Other (specify): 2mg both sniff and crush. Substance route : Oral. Amount used: 4 pills. Age of first use: 38. Date of last use: Medical History: Asthma, hypertension, diabetes, legally blind in the right eye Psychiatric History: Patient's first psychiatric contact was in his early 20's after an attempted suicide attempt. He was hospitalized at a hospital in [place] and started on psychotropic medications. Mr. Hoffman reports h/o multiple psychiatric hospitalizations, most recently six months ago at [facility] in [place] after reporting depressive symptoms. Diagnosis of schizoaffective disorder. He is also known to [facility] and other facilities in [place]. Patient states that he just started being followed by the ACT team last month. Patient unsure of his medications prescribed. [facility] pharmacy contacted at [phone] and able to speak to pharmacy staff. Patient received a prescription of the following medications: Seroquel 400mg HS (14 tablets on ), Celexa 10mg daily (#30 tablets 06/14/19), Trazodone 50mg HS (#30 tablets on 06/14/19), and Depakote 500mg ER BID ( #60 tablets 06/14/19). Reports most recently taking his medications three days ago. Mr. Hoffman reports h/o two suicide attempts via overdose (last SA was approximately 10 years ago). Patient denies current auditory/visual hallucinations and delusions. No psychosis noted. Physical/Sexual Abuse/Trauma History: denies. Additional Comment: On methadone 90mg daily. Mental Status Exam - Mental Status Exam Alert and Oriented to: Time, Place, Person Cognitive Function: Good Patient Appearance: Well Groomed Mood: Withdrawn Affect: Mood Congruent Patient Behavior: Fatigued, Cooperative Speech Pattern: Appropriate Voice Loudness: Normal Thought Process: Intact, Goal Oriented Thought Disorder: Not Present Hallucinations: Denies Suicidal Ideation: Denies Homicidal Ideation: Denies Insight/Judgement: Poor Sleep: Poorly Appetite: Fair Muscle strength/Tone: Normal Gait/Station: Normal Psychiatric Findings - Problem List ([place] 1, 2,3) (1) Substance-induced sleep disorder Status: Acute (2) Alcohol dependence with uncomplicated withdrawal Status: Acute Comment: .. (3) Methadone maintenance therapy patient Status: Chronic Comment: .. (4) Schizoaffective disorder Status: Chronic Qualifiers: Schizoaffective disorder type: unspecified Qualified Code(s): F25.9 - Schizoaffective disorder, unspecified Comment: As per existing records. - Initial Treatment Plan Initial Treatment Plan: Psychoeducation provided. Detoxification in progress. [facility] pharmacy contacted at [phone] and able to speak to pharmacy staff. Patient received a prescription of the following medications: Seroquel 400mg HS (14 tablets on 06/14/19), Celexa 10mg daily (#30 tablets 06/14/19), Trazodone 50mg HS (#30 tablets on 06/14/19), and Depakote 500mg ER BID ( #60 tablets ). Will order Celexa 10mg + Depakote 500mg ER BID + Seroquel 200mg HS ( reduced as patient received 400mg last night and reported feeling lethargic this morning). Valproic acid level ordered. Liver enzymes within normal limit. Willl hold Trazodone 50mg HS. Benefits and side effects discussed. Verbal consent given.
[2019-06-19] MEDS ORDERED: METHADONE HCL 10 MG TABLET ONE (09:33)
[2019-06-19] MEDS ORDERED: METHADONE HCL 40 MG DISPERSABLE TABLET ONE (09:33)
[2019-06-19] MEDS ORDERED: PRENATAL VITAMINS W/ FOLIC ACID TABLET (FP) PO SCH (10:00)
[2019-06-19] MEDS ORDERED: NICOTINE 14 MG/24 HOURS TOPICAL PATCH TD SCH (10:00)
[2019-06-19] MEDS ORDERED: METHADONE HCL 40 MG DISPERSABLE TABLET PO SCH (10:00)
[2019-06-19] MEDS ORDERED: METHADONE 80 MG, METHADONE 10 MG PO SCH (10:00)
[2019-06-19] MEDS ORDERED: CITALOPRAM HYDROBROMIDE 10 MG TABLET PO SCH (10:00)
[2019-06-19] MEDS: HYDROCHLOROTHIAZIDE 25 MG TABLET (FP) PO SCH (10:06)
[2019-06-19] MEDS: amLODIPine BESYLATE 10 MG TABLET (FP) PO SCH (10:06)
--- NOTE | 2019-06-19 11:39 | PN ---
S CIWA - CIWA Score Nausea/Vomitin-No Nausea/No Vomiting Muscle Tremors: 4-Moderate,w/Arms Extend Anxiety: 3 Agitation: 0-Normal Activity Paroxysmal Sweats: 2 Orientation: 0-Oriented Tacttile Disturbances: 0-None Auditory Disturbances: 0-None Visual Disturbances: 1-Very Mild Sensitivity Headache: 2-Mild CIWA-Ar Total Score: 12 BHS Progress Note (SOAP) Subjective: 48 years old male admitted on 06/18/19 for alcohol and benzo withdrawal sx management treating with librium detox regiment feeling tired today resting in bed limited conversation with staff prefers to stay in bed today Objective: 06/19/19 12:16 Vital Signs Temperature 97.1 F L 06/19/19 09:16 Pulse Rate 108 H 06/19/19 09:16 Respiratory Rate 18 06/19/19 09:16 Blood Pressure 128/86 06/19/19 09:16 O2 Sat by Pulse Oximetry (%) Laboratory Last Values WBC 5.3 K/mm3 (4.0-10.0) 06/18/19 12:15 RBC 3.98 M/mm3 (4.00-5.60) L 06/18/19 12:15 Hgb 12.7 GM/dL (11.7-16.9) 06/18/19 12:15 Hct 36.1 % (35.4-49) D 06/18/19 12:15 MCV 90.6 fl (80-96) 06/18/19 12:15 MCH 31.9 pg (25.7-33.7) D 06/18/19 12:15 MCHC 35.2 g/dl (32.0-35.9) 06/18/19 12:15 RDW 13.8 % (11.9-15.9) 06/18/19 12:15 Plt Count 247 K/MM3 (134-434) 06/18/19 12:15 MPV 9.6 fl (7.5-11.1) 06/18/19 12:15 Sodium 136 mmol/L (136-145) 06/18/19 12:15 Potassium 4.1 mmol/L (3.5-5.1) 06/18/19 12:15 Chloride 98 mmol/L (98-107) 06/18/19 12:15 Carbon Dioxide 27 mmol/L (21-32) 06/18/19 12:15 Anion Gap 11 MMOL/L (8-16) 06/18/19 12:15 BUN 7.2 mg/dL (7-18) 06/18/19 12:15 Creatinine 1.0 mg/dL (0.55-1.3) 06/18/19 12:15 Est GFR (CKD-EPI)AfAm 101.98 06/18/19 12:15 Est GFR (CKD-EPI)NonAf 87.99 06/18/19 12:15 POC Glucometer 272 UNITS (80-120) 06/19/19 05:57 Random Glucose 377 mg/dL (74-106) H 06/18/19 12:15 Calcium 9.4 mg/dL (8.5-10.1) 06/18/19 12:15 Total Bilirubin 0.7 mg/dL (0.2-1) 06/18/19 12:15 AST 25 U/L (15-37) 06/18/19 12:15 ALT 53 U/L (13-61) 06/18/19 12:15 Alkaline Phosphatase 111 U/L (45-117) 06/18/19 12:15 Total Protein 7.8 g/dl (6.4-8.2) 06/18/19 12:15 Albumin 3.9 g/dl (3.4-5.0) 06/18/19 12:15 RPR Titer Nonreactive (NONREACTIVE) 06/18/19 12:15 HIV 1&2 Antibody Screen Negative 06/19/19 08:00 HIV P24 Antigen Negative 06/19/19 08:00 lab noted long history of diabetes reports none adherence with antiglycemic medication while drinking alcohol order bgm bid ac 06/19/19 12:17 06/19/19 12:21 Assessment: 06/19/19 12:19 alcohol and benzo withdrawal 06/19/19 12:19 diabetes II Plan: librium regiment bgm with insulin scale
[2019-06-19] MEDS ORDERED: FLU VACCINE QUAD 60 MCG/0.5 ML (MDV 19-20) IM ONE (12:00)
[2019-06-19] MEDS: chlordiazePOXIDE HCL 25 MG CAPSULE PO PRN (12:36)
[2019-06-19] MEDS: DIVALPROEX NA *ER* EXTEND REL 500 MG TABLET.SA (FP) PO SCH ×2 (13:43→23:57)
[2019-06-19] MEDS ORDERED: ARIPiprazole 10 MG TABLET PO SCH (14:00)
[2019-06-19 17:11] VITALS: BP 131/88; PULSE 113; TEMP 98.5
[2019-06-19] MEDS ORDERED: ALBUTEROL SO4 2.5/IPRATROPIUM 0.5 INH SOL 3 ML VIAL.NEB. NEB ONE (17:36)
--- NOTE | 2019-06-19 17:46 | PN ---
S Progress Note (SOAP) Assessment: 06/19/19 17:43 Called by RN to eval pt for SOB, wheezing Pt states that he has been wheezing w/ productive cough and it is worsened today. he states this initially started 1 week ago. he denies CP, dizziness, headache. s/p ventolin puff x 2 Wheezes auscultated throughout b/l lungs. O2 sat : 90% on RA Cardio: S1S2 no mrg, tachycardic 111 Will give duonebs, transfer to [facility] ED for further evaluation of shortness of breath. sign out given to ED provider 06/19/19 17:51 06/19/19 17:52
--- NOTE | 2019-06-19 18:45 | PN ---
Teaching Attending Note Name of Resident: Cheyenne Estrella ATTENDING PHYSICIAN STATEMENT I saw and evaluated the patient. I reviewed the resident's note and discussed the case with the resident. I agree with the resident's findings and plan as documented. SUBJECTIVE: pt c/o SOB OBJECTIVE: resp : wheezing throughout lung [place], O2sat 90% on RA Vital Signs - 24 hr 06/18/19 06/19/19 06/19/19 21:31 03:30 07:07 Temperature 97.8 F 97.1 F L Pulse Rate 101 H 98 H Respiratory 18 18 18 Rate Blood Pressure 137/82 122/88 06/19/19 06/19/19 06/19/19 09:16 13:35 17:10 Temperature 97.1 F L 97.6 F 98.5 F Pulse Rate 108 H 107 H 113 H Respiratory 18 18 17 Rate Blood Pressure 128/86 148/100 131/88 ASSESSMENT AND PLAN:Asthma exacerbation :administer Duoneb and transfer to [facility] ED for further evaluation.
[2019-06-19] MEDS ORDERED: QUEtiapine FUMARATE 200 MG TABLET PO SCH (23:00)
[2019-06-19] MEDS: THIAMINE HCL 100 MG TABLET (FP) PO SCH (23:57)
[2019-06-20] MEDS: VITAMINS A AND D TOPICAL OINTMENT 60 GM TUBE TP SCH
[2019-06-20] MEDS ORDERED: chlordiazePOXIDE HCL 25 MG CAPSULE PO SCH (05:00)
[2019-06-21] MEDS ORDERED: chlordiazePOXIDE HCL 10 MG CAPSULE PO PRN
[2019-06-21] MEDS ORDERED: chlordiazePOXIDE HCL 10 MG CAPSULE PO SCH (05:00)
[2019-06-22] MEDS ORDERED: chlordiazePOXIDE HCL 10 MG CAPSULE PO SCH (05:00)
[2019-06-23] MEDS ORDERED: chlordiazePOXIDE HCL 10 MG CAPSULE PO ONE (05:00)
== END 2019-06-19 11:55 | disposition short-term general hospital (02) | DRG 773 ==
LOC: YASAS 11:08 → Y3N 13:08
PROVIDERS: ADMIT Allergy & Immunology; ATTEND Allergy & Immunology
PROC: HZ2ZZZZ Detoxification Services for Substance Abuse Treatment (ICD-10-PCS; principal; 2019-06-18)
DX: F10.230 Alcohol dependence with withdrawal, uncomplicated (principal); F13.230 Sedative, hypnotic or anxiolytic dependence with withdrawal, uncomplicated; F11.20 Opioid dependence, uncomplicated; F17.210 Nicotine dependence, cigarettes, uncomplicated; F19.282 Other psychoactive substance dependence with psychoactive substance-induced sleep disorder; F25.9 Schizoaffective disorder, unspecified; F31.9 Bipolar disorder, unspecified; J45.901 Unspecified asthma with (acute) exacerbation; G40.909 Epilepsy, unspecified, not intractable, without status epilepticus; I10 Essential (primary) hypertension; E11.9 Type 2 diabetes mellitus without complications; Z79.4 Long term (current) use of insulin; H54.61 Unqualified visual loss, right eye, normal vision left eye; L85.3 Xerosis cutis; E66.9 Obesity, unspecified
CPT/HCPCS: 36415; 80053; 80164; 82962; 85027; 86593; 87389; 94640; G0008; Q2036

== ENCOUNTER 2019-06-19 18:35 | Inpatient (IN) | payer OTHER ==
[2019-06-19] MEDS ORDERED: predniSONE 20 MG TABLET (UD) PO ONE (19:11)
--- NOTE | 2019-06-19 19:20 | PDOC ---
History of Present Illness - General Chief Complaint: Asthma Stated Complaint: ASTHMA Time Seen by Provider: 06/19/19 18:51 - History of Present Illness Initial Comments: Stu Hoffman is a 48yo man with a PMH of HTN, NIDDM, asthma, benzo/alcohol abuse who presents from detox with wheezing and oxygen saturation of 90% on RA earlier this evening. Mr Hoffman was treated with an albuterol MDI and then given two duoneb treatments, but he was then sent to the ED for additional evaluation. Mr Hoffman states that he has felt short of breath on and off recently, mostly with exercise. This is typical of his asthma. He reports using an inhaler every morning and evening, but he does not believe that he has any as-needed inhaler to use at home. He does not use any medication for symptoms generally. He denies any recent fevers or chills but does endorse a dry cough for the past week. Past History - Past Medical History Allergies/Adverse Reactions: Allergies Allergy/AdvReac Type Severity Reaction Status Date / Time No Known Allergies Allergy Verified 06/18/19 11:24 Home Medications: Ambulatory Orders Methadone [Dolophine -] 90 mg PO DAILY 08/27/17 Albuterol Sulfate Inhaler - [Ventolin HFA Inhaler -] 2 puff IH Q4H PRN #1 inhaler 09/07/17 Hydrochlorothiazide 25 mg PO DAILY #30 mg 09/07/17 metFORMIN HCL [Glucophage -] 1,000 mg PO BIDAC 30 Days #60 tablet 09/07/17 Aripiprazole [Abilify -] 20 mg PO DAILY #30 tablet 09/09/17 Quetiapine Fumarate [Seroquel] 400 mg PO HS 06/06/18 Amlodipine Besylate [Norvasc -] 10 mg PO DAILY 08/21/18 Citalopram Hydrobromide [Celexa -] 10 mg PO DAILY 06/19/19 Divalproex Sodium [Depakote ER] 500 mg PO BID 06/19/19 Anemia: No Asthma: Yes Cancer: No Cardiac Disorders: No CVA: No COPD: No CHF: No Dementia: No Diabetes: Yes (BGM 318mg/dl) GI Disorders: No Disorders: No HTN: Yes Hypercholesterolemia: No Kidney Stones: No Liver Disease: No Seizures: No Thyroid Disease: No - Surgical History Abdominal Surgery: No Appendectomy: No Cardiac Surgery: No Cholecystectomy: No Lung Surgery: No Neurologic Surgery: No Orthopedic Surgery: No - Reproductive History Testicular Surgery: No - Psycho Social/Smoking Cessation Hx Smoking History: Current every day smoker Have you smoked in the past 12 months: Yes Number of Cigarettes Smoked Daily: 2 Information on smoking cessation initiated: No 'Breaking Loose' booklet given: 06/18/19 Hx Alcohol Use: Yes Drug/Substance Use Hx: No Substance Use Type: Alcohol, Tranquilizers Hx Substance Use Treatment: Yes Review of Systems - Review of Systems Comments:: General: No fevers, no chills, no weight or appetite change, no malaise HEENT: No changes in vision, no changes in hearing, no congestion, no sore throat CV: No chest pain, no palpitations, no LE edema Pulm: See HPI GI: No nausea or vomiting, no change in bowel habits, no melena : No frequency, no urgency, no dysuria Musc: No back pain, no joint swelling, no recent injury Skin: No rash, no lesions, no erythema Endo: No excessive thirst, no heat/cold intolerance Heme: No unusual bruising or bleeding, no swollen glands Neuro: No syncope, no numbness/tingling, no focal weakness Vasc: No claudication Psych: No recent change in mood, no SI or HI *Physical Exam - Vital Signs Last Vital Signs Temp Pulse Resp BP Pulse Ox 98.5 F 111 H 20 149/84 96 06/19/19 18:38 06/19/19 18:38 06/19/19 18:38 06/19/19 18:38 06/19/19 18:38 - Physical Exam General: Comfortable, no acute distress HEENT: PERRL, EOMI, MMM, voice normal, normal neck ROM Cards: RRR, no murmur appreciated Pulm: Comfortable on room air. Minimal end-expiratory wheezing diffusely Abd: Soft, nontender, nondistended Ext: Atraumatic. No LE edema. ROM intact. WWP. Skin: Normal color, no rashes or lesions Neuro: A&Ox3, CN grossly intact, normal speech, motor/sensory grossly intact and symmetric Psych: Mood appropriate to situation ED Treatment Course - LABORATORY CBC & Chemistry Diagram: 06/19/19 20:56 06/19/19 20:45 Medical Decision Making - Medical Decision Making 06/19/19 19:14 Stu Hoffman is a 48yo man with a PMH of HTN, NIDDM, asthma, benzo/alcohol abuse who presents from detox with wheezing and oxygen saturation of 90% on RA earlier this evening. Mr Hoffman was treated with an albuterol MDI and then given two duoneb treatments prior to transfer to the ED. - Most likely asthma exacerbation. No longer with significant wheezing. Dry cough, possibly 2/2 asthma, possible influenza as pt was only vaccinated today. May have undiagnosed copd, reports 15yrs smoking hx - Sats 95% on RA - Albuterol nebs, prednisone for suspected asthma exacerbation 06/19/19 19:49 - Pt evaluated by Dr Malik. Pt now reporting worsening productive cough for one week - CXR ordered 06/19/19 20:12 - CXR without focal consolidation or other acute abnormalities - Reassessed. No longer wheezing. Sats 95% on RA. Pt states he does not feel short of breath after the albuterol treatments. Will monitor to ensure symptoms do not recur 06/19/19 20:45 - Now w/ increased expiratory wheezing, sats 90-92% - Given continued wheezing and hypoxia after 2x duonebs, 4x albuterol, and prednisone, will obtain labs and give IV mag 06/19/19 23:04 - Continued wheezing. Sats still 91-02% on RA after mag - Will admit for continued management - Additional albuterol ordered 06/19/19 23:41 - Sign out given to medicine team by Dr Malik Discussed with Dr Armaan Varma PGY2 Discharge - Discharge Information Problems reviewed: Yes Clinical Impression/Diagnosis: Hypoxemia Asthma Qualifiers: Asthma severity: moderate Asthma persistence: persistent Asthma complication type: with acute exacerbation Qualified Code(s): J45.41 - Moderate persistent asthma with (acute) exacerbation - Admission Yes - Follow up/Referral - Patient Discharge Instructions - Post Discharge Activity
[2019-06-19] MEDS ORDERED: ALBUTEROL SO4 0.083% IH SOL 2.5 MG/3 ML VIAL.NEB. NEB ONE ×3 (19:32→23:17)
[2019-06-19] MEDS ORDERED: predniSONE 20 MG TABLET (UD) ONE (19:32)
[2019-06-19] MEDS: ALBUTEROL SO4 0.083% IH SOL 2.5 MG/3 ML VIAL.NEB. NEB SCH ×3 (19:41→20:01)
[2019-06-19] MEDS ORDERED: MAGNESIUM SULF 50% (8.12 MEQ/2 ML-1 GM VIAL) IVPB ONE (20:49)
--- NOTE | 2019-06-19 20:51 | PDOC ---
Attending Attestation - Resident Resident Name: KojoPricilla - ED Attending Attestation I have performed the following: I have examined & evaluated the patient, The case was reviewed & discussed with the resident, I agree w/resident's findings & plan, Exceptions are as noted - HPI HPI: 06/20/19 00:39 See resident HPI - Physicial Exam PE: 06/20/19 00:39 Agree with documented exam - Medical Decision Making 06/20/19 00:39 Sent from [facility] for evaluation of wheezing, dyspnea, a/w uri symptoms eval for pna, viral uri, copd/asthma exacerbation symptomatic tx dispo per clinical course wheezing increased on repeated exam after treatment and as air movement increased hypoxic on room air negative cxr with uri symptoms so likely asthma exacerbation 2/2 viral uri still hypoxic with +exam findings, will admit for continued care
[2019-06-19 21:31] LABS: BASO % 1.2 % (0-2.0); EOS % 3.2 % (0-4.5); HEMATOCRIT 43.1 % (35.4-49); HEMOGLOBIN 14.4 GM/dL (11.7-16.9); LYMPH % 37.6 % (8-40); MCH 28.7 pg (25.7-33.7); MCHC 33.4 g/dl (32.0-35.9); MEAN CELL VOLUME 86.1 fl (80-96); MEAN PLT VOLUME 9.4 fl (7.5-11.1); MONO % 8.3 % (3.8-10.2); NEUT % 49.7 % (42.8-82.8); PLATELET COUNT 314 K/MM3 (134-434); RBC 5.01 M/mm3 (4.00-5.60); RDW 14.2 % (11.9-15.9); WHITE BLOOD COUNT 8.5 K/mm3 (4.0-10.0)
[2019-06-19] MEDS ORDERED: MAGNESIUM SULF 50% (8.12 MEQ/2 ML-1 GM VIAL) ONE (21:49)
[2019-06-19 22:05] LABS: ALBUMIN 4.1 g/dl (3.4-5.0); ALK PHOS 124 U/L (45-117); ANION GAP 9 MMOL/L (8-16); BILIRUBIN,TOTAL 0.2 mg/dL (0.2-1); BLOOD UREA NITROGEN 14.1 mg/dL (7-18); CALCIUM 9.7 mg/dL (8.5-10.1); CHLORIDE 94 mmol/L (98-107); CO2 30 mmol/L (21-32); CREATININE 0.9 mg/dL (0.55-1.3); GLUCOSE,RANDOM 232 mg/dL (74-106); MAGNESIUM 1.9 mg/dL (1.8-2.4); POTASSIUM 4.2 mmol/L (3.5-5.1); SGOT/AST 44 U/L (15-37); SGPT/ALT 71 U/L (13-61); SODIUM 133 mmol/L (136-145); TOT PROT 8.4 g/dl (6.4-8.2)
[2019-06-19] MEDS ORDERED: ALBUTEROL SO4 2.5/IPRATROPIUM 0.5 INH SOL 3 ML VIAL.NEB. NEB PRN (23:49)
[2019-06-19] MEDS ORDERED: chlordiazePOXIDE HCL 25 MG CAPSULE PO ONE (23:50)
--- NOTE | 2019-06-20 00:17 | HP ---
CHIEF COMPLAINT: shortness of breath PCP: none HISTORY OF PRESENT ILLNESS: Stu Hoffman is a 48 year old male with a past medical history of asthma, HTN , NIDDM, bipolar disorder, and alcohol & polysubstance abuse, who presents from detox at [facility] with a 5 day history of worsening productive cough of yellow sputum and wheezing with worsening over the last 24 hours. Patient states he has history of chronic wheezing, but the cough has worsened it. No complaints of rhinorrhea. He denies any chest pain, fever, chills, dizziness, lightheadedness, syncope, numbness, tingling or other problems at this time. Patient denies abdominal pain, nausea, vomiting, diarrhea, constipation, or urinary complaints. Denies sick contacts, recent travel. Patient admits to drinking about ten 16oz cans per day and use of 5 Xanax pills of 2 mg each ( total 10 mg/day). He last took Xanax 3 days ago. Arrived from [facility] for detox. Patient states he received the flu shot a few days ago. Patient states he received treatment in the ED and currently feels his wheezing has improved. ER course was notable for: (1) HR 111 (had received multiple bronchodilator treatments in [facility]) (2) Na 133 (135 corrected for GLU), GLU 232, AST 47, ALT 71, Alk 124 (3) CXR with no acute pathology, mild flattened diaphragms Recent Travel: denies PAST MEDICAL HISTORY: as above PAST SURGICAL HISTORY: R eye cataract extraction Social History: Smoking: current smoker 1/2 ppd for 20 years Alcohol: as above Drugs: Benzodiazepines as above Lives in a facility where he receives assistance with his meds. 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 Allergies No Known Allergies Allergy (Verified 06/18/19 11:24) HOME MEDICATIONS: Home Medications Medication Instructions Recorded Methadone [Dolophine -] 90 mg PO DAILY 08/27/17 Albuterol Sulfate Inhaler - 2 puff IH Q4H PRN #1 inhaler 09/07/17 [Ventolin HFA Inhaler -] Hydrochlorothiazide 25 mg PO DAILY #30 mg 09/07/17 metFORMIN HCL [Glucophage -] 1,000 mg PO BIDAC 30 Days #60 09/07/17 tablet Aripiprazole [Abilify -] 20 mg PO DAILY #30 tablet 09/09/17 Quetiapine Fumarate [Seroquel] 400 mg PO HS 06/06/18 Amlodipine Besylate [Norvasc -] 10 mg PO DAILY 08/21/18 Citalopram Hydrobromide [Celexa -] 10 mg PO DAILY 06/19/19 Divalproex Sodium [Depakote ER] 500 mg PO BID 06/19/19 REVIEW OF SYSTEMS CONSTITUTIONAL: Absent: fever, chills, diaphoresis, generalized weakness, malaise, loss of appetite HEENT: chronic R eye blindness Absent: rhinorrhea, nasal congestion, throat pain, throat swelling, difficulty swallowing, CARDIOVASCULAR: Absent: chest pain, syncope, palpitations, irregular heart rate, lightheadedness , peripheral edema RESPIRATORY: cough, shortness of breath, wheezing Absent: dyspnea with exertion, orthopnea, stridor, hemoptysis GASTROINTESTINAL: Absent: abdominal pain, abdominal distension, nausea, vomiting, diarrhea, constipation, GENITOURINARY: Absent: dysuria, frequency, urgency, hesitancy, hematuria, flank pain, MUSCULOSKELETAL: Absent: myalgia, arthralgia, joint swelling, back pain, neck pain SKIN: Absent: rash, itching, pallor HEMATOLOGIC/IMMUNOLOGIC: Absent: easy bleeding, easy bruising, lymphadenopathy, frequent infections ENDOCRINE: Absent: unexplained weight gain, unexplained weight loss, heat intolerance, cold intolerance NEUROLOGIC: Absent: headache, focal weakness or paresthesias, dizziness, unsteady gait, seizure, mental status changes, PSYCHIATRIC: Absent: anxiety, depression, suicidal or homicidal ideation, hallucinations. PHYSICAL EXAMINATION Vital Signs - 24 hr 06/19/19 18:38 Temperature 98.5 F Pulse Rate 111 H Respiratory 20 Rate Blood Pressure 149/84 O2 Sat by Pulse 96 Oximetry (%) GENERAL: Awake, alert, and fully oriented, in no acute distress. HEAD: Normal with no signs of trauma. EYES: poor reactivity in R eye. L eye normal reactivity to light. Extraocular movements intact. EARS, NOSE, THROAT: Oropharynx clear without exudates. Dry mucous membranes. NECK: Normal range of motion, supple without lymphadenopathy, JVD. LUNGS: Decreased breath sounds. Minimal expiratory wheezing auscultated. Audible expiratory wheezing upon viewing patient. No crackles, no accessory muscle use. HEART: Tachycardic rate and regular rhythm, normal S1 and S2 without murmur, rub. ABDOMEN: Soft, nontender, not distended, normoactive bowel sounds, no guarding, no rebound, no masses. MUSCULOSKELETAL: Normal range of motion at all joints. No bony deformities or tenderness. UPPER EXTREMITIES: 2+ pulses, warm, well-perfused. No cyanosis. No clubbing. No peripheral edema. LOWER EXTREMITIES: 2+ pulses, warm, well-perfused. No calf tenderness. No peripheral edema. NEUROLOGICAL: Cranial nerves II-XII intact. 5/5 muscle strength upper and lower extremities bilaterally. PSYCHIATRIC: Cooperative. Good eye contact. Appropriate mood and affect. SKIN: Warm, dry, normal turgor, no rashes or lesions noted, normal capillary refill. Laboratory Results - last 24 hr 06/19/19 06/19/19 06/19/19 19:30 20:45 20:56 WBC 8.5 RBC 5.01 Hgb 14.4 Hct 43.1 D MCV 86.1 MCH 28.7 D MCHC 33.4 RDW 14.2 Plt Count 314 D MPV 9.4 Absolute Neuts (auto) 4.2 Neutrophils % 49.7 Lymphocytes % 37.6 Monocytes % 8.3 Eosinophils % 3.2 Basophils % 1.2 Nucleated RBC % 0 Sodium 133 L Potassium 4.2 Chloride 94 L Carbon Dioxide 30 Anion Gap 9 BUN 14.1 Creatinine 0.9 Est GFR (CKD-EPI)AfAm 115.83 Est GFR (CKD-EPI)NonAf 99.94 Random Glucose 232 H Calcium 9.7 Magnesium 1.9 Total Bilirubin 0.2 AST 44 H ALT 71 H Alkaline Phosphatase 124 H Creatine Kinase 145 Troponin I < 0.02 Total Protein 8.4 H Albumin 4.1 Influenza A (Rapid) Negative Influenza B (Rapid) Negative EKG--> sinus tachycardia, no ST segment or T wave abnormalities, QTc 487 ASSESSMENT/PLAN: Stu Hoffman is a 48 year old male with a past medical history of asthma, HTN , NIDDM, bipolar disorder, alcohol & polysubstance abuse admitted for asthma exacerbation likely secondary to URI. Asthma Exacerbation - likely secondary to URI in setting of productive cough and negative chest x- ray - continue duoneb scheduled and albuterol prn - prednisone 40mg daily - azithromycin 500mg x3 days - given one dose of Mag sulfate in ED - incentive spirometry - Protonix 40mg daily while on steroids - continue to monitor vitals - monitor off O2, add O2 if needed - VBG in morning to observe for retention - will likely need PFTs outpatient to assess for COPD - will likely need outpatient maintenance inhaler - counseled on smoking cessation Alcohol and Benzodiazepine Abuse - CIWA currently 1, high risk of seizure due to polysubstance use, Depakote use , and history of seizures as per last [facility] admission note - resume Librium protocol - seizure/fall precautions - addiction medicine consulted - thiamine, folate, MVI Elevated Liver Enzymes - likely secondary to alcohol and benzodiazepine abuse - RUQ for r/o of other liver pathology - acute hepatitis panel Methadone Maintenance - as per last [facility] note on methadone 90mg daily through [facility] - verified on Jun 18 by [facility] nursing DM - BGM q4h - ISS q4h - increased frequency due to high GLU and initiation of steroid medication, can reduce frequency as glucose improves - A1c Bipolar Disorder - on Celexa, depakote, seroquel HTN - home amlodipine DVT PPx - heparin 5000 units subq tid FEN - no standing fluids - continue to monitor electrolytes and replete as necessary, Na 135 corrected for glucose, continue to monitor - diabetic/sodium controlled diet Dispo - admit to Med-surg - needs medication reconciliation Family Medical History Family History: Denies Visit type - Emergency Visit Emergency Visit: Yes ED Registration Date: 06/19/19 Care time: The patient presented to the Emergency Department on the above date and was hospitalized for further evaluation of their emergent condition. - New Patient This patient is new to me today: Yes Date on this admission: 06/20/19 - Critical Care Critical Care patient: No
[2019-06-20] MEDS ORDERED: chlordiazePOXIDE HCL 25 MG CAPSULE ONE (00:30)
[2019-06-20] MEDS ORDERED: methylPREDNISolone NA SUCC 40 MG/1 ML VIAL ONE (01:53)
[2019-06-20] MEDS ORDERED: methylPREDNISolone NA SUCC 40 MG/1 ML VIAL IVPUSH SCH (02:00)
--- NOTE | 2019-06-20 02:23 | PN ---
Teaching Attending Note Name of Resident: Bill Wood ATTENDING PHYSICIAN STATEMENT I saw and evaluated the patient. I reviewed the resident's note and discussed the case with the resident. I agree with the resident's findings and plan as documented. SUBJECTIVE: 48yo man with a PMH of HTN, NIDDM, Smoker,asthma, benzo/alcohol abuse sent in from detox complaining of wheezing and found to be hypoxic, Found to be desaturating earlier in the evening. Shortness of breath worse with exertion, on and off, typical of his asthma. Does not use maintenance inhaler but uses rescue inhaler as needed. In the emergency room was given multiple duo nebs, Solu-Medrol, magnesium sulfate IV. OBJECTIVE: Last Vital Signs Temp Pulse Resp BP Pulse Ox 98.5 F 118 H 18 137/75 95 06/19/19 18:38 06/20/19 01:10 06/20/19 01:10 06/20/19 01:10 06/20/19 01:30 GENERAL: Well developed, well nourished. Awake and alert. No acute distress.Hoarseness HEENT: Normocephalic, atraumatic. PERRLA, EOMI. No conjunctival pallor. Sclera are non- icteric. NECK: Supple. Full ROM. No JVD. Carotid pulses 2+ and symmetric, without bruits. No thyromegaly. No lymphadenopathy. CARDIOVASCULAR: Regular rate and rhythm. No murmurs, rubs, or gallops. Distal pulses are 2+ and symmetric. PULMONARY: Mild expiratory wheezing ABDOMINAL: Soft. Non-tender. Non-distended. No rebound or guarding. No organomegaly. Normoactive bowel sounds. MUSCULOSKELETAL Normal range of motion at all joints. No bony deformities or tenderness. No CVA tenderness. EXTREMITIES: No cyanosis. No clubbing. No edema. No calf tenderness. SKIN: Warm and dry. Normal capillary refill. No rashes. No jaundice. PSYCHIATRIC: Cooperative. Good eye contact. Appropriate mood and affect. Abnormal Lab Results 06/19/19 20:45 Sodium 133 L Chloride 94 L Random Glucose 232 H AST 44 H ALT 71 H Alkaline Phosphatase 124 H Total Protein 8.4 H Imaging studies reviewed ASSESSMENT AND PLAN: 48-year-old male with acute asthma exacerbation Admit to [facility] EKG Smoking cessation Peak flow obtain baseline and monitor Duo nebs every 4 hours standing Prednisone 40 mg p.o. daily Protonix 40 mg p.o. daily for GI prophylaxis Supplemental oxygen if needed VBG to exclude CO2 retention Pulmonary evaluation Outpatient pulmonary function studies Will likely need maintenance inhalerinhaled corticosteroid would be a good start Azithromycin 500 mg p.o. one-time dose and then to 50 mg p.o. daily #Uncontrolled diabetes mellitussuspect might worsen with high-dose steroids NovoLog sliding scale every 4 hours for now until glucose is better controlled Glargine insulin A1c Diabetic diet #Pseudohyponatremialow normal when corrected for glucose #Polysubstance abuse Urine toxicology screen CIWA protocol Thiamine and folate Lorazepam detox protocol IV fluid hydration #Bipolar disorder On Celexa, Depakote, Seroquel #DVT prophylaxisheparin subcutaneously
[2019-06-20] MEDS: chlordiazePOXIDE 5 MG CAPSULE PO SCH ×3 (05:43→22:51)
[2019-06-20] MEDS: INSULIN SLIDING SCALE (NOVOLOG) 1 VIAL SQ SCH ×6 (05:43→21:47)
[2019-06-20] MEDS: HEPARIN NA (PORCINE) 5,000 UNITS/ML 1ML VIAL SQ SCH ×3 (05:49→22:52)
[2019-06-20] MEDS ORDERED: INSULIN SLIDING SCALE (NOVOLOG) 1 VIAL SQ SCH ×2 (07:00)
[2019-06-20 08:34] LABS: BASO % 0.4 % (0-2.0); HEMATOCRIT 39.7 % (35.4-49); HEMOGLOBIN 13.5 GM/dL (11.7-16.9); LYMPH % 9.4 % (8-40); MCH 29.6 pg (25.7-33.7); MEAN CELL VOLUME 86.8 fl (80-96); MEAN PLT VOLUME 9.5 fl (7.5-11.1); MONO % 0.8 % (3.8-10.2); NEUT % 89.4 % (42.8-82.8); PLATELET COUNT 277 K/MM3 (134-434); RBC 4.57 M/mm3 (4.00-5.60); RDW 13.6 % (11.9-15.9); WHITE BLOOD COUNT 7.9 K/mm3 (4.0-10.0)
[2019-06-20 09:03] LABS: ALBUMIN 4.1 g/dl (3.4-5.0); BILIRUBIN,TOTAL 0.3 mg/dL (0.2-1); CREATININE 1.3 mg/dL (0.55-1.3); MAGNESIUM 2.1 mg/dL (1.8-2.4); POTASSIUM 4.5 mmol/L (3.5-5.1); TOT PROT 8.2 g/dl (6.4-8.2)
[2019-06-20 09:48] LABS: COCAINE, UR NEGATIVE ng/ml (CUTOFF=300); OPIATES, URI NEGATIVE ng/ml (CUTOFF=300); PHENCYCLIDINE,URINE NEGATIVE ng/ml (CUTOFF=25); URINE AMPHETAMINES NEGATIVE ng/ml (CUTOFF=500); URINE BARBITURATES NEGATIVE ng/ml (CUTOFF=200)
[2019-06-20 09:53] LABS: METHADONE, UR POSITIVE ng/ml (CUTOFF=300); URINE BENZODIAZEPINES POSITIVE ng/ml (CUTOFF=200)
[2019-06-20] MEDS ORDERED: PANTOPRAZOLE 40 MG TABLET PO SCH (10:00)
[2019-06-20] MEDS ORDERED: METHADONE HCL 40 MG DISPERSABLE TABLET PO SCH (10:00)
[2019-06-20] MEDS ORDERED: predniSONE 20 MG TABLET (UD) PO SCH ×2 (10:00)
[2019-06-20] MEDS ORDERED: AZITHROMYCIN 250 MG TABLET PO SCH (10:00)
[2019-06-20] MEDS: amLODIPine BESYLATE 10 MG TABLET (FP) PO SCH (10:02)
[2019-06-20] MEDS: MULTIVITAMINS (DAILY MVI) TABLET (FP) PO SCH (10:02)
[2019-06-20] MEDS: THIAMINE HCL 100 MG TABLET (FP) PO SCH (10:02)
[2019-06-20] MEDS: CITALOPRAM HYDROBROMIDE 10 MG TABLET PO SCH (10:02)
[2019-06-20] MEDS: FOLIC ACID 1 MG TABLET (FP) PO SCH (10:02)
[2019-06-20] MEDS: SODIUM CHLORIDE 1,000 ML IV SCH (10:03)
[2019-06-20] MEDS ORDERED: INSULIN (NOVOLOG) ASPART 100 UNITS/ML 10ML VIAL ONE ×2 (10:13→21:38)
[2019-06-20] MEDS ORDERED: Insulin (LOG) Aspart 100 UNITS/ML VIAL SQ ONE (11:29)
[2019-06-20] MEDS ORDERED: METHADONE HCL 10 MG TABLET ONE (11:47)
[2019-06-20] MEDS ORDERED: METHADONE HCL 40 MG DISPERSABLE TABLET ONE (11:48)
[2019-06-20] MEDS: METHADONE 80 MG, METHADONE 10 MG PO SCH (11:49)
[2019-06-20 12:21] LABS: BLOOD UREA NITROGEN 18.6 mg/dL (7-18); CALCIUM 10.4 mg/dL (8.5-10.1); CREATININE 1.3 mg/dL (0.55-1.3); POTASSIUM 4.9 mmol/L (3.5-5.1)
[2019-06-20] MEDS ORDERED: INSULIN (LEVEMIR) 100 UNITS/ML UNITS SQ ONE (12:31)
--- NOTE | 2019-06-20 12:38 | PN ---
Teaching Attending Note Name of Resident: Hilario Trivedi ATTENDING PHYSICIAN STATEMENT I saw and evaluated the patient. I reviewed the resident's note and discussed the case with the resident. I agree with the resident's findings and plan as documented. SUBJECTIVE: seen at around 11 am No fever or chills . no pain, his breathing is much better compared to yesterday. No MOCTEZUMA , no cproductive cough. no abd apin. reprots his abd being protuberant x 1 year. no diarrhea. last used alcohol 2 days ago OBJECTIVE: NAD, awake, alert, and cooperative. HEENT: R upper and lower facial droop. MMM. CV: RRR, no MRG Lungs: minimal crackles at bases Abd: protuberant , no hepatosplenomegaly, liver and spleen are not percussed or palpated. Neg shifting dullness Ext : No edema or erythema on upper or lower extremities ASSESSMENT AND PLAN: 48 y/o man with h/o polysubstance abuse ( benzos, alcohol, opioids on methadone ), DM, asthma, HTN, and current nicotine dependence who was sent form [facility] due to SOb and was found to have acute Asthma exacerbation 1- Acute asthma exacerbation : improved - cont prednisone with quick taper . decrease dose to 30 tomorrow - Nebs - flu neg , no signs of PNA. - dc azithro 2-H/o Dm, with severe hyperglycemia: AM BMP was concerning for elevation in AG, repeat sugar is 464, and repeat BMP showed AG of 11 with nL Bicarb. No DKA. - gave 10 units of novolog - add levemir 10 units now, then in am while on steroids - obtain A1c 3- Pseudo hyponatremia: NL corrected Na 4- R upper and lower facial droop: patient states he always looked that way. facial droop is not new. - no need to treat with antivirals . already on steroids for asthma. - check lyme titers 5- ETOH withdrawal: cont librium, B1, and B9 6- H/o Oioid abuse: cont methadone 7- DVT px: heparin sq
[2019-06-20] MEDS ORDERED: PT OWN MED DRAWER 7, Y5N ONE ×3 (13:32→22:49)
--- NOTE | 2019-06-20 13:55 | EKG ---
Test Reason : Blood Pressure : / mmHG Vent. Rate : 118 BPM Atrial Rate : 118 BPM P-R Int : 146 ms QRS Dur : 074 ms QT Int : 348 ms P-R-T Axes : 049 035 050 degrees QTc Int : 487 ms SINUS TACHYCARDIA OTHERWISE NORMAL ECG WHEN COMPARED WITH ECG OF 23-AUG-2017 17:49, NO SIGNIFICANT CHANGE WAS FOUND Confirmed by ANCELMO CHINO MD ([id number]) on 06/20/2019 1:55:33 PM Referred By: Confirmed By:ANCELMO CHINO MD
--- NOTE | 2019-06-20 14:49 | PN ---
Physical Exam: SUBJECTIVE: Patient seen and examined at bedside. This AM he states his breathing is much improved and he is eager to go back to [facility]. OBJECTIVE: Vital Signs Period Temp Pulse Resp BP Sys/Bellamy Pulse Ox Last 24 Hr 98.0 F-98.5 F 110-118 18-20 137-158/67-89 95-97 GENERAL: AOx3, in no acute distress. HEAD: NCAT, RIGHT upper and lower mild facial droop EYES: SONU on LEFT, blind in right, EOMI, conjunctiva clear. ENT: Ears normal, nares patent, oropharynx clear without exudates. Moist mucous membranes. NECK: Normal range of motion, supple without lymphadenopathy, JVD, or masses. LUNGS: Good air entry with end expiratory wheezes in all lung pacheco. No accessory muscle use. HEART: RRR s1 s2 ABDOMEN: Soft, BS present in all 4 quadrants, distended, no JVD, MUSCULOSKELETAL: No bony deformities or tenderness. No CVA tenderness. UPPER EXTREMITIES: 2+ pulses, warm, well-perfused. No cyanosis. No clubbing. No peripheral edema. LOWER EXTREMITIES: 2+ pulses, warm, well-perfused. No calf tenderness. No peripheral edema. + Onychomycosis NEUROLOGICAL: No focal deficits. Cranial nerves II-XII intact. Normal speech. Gait not appreciated. PSYCHIATRIC: Cooperative. Good eye contact. Appropriate mood and affect. SKIN: Warm, dry, normal turgor, no rashes or lesions noted, normal capillary refill. Laboratory Results - last 24 hr 06/19/19 06/19/19 06/19/19 19:30 20:45 20:56 WBC 8.5 RBC 5.01 Hgb 14.4 Hct 43.1 D MCV 86.1 MCH 28.7 D MCHC 33.4 RDW 14.2 Plt Count 314 D MPV 9.4 Absolute Neuts (auto) 4.2 Neutrophils % 49.7 Lymphocytes % 37.6 Monocytes % 8.3 Eosinophils % 3.2 Basophils % 1.2 Nucleated RBC % 0 Sodium 133 L Potassium 4.2 Chloride 94 L Carbon Dioxide 30 Anion Gap 9 BUN 14.1 Creatinine 0.9 Est GFR (CKD-EPI)AfAm 115.83 Est GFR (CKD-EPI)NonAf 99.94 POC Glucometer Random Glucose 232 H Hemoglobin A1c % Calcium 9.7 Magnesium 1.9 Total Bilirubin 0.2 AST 44 H ALT 71 H Alkaline Phosphatase 124 H Creatine Kinase 145 Troponin I < 0.02 Total Protein 8.4 H Albumin 4.1 Opiates Screen Methadone Screen Barbiturate Screen Phencyclidine Screen Ur Amphetamines Screen MDMA (Ecstasy) Screen Benzodiazepines Screen Cocaine Screen U Marijuana (THC) Screen Influenza A (Rapid) Negative Influenza B (Rapid) Negative 06/20/19 06/20/19 06/20/19 05:41 06:30 06:30 WBC 7.9 RBC 4.57 Hgb 13.5 Hct 39.7 MCV 86.8 MCH 29.6 MCHC 34.0 RDW 13.6 Plt Count 277 MPV 9.5 Absolute Neuts (auto) 7.1 Neutrophils % 89.4 H D Lymphocytes % 9.4 D Monocytes % 0.8 L D Eosinophils % 0.0 D Basophils % 0.4 Nucleated RBC % 0 Sodium 132 L Potassium 4.5 Chloride 94 L Carbon Dioxide 23 Anion Gap 15 BUN 16.0 Creatinine 1.3 Est GFR (CKD-EPI)AfAm 74.26 Est GFR (CKD-EPI)NonAf 64.07 POC Glucometer 395 Random Glucose 394 H Hemoglobin A1c % Calcium 10.0 Magnesium 2.1 Total Bilirubin 0.3 AST 28 ALT 67 H Alkaline Phosphatase 124 H Creatine Kinase Troponin I Total Protein 8.2 Albumin 4.1 Opiates Screen Methadone Screen Barbiturate Screen Phencyclidine Screen Ur Amphetamines Screen MDMA (Ecstasy) Screen Benzodiazepines Screen Cocaine Screen U Marijuana (THC) Screen Influenza A (Rapid) Influenza B (Rapid) 06/20/19 06/20/19 06/20/19 06:30 08:00 10:08 WBC RBC Hgb Hct MCV MCH MCHC RDW Plt Count MPV Absolute Neuts (auto) Neutrophils % Lymphocytes % Monocytes % Eosinophils % Basophils % Nucleated RBC % Sodium Potassium Chloride Carbon Dioxide Anion Gap BUN Creatinine Est GFR (CKD-EPI)AfAm Est GFR (CKD-EPI)NonAf POC Glucometer 417 Random Glucose Hemoglobin A1c % 7.6 H Calcium Magnesium Total Bilirubin AST ALT Alkaline Phosphatase Creatine Kinase Troponin I Total Protein Albumin Opiates Screen Negative Methadone Screen Positive A* Barbiturate Screen Negative Phencyclidine Screen Negative Ur Amphetamines Screen Negative MDMA (Ecstasy) Screen Negative Benzodiazepines Screen Positive A* Cocaine Screen Negative U Marijuana (THC) Screen Negative Influenza A (Rapid) Influenza B (Rapid) 06/20/19 06/20/19 06/20/19 10:20 11:27 14:10 WBC RBC Hgb Hct MCV MCH MCHC RDW Plt Count MPV Absolute Neuts (auto) Neutrophils % Lymphocytes % Monocytes % Eosinophils % Basophils % Nucleated RBC % Sodium 131 L Potassium 4.9 Chloride 94 L Carbon Dioxide 26 Anion Gap 11 BUN 18.6 H Creatinine 1.3 Est GFR (CKD-EPI)AfAm 74.26 Est GFR (CKD-EPI)NonAf 64.07 POC Glucometer 462 392 Random Glucose 436 H* Hemoglobin A1c % Calcium 10.4 H Magnesium Total Bilirubin AST ALT Alkaline Phosphatase Creatine Kinase Troponin I Total Protein Albumin Opiates Screen Methadone Screen Barbiturate Screen Phencyclidine Screen Ur Amphetamines Screen MDMA (Ecstasy) Screen Benzodiazepines Screen Cocaine Screen U Marijuana (THC) Screen Influenza A (Rapid) Influenza B (Rapid) Active Medications Albuterol Sulfate (Ventolin 0.083% Nebulizer Soln -) 1 amp NEB Q2H PRN PRN Reason: SHORT OF BREATH/WHEEZING Last Admin: 06/21/19 13:54 Dose: 1 amp Albuterol/Ipratropium (Duoneb -) 1 amp NEB Q6H PRN PRN Reason: SHORTNESS OF BREATH Last Admin: 06/21/19 11:30 Dose: 1 amp Amlodipine Besylate (Norvasc -) 10 mg PO DAILY [facility] Last Admin: 06/21/19 09:39 Dose: 10 mg Chlordiazepoxide HCl (Librium -) 10 mg PO Q12H PRN PRN Reason: Signs/symptoms of Withdrawal Stop: 06/21/19 23:59 Chlordiazepoxide HCl (Librium -) 10 mg PO Q8H [facility] Stop: 06/21/19 21:01 Last Admin: 06/21/19 13:11 Dose: 10 mg Chlordiazepoxide HCl (Librium -) 10 mg PO ONCE ONE Stop: 06/22/19 05:01 Citalopram Hydrobromide (Celexa -) 10 mg PO DAILY [facility] Last Admin: 06/21/19 09:37 Dose: 10 mg Folic Acid (Folic Acid -) 1 mg PO DAILY [facility] Last Admin: 06/21/19 09:39 Dose: 1 mg Heparin Sodium (Porcine) (Heparin -) 5,000 unit SQ TID [facility] Last Admin: 06/21/19 13:11 Dose: 5,000 unit Sodium Chloride (Normal Saline -) 1,000 mls @ 42 mls/hr IV ASDIR [facility] Last Admin: 06/21/19 09:37 Dose: 42 mls/hr Insulin Aspart (Novolog Vial Sliding Scale -) 1 vial SQ ACHS [facility]; Protocol Last Admin: 06/21/19 11:04 Dose: 10 units Insulin Detemir (Levemir Vial) 10 units SQ AM [facility] Last Admin: 06/21/19 06:37 Dose: 10 units Lisinopril (Prinivil) 10 mg PO DAILY [facility] Last Admin: 06/21/19 09:39 Dose: 10 mg Methadone HCl 80 mg/ Methadone (HCl 10 mg) 90 mg PO DAILY@0600 [facility] Last Admin: 06/21/19 06:29 Dose: 90 mg Multivitamins/Minerals/Vitamin C (Tab-A-Vit -) 1 tab PO DAILY [facility] Last Admin: 06/21/19 09:39 Dose: 1 tab Prednisone (Deltasone -) 30 mg PO DAILY [facility] Last Admin: 06/21/19 09:37 Dose: 30 mg Quetiapine Fumarate (Seroquel -) 400 mg PO HS [facility] Last Admin: 06/20/19 22:56 Dose: 400 mg Simethicone (Mylicon -) 80 mg PO Q4H PRN PRN Reason: GAS Last Admin: 06/21/19 13:11 Dose: 80 mg Thiamine HCl (Vitamin B1 -) 100 mg PO DAILY [facility] Last Admin: 06/21/19 09:39 Dose: 100 mg ASSESSMENT/PLAN: 48 y/o male PMH HTN, DM, polysubstance abuse (etoh, benzodiazepines, and opioids; currently in rehab) and asthma c/o SOB at [facility]. He was admitted for acute asthma exacerbation likely 2/2 URI. # Acute asthma exacerbation - Flu NEG, no evidence of PNA - Prednisone - Duonebs sched - Ventolin PRN # DM - BGM in 400s today, likely a component of steroid regimen - s/p 32 units insulin and 10 units levemir - Repeat BGM in afternoon showed closed AG - F/u Hba1c # RIGHT facial droop - Pt reports chronic - Upper and lower face - Lyme assay # Polysubstance abuse - Librium protocol day 3 - Thiamine, folate, b12 - Opioid abuse: methadone 90 mg po qd # F/E/N - PO - Cont. to monitor - Low sodium/DM diet # DVT prophylaxis - Heparin SQ # Disposition - Med/surg Hilario Trivedi MD Visit type - Emergency Visit Emergency Visit: No - New Patient This patient is new to me today: Yes Date on this admission: 06/20/19 - Critical Care Critical Care patient: No ATTENDING PHYSICIAN STATEMENT I saw and evaluated the patient. I reviewed the resident's note and discussed the case with the resident. I agree with the resident's findings and plan as documented. SUBJECTIVE: OBJECTIVE: ASSESSMENT AND PLAN:
[2019-06-20] MEDS: DIVALPROEX NA *ER* EXTEND REL 500 MG TABLET.SA (FP) PO SCH ×2 (15:50→22:51)
[2019-06-20] MEDS: QUEtiapine FUMARATE 200 MG TABLET PO SCH (22:56)
[2019-06-21] MEDS ORDERED: chlordiazePOXIDE HCL 10 MG CAPSULE PO PRN
[2019-06-21] MEDS: INSULIN SLIDING SCALE (NOVOLOG) 1 VIAL SQ SCH ×6 (03:18→23:47)
[2019-06-21] MEDS ORDERED: METHADONE HCL 10 MG TABLET ONE (05:16)
[2019-06-21] MEDS ORDERED: METHADONE HCL 40 MG DISPERSABLE TABLET ONE (05:16)
[2019-06-21] MEDS: chlordiazePOXIDE HCL 10 MG CAPSULE PO SCH ×3 (06:28→21:32)
[2019-06-21] MEDS: METHADONE 80 MG, METHADONE 10 MG PO SCH (06:29)
[2019-06-21] MEDS: HEPARIN NA (PORCINE) 5,000 UNITS/ML 1ML VIAL SQ SCH ×3 (06:31→21:32)
[2019-06-21] MEDS ORDERED: INSULIN (LEVEMIR) 100 UNITS/ML UNITS SQ SCH (07:00)
[2019-06-21] MEDS ORDERED: INSULIN (LEVEMIR) 100 UNITS/ML UNITS SQ ONE ×2 (07:43→17:32)
[2019-06-21 08:11] LABS: ALBUMIN 3.5 g/dl (3.4-5.0); BILIRUBIN,TOTAL 0.2 mg/dL (0.2-1); BLOOD UREA NITROGEN 23.7 mg/dL (7-18); CALCIUM 9.1 mg/dL (8.5-10.1); CREATININE 1.1 mg/dL (0.55-1.3); POTASSIUM 4.2 mmol/L (3.5-5.1); TOT PROT 7.1 g/dl (6.4-8.2)
[2019-06-21] MEDS ORDERED: PT OWN MED DRAWER 7, Y5N ONE (09:32)
[2019-06-21] MEDS: CITALOPRAM HYDROBROMIDE 10 MG TABLET PO SCH (09:37)
[2019-06-21] MEDS: DIVALPROEX NA *ER* EXTEND REL 500 MG TABLET.SA (FP) PO SCH (09:37)
[2019-06-21] MEDS: predniSONE 20 MG TABLET (UD) PO SCH (09:37)
[2019-06-21] MEDS: SODIUM CHLORIDE 1,000 ML IV SCH (09:37)
[2019-06-21] MEDS: FOLIC ACID 1 MG TABLET (FP) PO SCH (09:39)
[2019-06-21] MEDS: THIAMINE HCL 100 MG TABLET (FP) PO SCH (09:39)
[2019-06-21] MEDS: MULTIVITAMINS (DAILY MVI) TABLET (FP) PO SCH (09:39)
[2019-06-21] MEDS: LISINOPRIL 10 MG TABLET (FP) PO SCH (09:39)
[2019-06-21] MEDS: amLODIPine BESYLATE 10 MG TABLET (FP) PO SCH (09:39)
[2019-06-21] MEDS: ALBUTEROL SO4 0.083% IH SOL 2.5 MG/3 ML VIAL.NEB. NEB PRN ×2 (09:40→13:54)
--- NOTE | 2019-06-21 10:01 | PN ---
Teaching Attending Note Name of Resident: Hilario Trivedi ATTENDING PHYSICIAN STATEMENT I saw and evaluated the patient. I reviewed the resident's note and discussed the case with the resident. I agree with the resident's findings and plan as documented. SUBJECTIVE: No SOB ,had a little wheezing early in am but now resolved. No abd pain, no fever or chills. OBJECTIVE: NAD, awake, alert, and cooperative. HEENT: R upper and lower facial droop. MMM. CV: RRR, no MRG. Lungs: CTAB, decreased breath sounds at bases but no wheezes Abd: protuberant ,NT, ND , N LBS Ext : No edema or erythema on upper or lower extremities ASSESSMENT AND PLAN: 48 y/o man with h/o polysubstance abuse ( benzos, alcohol, opioids on methadone ), DM, asthma, HTN, and current nicotine dependence who was sent form [facility] due to SOb and was found to have acute Asthma exacerbation. 1- Acute asthma exacerbation: improved. - cont steroids, day 1 on 30 mg . fast taper - Nebs 2-H/o DM, with severe hyperglycemia: due to steroids use. sugar is still elevated , but beter than yesterday. A1c 7.6 which indicates aceptable out pt diabetic control. - give extra 3 units of levemir this am. - cont SSI , make it ACHS. - will cont on insulin while on steroids 3- ETOH WD: cont librium protocol 4- R upper and lower facial droop: chronic. - lyme titers are pending 5- ETOH withdrawal: cont librium, B1, and B9 . 6- H/o Oioid abuse: cont methadone 7- DVT px: heparin SQ
[2019-06-21] MEDS: ALBUTEROL SO4 2.5/IPRATROPIUM 0.5 INH SOL 3 ML VIAL.NEB. NEB PRN ×2 (11:30→20:10)
[2019-06-21] MEDS ORDERED: SIMETHICONE 80 MG TAB.CHEW (FP) PO PRN (12:27)
--- NOTE | 2019-06-21 14:12 | PN ---
Physical Exam: SUBJECTIVE: Patient seen and examined at bedside. Overnight there were no new events. This AM he is sob and requiring nebulizer treatment. OBJECTIVE: Vital Signs Temp Pulse Resp BP Pulse Ox 97.8 F 101 H 18 139/71 100 06/21/19 20:15 06/21/19 20:15 06/21/19 20:15 06/21/19 20:15 06/21/19 21:00 GENERAL: AOx3, in no acute distress. HEAD: NCAT, RIGHT upper and lower mild facial droop EYES: Corrective lenses. 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 ENT: Ears normal, nares patent, oropharynx clear without exudates. Moist mucous membranes. NECK: Normal range of motion, supple without lymphadenopathy, JVD, or masses. LUNGS: Good air entry with end expiratory wheezes in all lung pacheco. No accessory muscle use. HEART: RRR s1 s2 ABDOMEN: Soft, BS present in all 4 quadrants, distended, no JVD, MUSCULOSKELETAL: No bony deformities or tenderness. No CVA tenderness. UPPER EXTREMITIES: 2+ pulses, warm, well-perfused. No cyanosis. No clubbing. No peripheral edema. LOWER EXTREMITIES: 2+ pulses, warm, well-perfused. No calf tenderness. No peripheral edema. + Onychomycosis NEUROLOGICAL: No focal deficits. Cranial nerves II-XII intact. Normal speech. Gait not appreciated. PSYCHIATRIC: Cooperative. Good eye contact. Appropriate mood and affect. SKIN: Warm, dry, normal turgor, no rashes or lesions noted, normal capillary refill. Laboratory Results - last 24 hr 06/20/19 06/20/19 06/20/19 06:30 10:20 14:10 Sodium Potassium Chloride Carbon Dioxide Anion Gap BUN Creatinine Est GFR (CKD-EPI)AfAm Est GFR (CKD-EPI)NonAf POC Glucometer 392 Random Glucose Calcium Total Bilirubin AST ALT Alkaline Phosphatase Total Protein Albumin Lyme Screen IgG & IgM <0.91 Hep A IgM Ab Confirm Negative Hep Bs Antigen Negative Hep B Core IgM Ab Negative Hepatitis C Ab (EIA) 0.1 06/20/19 06/20/19 06/21/19 17:57 21:45 03:16 Sodium Potassium Chloride Carbon Dioxide Anion Gap BUN Creatinine Est GFR (CKD-EPI)AfAm Est GFR (CKD-EPI)NonAf POC Glucometer 299 309 356 Random Glucose Calcium Total Bilirubin AST ALT Alkaline Phosphatase Total Protein Albumin Lyme Screen IgG & IgM Hep A IgM Ab Confirm Hep Bs Antigen Hep B Core IgM Ab Hepatitis C Ab (EIA) 06/21/19 06/21/19 06/21/19 05:55 06:34 11:01 Sodium 136 Potassium 4.2 Chloride 100 Carbon Dioxide 27 Anion Gap 9 BUN 23.7 H Creatinine 1.1 Est GFR (CKD-EPI)AfAm 90.88 Est GFR (CKD-EPI)NonAf 78.41 POC Glucometer 310 384 Random Glucose 343 H Calcium 9.1 Total Bilirubin 0.2 AST 13 L ALT 50 Alkaline Phosphatase 100 Total Protein 7.1 Albumin 3.5 Lyme Screen IgG & IgM Hep A IgM Ab Confirm Hep Bs Antigen Hep B Core IgM Ab Hepatitis C Ab (EIA) Active Medications Albuterol Sulfate (Ventolin 0.083% Nebulizer Soln -) 1 amp NEB Q2H PRN PRN Reason: SHORT OF BREATH/WHEEZING Last Admin: 06/21/19 13:54 Dose: 1 amp Albuterol/Ipratropium (Duoneb -) 1 amp NEB Q6H PRN PRN Reason: SHORTNESS OF BREATH Last Admin: 06/21/19 20:10 Dose: 1 amp Amlodipine Besylate (Norvasc -) 10 mg PO DAILY [facility] Last Admin: 06/21/19 09:39 Dose: 10 mg Citalopram Hydrobromide (Celexa -) 10 mg PO DAILY [facility] Last Admin: 06/21/19 09:37 Dose: 10 mg Folic Acid (Folic Acid -) 1 mg PO DAILY [facility] Last Admin: 06/21/19 09:39 Dose: 1 mg Heparin Sodium (Porcine) (Heparin -) 5,000 unit SQ TID [facility] Last Admin: 06/21/19 21:32 Dose: 5,000 unit Sodium Chloride (Normal Saline -) 1,000 mls @ 42 mls/hr IV ASDIR [facility] Last Admin: 06/21/19 09:37 Dose: 42 mls/hr Insulin Aspart (Novolog Vial Sliding Scale -) 1 vial SQ ACHS [facility]; Protocol Last Admin: 06/21/19 23:47 Dose: 10 units Insulin Detemir (Levemir Vial) 15 units SQ DAILY [facility] Lisinopril (Prinivil) 10 mg PO DAILY [facility] Last Admin: 06/21/19 09:39 Dose: 10 mg Methadone HCl 80 mg/ Methadone (HCl 10 mg) 90 mg PO DAILY@0600 [facility] Last Admin: 06/21/19 06:29 Dose: 90 mg Multivitamins/Minerals/Vitamin C (Tab-A-Vit -) 1 tab PO DAILY [facility] Last Admin: 06/21/19 09:39 Dose: 1 tab Prednisone (Deltasone -) 30 mg PO DAILY [facility] Last Admin: 06/21/19 09:37 Dose: 30 mg Quetiapine Fumarate (Seroquel -) 400 mg PO HS [facility] Last Admin: 06/21/19 21:33 Dose: 400 mg Simethicone (Mylicon -) 80 mg PO Q4H PRN PRN Reason: GAS Last Admin: 06/21/19 13:11 Dose: 80 mg Thiamine HCl (Vitamin B1 -) 100 mg PO DAILY [facility] Last Admin: 06/21/19 09:39 Dose: 100 mg ASSESSMENT/PLAN: 48 y/o male PMH HTN, DM, polysubstance abuse (etoh, benzodiazepines, and opioids; currently in rehab) and asthma c/o SOB at [facility]. He was admitted for acute asthma exacerbation likely 2/2 URI. BGM today have not been controlled and continue to be in the 300s. # DM - Continued elevated BGM - Steroid taper in effect - Increased levemir to 15 units in AM - Closed AG - RN observes pt overeating and consumer foods with high glycemic index. # Acute asthma exacerbation - Flu NEG, no evidence of PNA - Prednisone - Duonebs sched - Ventolin PRN # RIGHT facial droop, chronic - Upper and lower face - Lyme NEG # Polysubstance abuse - Pt can complete final day of detox in hospital as [facility] has no availability - Librium protocol day 4 - Thiamine, folate, b12 - Opioid abuse: methadone 90 mg po qd # F/E/N - PO - Cont. to monitor - Low sodium/DM diet # DVT prophylaxis - Heparin SQ # Disposition - Med/surg Hilario Trivedi MD Visit type - Emergency Visit Emergency Visit: No - New Patient This patient is new to me today: No - Critical Care Critical Care patient: No - Discharge Referral Referred to [facility] No ATTENDING PHYSICIAN STATEMENT I saw and evaluated the patient. I reviewed the resident's note and discussed the case with the resident. I agree with the resident's findings and plan as documented. SUBJECTIVE: OBJECTIVE: ASSESSMENT AND PLAN:
[2019-06-21 19:22] LABS: BLOOD UREA NITROGEN 26.3 mg/dL (7-18); CALCIUM 9.3 mg/dL (8.5-10.1); CREATININE 1.5 mg/dL (0.55-1.3); POTASSIUM 4.3 mmol/L (3.5-5.1)
[2019-06-21] MEDS: QUEtiapine FUMARATE 200 MG TABLET PO SCH (21:33)
[2019-06-22] MEDS ORDERED: chlordiazePOXIDE HCL 10 MG CAPSULE PO ONE (05:00)
[2019-06-22] MEDS ORDERED: METHADONE HCL 10 MG TABLET ONE (05:32)
[2019-06-22] MEDS ORDERED: METHADONE HCL 40 MG DISPERSABLE TABLET ONE (05:33)
[2019-06-22] MEDS: HEPARIN NA (PORCINE) 5,000 UNITS/ML 1ML VIAL SQ SCH ×3 (05:38→22:16)
[2019-06-22] MEDS: METHADONE 80 MG, METHADONE 10 MG PO SCH (05:38)
[2019-06-22] MEDS: INSULIN SLIDING SCALE (NOVOLOG) 1 VIAL SQ SCH ×4 (06:46→22:18)
[2019-06-22] MEDS: ALBUTEROL SO4 2.5/IPRATROPIUM 0.5 INH SOL 3 ML VIAL.NEB. NEB PRN (07:30)
[2019-06-22] MEDS ORDERED: INSULIN (LEVEMIR) 100 UNITS/ML UNITS SQ SCH (10:00)
[2019-06-22] MEDS: amLODIPine BESYLATE 10 MG TABLET (FP) PO SCH (11:56)
[2019-06-22] MEDS: MULTIVITAMINS (DAILY MVI) TABLET (FP) PO SCH (11:56)
[2019-06-22] MEDS: FOLIC ACID 1 MG TABLET (FP) PO SCH (11:56)
[2019-06-22] MEDS: predniSONE 20 MG TABLET (UD) PO SCH (11:56)
[2019-06-22] MEDS: CITALOPRAM HYDROBROMIDE 10 MG TABLET PO SCH (11:56)
[2019-06-22] MEDS: LISINOPRIL 10 MG TABLET (FP) PO SCH (11:56)
[2019-06-22] MEDS: SODIUM CHLORIDE 1,000 ML IV SCH (11:58)
[2019-06-22] MEDS: THIAMINE HCL 100 MG TABLET (FP) PO SCH (12:00)
[2019-06-22 14:54] VITALS: BMI 32.0
--- NOTE | 2019-06-22 15:52 | PN ---
Progress Note (short form) - Note Progress Note: Subjective: no fever or chills. no abd pain . breathing is better Objective: Vital Signs: Last Vital Signs Temp Pulse Resp BP Pulse Ox 97.7 F 97 H 18 143/79 100 06/22/19 14:00 06/22/19 14:00 06/22/19 14:00 06/22/19 14:00 06/21/19 21:00 Laboratory Results - last 24 hr 06/21/19 06/21/19 06/21/19 16:57 18:40 19:58 Sodium 136 Potassium 4.3 Chloride 102 Carbon Dioxide 25 Anion Gap 9 BUN 26.3 H Creatinine 1.5 H Est GFR (CKD-EPI)AfAm 62.46 Est GFR (CKD-EPI)NonAf 53.89 POC Glucometer 415 345 Random Glucose 421 H* Calcium 9.3 06/21/19 06/21/19 06/22/19 22:38 23:45 05:37 Sodium Potassium Chloride Carbon Dioxide Anion Gap BUN Creatinine Est GFR (CKD-EPI)AfAm Est GFR (CKD-EPI)NonAf POC Glucometer 379 366 250 Random Glucose Calcium 06/22/19 11:51 Sodium Potassium Chloride Carbon Dioxide Anion Gap BUN Creatinine Est GFR (CKD-EPI)AfAm Est GFR (CKD-EPI)NonAf POC Glucometer 362 Random Glucose Calcium Physical Exam: NAD, awake, alert, and cooperative. HEENT: R upper and lower facial droop. MMM. CV: RRR, no MRG. Lungs: decreased breath sounds at bases. scattered wheezes Ext : No edema or erythema on upper or lower extremities ASSESSMENT AND PLAN: 48 y/o man with h/o polysubstance abuse ( benzos, alcohol, opioids on methadone ), DM, asthma, HTN, and current nicotine dependence who was sent form [facility] due to SOb and was found to have acute Asthma exacerbation. 1- Acute asthma exacerbation: improved. - cont steroids, day 2 on 30 mg . decrease to 20 mg tomorrow . fast taper due to severe hyperglycemia - Nebs 2-H/o DM, with severe hyperglycemia: due to steroids use and eating double portion of each meal - cont SSI and increase dose of coverage - cont levemir 15 units daily .change to 7 am dosing - start metformin and Januvia - will cont on insulin while on steroids. after steroid taper will cont po and SSI . 3- ETOH WD: cont librium protocol 4- R upper and lower facial droop: chronic. - lyme titers neg 5- ETOH withdrawal: finished detox 6- H/o Oioid abuse: cont methadone 7- HTN: BP is well controlled on lisinopril and norvasc. will cont DVT px: heparin SQ Confirmed with patient that he dose not take any meds but metformin and methadone at home. MEd rec done. alissa celexcasandra whittington seroquel due to concern of withdrawal if patient is not compliant will dc tomorrow to [facility] if sugar is better controlled. at [facility] , all meds need to be prescribed Visit type - Emergency Visit Emergency Visit: Yes ED Registration Date: 06/19/19 Care time: The patient presented to the Emergency Department on the above date and was hospitalized for further evaluation of their emergent condition. - New Patient This patient is new to me today: No - Critical Care Critical Care patient: No
[2019-06-22 17:31] LABS: BLOOD UREA NITROGEN 23.6 mg/dL (7-18); CALCIUM 9.3 mg/dL (8.5-10.1); CREATININE 1.2 mg/dL (0.55-1.3); POTASSIUM 4.4 mmol/L (3.5-5.1)
[2019-06-22] MEDS ORDERED: INSULIN (LEVEMIR) 100 UNITS/ML UNITS SQ ONE (18:10)
[2019-06-22] MEDS ORDERED: INSULIN (NOVOLOG) ASPART 100 UNITS/ML 10ML VIAL ONE (21:03)
[2019-06-22] MEDS ORDERED: INSULIN (NOVOLOG) ASPART 100 UNITS/ML 10ML VIAL SQ ONE (22:26)
[2019-06-23 01:22] LABS: BLOOD UREA NITROGEN 22.9 mg/dL (7-18); CALCIUM 9.1 mg/dL (8.5-10.1); CREATININE 1.1 mg/dL (0.55-1.3)
[2019-06-23] MEDS: ALBUTEROL SO4 2.5/IPRATROPIUM 0.5 INH SOL 3 ML VIAL.NEB. NEB PRN (04:01)
[2019-06-23] MEDS ORDERED: METHADONE HCL 10 MG TABLET ONE (06:08)
[2019-06-23] MEDS ORDERED: METHADONE HCL 40 MG DISPERSABLE TABLET ONE (06:09)
[2019-06-23] MEDS ORDERED: INSULIN (LEVEMIR) 100 UNITS/ML UNITS SQ SCH (07:00)
[2019-06-23] MEDS: METHADONE 80 MG, METHADONE 10 MG PO SCH (07:07)
[2019-06-23] MEDS: INSULIN SLIDING SCALE (NOVOLOG) 1 VIAL SQ SCH ×2 (07:09→12:53)
[2019-06-23] MEDS: HEPARIN NA (PORCINE) 5,000 UNITS/ML 1ML VIAL SQ SCH (07:09)
[2019-06-23] MEDS ORDERED: INSULIN (NOVOLOG) ASPART 100 UNITS/ML 10ML VIAL ONE (07:41)
[2019-06-23] MEDS ORDERED: INSULIN (LEVEMIR) 100 UNITS/ML UNITS SQ ONE (07:44)
[2019-06-23 08:18] LABS: BLOOD UREA NITROGEN 19.5 mg/dL (7-18); CALCIUM 9.5 mg/dL (8.5-10.1); CREATININE 0.9 mg/dL (0.55-1.3); POTASSIUM 3.6 mmol/L (3.5-5.1)
[2019-06-23] MEDS ORDERED: PT OWN MED DRAWER 7, Y5N ONE (09:53)
[2019-06-23] MEDS: MULTIVITAMINS (DAILY MVI) TABLET (FP) PO SCH ×3 (09:53→12:55)
[2019-06-23] MEDS: FOLIC ACID 1 MG TABLET (FP) PO SCH ×3 (09:54→12:54)
[2019-06-23] MEDS: predniSONE 20 MG TABLET (UD) PO SCH ×2 (09:54→09:58)
[2019-06-23] MEDS: LISINOPRIL 10 MG TABLET (FP) PO SCH ×3 (09:54→12:55)
[2019-06-23] MEDS: THIAMINE HCL 100 MG TABLET (FP) PO SCH ×3 (09:54→12:54)
[2019-06-23] MEDS: amLODIPine BESYLATE 10 MG TABLET (FP) PO SCH ×3 (09:54→12:55)
--- NOTE | 2019-06-23 11:42 | DS ---
Physical Exam: SUBJECTIVE: Patient seen and examined at bedside. There were no acute events overnight. This AM he offers no new complaints. OBJECTIVE: Vital Signs Period Temp Pulse Resp BP Sys/Bellamy Pulse Ox Last 24 Hr 97.4 F-98.3 F 92-97 18-20 128-151/76-97 95 PHYSICAL EXAM GENERAL: AOx3, in no acute distress. HEAD: NCAT, RIGHT upper and lower mild facial droop EYES: Corrective lenses. 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 ENT: Ears normal, nares patent, oropharynx clear without exudates. Moist mucous membranes. NECK: Normal range of motion, supple without lymphadenopathy, JVD, or masses. LUNGS: Good air entry with end expiratory wheezes in all lung pacheco. No accessory muscle use. HEART: RRR s1 s2 ABDOMEN: Soft, BS present in all 4 quadrants, distended, no JVD, MUSCULOSKELETAL: No bony deformities or tenderness. No CVA tenderness. UPPER EXTREMITIES: 2+ pulses, warm, well-perfused. No cyanosis. No clubbing. No peripheral edema. LOWER EXTREMITIES: 2+ pulses, warm, well-perfused. No calf tenderness. No peripheral edema. + Onychomycosis NEUROLOGICAL: No focal deficits. Cranial nerves II-XII intact. Normal speech. Gait not appreciated. PSYCHIATRIC: Cooperative. Good eye contact. Appropriate mood and affect. SKIN: Warm, dry, normal turgor, no rashes or lesions noted, normal capillary refill. LABS 06/20/19 06/22/19 06/22/19 10:20 11:51 16:33 Sodium 138 Potassium 4.4 Chloride 103 Carbon Dioxide 28 Anion Gap 7 L BUN 23.6 H Creatinine 1.2 Est GFR (CKD-EPI)AfAm 81.80 Est GFR (CKD-EPI)NonAf 70.58 POC Glucometer 362 Random Glucose 462 H* Calcium 9.3 Lyme IgM 23 kDa Band No Result Required. Lyme IgM 39 kDa Band No Result Required. Lyme IgM 41 kDa Band No Result Required. 06/22/19 06/22/19 06/23/19 17:53 22:05 00:35 Sodium 139 Potassium 4.0 Chloride 102 Carbon Dioxide 28 Anion Gap 8 BUN 22.9 H Creatinine 1.1 Est GFR (CKD-EPI)AfAm 90.88 Est GFR (CKD-EPI)NonAf 78.41 POC Glucometer 480 412 Random Glucose 368 H Calcium 9.1 Lyme IgM 23 kDa Band Lyme IgM 39 kDa Band Lyme IgM 41 kDa Band 06/23/19 06/23/19 06/23/19 02:30 06:55 07:04 Sodium 142 Potassium 3.6 Chloride 105 Carbon Dioxide 32 Anion Gap 5 L BUN 19.5 H Creatinine 0.9 Est GFR (CKD-EPI)AfAm 115.83 Est GFR (CKD-EPI)NonAf 99.94 POC Glucometer 310 162 Random Glucose 167 H Calcium 9.5 Lyme IgM 23 kDa Band Lyme IgM 39 kDa Band Lyme IgM 41 kDa Band HOSPITAL COURSE: Date of Admission:06/19/19 48 y/o male PMH HTN, DM, polysubstance abuse (etoh, benzodiazepines, and opioids; currently in rehab) and asthma c/o SOB at [facility]. He was admitted for acute asthma exacerbation likely 2/2 URI. Flu NEG, no evidence of PNA. Asthma exacerbation recovered rapidly with standard of care. BGM elevated during stay; poss 2/2 to sensitivity to steroids plus eating non-hospital food despite re-education. Increased levemir to 15 units in AM. He demonstrated RIGHT facial droop, which was determined to be chronic (upper and lower face); Lyme NEG. He was dc to [facility] for cont. care of polysubstance abuse. Date of Discharge: 06/23/19 Hilario Trivedi MD Minutes to complete discharge: 40 Discharge Summary Problems reviewed: Yes Reason For Visit: ASTHMA Current Active Problems Alcohol dependence with uncomplicated withdrawal (Acute) Asthma (Chronic) DM2 (diabetes mellitus, type 2) (Chronic) Hypertension (Chronic) Methadone maintenance therapy patient (Chronic) Obese (Chronic) Condition: Improved - Instructions Diet, Activity, Other Instructions: YOUR VISIT You came to the hospital because you were feeling short of breath. You were admitted to the hospital for care of short term worsening of your asthma. You were given medical management and improved. You are now stable and may continue your care at Rehab. MEDICATIONS Please continue to take your medications as prescribed. You will Take Lisinopril , Amlodipine daily for your blood pressure. Take vitamins thiamine, folate, and multivitamin daily You will take Insulin, as well as Metformin and Januvia for your Diabetes. Take Albuterol pump (1-2 inhalations) every 4 hours as needed for shortness of breath. Take Insulin Levemir 20 units daily for 06/23 and 06/24. Following 06/25 you may decrease dose to Insulin Levemir 10 units daily. if sugar starts to be better controlled or low, [facility] staff can stop the insulin and just continue with the metformin and Januvia and discharge home on diabetes pills only In addition use sliding scale insulin Novolog with meals Blood glucose Units 10o-150 2 151-200 4 201-250 6 251-300 8 301-350 10 351-400 12 greater than 400 12, Call MD immediately Since you were receiving steroid medications in the hospital, follow the following June 24, 2019 Prednisone 10 mg by mouth June 25, 2019 STOP taking Prednisone Follow up with your primary care physician after you complete Rehab. A referral to [facility] has been provided Follow up with Product Safety Administrator Dr Tello within one week after discharge. A referral has been provided. Follow up with [facility] within one week of discharge to discuss your Diabetes. A referral to Dr. Gomez has been provided; ADDITIONAL CARE Please make an appointment to see a primary care provider 1 week from today. Since you do not currently have one, you can be seen at the [facility] residents clinic located at [address] [place] [address]. Please call to make an appointment. If you would like to continue seeing Dr. Hilario Trivedi, please ask for a Sunday morning appointment. ADDITIONAL INFORMATION Please call 911 or come directly to the emergency department if you experience unusual headache, vision change, shortness of breath, chest pain, numbness, tingling, loss of alertness/awareness, loss of function, unusual bleeding or any alarming symptoms. [facility]: please prescribe his medications prior to discharge. Thank you Referrals: aRmy Holden MD [Staff Physician] - Juaquin Tello MD [Staff Physician] - Erika Gomez MD [Staff Physician] - Disposition: I.P. ALCOHOL/SUBS ABUSE REHAB - Home Medications Comprehensive Discharge Medication List: Ambulatory Orders Methadone [Dolophine -] 90 mg PO DAILY 08/27/17 Albuterol Sulfate Inhaler - [Ventolin HFA Inhaler -] 2 puff IH Q4H PRN #1 inhaler 09/07/17 metFORMIN HCL [Glucophage -] 1,000 mg PO BIDAC 30 Days #60 tablet 09/07/17 Amlodipine Besylate [Norvasc -] 10 mg PO DAILY 30 Days #30 tablet 06/23/19 Folic Acid - 1 mg PO DAILY tablet 06/23/19 Insulin (Levemir) [Levemir Vial] 20 units SQ DAILY 2 Days #40 units 06/23/19 Insulin Sliding Scale [Novolog Vial Sliding Scale -] 1 vial SQ ACHS units 06/23 Lisinopril 20 mg PO DAILY 30 Days #30 tablet 06/23/19 Multivitamins [Multivit ([facility] Formulary)] 1 tab PO DAILY tab 06/23/19 Sitagliptin Phosphate [Januvia] 100 mg PO DAILY 30 Days #30 tablet 06/23/19 Thiamine HCl [Vitamin B1 -] 100 mg PO DAILY tablet 06/23/19 This patient is new to me today: No Emergency Visit: No Critical Care patient: No - Discharge Referral Referred to [facility] No ATTENDING PHYSICIAN STATEMENT I saw and evaluated the patient. I reviewed the resident's note and discussed the case with the resident. I agree with the resident's findings and plan as documented. SUBJECTIVE: OBJECTIVE: ASSESSMENT AND PLAN:
[2019-06-23 13:01] VITALS: TEMP 98
[2019-06-23 13:08] VITALS: BP 154/93; PULSE 95
--- NOTE | 2019-06-23 16:21 | PN ---
Teaching Attending Note Name of Resident: Hilario Trivedi ATTENDING PHYSICIAN STATEMENT I saw and evaluated the patient. I reviewed the resident's note and discussed the case with the resident. I agree with the resident's findings and plan as documented. SUBJECTIVE: No fever or chills. breathing is better . No SOB . OBJECTIVE: NAD, awake, alert, and cooperative. HEENT: R upper and lower facial droop. MMM. CV: RRR, no MRG. Lungs:CTAB Ext : No edema or erythema on upper or lower extremities ASSESSMENT AND PLAN: 48 y/o man with h/o polysubstance abuse ( benzos, alcohol, opioids on methadone ), DM, asthma, HTN, and current nicotine dependence who was sent form [facility] due to SOb and was found to have acute Asthma exacerbation. 1- Acute asthma exacerbation: improved. - cont short taper of prednisone -inhalers 2-H/o DM, with severe hyperglycemia: - due to uncontrolled sugars, his regimen will include 20 of levemir daily until after he finishes steroids, then 10 units daily after that in a plan to taper off. also , SSi , januvia and metformin 3- ETOH WD: finsihed librium 4- R upper and lower facial droop: chronic. - lyme titers neg 5- H/o Oioid abuse: cont methadone 8- HTN: BP is well controlled on lisinopril and norvasc. will cont after dc dispo : dc to [facility] today
[2019-06-23] MEDS ORDERED: INSULIN (NOVOLOG) ASPART 100 UNITS/ML 10ML VIAL SQ ONE (22:10)
== END 2019-06-23 13:31 | disposition other institution (70) | DRG 141 ==
LOC: JER 18:35 → JERBED 23:05 → J8W 06-20 02:30
PROVIDERS: ADMIT Internal Medicine; ATTEND Internal Medicine
PROC: HZ2ZZZZ Detoxification Services for Substance Abuse Treatment (ICD-10-PCS; principal; 2019-06-19)
DX: J45.41 Moderate persistent asthma with (acute) exacerbation (principal); E11.65 Type 2 diabetes mellitus with hyperglycemia; F10.239 Alcohol dependence with withdrawal, unspecified; I10 Essential (primary) hypertension; F11.20 Opioid dependence, uncomplicated; R29.810 Facial weakness; E87.1 Hypo-osmolality and hyponatremia; F31.9 Bipolar disorder, unspecified; J06.9 Acute upper respiratory infection, unspecified; E66.9 Obesity, unspecified; Z68.32 Body mass index [BMI] 32.0-32.9, adult
CPT/HCPCS: 36415; 71046-TC-FY; 76705-TC; 80048; 80053; 80074; 80307; 82550; 82962; 83036; 83735; 84484; 85025; 86618; 87804; 93005; 93010; 94010; 94150; 94640; 99284-25; J1644; J7030

== ENCOUNTER 2021-05-09 13:24 | Inpatient (IN) | payer OTHER ==
[2021-05-09] MEDS ORDERED: ACETAMINOPHEN 325 MG TABLET (FP) PO PRN ×2 (15:15)
[2021-05-09] MEDS ORDERED: MAG HYDROX/AL HYDROX/SIMETH 30 ML UNIT-DOSE CUP PO PRN (15:15)
[2021-05-09] MEDS ORDERED: BISMUTH SUBSALICYLATE 524 MG/30 ML PO PRN (15:15)
[2021-05-09] MEDS ORDERED: MAGNESIUM CITRATE 300 ML BOTTLE PO PRN (15:15)
[2021-05-09] MEDS ORDERED: ONDANSETRON *ODT* 4 MG TABLET SL PRN (15:15)
[2021-05-09] MEDS ORDERED: MAGNESIUM HYDROX 2400MG/30ML ORAL SUSPENSION 30 ML CUP PO PRN (15:15)
[2021-05-09] MEDS ORDERED: MENTHOL/PHENOL 1 EACH UD MM PRN (15:15)
[2021-05-09 15:37] VITALS: BMI 33.5
[2021-05-09] MEDS: hydrOXYzine PAMOATE 25 MG CAPSULE (FP) PO SCH ×2 (17:48→22:29)
[2021-05-09] MEDS: METHOCARBAMOL 500 MG TABLET PO PRN (22:29)
[2021-05-09] MEDS: MELATONIN 5 MG TABLETS PO SCH (22:29)
[2021-05-09] MEDS: THIAMINE HCL 100 MG TABLET (FP) PO SCH (22:29)
[2021-05-10] MEDS: hydrOXYzine PAMOATE 25 MG CAPSULE (FP) PO SCH ×5 (07:32→22:08)
[2021-05-10] MEDS ORDERED: COLLOIDAL OATMEAL 1 BAR EACH TP PRN (09:46)
[2021-05-10] MEDS ORDERED: CALAMINE 8% TOPICAL LOTION 177 ML BOTTLE TP PRN (09:46)
[2021-05-10] MEDS ORDERED: ALBUTEROL SO4 HFA INHALER IH PRN (09:49)
[2021-05-10] MEDS ORDERED: methaDONE HCL 10 MG TABLET PO SCH (10:00)
[2021-05-10] MEDS ORDERED: methaDONE HCL 10 MG TABLET ONE (10:20)
[2021-05-10] MEDS ORDERED: methaDONE HCL 40 MG DISPERSABLE TABLET ONE (10:21)
[2021-05-10] MEDS: LISINOPRIL 20 MG TABLET PO SCH (10:22)
[2021-05-10] MEDS: amLODIPine BESYLATE 10 MG TABLET (FP) PO SCH (10:22)
[2021-05-10] MEDS: PRENATAL VITAMINS W/ FOLIC ACID TABLET (FP) PO SCH (10:22)
[2021-05-10] MEDS: methaDONE 40 MG, methaDONE 10 MG PO SCH (10:22)
[2021-05-10] MEDS: diazePAM 5 MG TABLET PO SCH ×3 (10:23→22:08)
[2021-05-10] MEDS: NICOTINE 10 MG CARTRIDGE (INHALER) IH PRN ×2 (10:55→22:07)
[2021-05-10] MEDS: METHOCARBAMOL 500 MG TABLET PO PRN (13:55)
[2021-05-10] MEDS: IBUPROFEN 400 MG TABLET (FP) PO PRN ×2 (13:56→22:41)
[2021-05-10] MEDS: metFORMIN HCL 500 MG TABLET (FP) PO SCH (17:07)
[2021-05-10] MEDS: diazePAM 5 MG TABLET PO PRN (19:13)
[2021-05-10] MEDS: THIAMINE HCL 100 MG TABLET (FP) PO SCH (22:07)
[2021-05-10] MEDS: MELATONIN 5 MG TABLETS PO SCH (22:07)
[2021-05-11] MEDS: METHOCARBAMOL 500 MG TABLET PO PRN ×2 (00:52→17:58)
[2021-05-11] MEDS: diazePAM 5 MG TABLET PO PRN ×3 (02:09→19:36)
[2021-05-11] MEDS ORDERED: methaDONE HCL 10 MG TABLET ONE (04:16)
[2021-05-11] MEDS ORDERED: methaDONE HCL 40 MG DISPERSABLE TABLET ONE (04:16)
[2021-05-11] MEDS: methaDONE 40 MG, methaDONE 10 MG PO SCH (05:28)
[2021-05-11] MEDS: diazePAM 5 MG TABLET PO SCH ×4 (05:29→22:45)
[2021-05-11] MEDS: hydrOXYzine PAMOATE 25 MG CAPSULE (FP) PO SCH ×5 (05:51→22:46)
[2021-05-11] MEDS: metFORMIN HCL 500 MG TABLET (FP) PO SCH ×2 (06:36→16:56)
[2021-05-11 10:46] LABS: BLOOD UREA NITROGEN 11.6 mg/dL (7-18)
[2021-05-11 10:47] LABS: CALCIUM 9.2 mg/dL (8.5-10.1)
[2021-05-11 10:48] LABS: ALBUMIN 3.6 g/dl (3.4-5.0)
[2021-05-11 10:51] LABS: CREATININE 0.9 mg/dL (0.55-1.3)
[2021-05-11 10:52] LABS: BILIRUBIN,TOTAL 0.2 mg/dL (0.2-1); HEMATOCRIT 37.2 % (35.4-49); HEMOGLOBIN 12.3 GM/dL (11.7-16.9); MCH 27.5 pg (25.7-33.7); MCHC 33.2 g/dl (32.0-35.9); MEAN CELL VOLUME 82.7 fl (80-96); MEAN PLT VOLUME 9.6 fl (7.5-11.1); PLATELET COUNT 280 10^3/uL (134-434); RBC 4.49 M/mm3 (4.00-5.60); RDW 16.1 % (11.9-15.9); TOT PROT 7.7 g/dl (6.4-8.2); WHITE BLOOD COUNT 5.3 K/mm3 (4.0-10.0)
[2021-05-11] MEDS: AMMONIUM LACTATE 12% LOTION 225 GM BOTTLE TP SCH ×2 (11:02→22:47)
[2021-05-11] MEDS: PRENATAL VITAMINS W/ FOLIC ACID TABLET (FP) PO SCH (11:05)
[2021-05-11] MEDS: CITALOPRAM HYDROBROMIDE 20 MG TABLET PO SCH (11:05)
[2021-05-11] MEDS: LISINOPRIL 20 MG TABLET PO SCH (11:06)
[2021-05-11] MEDS: amLODIPine BESYLATE 10 MG TABLET (FP) PO SCH (11:06)
[2021-05-11] MEDS: IBUPROFEN 400 MG TABLET (FP) PO PRN (16:05)
[2021-05-11] MEDS ORDERED: cloNIDine HCL 0.1 MG TABLET PO ONE (19:47)
[2021-05-11] MEDS: QUEtiapine FUMARATE 200 MG TABLET PO SCH (22:46)
[2021-05-11] MEDS: MELATONIN 5 MG TABLETS PO SCH (22:46)
[2021-05-11] MEDS: THIAMINE HCL 100 MG TABLET (FP) PO SCH (22:46)
[2021-05-12] MEDS ORDERED: methaDONE HCL 10 MG TABLET ONE (04:19)
[2021-05-12] MEDS ORDERED: methaDONE HCL 40 MG DISPERSABLE TABLET ONE (04:19)
[2021-05-12] MEDS: methaDONE 40 MG, methaDONE 10 MG PO SCH (05:55)
[2021-05-12] MEDS: hydrOXYzine PAMOATE 25 MG CAPSULE (FP) PO SCH ×5 (05:56→22:27)
[2021-05-12] MEDS: diazePAM 5 MG TABLET PO SCH ×3 (05:56→22:27)
[2021-05-12] MEDS: metFORMIN HCL 500 MG TABLET (FP) PO SCH ×2 (06:00→18:06)
[2021-05-12] MEDS: LISINOPRIL 20 MG TABLET PO SCH (10:12)
[2021-05-12] MEDS: amLODIPine BESYLATE 10 MG TABLET (FP) PO SCH (10:12)
[2021-05-12] MEDS: QUEtiapine FUMARATE 100 MG TABLET (FP) PO SCH (10:12)
[2021-05-12] MEDS: PRENATAL VITAMINS W/ FOLIC ACID TABLET (FP) PO SCH (10:12)
[2021-05-12] MEDS: CITALOPRAM HYDROBROMIDE 20 MG TABLET PO SCH (10:12)
[2021-05-12] MEDS: NICOTINE 10 MG CARTRIDGE (INHALER) IH PRN (10:13)
[2021-05-12] MEDS: AMMONIUM LACTATE 12% LOTION 225 GM BOTTLE TP SCH ×2 (10:14→22:27)
[2021-05-12] MEDS: diazePAM 5 MG TABLET PO PRN (20:06)
[2021-05-12] MEDS: QUEtiapine FUMARATE 200 MG TABLET PO SCH (22:27)
[2021-05-12] MEDS: MELATONIN 5 MG TABLETS PO SCH (22:27)
[2021-05-12] MEDS: THIAMINE HCL 100 MG TABLET (FP) PO SCH (22:27)
[2021-05-13] MEDS ORDERED: methaDONE HCL 40 MG DISPERSABLE TABLET ONE (04:13)
[2021-05-13] MEDS ORDERED: methaDONE HCL 10 MG TABLET ONE (04:13)
[2021-05-13] MEDS: metFORMIN HCL 500 MG TABLET (FP) PO SCH ×2 (06:25→15:16)
[2021-05-13] MEDS: methaDONE 40 MG, methaDONE 10 MG PO SCH (06:28)
[2021-05-13] MEDS: hydrOXYzine PAMOATE 25 MG CAPSULE (FP) PO SCH ×5 (06:28→22:33)
[2021-05-13] MEDS: diazePAM 5 MG TABLET PO SCH ×2 (06:28→18:15)
[2021-05-13] MEDS: NICOTINE 10 MG CARTRIDGE (INHALER) IH PRN (07:22)
[2021-05-13] MEDS: QUEtiapine FUMARATE 100 MG TABLET (FP) PO SCH (10:27)
[2021-05-13] MEDS: CITALOPRAM HYDROBROMIDE 20 MG TABLET PO SCH (10:27)
[2021-05-13] MEDS: LISINOPRIL 20 MG TABLET PO SCH (10:27)
[2021-05-13] MEDS: amLODIPine BESYLATE 10 MG TABLET (FP) PO SCH (10:27)
[2021-05-13] MEDS: PRENATAL VITAMINS W/ FOLIC ACID TABLET (FP) PO SCH (10:27)
[2021-05-13] MEDS: AMMONIUM LACTATE 12% LOTION 225 GM BOTTLE TP SCH ×2 (10:29→22:33)
[2021-05-13] MEDS: METHOCARBAMOL 500 MG TABLET PO PRN (19:38)
[2021-05-13] MEDS: THIAMINE HCL 100 MG TABLET (FP) PO SCH (22:33)
[2021-05-13] MEDS: QUEtiapine FUMARATE 200 MG TABLET PO SCH (22:33)
[2021-05-13] MEDS: MELATONIN 5 MG TABLETS PO SCH (22:33)
[2021-05-14] MEDS ORDERED: methaDONE HCL 40 MG DISPERSABLE TABLET ONE (04:32)
[2021-05-14] MEDS ORDERED: methaDONE HCL 10 MG TABLET ONE (04:32)
[2021-05-14] MEDS ORDERED: diazePAM 5 MG TABLET PO ONE (06:00)
[2021-05-14] MEDS: metFORMIN HCL 500 MG TABLET (FP) PO SCH ×2 (06:35→17:30)
[2021-05-14] MEDS: hydrOXYzine PAMOATE 25 MG CAPSULE (FP) PO SCH ×5 (06:36→22:53)
[2021-05-14] MEDS: methaDONE 40 MG, methaDONE 10 MG PO SCH (06:36)
[2021-05-14] MEDS: QUEtiapine FUMARATE 100 MG TABLET (FP) PO SCH (10:50)
[2021-05-14] MEDS: CITALOPRAM HYDROBROMIDE 20 MG TABLET PO SCH (10:50)
[2021-05-14] MEDS: LISINOPRIL 20 MG TABLET PO SCH (10:50)
[2021-05-14] MEDS: amLODIPine BESYLATE 10 MG TABLET (FP) PO SCH (10:50)
[2021-05-14] MEDS: IBUPROFEN 400 MG TABLET (FP) PO PRN (10:52)
[2021-05-14] MEDS: PRENATAL VITAMINS W/ FOLIC ACID TABLET (FP) PO SCH (11:05)
[2021-05-14] MEDS: AMMONIUM LACTATE 12% LOTION 225 GM BOTTLE TP SCH ×2 (11:07→22:52)
[2021-05-14] MEDS: METHOCARBAMOL 500 MG TABLET PO PRN (12:20)
[2021-05-14] MEDS: THIAMINE HCL 100 MG TABLET (FP) PO SCH (22:52)
[2021-05-14] MEDS: QUEtiapine FUMARATE 200 MG TABLET PO SCH (22:52)
[2021-05-14] MEDS: MELATONIN 5 MG TABLETS PO SCH (22:52)
[2021-05-15] MEDS ORDERED: methaDONE HCL 40 MG DISPERSABLE TABLET ONE (04:32)
[2021-05-15] MEDS ORDERED: methaDONE HCL 10 MG TABLET ONE (04:32)
[2021-05-15] MEDS ORDERED: diazePAM 5 MG TABLET PO ONE (06:00)
[2021-05-15] MEDS: methaDONE 40 MG, methaDONE 10 MG PO SCH (06:18)
[2021-05-15] MEDS: metFORMIN HCL 500 MG TABLET (FP) PO SCH (06:19)
[2021-05-15] MEDS: hydrOXYzine PAMOATE 25 MG CAPSULE (FP) PO SCH ×2 (06:19→09:27)
[2021-05-15 09:00] VITALS: BP 145/81; PULSE 104; TEMP 97.2
[2021-05-15] MEDS: amLODIPine BESYLATE 10 MG TABLET (FP) PO SCH (09:27)
[2021-05-15] MEDS: QUEtiapine FUMARATE 100 MG TABLET (FP) PO SCH (09:27)
[2021-05-15] MEDS: LISINOPRIL 20 MG TABLET PO SCH (09:27)
[2021-05-15] MEDS: CITALOPRAM HYDROBROMIDE 20 MG TABLET PO SCH (09:27)
[2021-05-15] MEDS: PRENATAL VITAMINS W/ FOLIC ACID TABLET (FP) PO SCH (10:58)
[2021-05-15] MEDS: AMMONIUM LACTATE 12% LOTION 225 GM BOTTLE TP SCH (10:58)
== END 2021-05-15 10:15 | disposition home or self-care (01) | DRG 773 ==
LOC: YASAS 13:24 → Y3N 16:00
PROVIDERS: ADMIT Allergy & Immunology; ATTEND Allergy & Immunology
PROC: HZ2ZZZZ Detoxification Services for Substance Abuse Treatment (ICD-10-PCS; principal; 2021-05-09)
DX: F10.230 Alcohol dependence with withdrawal, uncomplicated (principal); F11.20 Opioid dependence, uncomplicated; F13.20 Sedative, hypnotic or anxiolytic dependence, uncomplicated; F17.210 Nicotine dependence, cigarettes, uncomplicated; F25.9 Schizoaffective disorder, unspecified; F19.24 Other psychoactive substance dependence with psychoactive substance-induced mood disorder; I10 Essential (primary) hypertension; E11.9 Type 2 diabetes mellitus without complications; J45.40 Moderate persistent asthma, uncomplicated; G47.00 Insomnia, unspecified; L85.3 Xerosis cutis; E66.9 Obesity, unspecified; Z68.33 Body mass index [BMI] 33.0-33.9, adult; Z79.84 Long term (current) use of oral hypoglycemic drugs; Z88.8 Allergy status to other drugs, medicaments and biological substances; Z86.59 Personal history of other mental and behavioral disorders; Z56.0 Unemployment, unspecified
CPT/HCPCS: 36415; 80053; 82962; 85027; 86780; C9803; J0735; U0003; U0005

== ENCOUNTER 2023-07-01 10:58 | Inpatient (IN) | payer OTHER ==
[2023-07-01 11:17] VITALS: BMI 26.5
[2023-07-01] MEDS ORDERED: POLYETHYLENE GLYCOL (HEALTHYLAX) 3350 17 GM PACKET PO PRN (12:43)
[2023-07-01] MEDS ORDERED: NALOXONE HCL 0.4 MG/ML VIAL IM PRN (12:43)
[2023-07-01] MEDS ORDERED: MAGNESIUM HYDROX 2400MG/30ML ORAL SUSPENSION 30 ML CUP PO PRN (12:43)
[2023-07-01] MEDS ORDERED: DICYCLOMINE HCL 10 MG CAPSULE PO PRN (12:43)
[2023-07-01] MEDS ORDERED: BENZOCAINE/MENTHOL (CHLORASEPTIC ) LOZENGE MM PRN (12:43)
[2023-07-01] MEDS ORDERED: ACETAMINOPHEN 325 MG TABLET (FP) PO PRN (12:43)
[2023-07-01] MEDS ORDERED: METHOCARBAMOL 500 MG TABLET PO PRN (12:43)
[2023-07-01] MEDS ORDERED: MAG HYDROX/AL HYDROX/SIMETH 30 ML UNIT-DOSE CUP PO PRN (12:43)
[2023-07-01] MEDS ORDERED: BISMUTH SUBSALICYLATE 524 MG/30 ML PO PRN (12:43)
[2023-07-01] MEDS ORDERED: IBUPROFEN 600 MG TABLET (FP) PO PRN (12:43)
[2023-07-01] MEDS ORDERED: ONDANSETRON *ODT* 4 MG TABLET SL PRN (12:43)
[2023-07-01] MEDS ORDERED: IBUPROFEN 400 MG TABLET (FP) PO PRN (12:43)
[2023-07-01] MEDS ORDERED: hydrOXYzine PAMOATE 25 MG CAPSULE (FP) PO PRN (12:43)
[2023-07-01] MEDS ORDERED: BENZONATATE 200 MG CAPSULE PO PRN (12:43)
[2023-07-01] MEDS ORDERED: LOPERAMIDE HCL 2 MG CAPSULE PO PRN (12:43)
[2023-07-01] MEDS ORDERED: NALOXONE HCL (KLOXXADO) 8 MG SPRAY NS PRN (12:43)
[2023-07-01] MEDS ORDERED: NICOTINE POLACRILEX 2 MG GUM BUC PRN (12:43)
[2023-07-01] MEDS ORDERED: guaiFENesin 600 MG TABLET.ER (FP) PO PRN (12:43)
[2023-07-01] MEDS ORDERED: MELATONIN 5 MG TABLETS PO SCH (22:00)
[2023-07-01] MEDS ORDERED: THIAMINE HCL 100 MG TABLET (FP) PO SCH (22:00)
[2023-07-02] MEDS ORDERED: diazePAM 5 MG TABLET PO PRN (09:20)
[2023-07-02] MEDS ORDERED: sitaGLIPtin PHOSPHATE 50 MG TABLET PO SCH (09:45)
[2023-07-02 09:46] VITALS: BP 150/94; PULSE 81; RESP 20; TEMP 97.3
[2023-07-02] MEDS ORDERED: LISINOPRIL 20 MG TABLET PO SCH (10:00)
[2023-07-02] MEDS ORDERED: PRENATAL VITAMINS W/ FOLIC ACID TABLET (FP) PO SCH (10:00)
[2023-07-02] MEDS ORDERED: amLODIPine BESYLATE 10 MG TABLET (FP) PO SCH (10:00)
[2023-07-02 10:50] LABS: MCH 29.1 pg (25.7-33.7); MCHC 33.3 g/dl (32.0-35.9); MEAN CELL VOLUME 87.5 fl (80-96); MEAN PLT VOLUME 9.1 fl (7.5-11.1); PLATELET COUNT 216 10^3/uL (134-434); RBC 4.46 M/mm3 (4.00-5.60); RDW 13.8 % (11.9-15.9); WHITE BLOOD COUNT 5.3 K/mm3 (4.0-10.0)
[2023-07-02] MEDS ORDERED: diazePAM 5 MG TABLET PO SCH (11:00)
[2023-07-02 11:09] LABS: CHLORIDE 111 mmol/L (98-107); POTASSIUM 3.8 mmol/L (3.5-5.1); SODIUM 145 mmol/L (136-145)
[2023-07-02 11:13] LABS: CALCIUM 8.6 mg/dL (8.5-10.1)
[2023-07-02 11:14] LABS: ANION GAP 7 mmol/L (4-13); BLOOD UREA NITROGEN 12.9 mg/dL (7-18); CO2 27 mmol/L (21-32); GLUCOSE,RANDOM 93 mg/dL (74-106)
[2023-07-02 11:15] LABS: CREATININE 0.7 mg/dL (0.55-1.3)
[2023-07-02 11:16] LABS: SGOT/AST 14 U/L (15-37); SGPT/ALT 19 U/L (13-61)
[2023-07-02 11:17] LABS: BILIRUBIN,TOTAL 0.1 mg/dL (0.2-1); TOT PROT 6.2 g/dl (6.4-8.2)
[2023-07-02 11:18] LABS: ALK PHOS 80 U/L (45-117)
[2023-07-02] MEDS ORDERED: metFORMIN HCL 500 MG TABLET (FP) PO SCH ×2 (16:30)
[2023-07-04] MEDS ORDERED: diazePAM 5 MG TABLET PO SCH (06:00)
[2023-07-05] MEDS ORDERED: diazePAM 5 MG TABLET PO SCH (06:00)
[2023-07-06] MEDS ORDERED: diazePAM 5 MG TABLET PO ONE (06:00)
== END 2023-07-02 12:20 | disposition left against medical advice (07) | DRG 770 ==
LOC: YASAS 10:58 → Y6N 13:24
PROVIDERS: ADMIT Allergy & Immunology; ATTEND Allergy & Immunology
PROC: HZ2ZZZZ Detoxification Services for Substance Abuse Treatment (ICD-10-PCS; principal; 2023-07-01)
DX: F10.230 Alcohol dependence with withdrawal, uncomplicated (principal); F14.20 Cocaine dependence, uncomplicated; F13.20 Sedative, hypnotic or anxiolytic dependence, uncomplicated; F17.210 Nicotine dependence, cigarettes, uncomplicated; F25.9 Schizoaffective disorder, unspecified; F19.282 Other psychoactive substance dependence with psychoactive substance-induced sleep disorder; F19.24 Other psychoactive substance dependence with psychoactive substance-induced mood disorder; H54.61 Unqualified visual loss, right eye, normal vision left eye; J45.40 Moderate persistent asthma, uncomplicated; M17.0 Bilateral primary osteoarthritis of knee; E11.59 Type 2 diabetes mellitus with other circulatory complications; Z79.84 Long term (current) use of oral hypoglycemic drugs; Z88.8 Allergy status to other drugs, medicaments and biological substances
CPT/HCPCS: 0241U-QW; 36415; 80053; 80307; 82962; 85027; 86780; 87635; 93005; 93010

== ENCOUNTER 2023-07-31 10:47 | Inpatient (IN) | payer OTHER ==
[2023-07-31 11:17] VITALS: BMI 27.4
[2023-07-31] MEDS ORDERED: METHOCARBAMOL 500 MG TABLET PO PRN (13:10)
[2023-07-31] MEDS ORDERED: guaiFENesin 600 MG TABLET.ER (FP) PO PRN (13:10)
[2023-07-31] MEDS ORDERED: ACETAMINOPHEN 325 MG TABLET (FP) PO PRN (13:10)
[2023-07-31] MEDS ORDERED: MAG HYDROX/AL HYDROX/SIMETH 30 ML UNIT-DOSE CUP PO PRN (13:10)
[2023-07-31] MEDS ORDERED: BENZONATATE 200 MG CAPSULE PO PRN (13:10)
[2023-07-31] MEDS ORDERED: NALOXONE HCL 0.4 MG/ML VIAL IM PRN (13:10)
[2023-07-31] MEDS ORDERED: POLYETHYLENE GLYCOL (HEALTHYLAX) 3350 17 GM PACKET PO PRN (13:10)
[2023-07-31] MEDS ORDERED: BISMUTH SUBSALICYLATE 524 MG/30 ML PO PRN (13:10)
[2023-07-31] MEDS ORDERED: NALOXONE HCL (KLOXXADO) 8 MG SPRAY NS PRN (13:10)
[2023-07-31] MEDS ORDERED: BENZOCAINE/MENTHOL (CHLORASEPTIC ) LOZENGE MM PRN (13:10)
[2023-07-31] MEDS ORDERED: IBUPROFEN 400 MG TABLET (FP) PO PRN (13:10)
[2023-07-31] MEDS ORDERED: DICYCLOMINE HCL 10 MG CAPSULE PO PRN (13:10)
[2023-07-31] MEDS ORDERED: IBUPROFEN 600 MG TABLET (FP) PO PRN (13:10)
[2023-07-31] MEDS ORDERED: ONDANSETRON *ODT* 4 MG TABLET SL PRN (13:10)
[2023-07-31] MEDS ORDERED: MAGNESIUM HYDROX 2400MG/30ML ORAL SUSPENSION 30 ML CUP PO PRN (13:10)
[2023-07-31] MEDS ORDERED: LOPERAMIDE HCL 2 MG CAPSULE PO PRN (13:10)
[2023-07-31] MEDS ORDERED: NICOTINE POLACRILEX 2 MG GUM BUC PRN (13:16)
[2023-07-31] MEDS ORDERED: hydrOXYzine PAMOATE 25 MG CAPSULE (FP) PO ONE (13:42)
[2023-07-31] MEDS ORDERED: cloNIDine HCL 0.1 MG TABLET ONE (13:42)
[2023-07-31] MEDS: hydrOXYzine PAMOATE 25 MG CAPSULE (FP) PO PRN (13:46)
[2023-07-31] MEDS: cloNIDine HCL 0.1 MG TABLET PO ONE (13:46)
[2023-07-31] MEDS ORDERED: ALBUTEROL SO4 HFA INHALER IH PRN (15:28)
[2023-07-31] MEDS: INSULIN ASPART SLIDING SCALE (NOVOLOG) 1 VIAL SQ SCH (17:11)
[2023-07-31] MEDS ORDERED: INSULIN (NOVOLOG) ASPART 100 UNITS/ML 10ML VIAL ONE (17:12)
[2023-07-31] MEDS: THIAMINE HCL 100 MG TABLET (FP) PO SCH (22:29)
[2023-07-31] MEDS: MELATONIN 5 MG TABLETS PO SCH (22:29)
[2023-08-01] MEDS: metFORMIN HCL 500 MG TABLET (FP) PO SCH (06:14)
[2023-08-01] MEDS ORDERED: INSULIN (NOVOLOG) ASPART 100 UNITS/ML 10ML VIAL ONE (06:17)
[2023-08-01] MEDS ORDERED: diazePAM 5 MG TABLET PO PRN (08:33)
[2023-08-01 09:09] VITALS: BP 157/97; PULSE 88; RESP 20; TEMP 97.3
[2023-08-01] MEDS ORDERED: ALBUTEROL SO4 0.083% IH SOL 2.5 MG/3 ML VIAL.NEB. NEB PRN (09:27)
[2023-08-01] MEDS ORDERED: LISINOPRIL 20 MG TABLET PO SCH (10:00)
[2023-08-01] MEDS: amLODIPine BESYLATE 10 MG TABLET (FP) PO SCH (10:06)
[2023-08-01] MEDS: PRENATAL VITAMINS W/ FOLIC ACID TABLET (FP) PO SCH (10:06)
[2023-08-01] MEDS: LISINOPRIL 20 MG TABLET PO SCH (10:06)
[2023-08-01] MEDS: diazePAM 5 MG TABLET PO SCH (10:07)
[2023-08-01] MEDS: NICOTINE 21 MG/24 HOURS TOPICAL PATCH TD SCH (10:09)
[2023-08-02] MEDS ORDERED: diazePAM 5 MG TABLET PO SCH (06:00)
[2023-08-03] MEDS ORDERED: diazePAM 5 MG TABLET PO SCH (06:00)
[2023-08-04] MEDS ORDERED: diazePAM 5 MG TABLET PO ONE (06:00)
== END 2023-08-01 10:33 | disposition left against medical advice (07) | DRG 770 ==
LOC: YASAS 10:47 → UNDOADMIN 13:49 → Y6N 13:49 → UNDODISIN 08-01 10:33
PROVIDERS: ADMIT Allergy & Immunology; ATTEND Surgery
PROC: HZ2ZZZZ Detoxification Services for Substance Abuse Treatment (ICD-10-PCS; principal; 2023-07-31)
DX: F10.20 Alcohol dependence, uncomplicated (principal); F13.20 Sedative, hypnotic or anxiolytic dependence, uncomplicated; F17.210 Nicotine dependence, cigarettes, uncomplicated; I10 Essential (primary) hypertension; J45.20 Mild intermittent asthma, uncomplicated; E11.9 Type 2 diabetes mellitus without complications; Z79.84 Long term (current) use of oral hypoglycemic drugs; M17.0 Bilateral primary osteoarthritis of knee; R26.89 Other abnormalities of gait and mobility; Z99.89 Dependence on other enabling machines and devices; Z88.8 Allergy status to other drugs, medicaments and biological substances; F91.8 Other conduct disorders; Z91.199 Patient's noncompliance with other medical treatment and regimen due to unspecified reason
CPT/HCPCS: 80305; 82962; 87635; 87811; 93005; 93010

== ENCOUNTER 2024-04-21 17:59 | Inpatient (IN) | payer OTHER ==
[2024-04-21 18:24] VITALS: BMI 28.0
[2024-04-21] MEDS ORDERED: BENZOCAINE/MENTHOL (CHLORASEPTIC ) LOZENGE MM PRN (18:51)
[2024-04-21] MEDS ORDERED: BISMUTH SUBSALICYLATE 524 MG/30 ML PO PRN (18:51)
[2024-04-21] MEDS ORDERED: guaiFENesin 600 MG TABLET.ER (FP) PO PRN (18:51)
[2024-04-21] MEDS ORDERED: IBUPROFEN 400 MG TABLET (FP) PO PRN (18:51)
[2024-04-21] MEDS ORDERED: POLYETHYLENE GLYCOL (HEALTHYLAX) 3350 17 GM PACKET PO PRN (18:51)
[2024-04-21] MEDS ORDERED: ACETAMINOPHEN 325 MG TABLET (FP) PO PRN (18:51)
[2024-04-21] MEDS ORDERED: MAGNESIUM HYDROX 2400MG/30ML ORAL SUSPENSION 30 ML CUP PO PRN (18:51)
[2024-04-21] MEDS ORDERED: MAG HYDROX/AL HYDROX/SIMETH 30 ML UNIT-DOSE CUP PO PRN (18:51)
[2024-04-21] MEDS ORDERED: NICOTINE POLACRILEX 2 MG LOZENGE BC PRN (18:51)
[2024-04-21] MEDS ORDERED: NICOTINE POLACRILEX 2 MG GUM BUC PRN (18:51)
[2024-04-21] MEDS ORDERED: LOPERAMIDE HCL 2 MG CAPSULE PO PRN (18:51)
[2024-04-21] MEDS ORDERED: IBUPROFEN 600 MG TABLET (FP) PO PRN (18:51)
[2024-04-21] MEDS ORDERED: DICYCLOMINE HCL 10 MG CAPSULE PO PRN (18:51)
[2024-04-21] MEDS ORDERED: ONDANSETRON *ODT* 4 MG TABLET SL PRN (18:51)
[2024-04-21] MEDS ORDERED: BENZONATATE 200 MG CAPSULE PO PRN (18:51)
[2024-04-21] MEDS: THIAMINE 100 MG TABLET PO SCH (22:09)
[2024-04-21] MEDS: hydrOXYzine PAMOATE 25 MG CAPSULE (FP) PO PRN (22:09)
[2024-04-21] MEDS: MELATONIN 5 MG TABLETS PO SCH (22:09)
[2024-04-21] MEDS: METHOCARBAMOL 500 MG TABLET PO PRN (22:10)
[2024-04-21] MEDS ORDERED: ALBUTEROL SO4 HFA INHALER IH PRN (22:37)
[2024-04-22] MEDS: metFORMIN HCL 500 MG TABLET (FP) PO SCH (06:08)
[2024-04-22] MEDS: sitaGLIPtin PHOSPHATE 50 MG TABLET PO SCH (06:08)
[2024-04-22] MEDS ORDERED: diazePAM 5 MG TABLET PO PRN (08:16)
[2024-04-22 10:00] LABS: HEMATOCRIT 41.1 % (35.4-49); HEMOGLOBIN 13.4 GM/dL (11.7-16.9); MCH 28.5 pg (25.7-33.7); MCHC 32.7 g/dl (32.0-35.9); MEAN CELL VOLUME 87.3 fl (80-96); MEAN PLT VOLUME 9.8 fl (7.5-11.1); PLATELET COUNT 209 10^3/uL (134-434); RDW 13.5 % (11.9-15.9); WHITE BLOOD COUNT 4.7 K/mm3 (4.0-10.0)
[2024-04-22] MEDS: amLODIPine BESYLATE 10 MG TABLET (FP) PO SCH (10:12)
[2024-04-22] MEDS: PRENATAL VITAMINS W/ FOLIC ACID TABLET (FP) PO SCH (10:12)
[2024-04-22] MEDS: diazePAM 5 MG TABLET PO SCH (10:13)
[2024-04-22 10:39] LABS: CHLORIDE 107 mmol/L (98-107); POTASSIUM 3.9 mmol/L (3.5-5.1); SODIUM 140 mmol/L (136-145)
[2024-04-22 10:43] LABS: ANION GAP 6 mmol/L (4-13); CALCIUM 9.1 mg/dL (8.5-10.1); CO2 27 mmol/L (21-32); GLUCOSE,RANDOM 197 mg/dL (74-106)
[2024-04-22 10:44] LABS: ALBUMIN 3.4 g/dl (3.4-5.0); BLOOD UREA NITROGEN 15.3 mg/dL (7-18)
[2024-04-22 10:46] LABS: CREATININE 0.9 mg/dL (0.55-1.3)
[2024-04-22 10:47] LABS: SGOT/AST 39 U/L (15-37); SGPT/ALT 35 U/L (13-61)
[2024-04-22 10:48] LABS: BILIRUBIN,TOTAL 0.2 mg/dL (0.2-1); TOT PROT 6.8 g/dl (6.4-8.2)
[2024-04-22 10:49] LABS: ALK PHOS 94 U/L (45-117)
[2024-04-22] MEDS: QUEtiapine FUMARATE 100 MG TABLET (FP) PO SCH (22:01)
[2024-04-23] MEDS: CITALOPRAM HYDROBROMIDE 20 MG TABLET PO SCH (10:15)
[2024-04-24] MEDS: diazePAM 5 MG TABLET PO SCH (05:14)
[2024-04-24] MEDS: QUEtiapine FUMARATE 50 MG TABLET PO ONE (13:56)
[2024-04-24] MEDS ORDERED: QUEtiapine FUMARATE 100 MG TABLET (FP) PO SCH (22:00)
[2024-04-24] MEDS: QUETIAPINE FUMARATE 100 MG, QUETIAPINE FUMARATE 50 MG PO SCH (22:01)
[2024-04-25] MEDS: diazePAM 5 MG TABLET PO SCH (05:24)
[2024-04-25 12:44] VITALS: BP 120/79; PULSE 76; RESP 16; TEMP 97.3
[2024-04-25] MEDS: NALOXONE (NYS OPIOID OVERDOSE PROGRAM) 4 MG/0.1 ML SPRAY NS SCH (15:35)
[2024-04-26] MEDS ORDERED: diazePAM 5 MG TABLET PO ONE (06:00)
== END 2024-04-25 15:40 | disposition home or self-care (01) | DRG 774 ==
LOC: YASAS 17:59 → Y3N 19:14
PROVIDERS: ADMIT Allergy & Immunology; ATTEND Surgery
PROC: HZ2ZZZZ Detoxification Services for Substance Abuse Treatment (ICD-10-PCS; principal; 2024-04-21)
DX: F10.230 Alcohol dependence with withdrawal, uncomplicated (principal); F13.20 Sedative, hypnotic or anxiolytic dependence, uncomplicated; F14.20 Cocaine dependence, uncomplicated; F17.210 Nicotine dependence, cigarettes, uncomplicated; F19.24 Other psychoactive substance dependence with psychoactive substance-induced mood disorder; F25.9 Schizoaffective disorder, unspecified; I10 Essential (primary) hypertension; J45.909 Unspecified asthma, uncomplicated; E11.9 Type 2 diabetes mellitus without complications; Z79.84 Long term (current) use of oral hypoglycemic drugs; M17.0 Bilateral primary osteoarthritis of knee; Z59.00 Homelessness unspecified; Z56.0 Unemployment, unspecified; Z88.8 Allergy status to other drugs, medicaments and biological substances
CPT/HCPCS: 36415; 80053; 80305; 80307; 82962; 85027; 86780; 93005; 93010